=== PATIENT | female | born 1985 | race Caucasian/White ===

== ENCOUNTER → 2017-06-26 14:02 | Outpatient (CLI) | payer OTHER, SELFPAY ==
--- NOTE | 2017-06-26 14:08 | XR_ITS ---
XR abdomen min 2V Ordering Physician: Justen Ceballos MD Patient Age: 32 years: Female HISTORY: ITS.REASON: VOMITING NAUSEA TECHNIQUE: . Flat and upright views abdomen COMPARISON :CT abdomen and pelvis November 2016. FINDINGS Upright abdomen reveals no free air beneath the diaphragm. No organomegaly. Prominent stool is seen throughout the right and transverse colon; with only moderate stool at the left colon & rectosigmoid.. Small bowel fairly unremarkable with no bowel dilatation or obstruction at small bowel. Appreciable Small punctate 2 mm calcification projected over left kidney reflecting small intrarenal calculi seen here on previous 2017 CT There is also a tear of calcifications largest measuring 5 mm projected over the mid right kidney reflecting small right renal calculi. These are also seen on previous CT 2017.. The patient's IUD appears been removed in the interval. I do not see any discrete ureteral calculi on this study. Clinical correlation required. IMPRESSION: 1. No bowel dilatation or obstruction. No air-fluid levels or significant acute findings 2. Prominent stool throughout the right and transverse colon reflecting moderate constipation . Only Mild/moderate stool left colon and rectosigmoid otherwise noted 3 Small punctate bilateral renal calculi as seen on last years CT
== END ==
PROVIDERS: PCP Family Medicine; Visit Provider Family Medicine
DX: R11.12 Projectile vomiting (principal)
CPT/HCPCS: 74019

== ENCOUNTER → 2018-10-01 08:24 | Outpatient (CLI) | payer OTHER, MEDICAID, SELFPAY ==
[2018-10-01 08:46] LABS: Basophils % 0.5 % (0.1-2.0); Eosinophils # 0.1 K/mm3 (0.0-0.4); Eosinophils % 1.3 % (0.1-12.0); Hematocrit 42.3 % (37.0-47.0); Hemoglobin 14.9 g/dL (12.2-16.2); Lymphocytes # 1.9 K/mm3 (0.7-4.5); Lymphocytes % 25.9 % (10-50); Mean Corpuscular HGB Conc 35.2 g/dL (31.8-35.4); Mean Corpuscular Hemoglobin 31.6 pg (27.0-31.2); Mean Corpuscular Volume 89.7 fl (81-99); Mean Platelet Volume 9.8 fl (7.4-10.4); Monocytes # 0.4 K/mm3 (0.1-1.0); Monocytes % 5.3 % (1.7-9.3); Neutrophils # 4.8 K/mm3 (1.8-7.8); Neutrophils % 67.1 % (37.0-80.0); Platelet Count 166 K/mm3 (142-424); Red Blood Count 4.72 M/mm3 (4.20-5.40); Red Cell Distribution Width 12.3 % (11.5-17.5); White Blood Count 7.1 K/mm3 (4.8-10.8)
[2018-10-02 06:08] LABS: HIV Screen 4th Generation wRfx Non Reactive (Non Reactive)
[2018-10-02 08:33] LABS: Hepatitis B Surface Antigen Negative (Negative); Hepatitis C Antibody <0.1 s/co ratio (0.0-0.9); Rubella Antibodies, IgG 1.81 index (Immune >0.99)
[2018-10-03 13:53] LABS: Rapid Plasma Reagin Ab Titer Non Reactive (NonRea<1:1)
== END ==
PROVIDERS: Visit Provider Nurse Practitioner Obstetrics & Gynecology
DX: Z34.90 Encounter for supervision of normal pregnancy, unspecified, unspecified trimester (principal); Z3A.08 8 weeks gestation of pregnancy
CPT/HCPCS: 36415; 85025; 86592; 86703; 86762; 86850; 87340; 87380; G0432

== ENCOUNTER → 2018-10-12 12:40 | Outpatient (CLI) | payer OTHER, MEDICAID, SELFPAY ==
--- NOTE | 2018-10-12 12:43 | US_ITS ---
US OB transvaginal HISTORY: ITS.REASON: US OB Dates ORDERING PHYSICIAN: Александр Lopez MD PATIENT AGE: 33 years COMPARISON: None FINDINGS: An intrauterine gestational sac is present with a pole with a crown-rump length of 3.39cm correlating to gestational age of 10w2d. heart tones are present with an FHR of 174 bpm's. Yolk sac is noted. The amnion and chorion have not yet fused. Adnexa: 1.5 cm right corpus luteum cyst. IMPRESSION: Live intrauterine gestation at 10 weeks 2 days as described above. Estimated due date by Ultrasound is 05/08/2019
== END ==
PROVIDERS: PCP Family Medicine; Visit Provider Nurse Practitioner Obstetrics & Gynecology
DX: O26.841 Uterine size-date discrepancy, first trimester (principal)
CPT/HCPCS: 76817

== ENCOUNTER → 2018-12-18 12:53 | Outpatient (CLI) | payer OTHER, MEDICAID, SELFPAY ==
--- NOTE | 2018-12-18 12:56 | US_ITS ---
US OB /maternal detail: INDICATION: ITS.REASON: US OB Complete ORDERING PHYSICIAN: Александр Lopez MD PATIENT AGE: 33 years TECHNIQUE: ultrasound transabdominal scanning. COMPARISON: No previous relevant studies. FINDINGS: Single viable intrauterine gestation. Cephalic position. Placenta: Anterior although wraps along the superior and upper posterior aspect. Placenta grade 1. There is normal amount fluid. The cervix appears satisfactory. Closed and measuring 3.3 cm in length. Complete survey performed and was unremarkable on the submitted images as in PACS. No discrete anomalies identified on survey imaging by technologist. Active fetus. Three-vessel cord with satisfactory umbilical cord insertion. 4- chamber heart noted. Survey of brain & ventricles unremarkable. Face and neck survey unremarkable. Diaphragm and chest views unremarkable. Abdomen: Both kidneys noted and unremarkable. Stomach noted and satisfactory. Spine: Survey of the spine satisfactory with no anomalies identified nor imaged. Both arms and legs noted. Amniotic Fluid: Adequate. Maternal adnexa: No significant findings. Measurements: Average ultrasound age 20 weeks 3 days. Gestational Age 19 weeks 6 days. Estimated due date by ultrasound age 1205/04/2019. Estimated weight 339 grams. BPD = 4.7 OFD = 6.4 HC = 17.8 AC = 15.1 FL = 3.2 Growth Percentile= 66% Heart Rate = 155 bpm. Cerebellum = 2.0 Humerus = 3.1 HC/AC is 1.17. CI is 74%. FL/BPD is 67%. FL/AC is 21%. IMPRESSION: Single intrauterine fetus in cephalic position with anterior grade 1 placenta and heart rate of 155 bpm. Gestational age by ultrasound is approximately 20 weeks and 3 days. Visualized portions of the anatomy on this study appears to be normal.
== END ==
PROVIDERS: PCP Family Medicine; Visit Provider Nurse Practitioner Obstetrics & Gynecology
DX: Z36.0 Encounter for antenatal screening for chromosomal anomalies (principal)
CPT/HCPCS: 76811

== ENCOUNTER → 2019-02-13 08:07 | Outpatient (CLI) | payer OTHER, MEDICAID, SELFPAY ==
[2019-02-13 08:32] LABS: Glucose,Fasting 94 mg/dL (60-105)
[2019-02-13 10:56] LABS: Glucose 1 Hour 174 mg/dL (74-106)
== END ==
PROVIDERS: Visit Provider Nurse Practitioner Obstetrics & Gynecology
DX: Z34.90 Encounter for supervision of normal pregnancy, unspecified, unspecified trimester (principal)
CPT/HCPCS: 36415; 82951

== ENCOUNTER → 2019-02-15 09:05 | Outpatient (CLI) | payer OTHER, MEDICAID, SELFPAY ==
[2019-02-15 10:41] LABS: Glucose,Fasting 83 mg/dL (60-105)
[2019-02-15 11:16] LABS: Glucose 1 Hour 150 mg/dL (74-106)
[2019-02-15 12:52] LABS: Glucose 2 Hour 114 mg/dL (74-106)
[2019-02-15 13:05] LABS: Glucose 3 Hour 60 mg/dL (74-106)
== END ==
PROVIDERS: Visit Provider Nurse Practitioner Obstetrics & Gynecology
DX: Z34.90 Encounter for supervision of normal pregnancy, unspecified, unspecified trimester (principal)
CPT/HCPCS: 36415; 82951

== ENCOUNTER 2019-04-06 18:03 | Outpatient (CLI) | payer OTHER, SELFPAY ==
[2019-04-06 18:38] VITALS: BP 116/70; PULSE 130; RESP 18; TEMP 36.7; O2SAT 98; BMI 29.0
[2019-04-06 18:49] LABS: Microscopic, Urine URINE MICROSCOPIC (MICROSCOPIC)
[2019-04-06 18:51] LABS: Appearance,Urine CLEAR (Clear); Bilirubin,Urine Negative (Negative); Blood, Urine 1+ (Negative); Color,Urine YELLOW (Yellow); Glucose,Urine (UA) Negative (Negative); Ketones,Urine Negative (Negative); Leukocyte Esterase,Urine TRACE (Negative); Nitrate,Urine Negative (Negative); PH,Urine 6.5 (5.0-8.5); Protein,Urine TRACE (Negative); Specific Gravity, Urine <= 1.005 (1.005-1.030); Urobilinogen,Urine 0.2 EU/dl (0.2)
[2019-04-06 18:57] LABS: Amorphous Sediment,Urine Trace /lpf
[2019-04-06 19:00] LABS: Amphetamine/Metha Screen,Urine Negative ng/mL (<1000); Barbiturates Screen,Urine Negative ng/mL (<200); Benzodiazepines Screen,Urine Negative ng/mL (<200); Cannabinoid Screen,Urine Negative ng/mL (<50); Cocaine Screen,Urine Negative ng/mL (<300); Methadone Screen,Urine Negative ng/mL (<300); Opiate Screen,Urine Negative ng/mL (<300); Phencyclidine Screen,Urine Negative ng/mL (<25)
== END 2019-04-06 20:10 | disposition home or self-care (01) ==
LOC: OBOUT 18:05 → OB 18:07
PROVIDERS: PCP Family Medicine; Visit Provider Nurse Practitioner Obstetrics & Gynecology
DX: O26.893 Other specified pregnancy related conditions, third trimester (principal); Z3A.35 35 weeks gestation of pregnancy; R10.9 Unspecified abdominal pain; M54.5 Low back pain
CPT/HCPCS: 59025; 80305; 81001; 96360

== ENCOUNTER → 2019-04-10 17:25 | Outpatient (CLI) | payer OTHER, SELFPAY | PROVIDERS: Visit Provider Nurse Practitioner Obstetrics & Gynecology | DX: Z34.90 Encounter for supervision of normal pregnancy, unspecified, unspecified trimester (principal) | CPT/HCPCS: 86403 ==

== ENCOUNTER 2019-05-06 01:36 | Inpatient (IN) ==
[2019-05-06 02:07] LABS: Microscopic, Urine URINE MICROSCOPIC (MICROSCOPIC)
[2019-05-06 02:15] LABS: Appearance,Urine CLEAR (Clear); Bilirubin,Urine Negative (Negative); Blood, Urine 1+ (Negative); Color,Urine YELLOW (Yellow); Glucose,Urine (UA) Negative (Negative); Ketones,Urine Negative (Negative); Leukocyte Esterase,Urine TRACE (Negative); Protein,Urine Negative (Negative); Specific Gravity, Urine <= 1.005 (1.005-1.030); Urobilinogen,Urine 0.2 EU/dl (0.2)
[2019-05-06 02:21] LABS: Amphetamine/Metha Screen,Urine Negative ng/mL (<1000); Barbiturates Screen,Urine Negative ng/mL (<200); Benzodiazepines Screen,Urine Negative ng/mL (<200); Cannabinoid Screen,Urine Negative ng/mL (<50); Cocaine Screen,Urine Negative ng/mL (<300); Methadone Screen,Urine Negative ng/mL (<300); Opiate Screen,Urine Negative ng/mL (<300); Phencyclidine Screen,Urine Negative ng/mL (<25)
[2019-05-06 03:03] LABS: Basophils # 0.1 K/mm3 (0-0.2); Basophils % 0.3 % (0.1-2.0); Eosinophils # 0.2 K/mm3 (0.0-0.4); Eosinophils % 1.1 % (0.1-12.0); Hematocrit 38.1 % (37.0-47.0); Hemoglobin 12.3 g/dL (12.2-16.2); Lymphocytes # 2.8 K/mm3 (0.7-4.5); Lymphocytes % 16.4 % (10-50); Mean Corpuscular HGB Conc 32.2 g/dL (31.8-35.4); Mean Corpuscular Volume 91.7 fl (81-99); Mean Platelet Volume 9.3 fl (7.4-10.4); Monocytes # 0.9 K/mm3 (0.1-1.0); Monocytes % 5.4 % (1.7-9.3); Neutrophils % 76.7 % (37.0-80.0); Platelet Count 279 K/mm3 (142-424); Red Blood Count 4.16 M/mm3 (4.20-5.40); Red Cell Distribution Width 13.7 % (11.5-17.5)
[2019-05-06 03:20] LABS: Lymphocytes % 15 % (10-50); Monocytes % 1 % (2-9); Neutrophils % 77 % (42-76); RBC Morphology Normal; Total Cells Counted 100
--- NOTE | 2019-05-06 07:27 | Progress Note ---
[facility] Anesthesia Checklist - Patient Identification Patient Identification: Arm Band, Verbal (Name & ) - Structural Data Admitted From: Home Planned Operative Procedure/s: Labor Epidural Consent for Planned Operative Procedure(s) Verified: Yes Verified Documents: Surgical Consent, History and Physical - Chart Verification Results Verified: CBC - Additional verifications Patient : Yes Anesthesia Reactions: No - Airway Assessment C-Spine Mobility Assessed: Yes TMJ Mobility Assessed: Yes Dentition: Good Dentition - Neurological Assessment Level of Consciousness: Awake, Alert, Appropriate, Follows Commands Hx Seizures: No Numbness or tingling in extremities: No - Anesthesia Plan Anesthesia Risk discussed: Yes Anesthesia Plan: Verified ASA Class: II Anesthesia Type: Epidural [facility] History I have reviewed the patient's past medical history: Yes Medical History: Reports:: Anxiety, Depression, Diabetes Mellitus Type 1, Gastroesophageal Reflux Disease(GERD), Migraine *Have you ever received a pneumonia vaccine?: No *Have you received a flu vaccine this season?: Yes Other Medical History: Reports: Hypothyroidism, Other Anesthesia experience/problems:: none Laterality Cases: Other Surgeries: Yes: No Previous Surgery. No: Amputation: No Fractures: No - *Social History Smoking Status: Current every day smoker Tobacco Type: cigarettes Alcohol Intake: never Alcohol Intake Frequency:: other Substance Use Type: denies use *Occupational Status:: employed Housing: house Household Members: family *Travel in the last 8 weeks: None - Psychiatric History Pschychiatric History:: Reports:: Anxiety, Depression Family Hx:: No significant family history Para: 1
--- NOTE | 2019-05-06 08:43 | Progress Note ---
Labor Note - Subjective: Date: 05/06/19 Time: 08:42 regular contraction - Objective: NST:: Reactive Contractions:: every 2-3 minutes Cervical Dilation:: 3 Effacement:: 75% Station: -2 Membranes: ruptured Comment:: She came in with ruptured membranes and on examination she had a small bag of water. I broke this bag. There was clear fluid. - Fetus: Monitoring?: Yes monitoring type:: Internal and External Comment:: I inserted an IUPC - Assessment: Labor progressing?: Yes Cephalopelvic disproportion?: No Patient Problems: All Active Problems AMA (advanced maternal age) multigravida 35+ (Acute) (Acute) Fatigue (Acute) Headache (Acute) Acute muscle stiffness of neck (Acute) - Plan: Anesthesia for epidural?: Yes Continue to labor down?: Yes Plan for ?: No Continue to monitor?: Yes Start pushing?: No
--- NOTE | 2019-05-06 11:18 | Progress Note ---
Labor Note - Subjective: Date: 05/06/19 Time: 11:17 regular contraction - Objective: NST:: Reactive Contractions:: every 2-3 minutes Cervical Dilation:: 4 Effacement:: 75% Station: -1 Membranes: spontaneously ruptured - Fetus: Monitoring?: Yes monitoring type:: Internal and External - Assessment: Labor progressing?: Yes Cephalopelvic disproportion?: No Patient Problems: All Active Problems AMA (advanced maternal age) multigravida 35+ (Acute) (Acute) Fatigue (Acute) Headache (Acute) Acute muscle stiffness of neck (Acute) - Plan: Anesthesia for epidural?: Yes Continue to labor down?: Yes Plan for ?: No Continue to monitor?: Yes Start pushing?: No
--- NOTE | 2019-05-06 13:42 | Progress Note ---
Labor Note - Subjective: Date: 05/06/19 Time: 13:41 regular contraction - Objective: NST:: Reactive Contractions:: every 2-3 minutes Cervical Dilation:: 5 Effacement:: 100% Station: -1 Membranes: spontaneously ruptured - Fetus: Monitoring?: Yes monitoring type:: Internal and External - Assessment: Labor progressing?: Yes Cephalopelvic disproportion?: No Patient Problems: All Active Problems AMA (advanced maternal age) multigravida 35+ (Acute) (Acute) Fatigue (Acute) Headache (Acute) Acute muscle stiffness of neck (Acute) - Plan: Anesthesia for epidural?: Yes Continue to labor down?: Yes Plan for ?: No Continue to monitor?: Yes Start pushing?: No
--- NOTE | 2019-05-06 16:29 | Progress Note ---
Labor Note - Subjective: Date: 05/06/19 Time: 16:00 regular contraction - Objective: Cervical Dilation:: 9 Effacement:: 100% Station: 0 Membranes: spontaneously ruptured - Fetus: Monitoring?: Yes monitoring type:: Internal and External - Assessment: Labor progressing?: Yes Cephalopelvic disproportion?: No Patient Problems: All Active Problems AMA (advanced maternal age) multigravida 35+ (Acute) (Acute) Fatigue (Acute) Headache (Acute) Acute muscle stiffness of neck (Acute) - Plan: Anesthesia for epidural?: Yes Continue to labor down?: Yes Plan for ?: No Continue to monitor?: Yes Start pushing?: No Comment:: She continues to do well. She has an anterior lip. We will expect a vaginal delivery.
[2019-05-06 17:32] LABS: ABG Base Excess -6.2 mmol/L (-2.4-2.3); ABG HCO3 20.1 mmhg (22.0-26.0); ABG Oxygen Saturation 60 % (90-100); ABG PCO2 40.9 mmhg (35.0-45.0); ABG PH 7.31 mmol/L (7.35-7.45); ABG TCO2 21.3 mmhg (23-27)
[2019-05-06 17:35] LABS: ABG PO2 22.8 mmhg (80-100)
--- NOTE | 2019-05-06 17:41 | Procedure Note ---
- Delivery Note Delivery Date:: 05/06/19 Delivery Time:: 17:21 Anesthesia Type: Epidural Was labor medically induced?: Yes Induction method: per pitocin protocol Gestational age (weeks): 39 delivered prior to 39 weeks?: No Gender: Male at 1 minute: 8 at 5 minutes: 9 LAC or MLE?: LAC Delivery Procedure:: She is a 34-year-old 2 para 1 who was 39 and 6 weeks gestational age. She was having some pressure and as result of that we elected to induce her labor at term. She was started on IV oxytocin had her membranes ruptured. Under labor epidural she progressed to full dilation and delivered spontaneously a liveborn male child at 5:21 PM in the afternoon of May 06, 2019. On deliver the head the anterior shoulder then delivered followed by the rest the infant's body atraumatically. The baby was vigorous and cried spontaneously. We allowed the cord to continue to pulsate for approximately 1 minute. The cord was then doubly clamped and cut and the infant was then placed on the mother's abdomen for further care. The nurses assigned Apgars of 8 at 1 minute and 9 at 5 minutes. We then obtained cord blood as well as cord pH. She received IV oxytocin and using gentle traction on the cord and countertraction on the fundus I was able to easily deliver the placenta intact. It had a normal three-vessel cord. She had a second-degree perineal laceration was repaired in the usual fashion with 3-0 Vicryl Rapide suture to the superficial tissues and 2-0 Vicryl suture to the deep tissues. She had a small left labial tear that was repaired with interrupted 3-0 Vicryl Rapide suture. Her estimated blood loss was approximately 500 cc. All sponge instrument and needle counts were correct. Laceration:: vaginal, labial Placental Delivery Description: Spontaneous
[2019-05-07 06:52] LABS: Hematocrit 30.4 % (37.0-47.0); Hemoglobin 9.8 g/dL (12.2-16.2)
--- NOTE | 2019-05-07 07:36 | Progress Note ---
Internal Medicine - PN: Subj *Date: 05/07/19 *Time: 07:35 Interval history: She is doing well this morning. She is eating and drinking and ambulating. She is breast-feeding. Her lochia is normal. Exam Vital signs and Labs for Last 24 Hours: Temp Pulse Resp BP Pulse Ox 97.5 F L 106 H 20 123/69 100 05/06/19 08:00 05/06/19 08:00 05/06/19 08:00 05/06/19 08:00 05/06/19 08:00 Laboratory Results - last 24 hr 05/06/19 17:29: ABG pH 7.31 L, ABG pCO2 40.9, ABG pO2 22.8 L, ABG HCO3 20.1 L, ABG Total CO2 21.3 L, ABG O2 Saturation 60 L*, ABG Base Excess -6.2 L 05/07/19 06:24: Hgb 9.8 L, Hct 30.4 L I & O for Last 24 hours: Intake & Output 05/04/19 05/05/19 05/06/19 05/07/19 11:59 11:59 11:59 11:59 Weight 178 lb Microbiology Reports for the Last 24 Hours: Microbiology 05/06/19 01:45 Urine,Clean Catch Urine Culture - Preliminary NO GROWTH AFTER 24 HOURS - Constitutional no acute distress Assessment and Plan (1) Normal delivery at term Current visit: Yes Status: Acute Category: Medical Code(s): O80 - Encounter for full-term uncomplicated delivery - Assessment and plan all Dx Assessment and Plan for all problems:: She continues to do well. We will plan to send her home tomorrow.
[2019-05-07 08:06] VITALS: BP 126/85
--- OUTSIDE RECORDS SUMMARY | 2019-05-07 15:21 | External Medical Summary | Continuity of Care Document ---
:1985 Author Organization [facility] Address [address] [facility] [address] [place] [address] Phone Care Team Providers Name Role Phone John Attending Provider Graeme Brewer Primary Care Provider Víctor Attending Provider George Attending Provider Allergies, Adverse Reactions, Alerts Allergen Type Severity Reaction Last Verified Status Updated meperidine Allergy Unknown Yes Active Medications Medication Status Dose Units Route Sig Qty Days Start Date End Ins tructions Date Vit Active 1 TAB Oral Daily October 24 Calc,Iron,Fo 2018 lic 12:14pm Melatonin Active 5 MG Oral At January bedtime 2017 nightly 9:46am Ferrous Active 325 MG Oral Daily April 7:47am Problems Active Problems Medical Problem Onset Date Status Fatigue Active Normal delivery at term Active AMA (advanced maternal age) Active multigravida 35+ Headache Active Active Acute muscle stiffness of neck Active Procedures Procedure Date Performed Status Group B Streptococcus Screen April 10, 2019 completed (JONATHAN) Relevant Diagnostic Tests and/or Laboratory Data Laboratory Results Test Date/Time Result Interpretation Reference Result Perfo rming Range Comment Site Urine Color January 11:27am Urine Color January 1:59pm Urine Color October Yellow 2018 11:05am Urine Color October Yellow 2018 11:13am Urine Color October Yellow 2018 10:51am Urine Color November Yellow 2018 10:32am Urine Color November Yellow 2018 4:53pm Urine Color November Yellow 2018 10:13am Urine Color Rhys Yvette 2018 11:57am Urine Angelique Clear Appearance 2018 11:27am Urine Angelique Clear Appearance 2018 1:59pm Urine October Clear Appearance 2018 11:05am Urine October Clear Appearance 2018 11:13am Urine October Clear Appearance 2018 10:51am Urine November Clear Appearance 2018 10:32am Urine November Clear Appearance 2018 4:53pm Urine November Clear Appearance 2018 10:13am Urine Rhys Clear Appearance 2018 11:57am Urine Glucose Angelique Negative (UA) 2018 11:27am Urine Glucose Angelique Negative (UA) 2018 1:59pm Urine Glucose October Negative (UA) 2018 11:05am Urine Glucose October Negative (UA) 2018 11:13am Urine Glucose October Negative (UA) 2018 10:51am Urine Glucose November Negative (UA) 2018 10:32am Urine Glucose November Negative (UA) 2018 4:53pm Urine Glucose November Negative (UA) 2018 10:13am Urine Glucose Rhys Negative (UA) 2018 11:57am Urine Angelique negative Bilirubin 2018 11:27am Urine Angelique negative Bilirubin 2018 1:59pm Urine October negative Bilirubin 2018 11:05am Urine October negative Bilirubin 2018 11:13am Urine October small Bilirubin 2018 10:51am Urine November negative Bilirubin 2018 10:32am Urine November negative Bilirubin 2018 4:53pm Urine November negative Bilirubin 2018 10:13am Urine Rhys negative Bilirubin 2018 11:57am Urine Ketones Angelique Negative mg/dL 2018 11:27am Urine Ketones Angelique Negative mg/dL 2018 1:59pm Urine Ketones October Negative mg/dL 2018 11:05am Urine Ketones October Negative mg/dL 2018 11:13am Urine Ketones October Negative mg/dL 2018 10:51am Urine Ketones March Negative mg/dL 2018 10:32am Urine Ketones March Negative mg/dL 2018 4:53pm Urine Ketones March Negative mg/dL 2018 10:13am Urine Ketones April Negative mg/dL 2018 11:57am Urine Protein Angelique Trace 2018 11:27am Urine Protein January Negative 2018 1:59pm Urine Protein February Negative 2018 11:05am Urine Protein February Negative 2018 11:13am Urine Specific October 1.010 [place] 2018 10:51am Urine Protein March Negative 2018 10:32am Urine Protein March Negative 2018 4:53pm Urine Protein March Negative 2018 10:13am Urine Protein April Negative 2018 11:57am Urine pH Angelique 7.0 2018 11:27am Urine pH Angelique 7.0 2018 1:59pm Urine pH October 7.0 2018 11:05am Urine pH October 7.0 2018 11:13am Urine Blood October negative 2018 10:51am Urine pH November 7.0 2018 10:32am Urine pH November 6.0 2018 4:53pm Urine pH November 7.0 2018 10:13am Urine pH Rhys 7.0 2018 11:57am Urine Blood Angelique nonhemolyzed 2018 trace 11:27am Urine Blood January nonhemolyzed 2018 trace 1:59pm Urine Blood October nonhemolyzed 2018 trace 11:05am Urine Blood October negative 2018 11:13am Urine pH October 6.0 2018 10:51am Urine Blood November nonhemolyzed 2018 trace 10:32am Urine Blood November nonhemolyzed 2018 trace 4:53pm Urine Blood November nonhemolyzed 2018 trace 10:13am Urine Blood Rhys nonhemolyzed 2018 trace 11:57am Urine Specific Angelique 1.010 [place] 2018 11:27am Urine Specific Angelique 1.005 [place] 2018 1:59pm Urine Specific February 1.010 [place] 2018 11:05am Urine Specific February 1.010 [place] 2018 11:13am Urine Protein February Negative 2018 10:51am Urine Specific November 1.015 [place] 2018 10:32am Urine Specific November 1.015 [place] 2018 4:53pm Urine Specific November 1.010 [place] 2018 10:13am Urine Specific Rhys 1.015 [place] 2018 11:57am Urine Angelique 0.2 Urobilinogen 2018 Dipstick 11:27am Urine Angelique 0.2 Urobilinogen 2018 Dipstick 1:59pm Urine October 0.2 Urobilinogen 2018 Dipstick 11:05am Urine October 0.2 Urobilinogen 2018 Dipstick 11:13am Urine October 0.2 Urobilinogen 2018 Dipstick 10:51am Urine November 0.2 Urobilinogen 2018 Dipstick 10:32am Urine November 0.2 Urobilinogen 2018 Dipstick 4:53pm Urine November 0.2 Urobilinogen 2018 Dipstick 10:13am Urine Rhys 0.2 Urobilinogen 2018 Dipstick 11:57am Urine Nitrate Angelique Negative 2018 11:27am Urine Nitrate Angelique Negative 2018 1:59pm Urine Nitrate October Negative 2018 11:05am Urine Nitrate October Negative 2018 11:13am Urine Nitrate October Negative 2018 10:51am Urine Nitrate November Negative 2018 10:32am Urine Nitrate November Negative 2018 4:53pm Urine Nitrate November Negative 2018 10:13am Urine Nitrate Rhys Negative 2018 11:57am Urine Angelique Trace Leukocyte 2018 Esterase 11:27am Urine Angelique Small Leukocyte 2018 Esterase 1:59pm Urine October Trace Leukocyte 2018 Esterase 11:05am Urine October Trace Leukocyte 2018 Esterase 11:13am Urine October Small Leukocyte 2018 Esterase 10:51am Urine November Trace Leukocyte 2018 Esterase 10:32am Urine November Trace Leukocyte 2018 Esterase 4:53pm Urine November Trace Leukocyte 2018 Esterase 10:13am Urine Rhys Trace Leukocyte 2018 Esterase 11:57am Fasting Angelique 94 mg/dL 60-105 [facility], [address] Glucose 2018 [place] [id number] 8:09am Fasting Angelique 83 mg/dL 60-105 [facility], [facility] 36 E Glucose 2018 [place] [id number] 9:06am Glucose 1 Hour January 174 mg/dL 74-106 [facility], [address] [place] [address] 36 E 2018 [place] [id number] 8:09am Glucose 1 Hour January 150 mg/dL 74-106 [facility], [facility] 36 E 2018 Rigober[place] [address] 9:06am Glucose 2 Hour January 114 mg/dL 74-106 [facility], [address] [place] [address] 36 E 2018 [place] [address] 9:06am Glucose 3 Hour Angelique 60 mg/dL 74-106 [facility], [address] [place] [address] 36 E 2018 [place] [id number] 9:06am Urine Fasting Angelique Negative mg/dL [facility], [address] [place] [address] 36 E Glucose 2018 [place] [address] 8:09am Urine Fasting Angelique Negative mg/dL [facility], [address] [place] [address] 36 E Glucose 2018 Rigober[place] SHAIKH [id number] 9:06am Urine Glucose Angelique Negative mg/dL [facility], [address] [place] [address] 36 E 1 Hour 2018 Rigober[place] [address]21 8:09am Urine Glucose Angelique Negative mg/dL [facility], [address] [place] [address] 36 E 1 Hour 2018 Rigober[place]AIKH [id number] 9:06am Urine Glucose Angelique Negative mg/dL [facility], [address] [place] [address] 36 E 2 Hour 2018 [place] [address] 9:06am Urine Glucose Angelique Negative mg/dL [facility], [address] [place] [address] 36 E 3 Hour 2018 [place] [id number] 9:06am Microbiology Results Procedure Source Result Collection Result Result Performin g Date/Time Date/Time Comment Site Group B Vaginal Negative March [facility], [address] [place] [address] 36 E Streptococcus for Group B 2018 Thee [place] [address] Screen (JONATHAN) Streptococc 10:33am 7:09am us. Advance Directives Advance Directive Response Recorded Date/Time Does the patient have an No May 03 019 11:48am advanced directive on file? Living Will No May 03, 2019 1 1:48am Does the patient have an No April 10, 2019 11:04am advanced directive on file? Living Will No April 10, 2019 11:04am Does the patient have an No April 18, 2019 11:18am advanced directive on file? Living Will No April 18, 2019 11:18am Does the patient have an No March 27 019 11:06am advanced directive on file? 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 Due date 05/07/19 Crampi ng and pain in r back OFFICE DROP OFF Water broke Reason for Visit Normal delivery at term Encounters Encounter Location(s) Arrival/Admit Date Discharge/Depart Date Provider(s) Departed [facility] Physician February 12, February 12, 2019 Shah [facility] 2018 11:11am 12:02pm [facility] John Visit Registered [facility] Physician February 13, Александр kate , [facility] 2018 8:07am Registered [facility] Physician February 15, Александр kate , [facility] 2018 9:05am Departed [facility] Physician February 19, February 19, 2019 Shah [facility] 2018 1:30pm 2:08pm [facility] John Visit Departed [facility] Physician February 27, 2019 February 27, 2019 Pedrito Lopez [facility] 10:31am 11:07am [facility] John Visit Departed [facility] Physician March 13, 2019 March 13, 2019 Geneva Renee , [facility] 10:26am 11:24am [facility] John Visit Departed [facility] Physician March 27, 2019 March 27, 2019 Batista [facility] 10:29am 10:58am [facility] John Visit Registered [facility] Physician April 06, 2019 April 06, 2019 Batista , [facility] 6:03pm 8:10pm MD Avi Lopez Departed [facility] Physician April 10, April 10, 2019 Александр Lopez [facility] 2018 10:11am 11:04am [facility] Lopez Visit Registered [facility] Physician April 10, Александр Lopez , Clinical Group-Lab Drop 2018 5:25pm MD Off to [facility] Departed [facility] Physician April 18, April 18, 2019 Александр Lopez [facility] 2018 10:48am 11:36am [facility] John Visit Departed [facility] Physician April 23, April 23, 2019 Александр Lopez [facility] 2018 9:48am 10:26am [facility] John Visit Departed [facility] Physician May 03, 2019 May 03, 2019 Batista [facility] 10:52am 11:36am [facility] John Visit Registered [facility] Physician May 06, 2019 Александр pires , [facility] 1:36am MD Avi Lopez Registered [facility] Physician May 07, Reinaldo em Inpatient Group- 2018 2:57pm Recent Diagnosis Onset Date Normal delivery at term Assessments Diagnosis Onset Date Resolution Status Normal delivery at term acute Functional Status Observation Response Date Recorded Functional status ambulatory May 03, 2019 1 1:48am Functional status ambulatory April 10, 2019 11:04am Functional status ambulatory April 23, 2019 10:31am Functional status ambulatory April 18, 2019 11:18am Functional status ambulatory March 27, 2019 1 1:06am Oral Care Ability Independent March 27, 2019 1 1:06am Bathing Ability Independent March 27, 2019 1 1:06am Eating (Feeding) Ability Independent March 27 019 11:06am Toileting Ability Independent March 27, 2019 1 1:06am Ambulation Ability Independent March 27, 2019 1 1:06am Functional status ambulatory March 13, 2019 2 :08pm Functional status ambulatory February 19, 2019 2:17pm Functional status ambulatory February 27, 2019 11 :08am Functional status ambulatory February 12, 2019 1:59pm Goals Acute Goals Nursing Diagnosis: Knowledge Deficit D isease/Condition Goal(s): Education of di sease process Instruction(s): Follow provider p jeff/instructions (See attached discharge education) Follow/up with primary care provider as instructed in discharge packet Ambulatory Goals pt verbalizes understanding of disease p rocess/healthy behavior. pt to follow plan of care. Education provided. Immunizations Immunization Event Not Given Dose Hot Box Spotter Lot Number Vac cine Date Reason Number Informatio n Statement (VIS) Deta il Measles, Mumps, August and Rubella , Virus Vaccine 1995 Td, adsorbed December 05, 2002 Mental Status No Mental Status Information Available Medical Equipment No Medical Equipment Information available Insurance Providers Guarantor Jaja Rakesh Address [address] [place] [address] Rigoberto [place] [id number] Contact Info. Home Phone: Payer Policy Id Coverage Id Subscriber's Subscriber Effective Expi ration Name Id Date Date Aetna [id number] [facility] [id number] Passport [id number] Health Plan Self Pay Self N/A Plan of Treatment She continues to do well. She has occasional contractions. Her cervix has changed somewhat. We will plan to deliver her next week. We did group B strep today. She is doing well. We will see her back again next week. She continues to do well. She does have some pruritus. Otherwise she is doing well. We will see her back next week. She is doing well. We will see her back again next week. She is not having any regular contractions. She is doing well. We will see her back again in 2 weeks time. Routine care RTO 2 wks She is quite stressed out because she is extremely fatigued. 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 I told her that she should probably only do 12-hour shifts. I think this may help with her fatigue. She says by the end of the 24-hour shift that she is been very busy she is completely exhausted. Her blood pressure was slightly elevated and I suspect she may be stressed. We will see how she does next week. If her blood pressure still elevated we will consider low-dose labetalol. She denies any headache or scotomata. She continues to do very well. We will see her back again in [address] with Dr. Renee and me in 4 weeks. Sounds like she may be having a few contractions at times. Told her that if they get worse or they become more regular she is coming to labor and delivery. Future Tests Future scheduled test information is unavailable Pending Tests Pending diagnostic test information is unavailable Future Visits Future appointment information is unavailable Referrals to Other Providers Reason for Referral Start Provider Provider Contact Provider Address Referral Date Information Admission to [facility] May [address] [facility] Future Procedures Future procedure information is unavailable Future Medications Future medication information is unavailable Patient Instructions Diet Diet Diet Diet Diet Antepartum Care Diet Diet Diet Diet Depression Hemorrhage [facility] Post Discharge Instructions Social History Assigned Sex Female Vital Signs Vital Reading Result Reference Range Collection Date/ Time Height 172.72 cm February 12, 2019 11:43am Weight 79.60 kg February 12, 2019 11:43am BP Systolic 150 mm[Hg] 110-140 February 12, 2019 11:43am BP Diastolic 80 mm[Hg] 60-90 February 12, 2019 11:43am BMI (Body Mass Index) 26.6 kg/m2 February 12, 2019 11:43am Height 172.72 cm February 19, 2019 1:47pm Weight 81.19 kg February 19, 2019 1:47pm BP Systolic 138 mm[Hg] 110-140 February 19, 2019 1:47pm BP Diastolic 90 mm[Hg] 60-90 February 19, 2019 1:47pm BMI (Body Mass Index) 27.2 kg/m2 February 19, 2019 1:47pm Height 172.72 cm February 27 10:49am Weight 79.15 kg February 27 10:49am BP Systolic 132 mm[Hg] 110-140 February 27 10:49am BP Diastolic 78 mm[Hg] 60-90 February 27 10:49am BMI (Body Mass Index) 26.5 kg/m2 February 10:49am Height 172.72 cm March 13 10:30am Weight 81.64 kg March 13 10:30am BP Systolic 122 mm[Hg] 110-140 March 13 10:30am BP Diastolic 80 mm[Hg] 60-90 March 13 10:30am BMI (Body Mass Index) 27.3 kg/m2 March 132018 10:30am Height 172.72 cm March 27 10:36am Weight 80.39 kg March 27 10:36am Body Temperature 98 [degF] 97.6-99.6 March 27, 2 019 10:36am Heart Rate 80 /min -March 27, 10:36am BP Systolic 130 mm[Hg] 110-140 March 27, 10:36am BP Diastolic 82 mm[Hg] 60-90 March 27, 10:36am BMI (Body Mass Index) 26.9 kg/m2 March 272018 10:36am Height 167.64 cm April 06, 6:38pm Weight 81.64 kg April 06, 6:38pm Body Temperature 98.0 [degF] 97.6-99.6 April 06, 2 019 6:38pm Heart Rate 130 /min April 06 6:38pm Respiratory rate 18 /min -April 06, 2 019 6:38pm Oxygen saturation by 98 % 95-100 March Pulse oximetry 6:38pm BP Systolic 116 mm[Hg] 110-140 April 06, 6:38pm BP Diastolic 70 mm[Hg] 60-90 April 06, 6:38pm BMI (Body Mass Index) 29.0 kg/m2 April 062018 6:38pm Height 167.64 cm April 10, 2 019 10:34am Weight 80.73 kg April 10, 2 019 10:34am BP Systolic 116 mm[Hg] 110-140 April 10, 2 019 10:34am BP Diastolic 70 mm[Hg] 60-90 April 10, 2 019 10:34am BMI (Body Mass Index) 28.7 kg/m2 March 292018 10:34am Height 167.64 cm April 18, 2 019 11:06am Weight 82.10 kg April 18, 2 019 11:06am BP Systolic 122 mm[Hg] 110-140 April 18, 2 019 11:06am BP Diastolic 90 mm[Hg] 60-90 April 18, 2 019 11:06am BMI (Body Mass Index) 29.2 kg/m2 March 302018 11:06am Height 167.64 cm April 23, 2 019 9:51am Weight 80.51 kg April 23, 2 019 9:51am BP Systolic 130 mm[Hg] 110-140 April 23, 2 019 9:51am BP Diastolic 82 mm[Hg] 60-90 April 23, 2 019 9:51am BMI (Body Mass Index) 28.6 kg/m2 March 302018 9:51am Height 167.64 cm May 03 10:59am Weight 81.19 kg May 03 10:59am BP Systolic 130 mm[Hg] 110-140 May 03 10:59am BP Diastolic 80 mm[Hg] 60-90 May 03 10:59am BMI (Body Mass Index) 28.8 kg/m2 May 032018 10:59am Height 167.64 cm May 06 3:35am Weight 80.73 kg May 06 3:35am Body Temperature 98.0 [degF] 97.6-99.6 May 07, 2019 8:00am Heart Rate 85 /min -May 07, 019 8:00am Respiratory rate 20 /min -May 07, 2019 8:00am Oxygen saturation by 100 % 95-100 May 072018 Pulse oximetry 8:00am BP Systolic 126 mm[Hg] 110-140 May 07, 2 019 8:00am BP Diastolic 85 mm[Hg] 60-90 May 07, 2 019 8:00am BMI (Body Mass Index) 28.7 kg/m2 May 062018 3:35am
--- NOTE | 2019-05-08 09:22 | Discharge Summary ---
General - General Admission date:: 05/06/19 Discharge date: 05/08/19 HPI HPI: She is a 34-year-old 2 para 2 who was 39 weeks gestational age and came in with ruptured membranes. Hospital Course Hospital Course: She had ruptured membranes and was augmented with oxytocin. She progressed to full dilation and delivered spontaneously a liveborn male child. She has done well and has remained afebrile throughout her hospitalization. She is eating and drinking and ambulating. She is breast- feeding. Her lochia is normal. She has O+ blood, she is rubella immune and was group B streptococcus negative. She is discharged home to follow-up with me in approximately 2 weeks time. Apparently her oldest son tested positive for the flu and she has been taking Tamiflu for the last couple of days. She will continue this for a total of 5 days. Her condition on discharge is stable and improved. Rhogam Administration: Not Indicated Objective Vital signs: Temp Pulse Resp BP Pulse Ox 98.0 F 85 20 126/85 100 05/07/19 08:00 05/07/19 08:00 05/07/19 08:00 05/07/19 08:00 05/07/19 08:00 no acute distress DS: Diagnosis - Discharge Diagnosis (1) Normal delivery at term Status: Acute (2) AMA (advanced maternal age) multigravida 35+ Status: Acute Discharge Plan - Patient Discharge Instructions ACTIVITY: No heavy lifting DIET: continue same diet Additional Instructions: NO HEAVY LIFTING, NO STRENUOUS ACTIVITY AND NOTHING IN THE VAGINA FOR 6 WEEKS Patient Instructions: Depression, Hemorrhage, [facility] Post Discharge Instructions - Follow up Plan Follow up with: Александр Lopez MD [Staff Physician] - Disposition: Home, Self-Shelter Medications: Home Medications Medication Instructions Recorded Confirmed Type Melatonin 5 mg PO HS 02/23/18 05/06/19 History 1 tab PO DAILY 10/24/18 05/06/19 History vitamin,calcium,reaoeipj-xhvb-ycnns acid tablet Ferrous Sulfate 325 mg PO DAILY 05/06/19 05/06/19 History Prescriptions/Medication Reconciliation: Continued vitamin,calcium,guawjflk-gaud-xljhz acid tablet 1 tab PO DAILY Melatonin 5 mg PO HS Ferrous Sulfate 325 mg PO DAILY - Problem Reconciliation Problems Reviewed?: Yes
== END 2019-05-08 14:47 | disposition home or self-care (01) | DRG 807 ==
LOC: OB 01:36
PROVIDERS: ADMIT Obstetrics & Gynecology; ATTEND Nurse Practitioner Obstetrics & Gynecology
CPT/HCPCS: 36415; 59025; 80305; 81001; 82803; 84112; 85007; 85014; 85018; 85025; 86850; 87086; 94761; C1758; J0595; J2405

== ENCOUNTER → 2021-02-18 12:33 | Outpatient (CLI) | payer OTHER, SELFPAY ==
[2021-02-18 12:55] LABS: Coronavirus 19, PCR Not Detected (NotDetected); Influenza A, PCR Not Detected (NotDetected); Influenza B, PCR Not Detected (NotDetected)
== END ==
PROVIDERS: PCP Family Medicine; Visit Provider Nurse Practitioner
DX: Z20.822 Contact with and (suspected) exposure to COVID-19 (principal)
CPT/HCPCS: C9803; U0003; U0005

== ENCOUNTER → 2021-02-26 10:34 | Outpatient (CLI) | payer OTHER, SELFPAY ==
[2021-02-26 10:46] LABS: Coronavirus 19, PCR Not Detected (NotDetected); Influenza A, PCR Not Detected (NotDetected); Influenza B, PCR Not Detected (NotDetected)
== END ==
PROVIDERS: PCP Family Medicine; Visit Provider Nurse Practitioner
DX: Z20.822 Contact with and (suspected) exposure to COVID-19 (principal)
CPT/HCPCS: C9803; U0003; U0005

== ENCOUNTER → 2021-03-01 11:55 | Outpatient (CLI) | payer OTHER, SELFPAY ==
[2021-03-01 13:30] LABS: Free Thyroxine Index 2.5 ug/dL (5.93-13.13); T4 (Thyroxine) 8.9 ug/dl (5.53-11.0); Triiodothryronine (T3) Uptake 28 % (23.5-40.5)
[2021-03-01 13:43] LABS: Thyroid Stimulating Hormone 1.64 uIU/mL (0.465-4.68)
== END ==
PROVIDERS: Visit Provider Family Medicine Addiction Medicine
DX: E03.9 Hypothyroidism, unspecified (principal)
CPT/HCPCS: 36415; 84436; 84443; 84479

== ENCOUNTER → 2021-05-15 07:35 | Outpatient (CLI) | payer OTHER, SELFPAY ==
[2021-05-15 09:18] LABS: Anion Gap 12.8 mEq/L (5-15); Blood Urea Nitrogen 9 mg/dl (7-17); Calcium 11.2 mg/dl (8.4-10.2); Carbon Dioxide 24 mmol/L (22.0-30.0); Chloride 106 mmol/L (98-107); Estimated Glomerular Filt Rate 94 ml/min (>60); GFR (African American) 114 ML/MIN (>60); Glucose 105 mg/dl (74-100); Potassium 4.8 mmoL/L (3.5-5.1); Sodium 138 mmol/L (136-145)
[2021-05-21 05:32] LABS: 1,25 Dihydroxy Vitamin D 97 pg/mL (.); 1,25-Dihydroxy, Vitamin D-2 74 pg/mL (.); 1,25-Dihydroxy, Vitamin D-3 23 pg/mL (.)
== END ==
PROVIDERS: Visit Provider Internal Medicine Endocrinology, Diabetes & Metabolism
DX: E83.52 Hypercalcemia (principal); E27.8 Other specified disorders of adrenal gland
CPT/HCPCS: 36415; 80048; 82306; 82533; 82652; 83970

== ENCOUNTER → 2021-05-22 22:18 | Outpatient (CLI) | payer OTHER, SELFPAY ==
[2021-05-22 22:49] VITALS: BMI 25.0
== END ==
PROVIDERS: PCP Family Medicine; Visit Provider Emergency Medicine
DX: R10.84 Generalized abdominal pain (principal)

== ENCOUNTER → 2021-05-24 11:50 | Outpatient (CLI) | payer OTHER, SELFPAY ==
--- NOTE | 2021-05-24 11:54 | CT_ITS ---
PROCEDURE: CT ABDOMEN PELVIS WO CON CLINICAL INDICATION: RT FLANK PAIN, GROSS HEMATURIA, KIDNEY STONES COMPARISON: CT ABDPELW/O CT ABD PELVIS W/O CONTRAST from 11/29/2016 TECHNIQUE: Axial images obtained with sagittal and coronal reformats. All CT scans at the facility use one or more dose reduction, viz: automated exposure control, ma/kV adjustment per patient size (including targeted exams where dose is matched to indication, i.e. head), or iterative reconstruction technique. FINDINGS: LOWER THORAX: No acute finding ABDOMEN & PELVIS: The liver has an unremarkable appearance. There is borderline splenomegaly at 13 cm. Bilateral adrenal enlargement is present left greater than right with the left adrenal gland measuring 3.9 by 2.3 cm. Low-density changes are present within the left adrenal gland suggesting an adenoma. Previously the left adrenal nodule measures 3.2 x 1.9 cm showing some increase in size on today's exam. Small right adenoma is present measuring 1.5 cm. There are numerous bilateral renal stones also with bilateral medullary calcification. The largest stone on the right is 7 mm. There is moderate to severe right hydronephrosis and hydroureter secondary to a 10 mm by 5 mm right distal ureteral stone. The stone is approximately 4 cm proximal to the ureterovesical junction. There is some minimal stranding of the right perinephric and proximal periureteral fat. No left ureteral calculus evident. No intestinal obstruction or free air. No evidence of appendicitis. There is a small umbilical hernia containing fat. There is an IUD in place. There is a left a adnexal pelvic mass measuring 6 x 6 cm consistent with an ovarian cyst. Pelvic ultrasound suggested for further characterization. The IUD appears to be in good position. No abnormal pelvic fluid collections. No acute bony findings. IMPRESSION: 1. 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 2. 6 cm isodense left-sided pelvic mass suggesting an ovarian cyst. Suggest pelvic ultrasound for further characterization. 3. Bilateral adrenal nodules left larger than right consistent with adenomas. The left adrenal nodule has increased in size since the previous exam now at 3.9 cm. Nonemergent MRI imaging with adrenal protocol may provide further evaluation. Dictated by: Shakir Fowler MD 05/24/2021 12:32 Shakir Fowler MD in OV 05/24/2021 12:32
== END ==
PROVIDERS: PCP Family Medicine; Visit Provider Family Medicine
DX: R10.9 Unspecified abdominal pain (principal); R31.0 Gross hematuria; N20.0 Calculus of kidney
CPT/HCPCS: 74176

== ENCOUNTER → 2021-06-01 11:37 | Outpatient (CLI) | payer OTHER, SELFPAY | PROVIDERS: PCP Family Medicine; Visit Provider Nurse Practitioner | DX: Z20.822 Contact with and (suspected) exposure to COVID-19 (principal) | CPT/HCPCS: C9803; U0003; U0005 ==

== ENCOUNTER → 2021-06-25 10:48 | Outpatient (CLI) | payer OTHER, SELFPAY ==
--- NOTE | 2021-06-25 10:48 | US_ITS ---
FINAL REPORT CLINICAL HISTORY: Look at both ovaries , focus on left ovarian mass-- prev ct FINDINGS: Transvaginal Ultrasound Technique: Transvaginal sonographic images of the pelvis were obtained. Findings: The uterus is enlarged and measures 10.3 x 5.6 x 4.4 cm. The myometrium appears heterogeneous with irregular hypoechoic regions throughout the may be due to diffuse fibroid uterus. An IUD is present in the endometrial cavity. The endometrium is within normal limits. The right ovary measures up to 4 cm. The left ovary measures up to 3.7 cm. There are bilateral ovarian cysts/follicles. Largest on the left measures 2.4 x 1.6 cm. Large stone the right measures 2.5 cm. IMPRESSION: Enlarged uterus with a heterogeneous appearing myometrium that may represent diffuse fibroid uterus. IUD in place. Bilateral ovarian cysts/follicles. Reviewed, Interpreted and Dictated by Wojciech Dixon MD Transcribed by Darian Anaya Authenticated by Wojciech Dixon MD on 06/25/2021 02:51:00 PM [facility]
== END ==
PROVIDERS: PCP Family Medicine; Visit Provider Nurse Practitioner Obstetrics & Gynecology
DX: N83.202 Unspecified ovarian cyst, left side (principal); N83.209 Unspecified ovarian cyst, unspecified side; R93.5 Abnormal findings on diagnostic imaging of other abdominal regions, including retroperitoneum
CPT/HCPCS: 76830

== ENCOUNTER → 2021-07-08 10:25 | Outpatient (CLI) | payer OTHER, SELFPAY ==
[2021-07-09 09:01] LABS: Covid-19 Nasal PCR Sendout Lex NOT DETECTED
== END ==
PROVIDERS: Visit Provider Nurse Practitioner
DX: Z20.822 Contact with and (suspected) exposure to COVID-19 (principal)
CPT/HCPCS: C9803; U0004; U0005

== ENCOUNTER → 2021-09-20 08:21 | Outpatient (CLI) | payer OTHER, SELFPAY | PROVIDERS: Visit Provider Nurse Practitioner | DX: Z01.812 Encounter for preprocedural laboratory examination (principal); Z11.52 Encounter for screening for COVID-19 | CPT/HCPCS: C9803; U0003; U0005 ==

== ENCOUNTER → 2021-11-01 09:04 | Outpatient (CLI) | payer OTHER, SELFPAY | PROVIDERS: PCP Family Medicine; Visit Provider Family Medicine | DX: N39.0 Urinary tract infection, site not specified (principal); R31.0 Gross hematuria | CPT/HCPCS: 87086 ==

== ENCOUNTER 2022-01-06 19:01 | Emergency (ER) | payer OTHER, SELFPAY ==
[2022-01-06] VITALS (9 sets, daily range): BP systolic 118–160; BP diastolic 61–93; PULSE 60–79; RESP 16–19; TEMP 36.8–37.1; O2SAT 98–100; BMI 28.3; BMI 25.8
[2022-01-06 19:17] LABS: Microscopic, Urine URINE MICROSCOPIC (MICROSCOPIC)
--- NOTE | 2022-01-06 19:17 | HMH.EDUTC ---
[facility] [place] Clinical Impression: Flank pain Disposition: Still a Patient Condition on Discharge: Fair Referrals: Justen Ceballos MD [Primary Care Provider] - Medical Decision Making - Arie Inquiry Pt receiving controlled substance: No Arie was queried for this patient: No Vital Signs: 01/06/22 19:05 Temperature 98.8 F Temperature Source Oral Pulse Rate [Left Brachial] 68 Respiratory Rate 19 Blood Pressure [Left Arm] 149/88 H Blood Pressure Mean [Left Arm] 108 Blood Pressure Source [Left Arm] Automatic Cuff Blood Pressure Position [Left Arm] Sitting 02 Sat by Pulse Oximetry 100 Oxygen Delivery Method Room Air Orders (Tests/Meds): ORDERS Category Date Time Status UA [Urinalysis and Microscopic] Stat Lab 01/06/22 19:12 Received Urine , HCG Qual. Stat Lab 01/06/22 19:12 Received Medical Decision Narrative: Patient complaining of pain in right flank area due to history of kidney stones and severity of pain discussed with patient and transferred to the ED for further work up and testing Patient agreed Called ED spoke with Lora and patient was moved to room 10 [facility] [place] - General Stated complaint: R side flank pain Time Seen by Provider: 01/06/22 19:17 Mode of Arrival: Ambulatory Source of Information: Patient Limitations: No Limitations Description of Symptoms (Recalled from Triage Doc. by RN): PATIENT C/O RIGHT FLANK PAIN AND VOMITING. REPORTS A HISTORY OF KIDNEY STONES HEENT Symptoms (Recalled from RN notes): No Resp Symptoms (Recalled from RN notes): No Skin Symptoms (Recalled from RN notes): No MS Symptoms (Recalled from RN notes): No Functional Status (Recalled from RN notes): WNL - History of Present Illness Provider Complaint: Patient states she has history of kidney stones States about 3 hours ago she started having severe pain in her right flank area like she gets with kidney stones States that pain is so bad it has made her vomit and it is radiating around to her groin area - Related Data Home Medications Medication Instructions Recorded Confirmed ergocalciferol (vitamin D2) 1,250 1,250 mcg PO cap 06/22/21 06/22/21 mcg (50,000 unit) capsule ofatumumab 20 mg/0.4 mL 20 mg SQ QMONTH 06/22/21 06/22/21 subcutaneous pen injector Allergies Allergy/AdvReac Type Severity Reaction Status Date / Time meperidine Allergy Mild Rash Verified 06/22/21 11:03 - Worker's Comp Is this a Worker's Comp case?: No [facility] History - Hepatitis A Screen Attestation statement:: This patient has been screened for Hepatitis A risk factors. I have reviewed the patient's past medical history: Yes Medical History: Reports:: Anxiety, Depression, Diabetes Mellitus Type 1, Gastroesophageal Reflux Disease(GERD), Kidney Stones, Migraine Denies:: Seizures Other Medical History: Reports: Hypothyroidism, Other (MS) Laterality Cases: Bilateral: Tonsillectomy Other Surgeries: Yes: No Previous Surgery. No: Amputation: No Fractures: No Comment: Endometrial ablation, Vaginal sling - Social History Smoking Status: Current every day smoker Tobacco Type: cigarettes Alcohol Intake: never Alcohol Intake Frequency:: other Substance Use Type: denies use Occupational Status: employed Housing: house Household Members: family - Psychiatric History Pschychiatric History:: Reports:: Anxiety, Depression Family Hx:: No significant family history ROS Obtained: Yes All systems reviewed & no additional complaints, Yes Systems reviewed as appropriate & no additional complaints - Constitutional Constitutional: Reports system reviewed and no additional complaints, except as docu - ENT Ears, Nose, Mouth, and Throat: Reports system reviewed and no additional complaints, except as docu - Cardiovascular Cardiovascular: Reports system reviewed and no additional complaints, except as docu - Respiratory Respiratory: Reports system reviewed and no additional complaints, ex
--- NOTE | 2022-01-06 19:18 | PC.NURSE ---
PATIENT SENT TO ER PER Henry ESTES APRN FOR FURTHER EVALUATION. REPORT GIVEN TO Poornima ROBERT RN BY Henry ESTES APRN
[2022-01-06 19:24] LABS: Appearance,Urine CLOUDY (Clear); Bilirubin,Urine Negative (Negative); Blood, Urine 3+ (Negative); Color,Urine DK YELLOW (Yellow); Glucose,Urine (UA) Negative (Negative); Ketones,Urine Negative (Negative); Leukocyte Esterase,Urine Negative (Negative); Nitrate,Urine Negative (Negative); Protein,Urine TRACE (Negative)
--- NOTE | 2022-01-06 19:26 | CT_ITS ---
PROCEDURE INFORMATION: Exam: CT Abdomen And Pelvis Without Contrast Exam date and time: 01/06/2022 7:30 PM Age: 36 years old Clinical indication: Abdominal pain; Flank; Right; Additional info: RT flank pain TECHNIQUE: Imaging protocol: Computed tomography of the abdomen and pelvis without contrast. Radiation optimization: All CT scans at this facility use at least one of these dose optimization techniques: automated exposure control; mA and/or kV adjustment per patient size (includes targeted exams where dose is matched to clinical indication); or iterative reconstruction. COMPARISON: CT ABDOMEN PELVIS WO CON 05/24/2021 12:08 PM FINDINGS: Tubes, catheters and devices: Intrauterine device is in the expected location. Lungs: Bibasilar atelectasis. Liver: Mild fatty infiltration of the liver along the falciform ligament. Gallbladder and bile ducts: Normal. No calcified stones. No ductal dilation. Pancreas: Normal. No ductal dilation. Spleen: Normal. No splenomegaly. Adrenal glands: Unchanged 3.6 cm left adrenal nodule and 1.9 cm right adrenal nodule that are most likely lipid rich adenomas. Kidneys and ureters: Right hydronephrosis secondary to a 5-6 mm calculus in the distal ureter. Medullary nephrocalcinosis, unchanged. Nonobstructing bilateral nephrolithiasis. Stomach and bowel: Mildly dilated segments of small bowel in the left side of the abdomen likely represents mild ileus. Appendix: Unremarkable appendix. Intraperitoneal space: Unremarkable. No free air. No significant fluid collection. Vasculature: Unremarkable. No abdominal aortic aneurysm. Lymph nodes: Unremarkable. No enlarged lymph nodes. Urinary bladder: Unremarkable as visualized. Reproductive: Unremarkable as visualized. Bones/joints: Unremarkable. No acute fracture. Soft tissues: Tiny fat containing umbilical hernia. Other findings: Stigmata of old granulomatous disease. IMPRESSION: 1. Right hydronephrosis secondary to a 5-6 mm calculus in the distal ureter. 2. Nonobstructing bilateral nephrolithiasis. COMMENTS: Consistent with the [employer]'s Incidental Findings Committee white paper (J Am Juan Radiol 2017): For any incidental adrenal lesion greater than or equal to 1 cm but less than or equal to 4 cm classified in this report as benign, likely benign, or containing fat (including classification as an adenoma or myelolipoma), no follow-up imaging is recommended per consensus recommendations based on imaging criteria. Further lab evaluation could be pursued if warranted based on clinical findings.
[2022-01-06 19:27] LABS: Urine Pregnancy, HCG Qual. Negative (Negative)
[2022-01-06 19:31] LABS: Bacteria,Urine 1+ /lpf; RBC,Urine TNTC #/hpf (0-3)
--- NOTE | 2022-01-06 19:32 | PC.NURSE ---
Pt gone to RAD for CT
[2022-01-06 19:36] LABS: Basophils # 0.1 K/mm3 (0-0.2); Basophils % 1.1 % (0.1-2.0); Eosinophils # 0.2 K/mm3 (0.0-0.4); Eosinophils % 1.8 % (0.1-12.0); Hematocrit 46.9 % (37.0-47.0); Hemoglobin 15.3 g/dL (12.2-16.2); Lymphocytes # 2.9 K/mm3 (0.7-4.5); Lymphocytes % 22.7 % (10-50); Mean Corpuscular HGB Conc 32.6 g/dL (31.8-35.4); Mean Corpuscular Hemoglobin 31.2 pg (27.0-31.2); Mean Corpuscular Volume 95.7 fl (81-99); Mean Platelet Volume 10.2 fl (7.4-10.4); Monocytes # 0.7 K/mm3 (0.1-1.0); Monocytes % 5.8 % (1.7-9.3); Neutrophils # 8.6 K/mm3 (1.8-7.8); Neutrophils % 68.6 % (37.0-80.0); Platelet Count 233 K/mm3 (142-424); Red Cell Distribution Width 12.9 % (11.5-17.5); White Blood Count 12.6 K/mm3 (4.8-10.8)
[2022-01-06 19:41] LABS: Alanine Aminotransferase 20 U/L (12-78); Albumin Level 4.2 g/dl (3.5-5.0); Albumin/Globulin Ratio 1.7 (1.1-1.8); Alkaline Phosphatase 76 U/L (38-126); Anion Gap 8.6 mEq/L (5-15); Aspartate Amino Transferase 29 U/L (14-36); Blood Urea Nitrogen 10 mg/dl (7-17); Calcium 9.3 mg/dl (8.4-10.2); Carbon Dioxide 29 mmol/L (22.0-30.0); Chloride 105 mmol/L (98-107); Creatinine Clearance Estimated 110 mL/min (50-200); Estimated Glomerular Filt Rate 81 ml/min (>60); GFR (African American) 98 ML/MIN (>60); Globulin 2.5 g/dL (1.3-3.2); Glucose 124 mg/dl (74-100); Potassium 3.6 mmoL/L (3.5-5.1); Sodium 139 mmol/L (136-145); Total Protein,Serum 6.7 g/dl (6.3-8.2)
--- NOTE | 2022-01-06 19:42 | PC.NURSE ---
Pt back from RAD
[2022-01-06 19:46] LABS: C-Reactive Protein 0.4 mg/L (0-4)
[2022-01-06 19:47] LABS: Bilirubin,Total < 0.1 mg/dl (0.2-1.3)
[2022-01-06 20:06] LABS: Procalcitonin < 0.030 ng/mL (0.0-2.0)
[2022-01-06 20:08] LABS: Erythrocyte Sedimentation Rate 6 mm/hr (0-20)
--- NOTE | 2022-01-06 21:54 | PC.NURSE ---
Rounded on pt. Pt voiced no needs or complaints at this time.
--- NOTE | 2022-01-06 22:45 | PC.NURSE ---
Rounded on pt and family given warm blankets. No other needs or complaints voiced at this time.
--- NOTE | 2022-01-06 23:21 | PC.NURSE ---
MD at BS speaking with pt about results and POC.
--- NOTE | 2022-01-06 23:26 | HMH.EDNVD ---
ED Disposition Clinical Impression: Flank pain, Renal colic on right side Disposition: Home, Self-Care Condition on Discharge: Good Instructions: DI for Kidney Stones Additional Instructions: use meds and call urology for follow up Prescriptions: Tamsulosin HCl [Flomax 0.4mg capsule] 0.4 mg PO HS #30 cap Transmission Status: Pending to [id number] Referrals: Justen Ceballos MD [Primary Care Provider] - - Critical Care Critical Care Time: No Attestation: On 01/06/22, the high probability of a clinically significant, sudden or life threatening deterioration of the following system(s) required my full and direct attention, intervention and personal management. The time I documented below is in addition to time spent performing reported procedures but includes the following listed in this critical care notation. Medical Decision Making - Medical Records Medical records reviewed: Yes: I reviewed the patient's medical records. - Arie Inquiry Pt receiving controlled substance: No Vital Signs: 01/06/22 19:05 01/06/22 19:21 01/06/22 20:00 Temperature 98.8 F 98.8 F Temperature Source Oral Oral Pulse Rate 60 Pulse Rate [Left Brachial] 68 68 Respiratory Rate 19 16 Blood Pressure 135/73 Blood Pressure [Left Arm] 149/88 H 149/88 H Blood Pressure Mean Blood Pressure Mean [Left Arm] 108 108 Blood Pressure Source [Left Arm] Automatic Cuff Blood Pressure Position [Left Arm] Sitting 02 Sat by Pulse Oximetry 100 100 100 Oxygen Delivery Method Room Air Room Air 01/06/22 20:30 01/06/22 21:01 01/06/22 21:31 Temperature Temperature Source Pulse Rate 61 69 70 Pulse Rate [Left Brachial] Respiratory Rate Blood Pressure 135/71 136/93 H 147/76 H Blood Pressure [Left Arm] Blood Pressure Mean 99 Blood Pressure Mean [Left Arm] Blood Pressure Source [Left Arm] Blood Pressure Position [Left Arm] 02 Sat by Pulse Oximetry 100 100 100 Oxygen Delivery Method Room Air Room Air Room Air 01/06/22 22:01 01/06/22 22:31 Temperature Temperature Source Pulse Rate 68 68 Pulse Rate [Left Brachial] Respiratory Rate Blood Pressure 160/82 H 118/66 Blood Pressure [Left Arm] Blood Pressure Mean 108 87 Blood Pressure Mean [Left Arm] Blood Pressure Source [Left Arm] Blood Pressure Position [Left Arm] 02 Sat by Pulse Oximetry 99 99 Oxygen Delivery Method Room Air Room Air - Lab Data Lab results reviewed: Yes: I reviewed the patient's lab results. Lab Results 01/06/22 19:12: Urine Color Dk yellow, Urine Appearance Cloudy, Urine pH 7.0, Ur Specific Mchenry 1.020, Urine Protein Trace, Urine Glucose (UA) Negative, Urine Ketones Negative, Urine Blood 3+, Urine Nitrate Negative, Urine Bilirubin Negative, Urine Urobilinogen 1.0, Ur Leukocyte Esterase Negative, Urine RBC Tntc, Urine WBC 3-5, Ur Squamous Epith Cells 3-5, Urine Bacteria 1+ 01/06/22 19:12: Urine HCG, Qual Negative 01/06/22 19:25: WBC 12.6 H, RBC 4.90, Hgb 15.3, Hct 46.9, MCV 95.7, MCH 31.2, MCHC 32.6, RDW 12.9, Plt Count 233, MPV 10.2, Neut % (Auto) 68.6, Lymph % (Auto) 22.7, Morrow % (Auto) 5.8, Eos % (Auto) 1.8, Baso % (Auto) 1.1, Neut # (Auto) 8.6 H, Lymph # (Auto) 2.9, Morrow # (Auto) 0.7, Eos # (Auto) 0.2, Baso # (Auto) 0.1, ESR 6 01/06/22 19:25: Sodium 139, Potassium 3.6, Chloride 105, Carbon Dioxide 29, Anion Gap 8.6, BUN 10, Creatinine 0.80, Estimated Creat Clear 110, Estimated GFR 81, Est GFR ( Amer) 98, Glucose 124 H, Calcium 9.3, Total Bilirubin < 0.1 L, AST 29, ALT 20, Alkaline Phosphatase 76, C-Reactive Protein 0.4, Total Protein 6.7, Albumin 4.2, Globulin 2.5, Albumin/Globulin Ratio 1.7, Procalcitonin < 0.030 Result diagrams: 01/06/22 19:25 01/06/22 19:25 Orders (Tests/Meds): ED MEDICATIONS Generic Name Dose Route Start Last Admin Trade Name Freq PRN Reason Stop Dose Admin Tamsulosin HCl 0.4 mg 01/06/22 21:00 Tamsulosin 0.4mg Capsule PO 02/05/22 20:59 HS SIMÓN
== END 2022-01-06 23:44 | disposition home or self-care (01) ==
LOC: UTC 19:07 → ER 19:18
PROVIDERS: Nurse Practitioner; Emergency Provider Emergency Medicine; PCP Family Medicine
DX: R10.9 Unspecified abdominal pain (principal); R11.10 Vomiting, unspecified; Z87.442 Personal history of urinary calculi; Z79.899 Other long term (current) drug therapy; F41.9 Anxiety disorder, unspecified; F32.A Depression, unspecified; E10.9 Type 1 diabetes mellitus without complications; K21.9 Gastro-esophageal reflux disease without esophagitis; G43.909 Migraine, unspecified, not intractable, without status migrainosus; E03.9 Hypothyroidism, unspecified; Z72.0 Tobacco use
CPT/HCPCS: 74176; 80053; 81001; 81025; 84145; 85025; 85651; 86140; 96365; 96375; 99284; J2405

== ENCOUNTER → 2022-01-21 19:51 | Outpatient (CLI) | payer OTHER, SELFPAY ==
[2022-01-21 21:10] LABS: Strep Scrn Group A (Rapid) Negative (Negative)
== END ==
PROVIDERS: PCP Family Medicine; Visit Provider Emergency Medicine
DX: J02.9 Acute pharyngitis, unspecified (principal)
CPT/HCPCS: 87430

== ENCOUNTER 2022-07-18 16:20 | Emergency (ER) | payer OTHER, SELFPAY ==
[2022-07-18 16:30] VITALS: BP 179/106; PULSE 95; RESP 20; TEMP 36.8; O2SAT 97; BMI 25.0
--- NOTE | 2022-07-18 16:55 | EXP.UTC ---
Discharge Plan Disposition Patient Disposition: Home, Self-Care Condition: Good Prescriptions Prescriptions: New azithromycin [Zithromax] 250 mg tablet 250 mg PO UD DOSE PK Qty: 6 0RF Rx Instructions: Take two (2) tablets today, then one (1) tablet days #2 thru #5 benzonatate [benzonatate] 100 mg capsule 100 mg PO TIDP PRN (Reason: Cough) Qty: 30 0RF methylprednisolone 4 mg Tablets,Dose Pack 4 mg PO DIRECTED Qty: 21 0RF No Action ergocalciferol (vitamin D2) 1,250 mcg (50,000 unit) capsule 1,250 mcg PO Label Comments: TAKE 1 CAPSULE BY MOUTH ONCE A WEEK ON SAME DAY EACH WEEK Kesimpta Pen 20 mg/0.4 mL pen injector 20 mg SQ QMONTH Rx Instructions: begin at Week 4 of therapy tamsulosin 0.4 MG capsule 0.4 mg PO HS Qty: 30 0RF Referrals Follow up/Referrals: Justen Ceballos MD [Primary Care Provider] - See instructions Activity Restrictions/Add. Instructions Additional Instructions/Restrictions: Drink plenty of fluids. Take tylenol or ibuprofen for pain or fever. Take the medications as directed. Follow up with your regular doctor. GO TO THE ER FOR ANY WORSENING SYMPTOMS Clinical Impressions Clinical Impression: Sinusitis, Otitis media Stand Alone Forms Stand Alone Forms: Work/School Release Instructions Patient Instructions: Sinusitis, DI for Sinusitis Discharge ED Provider: Adal Carballo [facility] [place] General Stated complaint: Cough,Congestion Mode of Arrival: Ambulatory Source of Information: Patient Limitations: No Limitations Time Seen by Provider: 07/18/22 16:55 Description of Symptoms (Recalled from Triage Doc. by RN): PATIENT C/O COUGH AND HEAD CONGESTION X 1 WEEK HEENT Symptoms (Recalled from RN notes): No Resp Symptoms (Recalled from RN notes): No Skin Symptoms (Recalled from RN notes): No MS Symptoms (Recalled from RN notes): No Functional Status (Recalled from RN notes): WNL History of Present Illness Provider Complaint: She states that for the past 1 week she has had sinus congestion, sore throat and a cough. Related Data Home Medications Medication Instructions Recorded Confirmed ergocalciferol (vitamin D2) 1,250 1,250 mcg PO 06/22/21 06/22/21 mcg (50,000 unit) capsule ofatumumab 20 mg/0.4 mL 20 mg SQ QMONTH 06/22/21 06/22/21 subcutaneous pen injector (Kesimpta Pen) Previous Rx's Medication Instructions Recorded tamsulosin 0.4 mg capsule 0.4 mg PO HS #30 caps 01/06/22 azithromycin 250 mg tablet 250 mg PO UD DOSE PK #6 tabs 07/18/22 (Zithromax) benzonatate 100 mg capsule 100 mg PO TIDP PRN Cough #30 caps 07/18/22 methylprednisolone 4 mg tablets in 4 mg PO DIRECTED #21 tabs 07/18/22 a dose pack Allergies Allergy/AdvReac Type Severity Reaction Status Date / Time meperidine Allergy Mild Rash Verified 06/22/21 11:03 Worker's Comp Is this a Worker's Comp case?: No [facility] Disclaimer: The information contained in this section may have been updated after the patient was seen, as this information can be updated by other users. Medical History Urinary tract infection Surgical History History of parathyroidectomy History of tonsillectomy Social History Smoking Status: Current every day smoker tobacco type: cigarettes second hand exposure: No alcohol intake: never substance use type: denies use current occupational status: employed Travel in the last 8 weeks: None household members: family housing: house ROS Obtained: Yes All systems reviewed & no additional complaints except as documented Constitutional Constitutional: Reports chills and Reports fever(s) Eyes Eyes: Denies eye discharge ENT Ears, Nose, Mouth, and Throat: Reports as per HPI Cardiovascular Cardiovascular: Denies chest pain Respiratory Respi
[2022-07-18 17:00] VITALS: BP 179/106; PULSE 95; RESP 20; TEMP 36.8; O2SAT 97
== END 2022-07-18 17:19 | disposition home or self-care (01) ==
PROVIDERS: Emergency Provider Nurse Practitioner Family; PCP Family Medicine
DX: J32.9 Chronic sinusitis, unspecified (principal); H66.90 Otitis media, unspecified, unspecified ear
CPT/HCPCS: 99212; 99213; G0463

== ENCOUNTER 2022-08-30 17:54 | Emergency (ER) | payer OTHER, SELFPAY ==
[2022-08-30 17:55] VITALS: BP 162/90; PULSE 94; RESP 20; TEMP 36.6; O2SAT 98; BMI 26.9
[2022-08-30 18:21] LABS: Apearance,Urine Clear (Clear); Bilirubin,Urine Negative (Negative); Blood, Urine 1+ (Negative); Color,Urine Yellow (Yellow); Glucose,Urine (UA) Negative (Negative); Ketones,Urine Negative (Negative); PH,Urine 6.5 (5.0-8.5); Protein,Urine Negative (Negative); UTC Leukocyte Esterase,Urine Trace (Negative); Urobilinogen,Urine 0.2 EU/dl (0.2)
[2022-08-30 18:22] LABS: UTC Nitrate,Urine Negative (Negative)
--- NOTE | 2022-08-30 18:40 | EXP.UTC ---
Discharge Plan Disposition Patient Disposition: Home, Self-Care Prescriptions Prescriptions: New ketorolac 10 mg tablet 10 mg PO Q6H PRN (Reason: pain) 3 Days Qty: 10 0RF No Action Kesimpta Pen 20 mg/0.4 mL pen injector 20 mg SQ QMONTH Rx Instructions: begin at Week 4 of therapy Referrals Follow up/Referrals: Justen Ceballos MD [Primary Care Provider] - See instructions Clinical Impressions Clinical Impression: Ovarian cyst Instructions Patient Instructions: DI for Ovarian Cyst Discharge ED Provider: Giles Soni [facility] General Chief complaint: Abdominal Pain Stated complaint: LOWER ABD PAIN Mode of Arrival: Ambulatory Source of Information: Patient Limitations: No Limitations Time Seen by Provider: 08/30/22 18:27 Description of Symptoms (Recalled from Triage Doc. by RN): left lower abdominal pain. It is tender to touch HEENT Symptoms (Recalled from RN notes): No Resp Symptoms (Recalled from RN notes): No Skin Symptoms (Recalled from RN notes): No MS Symptoms (Recalled from RN notes): No Functional Status (Recalled from RN notes): n/a History of Present Illness Provider Complaint: She has had left lower quadrant pain for the past 2 days. She denies any urinary complaints. Related Data Home Medications Medication Instructions Recorded Confirmed ofatumumab 20 mg/0.4 mL 20 mg SQ QMONTH multiple sclerosis 06/22/21 08/30/22 subcutaneous pen injector (Kesimpta Pen) Previous Rx's Medication Instructions Recorded ketorolac 10 mg tablet 10 mg PO Q6H PRN pain 3 days #10 08/30/22 tabs Allergies Allergy/AdvReac Type Severity Reaction Status Date / Time meperidine Allergy Mild Rash Verified 08/30/22 18:03 Worker's Comp Is this a Worker's Comp case?: No [facility] Disclaimer: The information contained in this section may have been updated after the patient was seen, as this information can be updated by other users. Medical History Multiple sclerosis Urinary tract infection Surgical History History of parathyroidectomy History of tonsillectomy Social History Smoking Status: Current every day smoker tobacco type: cigarettes second hand exposure: No alcohol intake: never substance use type: denies use current occupational status: employed Travel in the last 8 weeks: None household members: family housing: house ROS Obtained: Yes All systems reviewed & no additional complaints except as documented Constitutional Constitutional: Denies chills, Denies fever(s) and Reports poor appetite ENT Ears, Nose, Mouth, and Throat: Denies dizziness and Denies sore throat Cardiovascular Cardiovascular: Denies dyspnea Respiratory Respiratory: Denies chest congestion, Denies cough and Denies dyspnea Genitourinary Female Genitourinary: Denies difficulty voiding, Denies dysuria, Denies hematuria, Denies urinary frequency, Denies urinary incontinence, Denies urinary hesitancy and Denies urinary urgency Musculoskeletal Musculoskeletal: Denies arthralgias Integumentary/Breasts Skin/Breast: Denies rash Neurologic Neurologic: Denies dizziness Physical Exam General General appearance: alert and in no apparent distress Head Head exam: atraumatic and normocephalic Eye Eye exam: Present normal appearance, PERRL and EOMI ENT ENT exam: Present normal exam, normal oropharynx, mucous membranes moist, TM's normal bilaterally and normal external ear exam Neck Neck exam: Present normal inspection, full ROM and trachea midline; Absent tenderness, meningismus or lymphadenopathy Chest Chest inspection: Present normal inspection and symmetric chest wall rise; Absent tenderness, rash or abscess Respiratory Respiratory exam: Present normal lung sounds bilaterally; Absent respiratory distress, wheezes or stridor Cardiovasc
--- NOTE | 2022-08-30 19:18 | CT_ITS ---
PROCEDURE INFORMATION: Exam: CT Abdomen And Pelvis With Contrast Exam date and time: 08/30/2022 8:03 PM Age: 37 years old Clinical indication: Abdominal pain; Localized; Left lower quadrant (llq); Additional info: Llq abd pain TECHNIQUE: Imaging protocol: Computed tomography of the abdomen and pelvis with contrast. Radiation optimization: All CT scans at this facility use at least one of these dose optimization techniques: automated exposure control; mA and/or kV adjustment per patient size (includes targeted exams where dose is matched to clinical indication); or iterative reconstruction. Contrast material: ISOVUE; Contrast volume: 75 ml; Contrast route: IV; REPORTING DATA: Count of CT and Cardiac NM exams in prior 12 months: This patient has received [address] and 0 known cardiac nuclear medicine studies in the 12 months prior to the current study. COMPARISON: CT ABDOMEN PELVIS WO CON 04/05/2022 19:30 FINDINGS: Tubes, catheters and devices: Intrauterine device is in the expected location. Lungs: Mild scarring and atelectasis in the lower lungs. Liver: Normal. No mass. Gallbladder and bile ducts: Contracted gallbladder. Pancreas: Normal. No ductal dilation. Spleen: Normal. No splenomegaly. Adrenal glands: Unchanged bilateral adrenal gland lipid rich adenomas. The right measures 2.3 cm in the left 3.4 cm. Kidneys and ureters: Nonobstructing bilateral nephrolithiasis. Stomach and bowel: Nonspecific small bowel wall thickening. Appendix: Unremarkable appendix. Intraperitoneal space: Unremarkable. No free air. No significant fluid collection. Vasculature: Unremarkable. No abdominal aortic aneurysm. Lymph nodes: Unremarkable. No enlarged lymph nodes. Urinary bladder: Unremarkable as visualized. Reproductive: There are cystic left ovarian structures with surrounding free fluid. Bones/joints: Unremarkable. No acute fracture. Soft tissues: Tiny fat containing umbilical hernia. Other findings: Stigmata of old granulomatous disease. IMPRESSION: 1. There are cystic left ovarian structures with surrounding free fluid. A recently ruptured left ovarian follicle/cyst is favored. 2. Nonspecific small bowel wall thickening. Please exclude enteritis. 3. Nonobstructing bilateral nephrolithiasis.
[2022-08-30 19:22] VITALS: BP 161/104; PULSE 101; RESP 16; TEMP 36.8; O2SAT 99; BMI 26.9
[2022-08-30 19:42] LABS: Urine Pregnancy, HCG Qual. Negative (Negative)
[2022-08-30 19:42] LABS: Basophils # 0.1 K/mm3 (0-0.2); Basophils % 0.9 % (0.1-2.0); Eosinophils # 0.3 K/mm3 (0.0-0.4); Hematocrit 47.4 % (37.0-47.0); Hemoglobin 15.6 g/dL (12.2-16.2); Lymphocytes # 2.5 K/mm3 (0.7-4.5); Lymphocytes % 17.6 % (10-50); Mean Corpuscular HGB Conc 32.9 g/dL (31.8-35.4); Mean Corpuscular Hemoglobin 31.3 pg (27.0-31.2); Mean Corpuscular Volume 95.2 fl (81-99); Mean Platelet Volume 9.6 fl (7.4-10.4); Monocytes # 0.6 K/mm3 (0.1-1.0); Monocytes % 4.3 % (1.7-9.3); Neutrophils # 10.7 K/mm3 (1.8-7.8); Neutrophils % 75.2 % (37.0-80.0); Platelet Count 208 K/mm3 (142-424); Red Blood Count 4.97 M/mm3 (4.20-5.40); Red Cell Distribution Width 12.8 % (11.5-17.5); White Blood Count 14.2 K/mm3 (4.8-10.8)
[2022-08-30 19:54] LABS: Alanine Aminotransferase 18 U/L (12-78); Albumin Level 4.5 g/dl (3.5-5.0); Albumin/Globulin Ratio 1.5 (1.1-1.8); Alkaline Phosphatase 74 U/L (38-126); Anion Gap 14.1 mEq/L (5-15); Aspartate Amino Transferase 26 U/L (14-36); Bilirubin,Total 0.5 mg/dl (0.2-1.3); Blood Urea Nitrogen 9 mg/dl (7-17); Calcium 8.7 mg/dl (8.4-10.2); Carbon Dioxide 21 mmol/L (22.0-30.0); Chloride 106 mmol/L (98-107); Creatinine Clearance Estimated 134 mL/min (50-200); Estimated Glomerular Filt Rate 94 ml/min (>60); GFR (African American) 113 ML/MIN (>60); Glucose 88 mg/dl (74-100); Potassium 4.1 mmoL/L (3.5-5.1); Sodium 137 mmol/L (136-145); Total Protein,Serum 7.5 g/dl (6.3-8.2)
--- NOTE | 2022-08-30 19:56 | HMH.EDGENADL ---
Discharge Plan Disposition Patient Disposition: Home, Self-Care Prescriptions Prescriptions: New ketorolac 10 mg tablet 10 mg PO Q6H PRN (Reason: pain) 3 Days Qty: 10 0RF No Action Kesimpta Pen 20 mg/0.4 mL pen injector 20 mg SQ QMONTH Rx Instructions: begin at Week 4 of therapy Referrals Follow up/Referrals: Justen Ceballos MD [Primary Care Provider] - See instructions Clinical Impressions Clinical Impression: Ovarian cyst Instructions Patient Instructions: DI for Ovarian Cyst Discharge ED Provider: Giles Soni General Adult HPI <Giles Soni MD - Last Filed: 08/30/22 20:14> General Chief complaint: Abdominal Pain Stated complaint: LOWER ABD PAIN Time Seen by Provider: 08/30/22 18:27 Mode of Arrival: Ambulatory Source of Information: Patient Limitations: No Limitations Description of Symptoms (Recalled from ER Triage Doc. by RN): Pt reports L lower abd pain that began 3 days ago. Pt reports pain is intermittent in nature with the severe waves of pain that she has been having but reports has been constantly uncomfortable. Pt reports nausea r/t pain. Pt is tender is LLQ of abd. Pt denies vomitting, diarreha or urinary symptoms. History of Present Illness HPI narrative: Patient presents to the emergency department abdominal pain which started approximately 3 days ago. She mostly describes in the left lower quadrant with some intermittent increases in the intensity of the pain. The patient describes no significant diarrhea, constipation, fever, chills, dysuria, hematuria or frequency. Denies anything that makes her pain significantly worse or better. Related Data Home Medications Medication Instructions Recorded Confirmed ofatumumab 20 mg/0.4 mL 20 mg SQ QMONTH multiple sclerosis 06/22/21 08/30/22 subcutaneous pen injector (Kesimpta Pen) Previous Rx's Medication Instructions Recorded ketorolac 10 mg tablet 10 mg PO Q6H PRN pain 3 days #10 08/30/22 tabs Allergies Allergy/AdvReac Type Severity Reaction Status Date / Time meperidine Allergy Mild Rash Verified 08/30/22 18:03 <Asim Posey (ED)MD - Last Filed: 08/30/22 21:08> General Source of Information: Medical Record History of Present Illness Onset (ago): day(s) Severity: moderate PFSH <Giles Soni MD - Last Filed: 08/30/22 20:14> [facility] Disclaimer: The information contained in this section may have been updated after the patient was seen, as this information can be updated by other users. Medical History Multiple sclerosis Urinary tract infection Surgical History History of parathyroidectomy History of tonsillectomy Social History Smoking Status: Current every day smoker tobacco type: cigarettes second hand exposure: No alcohol intake: never substance use type: denies use current occupational status: employed Travel in the last 8 weeks: None household members: family housing: house <Giles Soni MD - Last Filed: 08/30/22 20:14> ROS Obtained: Yes All systems reviewed & no additional complaints except as documented Gastrointestinal Gastrointestingal: Reports abdominal pain Physical Exam <Giles Soni MD - Last Filed: 08/30/22 20:14> General General appearance: alert Comment: Uncomfortable appearing, tearful Respiratory Respiratory exam: Present normal lung sounds bilaterally and respiratory distress Cardiovascular Cardiovascular exam: Present regular rate and normal rhythm Abdominal Exam Abdominal exam: Present other (Soft, nondistended, left lower quadrant abdominal tenderness with guarding. No rebound. Normal bowel sounds.) Extremities Exam Extremities exam: Present normal inspection and full ROM Neurological Exam Neurological exam: Present alert and oriented X3 Psychiatric Psychiatric exam
--- NOTE | 2022-08-30 20:08 | PC.NURSE ---
pt back from scan
--- NOTE | 2022-08-30 20:56 | PC.NURSE ---
Rounded on pt, medicated per MAR and updated on POC. No other needs at this time
--- NOTE | 2022-08-30 21:23 | PC.NURSE ---
Rounded on patient, patient voiced no concerns at this time.
[2022-08-30 21:36] VITALS: BP 147/98; PULSE 80; RESP 18; TEMP 36.8; O2SAT 97
== END 2022-08-30 21:37 | disposition home or self-care (01) ==
LOC: UTC 18:01 → ER 19:10
PROVIDERS: Nurse Practitioner Family; Emergency Provider Emergency Medicine; PCP Family Medicine
DX: N83.202 Unspecified ovarian cyst, left side (principal); N20.0 Calculus of kidney
CPT/HCPCS: 74177; 80053; 81003; 81025; 85025; 87086; 96360; 96374; 96375; 99285; J2405; Q9967

== ENCOUNTER → 2022-09-26 14:43 | Outpatient (CLI) | payer OTHER, SELFPAY ==
--- NOTE | 2022-09-26 14:47 | US_ITS ---
FINAL REPORT CLINICAL HISTORY: Severe Pelvic Pain FINDINGS: Sonographic images of the pelvis were obtained. The uterus is anteverted and measures 8.9 by 4.6 x 5.7 cm. Nabothian cysts are present. An IUD is noted in the uterus. The right ovary measures 5.6 cm in length and the left ovary measures 4.1 cm in length. There is a large right ovarian cyst measuring 5.4 x 5.0 cm. A mural nodule is present in the right ovarian cyst measuring 1.3 cm. There is no increased vascularity seen within the mural nodule. There is a complex left ovarian cyst measuring 2.7 x 2.3 cm which may be hemorrhagic. IMPRESSION: 5.4 cm complex right ovarian cyst which is probably physiologic. Recommend follow-up in 6 weeks or 10 weeks to ensure involution. Reviewed, Interpreted and Dictated by Wojciech Dixon MD Transcribed by Sharyn Martin Authenticated and [facility]
== END ==
PROVIDERS: PCP Family Medicine; Visit Provider Obstetrics & Gynecology
DX: R10.2 Pelvic and perineal pain (principal)
CPT/HCPCS: 76830

== ENCOUNTER → 2022-10-11 09:31 | Outpatient (CLI) | payer OTHER, SELFPAY ==
[2022-10-11 10:05] LABS: Basophils # 0.1 K/mm3 (0-0.2); Basophils % 0.6 % (0.1-2.0); Eosinophils # 0.1 K/mm3 (0.0-0.4); Eosinophils % 1.4 % (0.1-12.0); Hematocrit 47.5 % (37.0-47.0); Lymphocytes # 1.9 K/mm3 (0.7-4.5); Lymphocytes % 22.5 % (10-50); Mean Corpuscular HGB Conc 33.7 g/dL (31.8-35.4); Mean Corpuscular Hemoglobin 31.3 pg (27.0-31.2); Mean Corpuscular Volume 92.9 fl (81-99); Mean Platelet Volume 9.6 fl (7.4-10.4); Monocytes # 0.5 K/mm3 (0.1-1.0); Monocytes % 6.4 % (1.7-9.3); Neutrophils # 5.7 K/mm3 (1.8-7.8); Neutrophils % 69.1 % (37.0-80.0); Platelet Count 213 K/mm3 (142-424); Red Blood Count 5.11 M/mm3 (4.20-5.40); Red Cell Distribution Width 12.6 % (11.5-17.5); White Blood Count 8.3 K/mm3 (4.8-10.8)
[2022-10-11 11:10] LABS: Alanine Aminotransferase 20 U/L (12-78); Albumin Level 4.1 g/dl (3.5-5.0); Albumin/Globulin Ratio 1.9 (1.1-1.8); Alkaline Phosphatase 53 U/L (38-126); Anion Gap 15.5 mEq/L (5-15); Aspartate Amino Transferase 23 U/L (14-36); Bilirubin,Total 0.5 mg/dl (0.2-1.3); Blood Urea Nitrogen 7 mg/dl (7-17); Calcium 8.6 mg/dl (8.4-10.2); Carbon Dioxide 24 mmol/L (22.0-30.0); Chloride 102 mmol/L (98-107); Estimated Glomerular Filt Rate 112 ml/min (>60); GFR (African American) 135 ML/MIN (>60); Globulin 2.2 g/dL (1.3-3.2); Glucose 86 mg/dl (74-100); Potassium 4.5 mmoL/L (3.5-5.1); Sodium 137 mmol/L (136-145); Total Protein,Serum 6.3 g/dl (6.3-8.2)
[2022-10-11 11:28] LABS: HCG,Quantitative < 2 mIU/ml (0-5.42)
== END ==
PROVIDERS: PCP Family Medicine; Visit Provider Obstetrics & Gynecology
DX: N83.201 Unspecified ovarian cyst, right side (principal); N83.202 Unspecified ovarian cyst, left side
CPT/HCPCS: 36415; 80053; 84702; 85025

== ENCOUNTER 2022-10-13 07:39 | Day surgery (SDC) | payer OTHER, SELFPAY ==
[2022-10-10 13:39] VITALS: BMI 26.7
[2022-10-13] VITALS (10 sets, daily range): BP systolic 117–148; BP diastolic 62–93; PULSE 75–100; RESP 16–18; TEMP 36.2–43; O2SAT 96–99
--- NOTE | 2022-10-13 08:15 | EXP.ANES.CKL ---
[facility] Disclaimer: The information contained in this section may have been updated after the patient was seen, as this information can be updated by other users. Medical History Abnormal uterine bleeding (AUB) Bilateral ovarian cysts LLQ abdominal pain Migraine Multiple sclerosis Urinary tract infection Surgical History History of parathyroidectomy History of tonsillectomy Family History Other Family history of cancer Social History Smoking Status: Current every day smoker tobacco type: cigarettes second hand exposure: No alcohol intake: never substance use type: denies use current occupational status: employed Travel in the last 8 weeks: None household members: family housing: house [facility] Anesthesia Checklist Patient Identification Patient Identification: Arm Band and Verbal (Name & ) Structural Data Admitted From: Home Planned Operative Procedure/s: Diagnostic Laparoscopy w/ poss L Cystectomy and poss L oophorectomy Consent for Planned Operative Procedure(s) Verified: Yes NPO Status Verified Time NPO: 00:00 Chart Verification Results Verified: CBC, BMP and HCG Additional verifications Anesthesia Reactions: No Hx Blood Transfusions: No Blood Transfusion Reaction: No Airway Assessment C-Spine Mobility Assessed: Yes TMJ Mobility Assessed: Yes Dentition: Good Dentition Neurological Assessment Level of Consciousness: Awake Hx Seizures: No Numbness or tingling in extremities: No Anesthesia Plan Anesthesia Risk discussed: Yes Anesthesia Plan: Verified ASA Class: II Anesthesia Type: General
--- NOTE | 2022-10-13 10:56 | P.PNANES_ITS ---
[facility] Anesthesia Record Part I Anesthesia Record I Intake, IV Amount: 1,000 Estimated blood loss (mL): 5 Urine output (mL): 0 Blood Pressure: 148/93 SaO2: 97 Pulse Rate: 90 Respiratory Rate: 16 Temperature: 98.5 F Patient is:: Drowsy and Stable Stable to PACU at:: 10:50
--- NOTE | 2022-10-13 10:56 | EXP.OP.NOTE ---
Date of procedure: 10/13/22 Pre-op Diagnosis:: 1. LLQ pain 2. Bilateral ovarian cysts 3. Abnormal uterine bleeding Post-op Diagnosis:: 1. LLQ pain 2. Bilateral ovarian cysts 3. Abnormal uterine bleeding 4. Intrapelvic adhesions between left fallopian tube, left ovary and pelvic side wall Procedure performed:: 1. Lysis of adhesions, time spent about 5 minutes 2. Laparoscopy, left salpingo oophorectomy 3. Drainage of right ovarian cyst Surgeon:: Maneula Donald DO Senior Technical Business Analyst(s):: N/a [employer]:: Sergei Lindsey Anesthesia: GETGee Estimated blood loss (mL): 5 Clinical Note:: Ms Jaja Carver is a 37 yo P2002 who presents to [facility] for scheduled procedure. She complains of LLQ pain that started 08/28. She has Mirena IUD in place and thought maybe she was going to have a period. (Mirena IUD was inserted early 2019) Prior to August she was not having periods with Mirena. She went to the ED 08/30 because the pain became severe. CT scan demonstrated likely ruptured left ovarian cyst. She states the pain is present daily but waxes and wanes. Some times the pain is a 2 or 3 and other times it is severe and causes associated vomiting. Denies fever/chills. Denies bladder and bowel changes. She admits to abnormal bleeding with IUD since 08/28. CT scan demonstrated IUD in position. She has not had pain like this before. History of x 2. Ibuprofen and Tylenol offers some relief. Pelvic ultrasound demonstrated?uterus anteverted measuring 8.9 by 4.6 x 5.7 cm.? Nabothian cysts are present.? An IUD is noted in the uterus.? The right ovary measures 5.6 cm in length and the left ovary measures 4.1 cm in length.? There is a large right ovarian cyst measuring 5.4 x 5.0 cm.? A mural nodule is present in the right ovarian cyst measuring 1.3 cm.? There is no increased vascularity seen within the mural nodule.? There is a complex left ovarian cyst measuring 2.7 x 2.3 cm which may be hemorrhagic. Vaginal ID demonstrated bacterial vaginosis. She completed course of Metronidazole with no changes in symptoms. She followed up with Dr. Irizarry, GynOnc at . Dr. Irizarry repeated pelvic ultrasound and does not think right ovary has a mural nodule. Pelvic ultrasound is felt to be benign and okay for patient to have surgery at [facility]. Operative findings:: On bimanual exam, uterus is normal size and shape, retroverted. No adnexal masses palpated. On laparoscopic exam, large 6 cm right simple ovarian cyst and enlarged left ovary with cyst with small hernán-tubal cyst sitting next to ovary. Uterus retroverted and grossly normal appearing. Normal appearing bowel, liver and stomach. No evidence of endometriosis. Operative note:: Risks, benefits and alternatives were discussed with the patient. Risks include but are not limited to bleeding, infection, damage to adjacent structures and VTE. Patient voiced understanding and agreed to proceed with surgery. She was wheeled back to the operating room and placed under general anesthesia without difficulty. She was placed in the dorsal lithotomy position and prepped and draped in normal sterile fashion. A straight catheter was used to drain the bladder. A bimanual exam was performed. A weighted Auvard was placed in the vaginal vault. A single tooth tenaculum was placed on the anterior lip of the cervix. [place] manipulator was inserted into the cervical canal and attached to the tenaculum. Weighted Auvard was removed from the vagina. Attention was then turned to the abdomen. Skin just below the umbilicus was injected with 0.5% marcaine. A 1.5cm infraumbilical incision was made. Veress needle was tested and inserted intrabdominally. Opening pressure was 74mm Hg. The peritoneal cavity was insulflated to 15 mm Hg. Laparoscope within 11 mm blunt trocar was inserted intrabdominally under direct visualization. Obturator was removed and sleeve left in place. Laparoscope was inserted into the trocar sleeve. Abdomen and pelvis was viewed in its entirety. Examination
--- NOTE | 2022-10-13 14:19 | SUR.OPER ---
1044- Family updated of patients current status in the OR and consent updated for possible left salpingo-oophorectomy, per MD Adriel request. Updated consent initialed with the time by this RN and patient's mother.
[2022-10-14 11:23] VITALS: BP 123/76; PULSE 75; TEMP 36.3
--- NOTE | 2022-10-14 11:23 | EXP.ANES.II ---
[facility] Anesthesia Record Part II Anesthesia Record Part II Discharge Time: 11:20 Destination: Surgical Day Care (OP Surgery) PACU nurse assessment reviewed?: Yes Patient Condition:: Good Anesthesia Complications:: None Swallowing reflex intact?: Yes Cyanosis?: No Blood Pressure: 123/76 Pulse Rate: 75 Temperature: 97.4 F Mental Status: Alert & Oriented Pain level:: 3 Nausea and/or vomitting:: None Intake, IV Amount: 0
== END 2022-10-13 12:00 | disposition home or self-care (01) ==
PROVIDERS: PCP Family Medicine; Visit Provider Obstetrics & Gynecology
PROC: 0TTB4ZZ Resection of Bladder, Percutaneous Endoscopic Approach (ICD-10-PCS; CPT 51999; principal; 2022-10-13 09:15)
DX: N83.201 Unspecified ovarian cyst, right side (principal); N83.202 Unspecified ovarian cyst, left side; N93.9 Abnormal uterine and vaginal bleeding, unspecified; N73.6 Female pelvic peritoneal adhesions (postinfective); F17.210 Nicotine dependence, cigarettes, uncomplicated; Z79.899 Other long term (current) drug therapy
CPT/HCPCS: 58661; 49322; J2405

== ENCOUNTER → 2022-11-04 10:59 | Outpatient (CLI) | payer OTHER, SELFPAY ==
[2022-11-05 12:28] LABS: Immunoglobulin A, Qn 122 mg/dL (87-352); Immunoglobulin G, Qn 735 mg/dL (586-1602)
== END ==
PROVIDERS: PCP Family Medicine; Visit Provider Psychiatry & Neurology Neurology
DX: G35 Multiple sclerosis
CPT/HCPCS: 82784

== ENCOUNTER 2023-01-30 11:13 | Emergency (ER) | payer OTHER, SELFPAY ==
--- NOTE | 2023-01-30 11:39 | EXP.UTC ---
Discharge Plan Disposition Patient Disposition: Home, Self-Care Condition: Good Prescriptions Prescriptions: New azithromycin [Zithromax] 250 mg tablet 250 mg PO UD DOSE PK Qty: 6 0RF Rx Instructions: Take two (2) tablets today, then one (1) tablet days #2 thru #5 benzonatate 200 mg capsule 200 mg PO TID PRN (Reason: cough) Qty: 30 0RF ondansetron 4 mg Tablet,Disintegrating 4 mg PO Q8H PRN (Reason: Nausea) Qty: 12 0RF No Action Kesimpta Pen 20 mg/0.4 mL pen injector 20 mg SQ DAILY Referrals Follow up/Referrals: Justen Ceballos MD [Primary Care Provider] - See instructions Activity Restrictions/Add. Instructions Additional Instructions/Restrictions: Drink plenty of fluids. Take tylenol for pain or fever. Take the medications as directed. Follow up with your regular doctor. GO TO THE ER FOR ANY WORSENING SYMPTOMS Clinical Impressions Clinical Impression: Bronchitis, Acute viral syndrome Stand Alone Forms Stand Alone Forms: Work/School Release Instructions Patient Instructions: Acute Bronchitis, DI for Acute Bronchitis, Coronavirus Disease 2019, Preventing the Spread of Coronavirus Discharge Instructions Discharge ED Provider: Adal Carballo [facility] General Stated complaint: BRIONES, cough Time Seen by Provider: 01/30/23 11:39 History of Present Illness Provider Complaint: She states that for the past 3 days she has had worsening chest congestion, cough, sinus congestion and a headache. Related Data Home Medications Medication Instructions Recorded Confirmed ofatumumab 20 mg/0.4 mL 20 mg SQ DAILY MS 01/30/23 01/30/23 subcutaneous pen injector (Kesimpta Pen) Previous Rx's Medication Instructions Recorded azithromycin 250 mg tablet 250 mg PO UD DOSE PK #6 tabs 01/30/23 (Zithromax) benzonatate 200 mg capsule 200 mg PO TID PRN cough #30 caps 01/30/23 ondansetron 4 mg disintegrating 4 mg PO Q8H PRN Nausea #12 tabs 01/30/23 tablet Allergies Allergy/AdvReac Type Severity Reaction Status Date / Time meperidine Allergy Mild Rash Verified 01/30/23 11:50 [facility] Disclaimer: The information contained in this section may have been updated after the patient was seen, as this information can be updated by other users. Medical History Abnormal uterine bleeding (AUB) Bilateral ovarian cysts LLQ abdominal pain Migraine Multiple sclerosis Tobacco user Surgical History H/O laparoscopy H/O oophorectomy History of parathyroidectomy History of tonsillectomy History of unilateral salpingectomy Family History Other Family history of cancer Social History Smoking Status: Current every day smoker tobacco type: cigarettes second hand exposure: No alcohol intake: never substance use type: denies use current occupational status: employed Travel in the last 8 weeks: None household members: family housing: house ROS Obtained: Yes All systems reviewed & no additional complaints except as documented Constitutional Constitutional: Reports chills and Denies fever(s) Eyes Eyes: Denies eye discharge ENT Ears, Nose, Mouth, and Throat: Reports as per HPI Cardiovascular Cardiovascular: Denies chest pain Respiratory Respiratory: Denies shortness of breath, Reports chest congestion, Reports cough, Denies stridor and Denies wheezing Gastrointestinal Gastrointestingal: Reports nausea; Denies abdominal pain, constipation, cramping, diarrhea or vomiting Musculoskeletal Musculoskeletal: Denies arthralgias Integumentary/Breasts Skin/Breast: Denies rash Neurologic Neurologic: Denies paresthesias Allergic/Immunologic Allergic/Immunologic: Denies wheezing Physical Exam General General appearance: alert and in no apparent distress Eye Eye exam: Present normal appearance, PERR
[2023-01-30 12:00] LABS: UTC Strep Screen (Rapid) Negative (Negative)
[2023-01-30 12:04] VITALS: BP 146/93; PULSE 97; RESP 16; TEMP 36.8; O2SAT 97; BMI 25.8
[2023-01-30 12:20] VITALS: BP 146/93; PULSE 82; RESP 18; TEMP 36.8
== END 2023-01-30 12:21 | disposition home or self-care (01) ==
PROVIDERS: Emergency Provider Nurse Practitioner Family; PCP Family Medicine
DX: J20.9 Acute bronchitis, unspecified (principal); B34.9 Viral infection, unspecified; R51.9 Headache, unspecified; F17.210 Nicotine dependence, cigarettes, uncomplicated; G35 Multiple sclerosis
CPT/HCPCS: 87880; 99212; 99214; G0463

== ENCOUNTER 2023-05-23 13:08 | Emergency (ER) | payer OTHER, SELFPAY ==
--- NOTE | 2023-05-23 14:08 | EXP.UTC ---
Discharge Plan Disposition Patient Disposition: Home, Self-Care Condition: Good Prescriptions Prescriptions: New ibuprofen [IBU] 800 mg tablet 800 mg PO Q8HP PRN (Reason: Moderate Pain) Qty: 30 0RF benzonatate [benzonatate] 100 mg capsule 100 mg PO TIDP PRN (Reason: Cough) Qty: 30 0RF ondansetron 4 mg Tablet,Disintegrating 4 mg PO Q8H PRN (Reason: Nausea) Qty: 12 0RF No Action Mirena 21 mcg/24 hours (8 yrs) 52 mg intrauterine device 1 device intrauterine ONCE Kesimpta Pen 20 mg/0.4 mL pen injector 20 mg SQ DAILY Referrals Follow up/Referrals: Justen Ceballos MD [Primary Care Provider] - See instructions Activity Restrictions/Add. Instructions Additional Instructions/Restrictions: Drink plenty of fluids. Take tylenol or ibuprofen for pain or fever. Take the medications as directed. Follow up with your regular doctor. GO TO THE ER FOR ANY WORSENING SYMPTOMS Clinical Impressions Clinical Impression: COVID-19 Stand Alone Forms Stand Alone Forms: Work/School Release Instructions Patient Instructions: Coronavirus Disease 2019, Preventing the Spread of Coronavirus Discharge Instructions Discharge ED Provider: Adal Carballo [facility] General Stated complaint: h/a, congestion, weakness Time Seen by Provider: 05/23/23 14:08 History of Present Illness Provider Complaint: She states that for the past 2 days she has had fever, chills, body aches, and nonproductive cough. Related Data Home Medications Medication Instructions Recorded Confirmed ofatumumab 20 mg/0.4 mL 20 mg SQ DAILY MS 01/30/23 02/23/23 subcutaneous pen injector (Kesimpta Pen) levonorgestrel 21 mcg/24 hours (8 1 device intrauterine ONCE 02/20/23 02/23/23 yrs) 52 mg intrauterine device (Mirena) Previous Rx's Medication Instructions Recorded benzonatate 100 mg capsule 100 mg PO TIDP PRN Cough #30 caps 05/23/23 ibuprofen 800 mg tablet (IBU) 800 mg PO Q8HP PRN Moderate Pain 05/23/23 #30 tabs ondansetron 4 mg disintegrating 4 mg PO Q8H PRN Nausea #12 tabs 05/23/23 tablet Allergies Allergy/AdvReac Type Severity Reaction Status Date / Time meperidine Allergy Mild Rash Verified 02/23/23 15:30 [facility] Disclaimer: The information contained in this section may have been updated after the patient was seen, as this information can be updated by other users. Medical History Abnormal uterine bleeding (AUB) Bilateral ovarian cysts LLQ abdominal pain Migraine Multiple sclerosis Tobacco user Surgical History H/O laparoscopy H/O oophorectomy left History of parathyroidectomy History of tonsillectomy History of unilateral salpingectomy left Family History Other Family history of cancer Social History Smoking Status: Current every day smoker tobacco type: cigarettes second hand exposure: No alcohol intake: never substance use type: denies use current occupational status: employed Travel in the last 8 weeks: None household members: family housing: house ROS Obtained: Yes All systems reviewed & no additional complaints except as documented Constitutional Constitutional: Reports chills and Reports fever(s) Eyes Eyes: Denies eye discharge ENT Ears, Nose, Mouth, and Throat: Reports as per HPI Cardiovascular Cardiovascular: Denies chest pain Respiratory Respiratory: Denies chest congestion and Reports cough Gastrointestinal Gastrointestingal: Reports nausea; Denies abdominal pain, constipation, cramping, diarrhea or vomiting Musculoskeletal Musculoskeletal: Denies arthralgias Integumentary/Breasts Skin/Breast: Denies rash Neurologic Neurologic: Denies paresthesias Physical Exam General General appearance: alert and in no apparent distress Head Head exam: atraumatic, normocephalic and normal inspection Eye Eye exam: Present normal appearance, PERRL and EOMI ENT ENT exam: Present normal exam, normal oropharynx, mucous membranes moist, TM's normal bilaterally and normal external ear exam Neck Neck exam: Present normal inspection, full ROM and trachea midline; Absent meningismus or lymphadenopathy Chest Chest inspection: Present normal inspection and symmetric chest wall rise; Absent tenderness Respiratory Respiratory exam: Present normal lung sounds bilaterally; Absent respiratory distress Cardiovascular Cardiovascular exam: Present regular rate and normal rhythm; Absent JVD Abdominal Exam Abdominal exam: Present soft and normal bowel sounds; Absent distention, tenderness or guarding Extremities Exam Extremities exam: Present normal inspection, full ROM and normal capillary refill; Absent calf tenderness Back Exam Back exam: Present normal inspection; Absent tenderness Neurological Exam Neurological exam: Present alert and oriented X3 Psychiatric Psychiatric exam: Present normal affect and normal mood Skin Skin exam: Present warm, dry, intact and normal color Lymphatic Lymphatic Findings: no adenopathy Medical Decision Making Medical Records Medical records reviewed: No I reviewed the patient's medical records. Arie Inquiry Pt receiving controlled substance: No Lab Data Lab results reviewed: Yes I reviewed the patient's lab results. Orders (Tests/Meds): ORDERS Category Date Time Status Rapid PCR Covid and Flu A/B Stat Lab 05/23/23 14:06 Ordered
[2023-05-23 14:09] VITALS: BP 132/77; PULSE 77; RESP 18; TEMP 36.8; O2SAT 99; BMI 26.9
[2023-05-23 14:37] LABS: Influenza A, PCR Not Detected (NotDetected); Influenza B, PCR Not Detected (NotDetected)
[2023-05-23 15:04] LABS: Coronavirus 19, PCR Detected (NotDetected)
[2023-05-23 15:24] VITALS: BP 132/77; PULSE 77; RESP 16; TEMP 36.8; O2SAT 99
== END 2023-05-23 15:25 | disposition home or self-care (01) ==
PROVIDERS: Emergency Provider Nurse Practitioner Family; PCP Family Medicine
DX: U07.1 COVID-19 (principal); R51.9 Headache, unspecified; R50.9 Fever, unspecified; R05.9 Cough, unspecified; M79.18 Myalgia, other site; R53.1 Weakness; F17.210 Nicotine dependence, cigarettes, uncomplicated; G35 Multiple sclerosis
CPT/HCPCS: 87636; 99212; 99214; G0463

== ENCOUNTER 2023-08-30 15:55 | Outpatient (CLI) | payer OTHER, SELFPAY ==
[2023-08-30 16:07] LABS: Basophils # 0.1 K/mm3 (0-0.2); Basophils % 1.4 % (0.1-2.0); Eosinophils # 0.3 K/mm3 (0.0-0.4); Eosinophils % 3.4 % (0.1-12.0); Hematocrit 45.8 % (37.0-47.0); Hemoglobin 15.2 g/dL (12.2-16.2); Lymphocytes # 2.4 K/mm3 (0.7-4.5); Lymphocytes % 23.5 % (10-50); Mean Corpuscular HGB Conc 33.2 g/dL (31.8-35.4); Mean Corpuscular Volume 96.2 fl (81-99); Mean Platelet Volume 9.6 fl (7.4-10.4); Monocytes # 0.5 K/mm3 (0.1-1.0); Monocytes % 5.3 % (1.7-9.3); Neutrophils # 6.6 K/mm3 (1.8-7.8); Neutrophils % 66.3 % (37.0-80.0); Platelet Count 202 K/mm3 (142-424); Red Blood Count 4.75 M/mm3 (4.20-5.40); Red Cell Distribution Width 12.8 % (11.5-17.5)
== END 2023-08-30 23:59 ==
LOC: LAB 15:56
PROVIDERS: PCP Family Medicine; Visit Provider Physician Assistant
DX: J06.9 Acute upper respiratory infection, unspecified (principal)
CPT/HCPCS: 36415; 85025

== ENCOUNTER 2024-09-30 13:54 | Outpatient (CLI) | payer OTHER, SELFPAY ==
--- NOTE | 2024-09-30 13:57 | XR_ITS ---
FINAL REPORT CLINICAL HISTORY: cough, CONGESTION FINDINGS: 2 views of the chest were obtained . The heart is normal in size. The mediastinum is within normal limits. The lungs are clear. There is no pneumothorax. Osseous structures are unremarkable. IMPRESSION: No acute cardiopulmonary process. Reviewed, Interpreted and Dictated by Ana Cervantes MD Transcribed by Arianna Wang Authenticated and [facility]
== END 2024-09-30 23:59 | disposition home or self-care (01) ==
LOC: RAD 13:55
PROVIDERS: PCP Family Medicine; Visit Provider Student in an Organized Health Care Education/Training Program
DX: R05.9 Cough, unspecified (principal)
CPT/HCPCS: 71046

== ENCOUNTER 2024-12-13 11:51 | Emergency (ER) | payer OTHER, SELFPAY ==
[2024-12-13 11:59] VITALS: BP 162/105; PULSE 88; RESP 19; TEMP 36.9; O2SAT 100; BMI 28.4
[2024-12-13 12:00] VITALS: PULSE 80; RESP 19; O2SAT 99
--- OUTSIDE RECORDS SUMMARY | 2024-12-13 12:02 | XMS_ITS | Encounter Summary ---
Author Organization [employer] ([place], [place], [place], [place]) Address [address] [place] [address] Care Team Providers Care Hospitalist Physician Name Role Phone Justen Ceballos MD Primary Care Provider + [phone] Encounter Details Date Type Department Care Team (Late st Contact Info) Description 05/25/2021 Transcribed Document [facility] Family Medicine [address] [place] [address] ProviderHomer MD [address] [place] [address] Social History Tobacco Use Types Packs/Day Years Used Date Smoking Tobacco: Never Assessed Comments Unknown Sex and Gender Information Value Date Recorded Sex Assigned at Female 11/23/2021 9:01 PM CDT Legal Sex Female 9:01 PM CDT Gender Identity Female 11/23/2021 9:01 PM CDT Sexual Orientation Not on file documented as of this encounter Miscellaneous Notes * Cerner Conversion Note - Homer Johnson MD - 05/25/2021 8:54 PM PATIENT ATTENDANT DATE OF PROCEDURE: 05/25/2021 SURGEON: John Paul Zarco MD PREOPERATIVE DIAGNOSIS: Right distal ureteral stone with severe right-sided hydronephrosis. POSTOPERATIVE DIAGNOSIS: Right distal ureteral stone with severe right-sided hydronephrosis. PROCEDURE PERFORMED: Cystoscopy with attempted but failed right ureteral stent placement. ANESTHESIA: General. COMPLICATIONS: None. DETAILS OF PROCEDURE: The patient was brought into the operating room. She was placed in dorsal lithotomy position and prepped and draped in usual fashion. I passed a 23-Turkish cystoscope with a 30-degree lens using video camera via the urethra into the bladder. Once inside the bladder, I 1st identified the left ureteral orifice and the right ureteral orifice. Remainder of bladder was inspected. There were no foreign bodies, mucosal lesions, or stones seen. I passed with the aid of an chemical educator catheter. I passed zip wire up the right ureter. This initially hung up at the stone. The stone was very clearly visible in the distal right ureter. I attempted several times to get the wire to go past the stone. Eventually, I did. Once I get the wire past the stone, I attempted to pass a catheter over the wire. I used both the Mead and the chemical educator catheter despite multiple attempts just would not go past the stone and at that point, I tried a 4.8 stent. This also would not go past the stone and I elected to just remove the wire and terminate the procedure. I explained this situation to the patient's mom and the patient. Also discussed the case with Dr. Ibarra. He will admit her overnight. I discussed the case with Dr. Dixon. He will place a nephrostomy tube 1st thing tomorrow morning unless she shows any signs of sepsis, which then will be done emergently. /[id number] John Paul Zarco MD PER/AQ / PER / MODL /[id number] documented in this encounter Plan of Treatment Upcoming Encounters Date Type Department Care Team (Late st Contact Info) Description 02/04/2025 1:45 PM EDT Office Visit [facility] Neurology - [place] [address] [place] [address] Tiny Colin MD [address] [place] [address] documented as of this encounter Visit Diagnoses Not on filedocumented in this encounter Care Teams Hospitalist Physician Relationship Specialty Start Date End Date Justen Ceballos MD [address] [place] [facility] [address] [place] [address] PCP - General Family Medicine 08/11/23 documented as of this encounter
--- OUTSIDE RECORDS SUMMARY | 2024-12-13 12:02 | XMS_ITS | Encounter Summary ---
Author Organization [employer] ([place], [place], [place], [place]) Address [address] [place] [address] Care Team Providers Care Correction Lieutenant Name Role Phone Justen Ceballos MD Primary Care Provider + [phone] Encounter Details Date Type Department Care Team (Late st Contact Info) Description 05/25/2021 Transcribed Document [facility] Family Medicine [address] [place] [address] ProviderHomer MD [address] [place] [address] Social History Tobacco Use Types Packs/Day Years Used Date Smoking Tobacco: Never Assessed Comments Unknown Sex and Gender Information Value Date Recorded Sex Assigned at Female 11/23/2021 9:01 PM CDT Legal Sex Female 9:01 PM CDT Gender Identity Female 11/23/2021 9:01 PM CDT Sexual Orientation Not on file documented as of this encounter Miscellaneous Notes * Cerner Conversion Note - Homer ProviderMD - 05/25/2021 8:08 PM LOGGING RAFTER LABORER [facility] Main OR IntraOp Summary Primary Physician: ZOE JORDAN MD-URO Finalized Date/Time: 05/26/21 06:35:26 Pt. Name: LINH AMIEMARTELL PANDA /Sex: 1985 Female Med Rec #: [id number] Physician: ZOE JORDAN MD-URO Financial #: [id number] Pt. Type: O Room/Bed: 533/1 Admit/Disch: 05/25/21 15:09:00 - [facility] [place] Case Attendance Entry 1 Entry 2 Entry 3 Case Attendee ZOE JORDAN Myers, Josh, REP - Joselito Stanford MD-URO Engraved Roller Inspector Role Performed Surgeon/Proceduralist, Staff - Other Metal Hanger First Time In 05/25/21 19:57:00 05/25/21 19:57:00 05/25/21 19:57:00 Time Out 05/25/21 20:39:00 05/25/21 20:39:00 05/25/21 20:39:00 Procedure Cystoscopy Stent Cystoscopy Stent Cystoscopy Stent Insertion Insertion Insertion Other Attendee Superficial Wound Closed By: Last Modified By: Salvador Simmons Shaffer, Andrea L, Salvador Simmons, Rn-Traveler 05/25/21 Rn-Traveler 05/25/21 Rn-Traveler 05/25/21 20:39:05 20:39:21 20:39:05 Entry 4 Entry 5 Entry 6 Case Attendee KAILA VILLARREAL, Mike Bravo, Scrub Salvador Simmons, Tech Rn-Traveler Role Performed LEAD SOFTWARE TEST ENGINEER/Nurse Technical Project Manager Scrub, First Well Drill Operator Helper Cable Tool, First Time In 05/25/21 19:57:00 05/25/21 19:57:00 05/25/21 19:57:00 Time Out 05/25/21 20:39:00 05/25/21 20:39:00 05/25/21 20:39:00 Procedure Cystoscopy Stent Cystoscopy Stent Cystoscopy Stent Insertion Insertion Insertion Other Attendee Superficial Wound Closed By: Last Modified By: Salvador Simmons Shaffer, Andrea L, Shaffer, Andrea L, Rn-Traveler 05/25/21 Rn-Traveler 05/25/21 Rn-Traveler 05/25/21 20:39:05 20:39:05 20:39:05 [facility] IntraOp Case Attendance Audit 05/25/21 20:39:21 Pediatric Oncologist: [id number] Modifier: [id number] <+> Case Attendee 2 <*> Procedure Cystoscopy Stent Insertion 05/25/21 20:39:05 Pediatric Oncologist: [id number] Modifier: [id number] 1 <+> Time In 1 <+> Time Out 1 <*> Procedure Cystoscopy Stent Insertion 2 <+> Time In 2 <+> Time Out 2 <*> Procedure Cystoscopy Stent Insertion 3 <+> Time In 3 <+> Time Out 3 <*> Procedure Cystoscopy Stent Insertion 4 <+> Time In 4 <+> Time Out 4 <*> Procedure Cystoscopy Stent Insertion 5 <+> Time In 5 <+> Time Out 5 <*> Procedure Cystoscopy Stent Insertion 6 <+> Time In 6 <+> Time Out 6 <*> Procedure Cystoscopy Stent Insertion [facility] IntraOp Case Times Entry 1 Patient In Room Time 05/25/21 19:57:00 Out Room Time 05/25/21 20:39:00 Anesthesia Start Time 05/25/21 19:57:00 Stop Time 05/25/21 20:39:00 Anesthesia Ready 05/25/21 19:57:00 Surgery / Procedure Times Start Time 05/25/21 20:08:00 Stop Time 05/25/21 20:33:00 Last Modified By: Salvador Simmons Rn-Traveler 05/25/21 20:39:04 [facility] IntraOp Case Times Audit 05/25/21 20:39:04 Pediatric Oncologist: [id number] Modifier: [id number] <+> 1 Out Room Time <+> 1 Stop Time 05/25/21 20:38:55 Pediatric Oncologist: [id number] Modifier: [id number] <+> 1 Stop Time [facility] IntraOp Communication Entry 1 Communication To Family/Significant other Communication By ZOE JORDAN MD-URO Last Modified By: Salvador Simmons Rn-Traveler 05/25/21 20:17:47 [facility] IntraOp Departure from OR Entry 1 Integumentary Assessment Integumentary WDL Assessment WDL Transfer/Handoff Transfer to PACU Phase I Handoff Method Bedside/Face to face Post-op Transport Stretcher/Guraugustina Via Patient Transport KAILA VILLARREAL NA, Accompanied by Salvador Simmons Rn-Traveler Last Modified By: Salvador Simmons Rn-Traveler 05/25/21 20:18:21 [facility] IntraOp Fire Risk Assessment Entry 1 Fire Info Surgical Site or 0- No Incision Above the Xyphoid Open O2 Source 0- No (Mask or Cannula) Available Ignition 1- Yes (ESU, Laser, Light Source) Fire Risk 1 Assessment Score Fire Score Fire Risk Yes Assessment Complete Fire Risk Salvador Simmons, Assessment Verified Rn-Traveler By Fire Risk 05/25/21 20:07:00 Assessment Verified Date/Time Fire Risk Standard Fire Yes Safety Precautions Followed Last Modified By: Salvador Simmons Rn-Traveler 05/25/21 20:18:44 [facility] IntraOp Fire Risk Assessment Audit 05/25/21 20:18:44 Pediatric Oncologist: [id number] Modifier: [id number] <+> 1 Fire Risk Assessment Verified By <+> 1 Fire Risk Assessment Verified Date/Time [facility] IntraOp General Case Cloth Washer Back Tender 1 Case Information OR OR 03 [facility] Case Level 1 Room Verified Yes Wound Class 2 - Clean-Contaminated Specialty Urology Anesthesia Type General ASA Class 2 Diagnosis Preop Diagnosis right ureteral stone Postop Same As Preop No Postop Diagnosis see surgeon's operative note Wound Class Definitions Last Modified By: Salvador Simmons Rn-Traveler 05/25/21 20:20:30 [facility] IntraOp General Case Data Audit 05/25/21 20:20:30 Pediatric Oncologist: [id number] Modifier: [id number] <+> 1 Preop Diagnosis [facility] IntraOp Implant Log Entry 1 Type Implant (Synthetic) Implant Log Implant Type Other Implant STENT URET PERCFLX Identification [id number] Description Implant Quantity 1 Implant Site right ureter Implant [id number] Identification Lot Number Implant [place] Identification Sci:Urology/Gynecology Associate Editor Name: Implant [id number] Identification Catalog Number Implant Has an Yes Expiration Date Implant Expiration 01/15/24 Date Wasted Yes Tissue Implant Last Modified By: Salvador Simmons Rn-Traveler 05/25/21 20:33:01 [facility] IntraOp Implant Log Audit 05/25/21 20:33:01 Pediatric Oncologist: [id number] Modifier: [id number] 1 <*> Implant Identification Description STENT URET PERCFLX [id number] 1 <+> Wasted [facility] IntraOp Intraoperative Assessment Entry 1 Handoff Method Bedside/Face to face Valid History / Yes Physical in Chart Preoperative Yes Checklist Reviewed/Evaluated Allergies Reviewed Yes Patient is Latex No Sensitive Isolation Not applicable Precautions Noted Level of WDL Consciousness (WDL = Alert, Oriented to Person, Place, and Time) Skin Assessment Yes Verified Present Upon IVs Arrival to OR Last Modified By: Salvador Simmons Rn-Traveler 05/25/21 20:19:58 [facility] IntraOp Intraoperative Equipment Entry 1 Type Monitoring Equipment Intraop Monitoring Electrocardiogram Three lead placement (ECG) Electrode Placement Blood Pressure Non-Invasive BP Device Source Antiembolic Devices Antiembolic Devices Sequential compression device, knee high Antiembolic Device Bilateral Location Scopes Photo/Video Documentation Last Modified By: Salvador Simmons Rn-Traveler 05/25/21 20:20:15 [facility] IntraOp Medication Admin Entry 1 Medication/Irrigant lidocaine 2% urojet 10ml jenatalee - [id number] Time Administered 05/25/21 20:20:00 Dose Administered By ZOE JORDAN MD-URO Procedure Irrigation Last Modified By: Salvador Simmons Rn-Traveler 05/25/21 20:22:33 [facility] IntraOp Patient Positioning Entry 1 Procedure Cystoscopy Stent Insertion Body Position Lithotomy Left Arm Position Secured on padded arm board Right Arm Position Secured on padded arm board Left Leg Position Secured in Leg Munoz Right Leg Position Secured in Leg Munoz Feet Uncrossed Yes Pressure Points Yes Checked Positioning Devices Stirrups/Leg Munoz, Cysto, Arm Board, Safety Strap, Arm(s), Safety Strap, Chest Positioned By Salvador Simmons Rn-PHIL Rae KAREN KIM, NA, ZOE JORDAN MD-URO Position Verified Positioning Yes Verified by Anesthesia Positioning Yes Verified by Surgeon Last Modified By: Salvador Simmons Rn-Traveler 05/25/21 20:23:06 [facility] IntraOp Sign In Entry 1 Patient, Site, Yes Procedure Identified Surgical Consent Yes Confirmed Relevant Surgical Yes Documents Available Surgical Site Yes Marked by person performing procedure Anesthesia Machine Yes Check Completed Medication Checks Yes Completed Allergies Yes Airway Difficult No Airway/Aspiration Risk Difficult Yes Airway/Aspiration Intervention Equipment Available Blood Loss Risk No Blood Loss No Intervention Equipment Prepared and Ready Blood Identifiers Not applicable Verified Per Policy Hypothermia Risk Yes Warming Measures Yes Taken Last Modified By: Salvador Simmons Rn-Traveler 05/25/21 20:23:14 [facility] Intra Op Sign Out Entry 1 RN Confirmation Surgical Yes Procedure(s) Identified Instrument, Sponge Yes and Sharps Counts Correct/Documented Equipment Problems N/A Documented Specimen Labeled N/A Correctly Urinary Catheter N/A Documented in IView Wound Yes classification reviewed, verified and updated post case in both the General Case Data and Procedure segments Gonzáles Patient Yes Recovery Concerns Reviewed with Anesthesia Provider, Surgeon and RN Gonzáles Patient Yes Management Concerns Reviewed with Anesthesia Provider, Surgeon and RN Safety Checklist Yes Elements Complete? RN Sign Out Salvador Simmons, Signature Rn-Traveler RN Sign Out 05/25/21 20:38:00 Signature Date/Time Plan of Care Outcome - Fire Risk OUTCOME STATEMENT: Goal met Patient is free from injury related to surgical fire Plan of Care Outcome - Pt Positioning OUTCOME STATEMENT: Goal met Absence of signs and symptoms of positioning injury. Plan of Care Outcome - Skin Prep OUTCOME STATEMENT: Goal met Intraoperative care is consistent with measures to prevent infection Plan of Care Outcome - Xray/Images OUTCOME STATEMENT: Goal met Absence of observable signs or symptoms of radiation injury Plan of Care Outcome - Counts OUTCOME STATEMENT: Goal met Absence of signs and symptoms of injury related to extraneous objects Last Modified By: Salvador Simmons Rn-Traveler 05/25/21 20:38:59 [facility] Intra Op Sign Out Audit 05/25/21 20:38:59 Pediatric Oncologist: [id number] Modifier: [id number] <+> 1 RN Sign Out Signature Date/Time [facility] IntraOp Skin Prep Entry 1 Procedure Cystoscopy Stent Insertion Prescribed Yes Pre-Surgical Prep Completed Prep Area vagina and perineal area Intraop Prep Integumentary WDL Assessment WDL Prep Agents Betadine solution Prep by Salvador Simmons Rn-Traveler Hair Removal Last Modified By: Salvador Simmons Rn-Traveler 05/25/21 20:23:34 [facility] IntraOp Surgical Procedures Entry 1 Procedure Cystoscopy Stent Insertion Additional CYSTOSCOPY WITH RIGHT Procedure STENT INSERTION Description Primary Procedure Yes Primary Surgeon ZOE JORDAN MD-URO Start 05/25/21 20:08:00 Stop 05/25/21 20:33:00 Anesthesia Type General Specialty Urology Wound Class 2 - Clean-Contaminated Last Modified By: Salvador Simmons Rn-Traveler 05/25/21 20:38:59 [facility] IntraOp Surgical Procedures Audit 05/25/21 20:38:59 Pediatric Oncologist: [id number] Modifier: [id number] <+> 1 Stop [facility] IntraOp Time Out Entry 1 Procedure to be Cystoscopy Stent Performed Insertion Time Out Time Out Pause Time 05/25/21 20:07:00 All activity Yes suspended (unless life threatening emergency) Team Verbally Correct patient Confirms Information identity, Correct side and site are marked, Consent form is present and accurate, Agreement on the procedure to be done, Correct patient position, Relevant images/results properly labeled/appropriately displayed, Confirm antibiotics have been administered, Confirm the skin prep has dried, Confirm prosthesis/implant/devic e is present, Performed in location of procedure after prepped/draped Antibiotic Yes Prophylaxis Administered Or In Progress Within the Last 60 Minutes Beta Lissa N/A Administered Venous Yes Thromboembolism Prophylaxis Required Anticipated Critical Events Surgeon None expected Anesthesia Provider None expected Nursing Assures Sterility of instruments, Equipment concerns or issues, Implant Availability Essential Imaging Yes Labeled and Displayed Last Modified By: Salvador Simmons Rn-Traveler 05/25/21 20:19:15 Case Comments <None> Finalized By: Cheryl Mckinnon RN Document Signatures Signed By: Salvador Simmons Rn-Traveler 05/25/21 20:39 Cheryl Mckinnon RN 05/26/21 06:35 Unfinalized History Date/Time Username Reason for Unfinalizing Freetext Reason for Unfinalizing 05/26/21 06:32 MARYBETH Correct Billing Electronically signed by Kathia [facility] Conversion Solar Water Heater Installer Cerner at 09/14/2022 5:36 PM CDT documented in this encounter Plan of Treatment Upcoming Encounters Date Type Department Care Team (Late st Contact Info) Description 02/04/2025 1:45 PM EDT Office Visit [facility] Neurology - [facility] [address] [facility] [address] [place] [address] Tiny Colin MD [address] [facility] [address] [place] [address] documented as of this encounter Visit Diagnoses Not on filedocumented in this encounter Care Teams Correction Lieutenant Relationship Specialty Start Date End Date Justen Ceballos MD [address] [place] [facility] [address] [place] [address] PCP - General Family Medicine 08/11/23 documented as of this encounter
--- OUTSIDE RECORDS SUMMARY | 2024-12-13 12:02 | XMS_ITS | Encounter Summary ---
Author Organization [employer] ([place], [place], [place], [place]) Address [address] [place] [address] Care Team Providers Care Overnight Associate Name Role Phone Justen Ceballos MD Primary Care Provider + [phone] Encounter Details Date Type Department Care Team (Late st Contact Info) Description 05/25/2021 Transcribed Document [facility] [place] [address] [place] [address] ProviderHomer MD [address] [place] [address] Social History Tobacco Use Types [...] - Homer ProviderMD - 05/25/2021 8:08 PM COPYIST [facility] Main OR PACU Summary Primary Physician: ZOE JORDAN MD-URO Finalized Date/Time: 05/25/21 21:53:55 Pt. Name: LINH AMIEMARTELL PANDA /Sex: 1985 Female Med Rec #: [id number] Physician: ZOE JORDAN MD-URO Financial #: [id number] Pt. Type: O Room/Bed: EAS/8 Admit/Disch: 05/25/21 15:09:00 - Institution: [facility] Main OR PACU Case Times Entry 1 In PACU I 05/25/21 20:40:00 Ready for PACU 05/25/21 21:53:00 Discharge Discharge from PACU 05/25/21 21:53:00 I Last Modified By: BOO CABRALES RN 05/25/21 21:53:42 Finalized By: BOO CABRALES, RN Document Signatures Signed By: BOO CABRALES RN 05/25/21 21:53 documented in this encounter Plan of Treatment Upcoming Encounters Date Type Department Care Team (Late st Contact Info) Description 02/04/2025 1:45 PM EDT Office Visit [facility] Neurology - [facility] [address] [facility] [address] [place] [address] Tiny Colin MD [address] [facility] [address] [place] [address] documented as of this encounter Visit Diagnoses Not on filedocumented in this encounter Care Teams Overnight Associate Relationship Specialty Start Date End Date Justen Ceballos MD [address] [facility] [address] [place] [address] PCP - General Family Medicine 08/11/23 documented as of this encounter
--- OUTSIDE RECORDS SUMMARY | 2024-12-13 12:02 | XMS_ITS | Encounter Summary ---
Author Organization [employer] ([place], [place], [place], [place]) Address [address] [place] [address] Care Team Providers Care Environmental Geologist Name Role Phone Justen Ceballos MD Primary Care Provider + [phone] Encounter Details Date Type Department Care Team (Late st Contact Info) Description 06/03/2021 Transcribed Document [facility] [place] Family Medicine [address] [place] [address] ProviderHomer MD [address] [place] [address] Social History Tobacco Use Types [...] Cerner Conversion Note - Homer ProviderMD - 06/03/2021 8:35 AM LAN ENGINEER AZAME Main OR PACU Summary Primary Physician: ZOE JORDAN MD-URO Finalized Date/Time: 06/03/21 10:51:17 Pt. Name: LINH AMIEMARTELL PANDA /Sex: 1985 Female Med Rec #: [id number] Physician: ZOE JORDAN MD-URO Financial #: [id number] Pt. Type: O Room/Bed: [facility] Admit/Disch: 06/03/21 06:25:00 - [place] [facility] [place] PACU Case Times Entry 1 In PACU I 06/03/21 09:20:00 Ready for PACU 06/03/21 10:51:00 Discharge Discharge from PACU 06/03/21 10:51:00 I Last Modified By: Hyun Hayes RN 06/03/21 10:51:06 S[facility] Main OR PACU Case Times Audit 06/03/21 10:51:06 Scientific Database Curator: CARRIEC Modifier: [email or web address] <+> 1 Ready for PACU Discharge <+> 1 Discharge from PACU I Finalized By: Hyun Hayes, RN Document Signatures Signed By: Hyun Hayes RN 06/03/21 10:51 Electronically signed by Kathia [facility] Conversion Manager Books Cerner at 09/14/2022 5:14 PM CDT documented in this encounter Plan of Treatment Upcoming Encounters Date Type Department Care Team (Late st Contact Info) Description 02/04/2025 1:45 PM EDT Office Visit [facility] Neurology - [place] [address] [place] [address] Tiny Colin MD [address] [facility] [address] [place] [address] documented as of this encounter Visit Diagnoses Not on filedocumented in this encounter Care Teams Environmental Geologist Relationship Specialty Start Date End Date Justen Ceballos MD [address] [facility] [address] [place] [address] PCP - General Family Medicine 08/11/23 documented as of this encounter
--- OUTSIDE RECORDS SUMMARY | 2024-12-13 12:02 | XMS_ITS | Encounter Summary ---
Author Organization [employer] ([place], [place], [place], [place]) Address [address] [place] [address] Care Team Providers Care Co Supervisor Grounds And Landscape Name Role Phone Justen Ceballos MD Primary Care Provider + [phone] Encounter Details Date Type Department Care Team (Late st Contact Info) Description 05/26/2021 Transcribed Document [facility] [place] Family Medicine [address] [place] [address] ProviderHomer MD [address] [place] [address] Social History Tobacco Use Types Packs/Day Years Used Date Smoking Tobacco: Never Assessed Comments Unknown Sex and Gender Information Value Date Recorded Sex Assigned at Female 11/23/2021 9:01 PM CDT Legal Sex Female 9:01 PM CDT Gender Identity Female 11/23/2021 9:01 PM CDT Sexual Orientation Not on file documented as of this encounter Miscellaneous Notes * Cerner Conversion Note - Historical ProviderMD - 05/26/2021 3:28 AM SHOE SPRAYER Event Note Entered On: 05/26/2021 3:29 EST Performed On: 05/26/2021 3:28 EST by Julee Diallo, RN Event Note Event Date/Time : 05/25/2021 21:55 EST Event Details : Nursing assessment additional narrative Description of Event : This RN agrees with primary nurse skin assessment Julee Diallo RN - 05/26/2021 3:28 EST Electronically signed by Kathia [facility] Conversion Furniture Fabricator Cerner at 09/14/2022 5:43 PM CDT documented in this encounter Plan of Treatment Upcoming Encounters Date Type Department Care Team (Late st Contact Info) Description 02/04/2025 1:45 PM EDT Office Visit [facility] Neurology - [place] [address] [place] [address] Tiny Colin MD [address] [facility] [address] [place] [address] documented as of this encounter Visit Diagnoses Not on filedocumented in this encounter Care Teams Co Supervisor Grounds And Landscape Relationship Specialty Start Date End Date Justen Ceballos MD [address] [facility] [address] [place] [address] PCP - General Family Medicine 08/11/23 documented as of this encounter
--- OUTSIDE RECORDS SUMMARY | 2024-12-13 12:02 | XMS_ITS | Clinical Summary ---
Author Organization [facility] Address [address] [place] [address] Care Team Providers Care Salvager Helper Name Role Phone Justen Ceballos MD Primary Care Provider + [phone] Elvira Hernandez MD Unavailable + [phone] Manuela Donald DO Unavailable [phone] Allergies Active Allergy Reactions Criticality Noted Date Comments Meperidine Rash Low 12/02/2016 Medications ergocalciferol (Vitamin D-2) 1.25 MG (37895 UT) capsule Take 50,000 Units by mouth 1 (one) time per week. Active calcium carbonate (Tums Ultra) 1000 MG chewable tablet Chew 1 tablet (1,000 mg total) 2 (two) times a day. 100 tablet 1 2 Active nitrofurantoin, macrocrystal-monohy drate, (Macrobid) 100 MG capsule TAKE 1 CAPSULE BY MOUTH TWICE DAILY FOR 7 DAYS 2 Active Ofatumumab (Kesimpta) 20 MG/0.4ML solution auto-injector Inject 1 pen under the skin every 30 (thirty) days. 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 Multiple sclerosis 03/19/2021 Immunizations Immunization Administration Dates Next Due Moderna 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 10/2022,06/06/2022 Family History Medical History Relation Name Comments Brain cancer Father Hypertension Father Lung cancer Father Anesthesia problems Neg Hx Malig Hyperthermia Neg Hx Relation Name Status Comments Father Social History Tobacco Use Types Packs/Day Years Used Date Smoking Tobacco: Every Day Cigarettes 0.5 15 Smokeless Tobacco: Never Tobacco Cessation:Ready to Q uit: Not Asked; Counseling Given: Not Answered Alcohol Use Standard Drinks/Week Comments Never 0 (1 standard drink = 0.6 oz pur e alcohol) Comments No Sex and Gender Information Value Date Recorded Sex Assigned at Female 03/20/2021 9:54 AM EDT Legal Sex Female 7:27 PM EDT Gender Identity Female 03/20/2021 9:54 AM EDT Sexual Orientation Not on file Last Filed Vital Signs Vital Sign Reading Time Taken Comments Blood Pressure 135/85 05/10/2023 1:25 PM EST Pulse 96 05/10/2023 1:25 PM EST Temperature 36.8 C (98.2 F) 10/06/2022 2:00 PM EDT Respiratory Rate 12 10/06/2022 2:00 PM EDT Oxygen Saturation 96% 05/10/2023 1:25 PM EST Inhaled Oxygen Concentration - - Weight 81.9 kg (180 lb 9.6 oz) 05/10/2023 1:25 P M EST Height 170.2 cm (5' 7 ) 05/10/2023 1:25 PM EST Body Mass Index 28.29 05/10/2023 1:25 PM EST Plan of Treatment Health Maintenance Due Date Last Done Comments [facility]-Depression Screening 1984 [facility]-Infant/Child/Adol SDOH Screenings 1984 [facility]-Varicella Vaccines (1 of 2 - 13+ 2-dose series) 02/15/1997 HPV Vaccines (1 - 3-dose series) 02/15/1999 [facility]- SDOH Screenings 02/15/2002 [facility]-Adult SDOH Screenings 02/15/2002 [facility]-DTaP,Tdap,and Td Vaccine s (2 - Tdap) 12/06/2002 12/05/2002 [facility]-Hepatitis B Vaccines (1 of 3 - 19+ 3-dose series) 02/15/2003 [facility]-Pap Smear 02/15/2005 [facility]-Cervical Cancer Screening 02/15/2014 [facility]-HPV/Cotest 02/15/2014 [id number] Vaccine (3 - 2023- season) 2024 08/01/2022, 06/06/2022 [facility]-Influenza Vaccine (#1) 01/27/202504/15, 05/09/2022 [facility]-Zoster Vaccines (1 of 2) 02/15/2034 [facility]-HIV Screening Completed 03/19/2021 [facility]-Hepatitis C Screening Completed 03/19/2021 [facility]-Obesity Intervention Completed 023, 11/03/2022, 09/14/2022 [facility]-HIB Vaccines Aged Out No longer e ligible based on patient's age to complete this topic [facility]-Hepatitis A Vaccines Aged Out No longer eligible based on patient's age to complete this topic [facility]-IPV Vaccines Aged Out No longer e ligible based on patient's age to complete this topic [facility]-Pneumococcal Vaccine: Pediatrics (0 to 5 Years) and At-Risk Patients (6 to 49 Years) Aged Out No longer eligible b ased on patient's age to complete this topic [facility]-Rotavirus Vaccines Aged Out No lo nger eligible based on patient's age to complete this topic Procedures Procedure Name Priority Date/Time Associated Diagnosis Comments HEPATITIS C ANTIBODY - ED W/REFLEX TO HCV QUANT PCR STAT 03/19/2021 4:40 PM EDT HIV 1/2 ANTIBODY/ANTIGEN SCREEN WITH REFLEX TO HIV I/II DIFFERENTIATION STAT 03/19/2021 4:40 PM EDT from Last 3 Months or Most Recently Relevant to Health Maintenance Results * HIV 1 & 2 Antibody/Antigen Screen (03/19/2021 4:40 PM EDT) HIV 1 & 2 Antibody/Anti gen Screen Nonreactive Nonreactive 03/19/2021 6:23 PM EDT [facility] Blood Venous blood specimen / Unknown Venipuncture / Unknown 03/19/2021 4:40 PM EDT 03/19/2021 4:49 PM EDT Asim Crowley MD LAB BLOOD ORDERABLES Final Result [facility] [address] [place] [address] * [place] Hepatitis C Antibody (03/19/2021 4:40 PM EDT) Pathologist [facility] Hepatitis C Antibody Negative Negative 03/19/2021 6:23 PM EDT [facility]ARE [facility] Blood Venous blood specimen / Unknown Venipuncture / Unknown 03/19/2021 4:40 PM EDT 03/19/2021 4:49 PM EDT Asim Crowley MD LAB BLOOD ORDERABLES Final Result [facility] [address] [place] [address] from Last 3 Months or Most Recently Relevant to Health Maintenance [place] [address] [place] [address] Advance Directives * Full Code (Latest Code Status on File) Date Activated Date Inactivated Comments 03/19/2021 9:46 PM 03/23/2021 4:58 PM Question Answer Comments Patient has decision-making capacity? Yes Care Teams Salvager Helper Relationship Specialty Start Date End Date Justen Ceballos MD [address] [facility] [address] [place] [address] PCP - General 03/19/21 Elvira Hernandez MD [address] [place] [id number] Service Attending Neurology 05/17/21 Manuela Donald DO [address] [place] [address] Obstetrics and Gynecology 10/04/22
--- OUTSIDE RECORDS SUMMARY | 2024-12-13 12:02 | XMS_ITS | Encounter Summary ---
Author Organization [employer] ([place], [place], [place], [place]) Address [address] [place] [address] Care Team Providers Care Wood Preserving Plant Laborer Name Role Phone Justen Ceballos MD Primary Care Provider + [phone] Encounter Details Date Type Department Care Team (Late st Contact Info) Description 05/26/2021 Transcribed Document [facility] [place] [address] [place] [address] ProviderHomer MD [address] [place] [address] Social History Tobacco Use Types [...] Cerner Conversion Note - Homer ProviderMD - 05/26/2021 3:48 PM ELECTRICAL LOGGING ENGINEER Stroke/Warfarin Instructions Entered On: 05/26/2021 15:48 EST Performed On: 05/26/2021 15:48 EST by Kaitlin Lopez RN-PATIENT CARE BEDSIDE NON-EXEMPT Stroke/Warfarin Instructions Stroke/TIA Discharge Ins : N/A Warfarin Discharge Ins : N/A Kaitlin Lopez RN-PATIENT CARE BEDSIDE NON-EXEMPT - 05/26/2021 15:48 EST Electronically signed by Kathia [facility] Conversion Information Systems Project Manager Cerner at 09/14/2022 5:43 PM CDT documented in this encounter Plan of Treatment Upcoming Encounters Date Type Department Care Team (Late st Contact Info) Description 02/04/2025 1:45 PM EDT Office Visit [facility] Neurology - [place] [address] [place] [address] Tiny Colin MD [address] [facility] [address] [place] [address] documented as of this encounter Visit Diagnoses Not on filedocumented in this encounter Care Teams Wood Preserving Plant Laborer Relationship Specialty Start Date End Date Justen Ceballos MD [address] [facility] [address] [place] [address] PCP - General Family Medicine 08/11/23 documented as of this encounter
--- OUTSIDE RECORDS SUMMARY | 2024-12-13 12:02 | XMS_ITS | Encounter Summary ---
Author Organization [employer] ([place], [place], [place], [place]) Address [address] [place] [address] Care Team Providers Care Banking Officer Name Role Phone Justen Ceballos MD Primary Care Provider + [phone] Encounter Details Date Type Department Care Team (Late st Contact Info) Description 06/03/2021 Transcribed Document [facility] [place] [address] [place] [address] ProviderHomer MD [address] [place] [address] Social History Tobacco Use Types [...] Conversion Note - Homer Johnson MD - 06/03/2021 8:08 AM ACCOUNT SUPERVISOR Patient Education Materials Follows: Lithotripsy, Care After This sheet gives you information about how to care for yourself after your procedure. Your health care provider may also give you more specific instructions. If you have problems or questions, contact your health care provider. What can I expect after the procedure? After the procedure, it is common to have: ??? Some blood in your urine. This should only last for a few days. ??? Soreness in your back, sides, or upper abdomen for a few days. ??? Blotches or bruises on the area where the shock wave entered the skin. ??? Pain, discomfort, or nausea when pieces (fragments) of the kidney stone move through the tube that carries urine from the kidney to the bladder (ureter). Stone fragments may pass soon after the procedure, but they may continue to pass for up to 4?8 weeks. ? If you have severe pain or nausea, contact your health care provider. This may be caused by a large stone that was not broken up, and this may mean that you need more treatment. ??? Some pain or discomfort during urination. ??? Some pain or discomfort in the lower abdomen or (in men) at the base of the penis. Follow these instructions at home: Medicines ??? Take othz-yzw-ivzxgsr and prescription medicines only as told by your health care provider. ??? If you were prescribed an antibiotic medicine, take it as told by your health care provider. Do not stop taking the antibiotic even if you start to feel better. ??? Ask your health care provider if the medicine prescribed to you requires you to avoid driving or using machinery. Eating and drinking ??? Drink enough fluid to keep your urine pale yellow. This helps any remaining pieces of the stone to pass. It can also help prevent new stones from forming. ??? Eat plenty of fresh fruits and vegetables. ??? Follow instructions from your health care provider about eating or drinking restrictions. You may be instructed to: ? Reduce how much salt (sodium) you eat or drink. Check ingredients and nutrition facts on packaged foods and beverages to see how much sodium they contain. ? Reduce how much meat you eat. ??? Eat the recommended amount of calcium for your age and gender. Ask your health care provider how much calcium you should have. General instructions ??? Get plenty of rest. ??? Return to your normal activities as told by your health care provider. Ask your health care provider what activities are safe for you. Most people can resume normal activities 1?2 days after the procedure. ??? If you were given a sedative during the procedure, it can affect you for several hours. Do not drive or operate machinery until your health care provider says that it is safe. ??? Your health care provider may direct you to lie in a certain position (postural drainage) and tap firmly (percuss) over your kidney area to help stone fragments pass. Follow instructions as told by your health care provider. ??? If directed, strain all urine through the strainer that was provided by your health care provider. ? Keep all fragments for your health care provider to see. Any stones that are found may be sent to a medical lab for examination. The stone may be as small as a grain of salt. ??? Keep all follow-up visits as told by your health care provider. This is important. Contact a health care provider if: ??? You have a fever or chills. ??? You have nausea that is severe or does not go away. ??? You have any of these urinary symptoms: ? Blood in your urine for longer than your health care provider told you to expect. ? Urine that smells bad or unusual. ? Feeling a strong urge to urinate after emptying your bladder. ? Pain or burning with urination that does not go away. ? Urinating more often than usual and this does not go away. ??? You have a stent and it comes out. Get help right away if: ??? You have severe pain in your back, sides, or upper abdomen. ??? You have any of these urinary symptoms: ? Severe pain while urinating. ? More blood in your urine or having blood in your urine when you did not before. ? Passing blood clots in your urine. ? Passing only a small amount of urine or being unable to pass any urine at all. ??? You have severe nausea that leads to persistent vomiting. ??? You faint. Summary ??? After this procedure, it is common to have some pain, discomfort, or nausea when pieces (fragments) of the kidney stone move through the tube that carries urine from the kidney to the bladder (ureter). If this pain or nausea is severe, however, you should contact your health care provider. ??? Return to your normal activities as told by your health care provider. Ask your health care provider what activities are safe for you. ??? Drink enough fluid to keep your urine pale yellow. This helps any remaining pieces of the stone to pass, and it can help prevent new stones from forming. ??? If directed, strain your urine and keep all fragments for your health care provider to see. Fragments or stones may be as small as a grain of salt. ??? Get help right away if you have severe pain in your back, sides, or upper abdomen, or if you have severe pain while urinating. This information is not intended to replace advice given to you by your health care provider. Make sure you discuss any questions you have with your health care provider. Document Revised: 02/26/2020 Document Reviewed: 02/26/2020 [employer] Patient Education ? 2020 [employer]. Pharmacology General Anesthesia, Adult, Care After This sheet gives you information about how to care for yourself after your procedure. Your health care provider may also give you more specific instructions. If you have problems or questions, contact your health care provider. What can I expect after the procedure? After the procedure, the following side effects are common: ??? Pain or discomfort at the IV site. ??? Nausea. ??? Vomiting. ??? Sore throat. ??? Trouble concentrating. ??? Feeling cold or chills. ??? Feeling weak or tired. ??? Sleepiness and fatigue. ??? Soreness and body aches. These side effects can affect parts of the body that were not involved in surgery. Follow these instructions at home: For the time period you were told by your health care provider: ??? Rest. ??? Do not participate in activities where you could fall or become injured. ??? Do not drive or use machinery. ??? Do not drink alcohol. ??? Do not take sleeping pills or medicines that cause drowsiness. ??? Do not make important decisions or sign legal documents. ??? Do not take care of children on your own. Eating and drinking ??? Follow any instructions from your health care provider about eating or drinking restrictions. ??? When you feel hungry, start by eating small amounts of foods that are soft and easy to digest (bland), such as toast. Gradually return to your regular diet. ??? Drink enough fluid to keep your urine pale yellow. ??? If you vomit, rehydrate by drinking water, juice, or clear broth. General instructions ??? If you have sleep apnea, surgery and certain medicines can increase your risk for breathing problems. Follow instructions from your health care provider about wearing your sleep device: ? Anytime you are sleeping, including during daytime naps. ? While taking prescription pain medicines, sleeping medicines, or medicines that make you drowsy. ??? Have a responsible adult stay with you for the time you are told. It is important to have someone help care for you until you are awake and alert. ??? Return to your normal activities as told by your health care provider. Ask your health care provider what activities are safe for you. ??? Take eibr-yfl-kyuppfa and prescription medicines only as told by your health care provider. ??? If you smoke, do not smoke without supervision. ??? Keep all follow-up visits as told by your health care provider. This is important. Contact a health care provider if: ??? You have nausea or vomiting that does not get better with medicine. ??? You cannot eat or drink without vomiting. ??? You have pain that does not get better with medicine. ??? You are unable to pass urine. ??? You develop a skin rash. ??? You have a fever. ??? You have redness around your IV site that gets worse. Get help right away if: ??? You have difficulty breathing. ??? You have chest pain. ??? You have blood in your urine or stool, or you vomit blood. Summary ??? After the procedure, it is common to have a sore throat or nausea. It is also common to feel tired. ??? Have a responsible adult stay with you for the time you are told. It is important to have someone help care for you until you are awake and alert. ??? When you feel hungry, start by eating small amounts of foods that are soft and easy to digest (bland), such as toast. Gradually return to your regular diet. ??? Drink enough fluid to keep your urine pale yellow. ??? Return to your normal activities as told by your health care provider. Ask your health care provider what activities are safe for you. This information is not intended to replace advice given to you by your health care provider. Make sure you discuss any questions you have with your health care provider. Document Revised: 01/28/2021 Document Reviewed: 08/27/2020 [employer] Patient Education ? 2020 [employer] Urology Ureteroscopy Ureteroscopy is a procedure to check for and treat problems inside part of the urinary tract. In this procedure, a thin, flexible tube with a light at the end (ureteroscope) is used to look at the inside of the kidneys and the ureters. The ureters are the tubes that carry urine from the kidneys to the bladder. The ureteroscope is inserted into one or both of the ureters. You may need this procedure if you have frequent urinary tract infections (UTIs), blood in your urine, or a stone in one of your ureters. A ureteroscopy can be done: ??? To find the cause of urine blockage in a ureter and to evaluate other abnormalities inside the ureters or kidneys. ??? To remove stones. ??? To remove or treat growths of tissue (polyps), abnormal tissue, and some types of tumors. ??? To remove a tissue sample and check it for disease under a microscope (biopsy). Tell a health care provider about: ??? Any allergies you have. ??? All medicines you are taking, including vitamins, herbs, eye drops, creams, and oprc-ycr-niarqdx medicines. ??? Any problems you or family members have had with anesthetic medicines. ??? Any blood disorders you have. ??? Any surgeries you have had. ??? Any medical conditions you have. ??? Whether you are or may be . What are the risks? Generally, this is a safe procedure. However, problems may occur, including: ??? Bleeding. ??? Infection. ??? Allergic reactions to medicines. ??? Scarring that narrows the ureter (stricture). ??? Creating a hole in the ureter (perforation). What happens before the procedure? Staying hydrated Follow instructions from your health care provider about hydration, which may include: ??? Up to 2 hours before the procedure ? you may continue to drink clear liquids, such as water, clear fruit juice, black coffee, and plain tea. Eating and drinking restrictions Follow instructions from your health care provider about eating and drinking, which may include: ??? 8 hours before the procedure ? stop eating heavy meals or foods, such as meat, fried foods, or fatty foods. ??? 6 hours before the procedure ? stop eating light meals or foods, such as toast or cereal. ??? 6 hours before the procedure ? stop drinking milk or drinks that contain milk. ??? 2 hours before the procedure ? stop drinking clear liquids. Medicines Ask your health care provider about: ??? Changing or stopping your regular medicines. This is especially important if you are taking diabetes medicines or blood thinners. ??? Taking medicines such as aspirin and ibuprofen. These medicines can thin your blood. Do not take these medicines unless your health care provider tells you to take them. ??? Taking kazs-wnz-vhvlvrp medicines, vitamins, herbs, and supplements. General instructions ??? Do not use any products that contain nicotine or tobacco for at least 4 weeks before the procedure. These products include cigarettes, e-cigarettes, and chewing tobacco. If you need help quitting, ask your health care provider. ??? You may have a urine sample taken to check for infection. ??? Plan to have someone take you home from the hospital or clinic. ??? If you will be going home right after the procedure, plan to have someone with you for 24 hours. ??? Ask your health care provider what steps will be taken to help prevent infection. These may include: ? Washing skin with a germ-killing soap. ? Receiving antibiotic medicine. What happens during the procedure? An IV will be inserted into one of your veins. ??? You will be given one or more of the following: ? A medicine to help you relax (sedative). ? A medicine to make you fall asleep (general anesthetic). ? A medicine that is injected into your spine to numb the area below and slightly above the injection site (spinal anesthetic). ??? The part of your body that drains urine from your bladder (urethra) will be cleaned with a germ-killing solution. ??? The ureteroscope will be passed through your urethra into your bladder. ??? A salt-water solution will be sent through the ureteroscope to fill your bladder. This will help the health care provider see the openings of your ureters more clearly. ??? The ureteroscope will be passed into your ureter. ? If a growth is found, a biopsy may be done. ? If a stone is found, it may be removed through the ureteroscope, or the stone may be broken up using a laser, shock waves, or electrical energy. ? In some cases, if the ureter is too small, a tube may be inserted that keeps the ureter open (ureteral stent). The stent may be left in place for 1 or 2 weeks to keep the ureter open, and then the ureteroscopy procedure will be done. ??? The scope will be removed, and your bladder will be emptied. The procedure may vary among health care providers and hospitals. What can I expect after the procedure? After your procedure, it is common to have: ??? Your blood pressure, heart rate, breathing rate, and blood oxygen level monitored until you leave the hospital or clinic. ??? A burning sensation when you urinate. You may be asked to urinate. ??? Blood in your urine. ??? Mild discomfort in your bladder area or kidney area when urinating. ??? A need to urinate more often or urgently. Follow these instructions at home: Medicines ??? Take rubm-mkw-lkhxdsr and prescription medicines only as told by your health care provider. ??? If you were prescribed an antibiotic medicine, take it as told by your health care provider. Do not stop taking the antibiotic even if you start to feel better. General instructions ??? If you were given a sedative during the procedure, it can affect you for several hours. Do not drive or operate machinery until your health care provider says that it is safe. ??? To relieve burning, take a warm bath or hold a warm washcloth over your groin. ??? Drink enough fluid to keep your urine pale yellow. ? Drink two 8-ounce (237 mL) glasses of water every hour for the first 2 hours after you get home. ? Continue to drink water often at home. ??? You can eat what you normally do. ??? Keep all follow-up visits as told by your health care provider. This is important. ? If you had a ureteral stent placed, ask your health care provider when you need to return to have it removed. Contact a health care provider if you have: ??? Chills or a fever. ??? Burning pain for longer than 24 hours after the procedure. ??? Blood in your urine for longer than 24 hours after the procedure. Get help right away if you have: ??? Large amounts of blood in your urine. ??? Blood clots in your urine. ??? Severe pain. ??? Chest pain or trouble breathing. ??? The feeling of a full bladder and you are unable to urinate. These symptoms may represent a serious problem that is an emergency. Do not wait to see if the symptoms will go away. Get medical help right away. Call your local emergency services (911 in the [place] Summary ??? Ureteroscopy is a procedure to check for and treat problems inside part of the urinary tract. ??? In this procedure, a thin, flexible tube with a light at the end (ureteroscope) is used to look at the inside of the kidneys and the ureters. ??? You may need this procedure if you have frequent urinary tract infections (UTIs), blood in your urine, or a stone in a ureter. This information is not intended to replace advice given to you by your health care provider. Make sure you discuss any questions you have with your health care provider. Document Revised: 02/19/2020 Document Reviewed: 02/19/2020 [employer] Patient Education ? 2020 [employer]. documented in this encounter Plan of Treatment Upcoming Encounters Date Type Department Care Team (Late st Contact Info) Description 02/04/2025 1:45 PM EDT Office Visit [facility] - [place] [address] [facility] [address] [place] [address] Tiny Colin MD [address] [facility] [facility] [place] [address] documented as of this encounter Visit Diagnoses Not on filedocumented in this encounter Care Teams Banking Officer Relationship Specialty Start Date End Date Justen Ceballos MD [address] [facility] [address] [place] [address] PCP - General Family Medicine 08/11/23 documented as of this encounter
--- OUTSIDE RECORDS SUMMARY | 2024-12-13 12:02 | XMS_ITS | Encounter Summary ---
Author Organization [employer] ([place], [place], [place], [place]) Address [address] [place] [address] Care Team Providers Care Political Researcher Name Role Phone Justen Ceballos MD Primary Care Provider + [phone] Encounter Details Date Type Department Care Team (Late st Contact Info) Description 05/25/2021 Transcribed Document [facility] [place] [address] [place] [address] ProviderHomer MD [address] [place] [address] Social History Tobacco Use Types [...] Conversion Note - Homer ProviderMD - 05/25/2021 3:06 PM MOLDER SETTER Admission History, Adult Entered On: 05/26/2021 0:08 EST Performed On: 05/26/2021 0:05 EST by Tao Pedersen RN Advance Directive Patient has Advance Directive *Q : No, patient refuses Advance Directive information Tao Pedersen RN - 05/26/2021 0:04 EST Anesthesia/Transfusion History Family History of Anesthesia Reaction : Prior transfusion without reaction Blood Transfusion Acceptable to Patient : Yes Transfusion History : Prior anesthesia without reaction Family History of Anesthesia Reaction : None Tao Pedersen RN - 05/26/2021 0:04 EST Functional Assessment Living Situation : Home Patient Lives With : Parent(s) Current Home Treatments : None Tao Pedersen RN - 05/26/2021 0:04 EST General Info Arrived From : Home Mode of Arrival on Unit : Ambulatory Legal Guardian : Unaccompanied Want Family/Rep/Phys Notified of Admit : No Emergency Contact #1 : Pat Emergency Contact #1 Emergency Contact #1 Relationship : mother Emergency Contact #2 : , Emergency Contact #2 Phone Number : , Emergency Contact #2 Relationship : , Primary Language : Yoruba Communication Barrier : None Trade Show Specialist Needed : No Tao Pedersen RN - 05/26/2021 0:04 EST Fall Risk Scales ABCs Fall Injury Risk Identification : None HUGHES Hx Falls Immediate/Within 3 Months : No Hughes Secondary Diagnosis : No HUGHES Use of Ambulatory Aid : None HUGHES IV Therapy or IV Access : Yes Kiko Gait/Transferring : Normal, bedrest, immobile Hughes Mental Status : Oriented to own ability Hughes Fall Risk Score : 20 HUGHES Fall Scale Risk Level : 0-24 Low Risk Whately Fall Interventions : Adequate lighting, Assistive devices within reach, Bed in low position, Call device within reach, Fall prevention handout/education per facility policy, Frequent orientation to call device, Frequent orientation to surroundings, Hourly comfort/safety rounds, Non-slip footwear, Personal items within reach, Reinforced to call for assistance before getting out of bed, Room free of clutter/spills, Upper side-rails up, Wheels locked, Wires/Cords secured Barriers to Learning : None evident Learning Style Preferences Patient : None Tao Pedersen RN - 05/26/2021 0:04 EST Health Histories Smoking Status : 10 or more cigarettes (1/2 pack or more)/day in last 30 days Smokeless Tobacco Status : Never Desires Tobacco Cessation Medication : Yes Tao Pedersen RN - 05/26/2021 0:04 EST Social History (As Of: 05/26/2021 00:08:44 EST) Height and Weight, Clinical Dosing Height Source : Stated Height Entry Format : [place] Height, Feet : 5 ft(Converted to: 152 cm, 60 Inch) Height, Inches : 8 Inch(Converted to: 0 ft 8 Inch, 20.32 cm) Clinical Height : 172.72 cm Weight Source : Standing scale Weight Entry Format : [place] Clinical Dosing Weight : 70.45 kg Weight, Pounds : 155 lb Body Surface Area (BSA) : 1.84 m2 Body Mass Index : 23.6 kg/m2 [place] Body Weight : 63 kg Tao Pedersen RN - 05/26/2021 0:04 EST Infectious Disease History Does patient have symptoms of COVID-19? : No Has the Patient Been Tested for COVID-19 in the last 14 days? : Yes, Patient stated results Negative Does the Patient state known exposure to a COVID-19 positive case in the last 14 days? : No Patient Vaccinated for COVID-19 : Not vaccinated Does Patient want a COVID-19 Vaccine? : No Tao Pedersen RN - 05/26/2021 0:04 EST Infectious Disease Risk Screening Grid Cough < 2 wks of unknown origin : NO Cough > 2 weeks : NO Blood in Sputum : NO Fever or self-reported Fever : NO Rash of unknown origin : NO Headache : NO Stiff neck : NO Night Sweats : NO Unexplained Weight Loss : NO Diarrhea (3 episode per day) : NO Tao Pedersen RN - 05/26/2021 0:04 EST Physical contact outside [place] in the last 30 days : No Hospitalized in Foreign Country : No Infectious Disease History : Chicken pox/Shingles INF Disease TB Screening Calc : 0 INF Disease Recent Travel Calc : 0 Tao Pedersen RN - 05/26/2021 0:04 EST Tetanus Immunization Status Previous Tetanus Immunizations : No qualifying data available. Tao Pedersen RN - 05/26/2021 0:04 EST Influenza Vaccine Asmt, Adult Previous Vaccines from Immunization Schedule : No qualifying data available. Influenza Immunization, Current Season : No Inactivated Flu Vaccine Contraindications : No contraindications to inactivated influenza vaccine Transplant Workup/Recent Transplant : No Order for Influenza Vaccine : Declined Vaccination Tao Pedersen RN - 05/26/2021 0:04 EST Pneumococcal Vaccine Previous Vaccines from Immunization Schedule : No qualifying data available. Pneumonia Immunization Received : No Pneumococcal Risk Assessment < Age 65 : None Tao Pedersen RN - 05/26/2021 0:04 EST Order Details Patient Needs Meds Crushed/Liquid : No Tao Pedersen RN - 05/26/2021 0:04 EST Nutrition History Eating Poorly Due to Decreased Appetite : No Unplanned Weight Loss in Past 3-6 Months : No Malnutrition Screening Tool Total(mal) : 0 Malnutrition Screening Tool Risk Level : Patient not at risk Tao PedersenDORIS - 05/26/2021 0:04 EST [place] Suicide Severity Rating Scale (C-SSRS) CSSRS Past Month Wish to be : No CSSRS Past Month Suicidal Thoughts : No CSSRS Lifetime Suicide Behavior : No Suicide Severity Rating Score : 0 Suicide Severity Rating : No Additional Care Required at this time Tao PedersenDORIS - 05/26/2021 0:04 EST Psychosocial History Currently in Unsafe Situation : No Tao PedersenDORIS - 05/26/2021 0:04 EST Sleep Apnea Risk Assmt Hx of Obstructive Sleep Apnea Diagnosis : No Snore Loudly : No Tired, Fatigued, or Sleepy During Day : No Observed Stopping Breathing During Sleep : No Have/Are Being Treated for Hypertension : No BMI Greater Than 35 kg/m2 : No Age over 50 Years Old : No Neck Circumference Greater Than 40 cm : No Gender Male : No STOP-BANG Sleep Apnea Risk Level Score : 0 Tao PedersenDORIS - 05/26/2021 0:04 EST Valuables and Belongings Valuables and Belongings : Clothing, Personal items Clothing : Common streetwear Clothing Disposition : Bedside, With patient Personal Items : Electronic device(s) Personal Items Disposition : Bedside, With patient Tao PedersenDORIS - 05/26/2021 0:04 EST documented in this encounter Plan of Treatment Upcoming Encounters Date Type Department Care Team (Late st Contact Info) Description 02/04/2025 1:45 PM EDT Office Visit [facility] Neurology - [facility] [address] [facility] [address] [place] [address] Tiny Colin MD [address] [facility] [address] [place] [address] documented as of this encounter Visit Diagnoses Not on filedocumented in this encounter Care Teams Political Researcher Relationship Specialty Start Date End Date Justen Ceballos MD [address] [place] [facility] [address] [place] [address] PCP - General Family Medicine 08/11/23 documented as of this encounter
--- OUTSIDE RECORDS SUMMARY | 2024-12-13 12:02 | XMS_ITS | Encounter Summary ---
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 Name: LINH AMIEMARTELL PANDA /Sex: 1985 Female Med Rec #: [id number] Physician: ZOE JORDAN MD-URO Financial #: [id number] Pt. Type: O Room/Bed: [facility] Admit/Disch: 06/03/21 06:25:00 - 06/03/21 10:51:00 Institution[place] [facility] [place] Case Attendance Entry 1 Entry 2 Entry 3 Case Attendee ZOE JORDAN Holliday, Stewart R, BRADLEY ISLAS ST MD-URO Role Performed Surgeon/Proceduralist, Sat Math Tutor, First Laser Drapery Estimator First Time In 06/03/21 08:22:00 06/03/21 08:22:00 06/03/21 08:22:00 Time Out 06/03/21 09:20:00 06/03/21 09:20:00 06/03/21 09:20:00 Procedure Cystoscopy Cystoscopy Cystoscopy Ureteroscopy, Ureteroscopy, Ureteroscopy, Lithotripsy w Laser, Lithotripsy w Laser, Lithotripsy w Laser, Cystoscopy Stent Cystoscopy Stent Cystoscopy Stent Insertion Insertion Insertion Other Attendee Superficial Wound Closed By: Last Modified By: Kenton Paz RN Holliday, Stewart R, RN Holliday, Stewart R, RN 06/03/21 09:20:30 06/03/21 09:20:30 06/03/21 09:20:30 Entry 4 Entry 5 Case Attendee NAYELI MITCHELL, OSCAR HENDERSON, EMILE Muffler Installer Role Performed Scrub, First WATCHGUARD/Nurse Divemaster Time In 06/03/21 08:22:00 06/03/21 08:22:00 Time Out 06/03/21 09:20:00 06/03/21 09:20:00 Procedure Cystoscopy Cystoscopy Ureteroscopy, Ureteroscopy, Lithotripsy w Laser, Lithotripsy w Laser, Cystoscopy Stent Cystoscopy Stent Insertion Insertion Other Attendee Superficial Wound Closed By: Last Modified By: Kenton Paz RN Holliday, Stewart R, RN 06/03/21 09:20:30 06/03/21 09:20:30 E IntraOp Case Attendance Audit 06/03/21 09:20:30 Validation Consultant: FRANKI Modifier: FRANKI 1 <+> Time Out 1 <*> Procedure Cystoscopy Ureteroscopy, Lithotripsy w Laser, Cystoscopy Stent Insertion 2 <+> Time Out 2 <*> Procedure Cystoscopy Ureteroscopy, Lithotripsy w Laser, Cystoscopy Stent Insertion 3 <+> Time Out 3 <*> Procedure Cystoscopy Ureteroscopy, Lithotripsy w Laser, Cystoscopy Stent Insertion 4 <+> Time Out 4 <*> Procedure Cystoscopy Ureteroscopy, Lithotripsy w Laser, Cystoscopy Stent Insertion 5 <+> Time Out 5 <*> Procedure Cystoscopy Ureteroscopy, Lithotripsy w Laser, Cystoscopy Stent Insertion 06/03/21 09:05:59 Validation Consultant: [email or web address] Modifier: [email or web address] 1 <+> Time In 1 <*> Procedure Cystoscopy Ureteroscopy, Lithotripsy w Laser 2 <+> Time In 2 <*> Procedure Cystoscopy Ureteroscopy, Lithotripsy w Laser 3 <+> Time In 3 <*> Procedure Cystoscopy Ureteroscopy, Lithotripsy w Laser 4 <+> Time In 4 <*> Procedure Cystoscopy Ureteroscopy, Lithotripsy w Laser 5 <+> Time In 5 <*> Procedure Cystoscopy Ureteroscopy, Lithotripsy w Laser [facility] IntraOp Case Times Entry 1 Patient In Room Time 06/03/21 08:22:00 Out Room Time 06/03/21 09:20:00 Anesthesia Start Time 06/03/21 08:22:00 Stop Time 06/03/21 09:20:00 Anesthesia Ready 06/03/21 08:22:00 Surgery / Procedure Times Start Time 06/03/21 08:35:00 Stop Time 06/03/21 09:12:00 Last Modified By: Kenton Paz RN 06/03/21 09:20:29 [facility] IntraOp Case Times Audit 06/03/21 09:20:29 Validation Consultant: [email or web address] Modifier: HOLLIDSR <+> 1 Out Room Time <+> 1 Stop Time 06/03/21 09:13:39 Validation Consultant: CHAPARROIDSR Modifier: HOLLIDSR <+> 1 Stop Time 06/03/21 08:35:41 Validation Consultant: HOLLIDSR Modifier: HOLLIDSR <+> 1 Start Time [facility] IntraOp Counts Verification Entry 1 Procedure Cystoscopy Ureteroscopy, Lithotripsy w Laser, Cystoscopy Stent Insertion Count Info Count Type Sponge Counts Verification Baseline/pre-procedure Sequence Count Results Correct, surgeon notified Counts Performed By Count Performed By BRADLEY GREEN ST (Scrub) Count Performed By Kenton Paz RN (RN) Last Modified By: Kenton Paz RN 06/03/21 09:06:01 [facility] IntraOp Counts Verification Audit 06/03/21 09:06:01 Validation Consultant: FRANKI Modifier: FRANKI 1 <*> Procedure Cystoscopy Ureteroscopy, Lithotripsy w Laser [facility] IntraOp Counts Final Entry 1 Procedure Cystoscopy Ureteroscopy, Lithotripsy w Laser, Cystoscopy Stent Insertion Final Count Info Count Type Sponge, Sharps, Miscellaneous Counts Verification Skin Closure/end of Sequence procedure Count Results Correct, surgeon notified Counts Performed By Count Performed By BRADLEY GREEN ST (Scrub) Count Performed By Kenton Paz RN (RN) Last Modified By: Kenton Paz RN 06/03/21 09:06:37 [facility] IntraOp Departure from OR Entry 1 Integumentary Assessment Transfer/Handoff Transfer to PACU Phase I Post-op Transport Stretcher/Tino Via Patient Transport OSCAR HENDERSON CRNA, Accompanied by Kenton Paz, RN Last Modified By: Kenton Paz RN 06/03/21 08:25:30 [facility] IntraOp Fire Risk Assessment Entry 1 Fire Info Surgical Site or 0- No Incision Above the Xyphoid Open O2 Source 0- No (Mask or Cannula) Available Ignition 1- Yes (ESU, Laser, Light Source) Fire Risk 1 Assessment Score Fire Score Fire Risk Yes Assessment Complete Fire Risk Kenton Paz supervisor microwave Verified By Fire Risk 06/03/21 08:16:00 Assessment Verified Date/Time Fire Risk Standard Fire Yes Safety Precautions Followed Last Modified By: Kenton Paz RN 06/03/21 08:25:41 [facility] IntraOp Fire Risk Assessment Audit 06/03/21 08:25:41 Validation Consultant: FRANKI Modifier: FRANKI <+> 1 Fire Risk Assessment Verified By <+> 1 Fire Risk Assessment Verified Date/Time [facility] IntraOp General Case Lodge Sales Associate 1 Case Information OR OR 03 [facility] Case Level 1 Room Verified Yes Wound Class 2 - Clean-Contaminated Specialty Urology Anesthesia Type General ASA Class 2 Diagnosis Preop Diagnosis right renal calculi Postop Diagnosis refer to MD notes Wound Class Definitions Last Modified By: Kenton Paz RN 06/03/21 08:35:32 [facility] IntraOp General Case Data Audit 06/03/21 08:35:32 Validation Consultant: FRANKI Modifier: HOLLIDSR <+> 1 ASA Class <+> 1 Wound Class <+> 1 Anesthesia Type <+> 1 Preop Diagnosis <+> 1 Postop Diagnosis <+> 1 Room Verified [facility] IntraOp Intraoperative Assessment Entry 1 Valid History / Yes Physical in Chart Preoperative Yes Checklist Reviewed/Evaluated Allergies Reviewed Yes Patient is Latex No Sensitive Isolation Not applicable Precautions Noted Skin Assessment Yes Verified Present Upon IVs Arrival to OR Last Modified By: Kenton Paz RN 06/03/21 08:33:51 [facility] IntraOp Intraoperative Equipment Entry 1 Equipment Intraop Monitoring Electrocardiogram Three lead placement (ECG) Electrode Placement Blood Pressure Non-Invasive BP Device Source Blood Pressure Arm, left upper Location Pulse Oximeter Hand, right Probe Site Antiembolic Devices Antiembolic Devices Sequential compression device, knee high Antiembolic Device Bilateral Location Scopes Photo/Video Documentation Last Modified By: Kenton Paz RN 06/03/21 08:26:59 [facility] IntraOp Laser Data/Safety Entry 1 Procedure Cystoscopy Stent Insertion, Cystoscopy Ureteroscopy, Lithotripsy w Laser Laser Data Laser Type CO2 Laser Mode Continuous Laser Mode Set By ZOE JORDAN MD-URO Last Modified By: Kenton Paz RN 06/03/21 09:06:02 [facility] IntraOp Laser Data/Safety Audit 06/03/21 09:06:02 Validation Consultant: FRANKI Modifier: FRANKI <+> 1 Procedure [facility] IntraOp Medication Admin Entry 1 Medication/Irrigant lidocaine 2% urojet 10ml jelly - [id number] Route of LOCAL Administration Dose Dose 10 Unit of Measure ml Administered By ZOE JORDAN MD-URO Procedure Irrigation Last Modified By: Kenton Paz RN 06/03/21 08:35:36 [facility] IntraOp Patient Positioning Entry 1 Procedure Cystoscopy Ureteroscopy, Cystoscopy Stent Insertion Body Position Lithotomy Left Arm Position Secured on padded arm board Right Arm Position Secured on padded arm board Left Leg Position Secured in Leg Munoz Right Leg Position Secured in Leg Munoz Feet Uncrossed Yes Pressure Points Yes Checked Positioning Devices Stirrups/Leg Munoz, Cysto, Arm Board, Safety Strap, Arm(s) Positioned By Kenton Paz, DORIS, OSCAR HENDERSON CRNA, ZOE JORDAN MD-URO Position Verified Positioning Yes Verified by Anesthesia Positioning Yes Verified by Surgeon Last Modified By: Kenton Paz RN 06/03/21 09:06:01 [facility] IntraOp Patient Positioning Audit 06/03/21 09:06:01 Validation Consultant: FRANKI Modifier: FRANKI 1 <*> Procedure Cystoscopy Ureteroscopy 06/03/21 08:36:12 Validation Consultant: FRANKI Modifier: RYANNR <+> 1 Procedure [facility] IntraOp Sign In Entry 1 Patient, Site, Yes Procedure Identified Surgical Consent Yes Confirmed Relevant Surgical Yes Documents Available Surgical Site Yes Marked by person performing procedure Anesthesia Machine Yes Check Completed Medication Checks Yes Completed Airway Difficult No Airway/Aspiration Risk Difficult Yes Airway/Aspiration Intervention Equipment Available Blood Loss Risk No Blood Loss No Intervention Equipment Prepared and Ready Hypothermia Risk Yes Warming Measures Yes Taken Last Modified By: Kenton Paz RN 06/03/21 08:16:00 [facility] Intra Op Sign Out Entry 1 RN Confirmation Surgical Yes Procedure(s) Identified Instrument, Sponge Yes and Sharps Counts Correct/Documented Equipment Problems N/A Documented Urinary Catheter N/A Documented in IView Wound Yes classification reviewed, verified and updated post case in both the General Case Data and Procedure segments Gonzáles Patient Yes Recovery Concerns Reviewed with Anesthesia Provider, Surgeon and RN Gonzáles Patient Yes Management Concerns Reviewed with Anesthesia Provider, Surgeon and RN Safety Checklist Yes Elements Complete? RN Sign Out Kenton Paz, RN Signature RN Sign Out 06/03/21 09:20:00 Signature Date/Time Plan of Care Outcome - [...] related to extraneous objects Last Modified By: Kenton Paz RN 06/03/21 09:20:40 [facility] IntraOp Skin Prep Entry 1 Procedure Cystoscopy Ureteroscopy, Cystoscopy Stent Insertion Prescribed Yes Pre-Surgical Prep Completed Intraop Prep Prep Agents Betadine solution Prep by Kenton Paz, RN Hair Removal Last Modified By: Kenton Paz RN 06/03/21 09:06:02 [facility] IntraOp Skin Prep Audit 06/03/21 09:06:02 Validation Consultant: RYANNR Modifier: HOLLIDSR 1 <*> Procedure Cystoscopy Ureteroscopy [facility] IntraOp Surgical Procedures Entry 1 Entry 2 Entry 3 Procedure Cystoscopy Ureteroscopy Lithotripsy w Laser Cystoscopy Stent Insertion Modifiers Additional RIGHT URETEROSCOPY WITH Procedure HOLMIUM LASER Description LITHOTRIPSY, STENT INSERTION, REMOVAL OF NEPHROSTOMY TUBE Primary Procedure Yes No No Primary Surgeon ZOE JORDAN, ZOE JORDAN ROBER, PAUL EWALD, MD-URO MICHAELURO -URO Start 06/03/21 08:35:00 06/03/21 08:35:00 06/03/21 08:35:00 Stop 06/03/21 09:12:00 06/03/21 09:12:00 06/03/21 09:12:00 Physician States Cecum Reached Anesthesia Type General General General Specialty Urology Urology Urology Wound Class 2 - Clean-Contaminated 2 - Clean-Contaminated 2 - Clean-Contaminated Last Modified By: Kenton Paz RN Holliday, Stewart R, RN Holliday, Stewart R, RN 06/03/21 09:20:33 06/03/21 09:20:33 06/03/21 09:20:33 [facility] IntraOp Surgical Procedures Audit 06/03/21 09:20:33 Validation Consultant: RYANNR Modifier: HOLLIDSR <+> 1 Stop <+> 2 Stop <+> 3 Stop 06/03/21 09:07:19 Validation Consultant: CHAPARROIDSR Modifier: HOLLIDSR 1 <*> Procedure Cystoscopy Ureteroscopy 1 <+> Wound Class 1 <*> Additional Procedure Description RIGHT URETEROSCOPY WITH HOLMIUM LASER LITHOTRIPSY 2 <*> Procedure Lithotripsy w Laser 2 <+> Wound Class <+> 3 Start [facility] IntraOp Time Out Entry 1 Procedure to be Cystoscopy Performed Ureteroscopy, Lithotripsy w Laser, Cystoscopy Stent Insertion Time Out Time Out Pause Time 06/03/21 08:34:00 All activity Yes suspended (unless life threatening [...] Provider None expected Nursing Assures Sterility of instruments Essential Imaging Yes Labeled and Displayed Last Modified By: Kenton Paz RN 06/03/21 09:06:02 VANDANA IntraOp Time Out Audit 06/03/21 09:06:02 Validation Consultant: FRANKI Modifier: FRANKI 1 <*> Procedure to be Performed Cystoscopy Ureteroscopy, Lithotripsy w Laser Case Comments <None> Finalized By: Cheryl Mckinnon, RN Document Signatures Signed By: Kenton Paz RN 06/03/21 09:20 Cheryl Mckinnon RN 06/04/21 14:01 Unfinalized History Date/Time Username Reason for Unfinalizing Freetext Reason for Unfinalizing 06/04/21 14:01 MARYBETH Correct Billing Electronically signed by Kathia [facility] Conversion Car Repairer Helper Cerner at 09/14/2022 5:27 PM CDT documented in this encounter Plan of Treatment Upcoming Encounters Date Type Department Care Team (Late st Contact Info) Description 02/04/2025 1:45 PM EDT Office Visit [facility] Neurology - [facility] [address] [facility] [address] [place] [address] Tiny Colin MD [address] [facility] [address] [place] [address] documented as of this encounter Visit Diagnoses Not on filedocumented in this encounter Care Teams Traffic Supervisor Relationship Specialty Start Date End Date Justen Ceballos MD [address] [place] [facility] [address] [place] [address] PCP - General Family Medicine 08/11/23 documented as of this encounter
--- OUTSIDE RECORDS SUMMARY | 2024-12-13 12:02 | XMS_ITS | Encounter Summary ---
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 Please see the list below for home medications at discharge. Home Medications (4) Active Flomax 0.4 mg oral capsule , Oral, Daily Keflex 500 mg oral capsule 500 mg = 1 Cap, Oral, Q12H [place] 5 mg-325 mg oral tablet 1 Tab, PRN, Oral, Q6H Vitamin D2 1.25 mg (50,000 intl units) oral capsule 50,000 Int Units = 1 Cap, Oral, Weekly Tam Peoples PharmD Electronically signed by [facility] Conversion Toolman Cerner at 09/14/2022 5:41 PM CDT documented in this encounter Plan of Treatment Upcoming Encounters Date Type Department Care Team (Late st Contact Info) Description 02/04/2025 1:45 PM EDT Office [facility] Neurology - [facility] [address] [facility] [address] [place] [address] Tiny Colin MD [address] [facility] [address] [place] [address] documented as of this encounter Visit Diagnoses Not on filedocumented in this encounter Care Teams Cardiology Technician Relationship Specialty Start Date End Date Justen Ceballos MD [address] [facility] [address] [place] [address] PCP - General Family Medicine 08/11/23 documented as of this encounter
--- OUTSIDE RECORDS SUMMARY | 2024-12-13 12:02 | XMS_ITS | Encounter Summary ---
Author Organization [employer] ([place], [place], [place], [place]) Address [address] [place] [address] Care Team Providers Care Slip Cover Maker Name Role Phone Justen Ceballos MD Primary Care Provider + [phone] Encounter Details Date Type Department Care Team (Late st Contact Info) Description 05/25/2021 Transcribed Document [facility] [place] [address] [place] [address] ProviderHomer MD [address] [place] [address] Social History Tobacco Use Types [...] Conversion Note - Homer ProviderMD - 05/25/2021 8:58 PM ELECTRIC MOTOR ASSEMBLER Pain Assessment Entered On: 05/26/2021 10:33 EST Performed On: 05/26/2021 9:59 EST by Kaitlin Lopez RN-PATIENT CARE BEDSIDE NON-EXEMPT Intervention Information: HYDROmorphone Performed by Kaitlin Lopez RN-PATIENT CARE BEDSIDE NON-EXEMPT on 05/26/2021 09:29:00 EST HYDROmorphone,0.5mg IV Push,Right Antecubit Kelly,Pain (Severe 7-10) Pain Assessment Pain Assessment : Follow-up assessment Pain Scale Goal : 3 Pain Scale Used : 0-10 Scale Pain Intervention, Drug : Medicated Pain Improved by Intervention : Yes Kaitlin Lopez RN-PATIENT CARE BEDSIDE NON-EXEMPT - 05/26/2021 10:32 EST Electronically signed by [facility], [facility] Conversion Educational Institution Curator Cerner at 09/14/2022 5:21 PM CDT documented in this encounter Plan of Treatment Upcoming Encounters Date Type Department Care Team (Late st Contact Info) Description 02/04/2025 1:45 PM EDT Office Visit [facility] Neurology - [facility] [address] [place] [address] Tiny Colin MD [address] [facility] [address] [place] [address] documented as of this encounter Visit Diagnoses Not on filedocumented in this encounter Care Teams Slip Cover Maker Relationship Specialty Start Date End Date Justen Ceballos MD [address] [facility] [address] [place] [address] PCP - General Family Medicine 08/11/23 documented as of this encounter
--- OUTSIDE RECORDS SUMMARY | 2024-12-13 12:02 | XMS_ITS | Encounter Summary ---
Author Organization [employer] ([place], [place], [place], [place]) Address [address] [place] [address] Care Team Providers Care Individual Pension Consultant Name Role Phone Justen Ceballos MD Primary Care Provider + [phone] Encounter Details Date Type Department Care Team (Late st Contact Info) Description 05/26/2021 Transcribed Document [facility] [place] [address] [place] [address] ProviderHomer MD [address] [place] [address] Social History Tobacco Use Types [...] Conversion Note - Homer ProviderMD - 05/26/2021 12:08 PM DOUGH MAKER Patient: AMIE MELTON Age: 36 years Sex: Female : 1985 Associated Diagnoses: None Author: RENITA RICHARDSON MD-RAD Pre-OP/Procedure Diagnosis: _Right ureteral stone with hydro Post-OP/Procedure Diagnosis: Same Procedure Performed: Right neph tube Procedural MD: Malia Sedation: 4 mg of Versed iv and 100 microgrmas of Fentanyl iv Findings: Successful right renal neph tube placement Complications: none EBL: < 5 ml Full report to follow. Electronically signed by Kathia, [facility] Conversion Order Caller Cerner at 09/14/2022 5:42 PM CDT documented in this encounter Plan of Treatment Upcoming Encounters Date Type Department Care Team (Late st Contact Info) Description 02/04/2025 1:45 PM EDT Office Visit [facility] Neurology - [facility] [address] [place] [phone] Tiny Colin MD [address] [place] [address] documented as of this encounter Visit Diagnoses Not on filedocumented in this encounter Care Teams Individual Pension Consultant Relationship Specialty Start Date End Date Justen Ceballos MD [address] [facility] [address] [place] [address] PCP - General Family Medicine 08/11/23 documented as of this encounter
--- OUTSIDE RECORDS SUMMARY | 2024-12-13 12:03 | XMS_ITS | Encounter Summary ---
Author Organization [employer] ([place], [place], [place], [place]) Address [address] [place] [address] Care Team Providers Care Rubber Factory Worker Name Role Phone Justen Ceballos MD Primary Care Provider + [phone] Encounter Details Date Type Department Care Team (Late st Contact Info) Description 06/03/2021 Transcribed Document [facility] [place] [address] [place] [address] ProviderHomer MD [address] [place] [address] Social History Tobacco Use Types [...] - Homer ProviderMD - 06/03/2021 8:35 AM PRODUCT CONTROLLER [facility] Main OR PreOp Summary Primary Physician: ZOE JORDAN MD-URO Finalized Date/Time: 06/07/21 06:21:12 Pt. Name: LINH AMIEMARTELL PADNA /Sex: 1985 Female Med Rec #: [id number] Physician: ZOE JORDAN MD-URO Financial #: [id number] Pt. Type: O Room/Bed: [facility] Admit/Disch: 06/03/21 06:25:00 - 06/03/21 10:51:00 [place] [facility] [place] Case Times Entry 1 In Preop 06/03/21 06:34:00 Ready for Holding n/a Room Patient Ready for 06/03/21 07:52:00 Surgery Patient Out of Preop 06/03/21 08:17:00 Patient Out of 06/03/21 08:17:00 Holding Room Last Modified By: Manuela Saleem Rn 06/03/21 09:43:33 [facility] [place] Case Times Audit 06/03/21 09:43:33 Pattern Ruler: [id number] Modifier: [id number] <+> 1 Patient Out of Preop <+> 1 Patient Out of Holding Room Finalized By: Елена Cid, Classified Ad Taker-Nursing Document Signatures Signed By: Елена Cid, Classified Ad Taker-Nursing 06/07/21 06:21 Electronically signed by Kathia [facility] Conversion Building Pressure Washer Cerner at 09/14/2022 5:31 PM CDT documented in this encounter Plan of Treatment Upcoming Encounters Date Type Department Care Team (Late st Contact Info) Description 02/04/2025 1:45 PM EDT Office Visit [facility] Neurology - [facility] [address] [place] [address] Tiny Colin MD [address] [facility] [facility] [address] [place] [address] documented as of this encounter Visit Diagnoses Not on filedocumented in this encounter Care Teams Rubber Factory Worker Relationship Specialty Start Date End Date Justen Ceballos MD [address] [facility] [address] [place] [address] PCP - General Family Medicine 08/11/23 documented as of this encounter
--- OUTSIDE RECORDS SUMMARY | 2024-12-13 12:03 | XMS_ITS | Referral Summary ---
Author Organization [employer] ([place], [place], [place], [place]) Address [address] [place] [address] Care Team Providers Care Glass Washer And Carrier Name Role Phone Justen Ceballos MD Primary Care Provider Encounters Date Type Department Care Team Description 10/08/2024 Refill [facility] Neurology - [facility] [address] [place] [address] Tiny Colin MD Multiple sclerosis (HCC) 10/05/2024 Refill [facility] Neurology [facility] [address] [place] [address] Tiny Colni MD Idiopathic polyneuropathy from Last 3 Months Allergies Active Allergy Reactions Criticality Noted Date Comments Meperidine Rash Low 12/02/2016 Medications cholecalciferol, vitamin D3, 1,250 mcg (50,000 unit) capsuleIndications: Avitaminosis D 1 tab weekly x 8 weeks then start Vit D 2000 units daily. 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 180 tablet 3 5 Active rizatriptan (Maxalt) 10 MG tabletIndications:M ultiple sclerosis (HCC),Idiopathic polyneuropathy,Avit aminosis D,Other fatigue,Intractable migraine without aura and without status migrainosus,prison use of drug Take 1 tablet (10 mg total) by mouth as needed (when a migraine occurs, may repeat q2h x 1) Do NOT exceed thirty (30) mg in 24 hours.. 27 tablet 3 5 Active folic acid (FOLVITE) 1 MG tabletIndications:I diopathic polyneuropathy TAKE 1 TABLET DAILY 90 tablet 1 5 Active ofatumumab (Kesimpta Pen) 20 mg/0.4 mL pnijIndications:Mul tiple sclerosis (HCC) INJECT 1 PEN UNDER THE SKIN EVERY MONTH 1.2 mL 1 5 Active Active Problems No known active problems Immunizations Name Administration Dates Next Due Covid-19 Vaccine MRNA (PF) 18yr+ (Moderna)(IMM60 0) 08/01/2022 Social History Tobacco Use Types Packs/Day Years Used Date Smoking Tobacco: Every Day Cigarettes 1 15 Smokeless Tobacco: Never Alcohol Use Standard Drinks/Week Comments Not Currently 0 (1 standard drink = 0.6 oz pur e alcohol) Family and Community Support Answer Gurinder e Recorded Help with Day to Day Activities Not on file 06/16/2023 Feeling Lonely or Isolated Not on file 06/16 Educational Attainment Answer Date Gerardo rded Speak language other than Guyanese at home Not on file 06/16/2023 Want help with school or training Not on file 06/16/2023 Substance Use Answer Date Recorded Used prescription meds for non-medical reasons N ot on file 06/16/2023 Used illegal drugs past 12 months Not on file 06/16/2023 Comments Unknown Sex and Gender Information Value Date Recorded Sex Assigned at Female 11/23/2021 9:01 PM CDT Legal Sex Female 9:01 PM CDT Gender Identity Female 11/23/2021 9:01 PM CDT Sexual Orientation Not on file Last Filed Vital Signs Vital Sign Reading Time Taken Comments Blood Pressure 131/88 07/31/2024 8:35 AM EST Pulse 98 07/31/2024 8:35 AM EST Temperature - - Respiratory Rate - - Oxygen Saturation - - Inhaled Oxygen Concentration - - Weight 83.7 kg (184 lb 8 oz) 07/31/2024 8:35 AM EST Height 170.2 cm (5' 7 ) 07/31/2024 8:35 AM EST Body Mass Index 28.9 07/31/2024 8:35 AM EST Plan of Treatment Upcoming Encounters Date Type Department Care Team (Late st Contact Info) Description 02/04/2025 1:45 PM EDT Office Visit [facility] Neurology - [facility] [address] [place] [phone] Tiny Colin MD [address] [place] [address] Insurance [facility] Care Teams Glass Washer And Carrier Relationship Specialty Start Date End Date Justen Ceballos MD [address] [place] [facility] [address] [place] [address] PCP - General Family Medicine 08/11/23
--- OUTSIDE RECORDS SUMMARY | 2024-12-13 12:03 | XMS_ITS | Encounter Summary ---
Author Organization [employer] ([place], [place], [place], [place]) Address [address] [place] [address] Care Team Providers Care Data Processing Manager Name Role Phone Justen Ceballos MD Primary Care Provider + [phone] Encounter Details Date Type Department Care Team (Late st Contact Info) Description 05/26/2021 Transcribed Document [facility] [place] [address] [place] [address] ProviderHomer MD [address] [place] [address] Social History Tobacco Use Types [...] Conversion Note - Homer ProviderMD - 05/26/2021 10:18 AM SOAKER HIDES On Going Discharge Planning Entered On: 05/26/2021 10:18 EST Performed On: 05/26/2021 10:18 EST by CARINE CLEMONS, DORIS Care Management Progress Note Discharge Arrangements : Patient Post-Acute Information Patient Name: AMIE MELTON Gender: Female : [birth year] Age: 36 Years No Post-Acute Placement(s) Listed No Post-Acute Service(s) Listed No [place] Referral(s) Listed Discharge Options Discussed with Patient : Discharge transportation Barriers to Discharge Identified : None identified Barriers to Discharge Unresolved : All resolved Patient Discharge Goal : Home Patient Offered Choice/Affiliations Explained : No Designation of Choice Signed : No List/Info Provided Pt/Fam/Support Person : Other: NA Were Referrals Sent to Post Acute Providers : No [facility] Quality Web Info Shared w Pt/Fam : No Does the Patient have a Floor to SNF Benefit? : No Is the Patient Meeting Medical Necessity : Yes Physician Agreeable to Move Forward with D/C Plan? : Yes Did you Attend Multidisciplinary Rounds? : No CARINE CLEMONS RN - 05/26/2021 10:18 EST Narrative Progress Note Narrative Progress Note : 36 y/o female who presented with Right distal ureteral stone with severe right sided hydronephrosis. Patient is s/p cysto with attemtped but failed Right ureteral stent placement. Met with patient in patient's room to discuss discharge needs and to verify demographics and pcp. PCP is Justen Ceballos. RRS: low 32 Boost:2 Outpatient STATUS; patient lives with her mother Jaclyn and is iADLS. PLAN: home with no needs when medically ready for discharge DME: Patient doesn't have nor need any home dme CM: case management will continue to follow til discharge. CARINE CLEMONS RN - 05/26/2021 10:18 EST Electronically signed by Kathia [facility] Conversion Machine Stamper Cerner at 09/14/2022 5:40 PM CDT documented in this encounter Plan of Treatment Upcoming Encounters Date Type Department Care Team (Late st Contact Info) Description 02/04/2025 1:45 PM EDT Office Visit [facility] Neurology - [facility] [address] [place] [address] Tiny Colin MD [address] [facility] [address] [place] [address] documented as of this encounter Visit Diagnoses Not on filedocumented in this encounter Care Teams Data Processing Manager Relationship Specialty Start Date End Date Justen Ceballos MD [address] [facility] [address] [facility] [address] PCP - General Family Medicine 08/11/23 documented as of this encounter
--- OUTSIDE RECORDS SUMMARY | 2024-12-13 12:03 | XMS_ITS | Encounter Summary ---
Author Organization [employer] ([place], [place], [place], [place]) Address [address] [place] [address] Care Team Providers Care Social Scientist Name Role Phone Justen Ceballos MD Primary Care Provider + [phone] Encounter Details Date Type Department Care Team (Late st Contact Info) Description 06/03/2021 Transcribed Document [facility] [place] [address] ProviderHomer MD [address] [id number] Social History Tobacco Use Types Packs/Day Years [...] Note - Homer Johnson MD - 06/03/2021 10:43 AM HOTEL OR MOTEL MANAGER DATE OF PROCEDURE: 06/03/2021 SURGEON: John Paul Zarco MD PREOPERATIVE DIAGNOSIS: Right ureteral stone. POSTOPERATIVE DIAGNOSIS: Right ureteral stone. PROCEDURES PERFORMED: Right ureteroscopy with holmium laser lithotripsy, cystoscopy, right ureteral stent placement, removal of right percutaneous nephrostomy tube. ANESTHESIA: General. COMPLICATIONS: None. DETAILS OF PROCEDURE: The patient was brought into the operating room. She was placed in dorsal lithotomy position and then prepped and draped in the usual fashion. I passed the 23-Cypriot cystoscope with a 30-degree lens using a video camera via the urethra into the bladder. Once inside the bladder, I identified the right ureteral orifice and I passed the zip wire up the right ureter. This went up remarkably easily. I then exchanged this with the Pollack catheter and put a Sensor wire and allowed this to curl up in the right renal pelvis adjacent to the nephrostomy tube. I clipped the Sensor wire to the drape. I then passed the ureteroscope alongside the wire into the right mid ureter. I identified the stone. I used the 365 micron laser fiber and fragmented the stone into innumerable tiny pieces. There was no evidence of any injury to the ureter. I then removed the ureteroscope. I then passed a Pollack catheter over the Sensor wire and put this into the right renal pelvis. I used this to inject contrast. With the Pollack catheter in place and right renal pelvis full of contrast, I had an engineer third assistant remove the nephrostomy tube. I then put the wire back through the Pollack catheter and passed a 6-Cypriot variable length stent over this wire allowing the upper end curled up in the right renal pelvis and the lower end curled up in the bladder. She tolerated this procedure well and was taken back to recovery room in stable condition. /[id number] John Paul Zarco MD PER/AQ / PER / MODL /[id number] documented in this encounter Plan of Treatment Upcoming Encounters Date Type Department Care Team (Late st Contact Info) Description 02/04/2025 1:45 PM EDT Office Visit [facility] Neurology - [facility] [place] [address] [place] [address] Tiny Colin MD [address] [place] [address] documented as of this encounter Visit Diagnoses Not on filedocumented in this encounter Care Teams Social Scientist Relationship Specialty Start Date End Date Justen Ceballos MD [address] [place] [facility] [address] [place] [address] PCP - General Family Medicine 08/11/23 documented as of this encounter
--- OUTSIDE RECORDS SUMMARY | 2024-12-13 12:03 | XMS_ITS | Encounter Summary ---
Author Organization [employer] ([place], [place], [place], [place]) Address [address] [place] [address] Care Team Providers Care Chiropractor Assistant Name Role Phone Justen Ceballos MD Primary Care Provider + [phone] Encounter Details Date Type Department Care Team (Late st Contact Info) Description 05/26/2021 Transcribed Document [facility] Family Medicine [address] [place] [address] ProviderHomer MD [address] [place] [address] Social History Tobacco Use Types [...] Conversion Note - Homer Johnson MD - 05/26/2021 3:47 PM [employer]OR [employer] REPAIRER Patient Education Materials Follows: Ureteral Stent Implantation, Care After This sheet gives you information about how to care for yourself after your procedure. Your health care provider may also give you more specific instructions. If you have problems or questions, contact your health care provider. What can I expect after the procedure? After the procedure, it is common to have: ??? Nausea. ??? Mild pain when you urinate. You may feel this pain in your lower back or lower abdomen. The pain should stop within a few minutes after you urinate. This may last for up to 1 week. ??? A small amount of blood in your urine for several days. Follow these instructions at home: Medicines ??? Take xrkr-qon-pdwkuzu and prescription medicines only as told by your health care provider. ??? If you were prescribed an antibiotic medicine, take it as told by your health care provider. Do not stop taking the antibiotic even if you start to feel better. ??? Do not drive for 24 hours if you were given a sedative during your procedure. ??? Ask your health care provider if the medicine prescribed to you requires you to avoid driving or using heavy machinery. Activity ??? Rest as told by your health care provider. ??? Avoid sitting for a long time without moving. Get up to take short walks every 1?2 hours. This is important to improve blood flow and breathing. Ask for help if you feel weak or unsteady. ??? Return to your normal activities as told by your health care provider. Ask your health care provider what activities are safe for you. General instructions ??? Watch for any blood in your urine. Call your health care provider if the amount of blood in your urine increases. ??? If you have a catheter: ? Follow instructions from your health care provider about taking care of your catheter and collection bag. ? Do not take baths, swim, or use a hot tub until your health care provider approves. Ask your health care provider if you may take showers. You may only be allowed to take sponge baths. ??? Drink enough fluid to keep your urine pale yellow. ??? Do not use any products that contain nicotine or tobacco, such as cigarettes, e-cigarettes, and chewing tobacco. These can delay healing after surgery. If you need help quitting, ask your health care provider. ??? Keep all follow-up visits as told by your health care provider. This is important. Contact a health care provider if: ??? You have pain that gets worse or does not get better with medicine, especially pain when you urinate. ??? You have difficulty urinating. ??? You feel nauseous or you vomit repeatedly during a period of more than 2 days after the procedure. Get help right away if: ??? Your urine is dark red or has blood clots in it. ??? You are leaking urine (have incontinence). ??? The end of the stent comes out of your urethra. ??? You cannot urinate. ??? You have sudden, sharp, or severe pain in your abdomen or lower back. ??? You have a fever. ??? You have swelling or pain in your legs. ??? You have difficulty breathing. Summary ??? After the procedure, it is common to have mild pain when you urinate that goes away within a few minutes after you urinate. This may last for up to 1 week. ??? Watch for any blood in your urine. Call your health care provider if the amount of blood in your urine increases. ??? Take qxfw-jqa-spzsffo and prescription medicines only as told by your health care provider. ??? Drink enough fluid to keep your urine pale yellow. This information is not intended to replace advice given to you by your health care provider. Make sure you discuss any questions you have with your health care provider. Document Revised: 02/19/2019 Document Reviewed: 02/20/2019 [employer] Patient Education ? 2020 [employer]. Urology Percutaneous Nephrostomy, Care After This sheet gives you information about how to care for yourself after your procedure. Your health care provider may also give you more specific instructions. If you have problems or questions, contact your health care provider. What can I expect after the procedure? After the procedure, it is common to have: ??? Some soreness where the nephrostomy tube was inserted (tube insertion site). ??? Blood-tinged drainage from the nephrostomy tube for the first 24 hours. Follow these instructions at home: Activity ??? Do not lift anything that is heavier than 10 lb (4.5 kg), or the limit that you are told, until your health care provider says that it is safe. ??? Return to your normal activities as told by your health care provider. Ask your health care provider what activities are safe for you. ??? Avoid activities that may cause the nephrostomy tubing to bend. ??? Do not take baths, swim, or use a hot tub until your health care provider approves. Ask your health care provider if you can take showers. Cover the nephrostomy tube bandage (dressing) with a watertight covering when you take a shower. ??? If you were given a sedative during the procedure, it can affect you for several hours. Do not drive or operate machinery until your health care provider says that it is safe. Care of the tube insertion site ??? Follow instructions from your health care provider about how to take care of your tube insertion site. Make sure you: ? Wash your hands with soap and water for at least 20 seconds before you change your dressing. If soap and water are not available, use hand educational consultant. ? Change your dressing as told by your health care provider. Be careful not to pull on the tube while removing the dressing. ? When you change the dressing, wash the skin around the tube, rinse well, and pat the skin dry. ??? Check the tube insertion area every day for signs of infection. Check for: ? Redness, swelling, or pain. ? Fluid or blood. ? Warmth. ? Pus or a bad smell. Care of the nephrostomy tube and drainage bag ??? Always keep the tubing, the leg bag, or the bedside drainage bags below the level of the kidney so that your urine drains freely. ??? When connecting your nephrostomy tube to a drainage bag, make sure that there are no kinks in the tubing and that your urine is draining freely. You may want to use an elastic bandage to wrap any exposed tubing that goes from the nephrostomy tube to any of the connecting tubes. ??? At night, you may want to connect your nephrostomy tube or the leg bag to a larger bedside drainage bag. ??? Follow instructions from your health care provider about how to empty or change the drainage bag. ??? Empty the drainage bag when it becomes ? full. ??? Replace the drainage bag and any extension tubing that is connected to your nephrostomy tube every 7 days or as told by your health care provider. Your health care provider will explain how to change the drainage bag and extension tubing. General instructions ??? Take tlyz-woz-epcjrqb and prescription medicines only as told by your health care provider. ??? Keep all follow-up visits as told by your health care provider. This is important. ? The nephrostomy tube will need to be changed every 8?12 weeks. Contact a health care provider if: ??? You have problems with any of the valves or tubing. ??? You have persistent pain or soreness in your back. ??? You have redness, swelling, or pain around your tube insertion site. ??? You have fluid or blood coming from your tube insertion site. ??? Your tube insertion site feels warm to the touch. ??? You have pus or a bad smell coming from your tube insertion site. ??? You have increased urine output or you feel burning when urinating. Get help right away if: ??? You have pain in your abdomen during the first week. ??? You have chest pain or have trouble breathing. ??? You have a new appearance of blood in your urine. ??? You have a fever or chills. ??? You have back pain that is not relieved by your medicine. ??? You have decreased urine output. ??? Your nephrostomy tube comes out. Summary ??? After the procedure, it is common to have some soreness where the nephrostomy tube was inserted (tube insertion site). ??? Follow instructions from your health care provider about how to take care of your tube insertion site, nephrostomy tube, and drainage bag. ??? Keep all follow-up visits for care and for changing the tube. This information is not intended to replace advice given to you by your health care provider. Make sure you discuss any questions you have with your health care provider. Document Revised: 06/09/2020 Document Reviewed: 06/09/2020 [employer] Patient Education ? 2020 [employer] Ureteral Stent Implantation, Care After This sheet gives you information about how to care for yourself after your procedure. Your health care provider may also give you more specific instructions. If you have problems or questions, contact your health care provider. What can I expect after the procedure? After the procedure, it is common to have: ??? Nausea. ??? Mild pain when you urinate. You may feel this pain in your lower back or lower abdomen. The pain should stop within a few minutes after you urinate. This may last for up to 1 week. ??? A small amount of blood in your urine for several days. Follow these instructions at home: Medicines ??? Take xgdz-rrt-yxprawa and prescription medicines only as told by your health care provider. ??? If you were prescribed an antibiotic medicine, take it as told by your health care provider. Do not stop taking the antibiotic even if you start to feel better. ??? Do not drive for 24 hours if you were given a sedative during your procedure. ??? Ask your health care provider if the medicine prescribed to you requires you to avoid driving or using heavy machinery. Activity ??? Rest as told by your health care provider. ??? Avoid sitting for a long time without moving. Get up to take short walks every 1?2 hours. This is important to improve blood flow and breathing. Ask for help if you feel weak or unsteady. ??? Return to your normal activities as told by your health care provider. Ask your health care provider what activities are safe for you. General instructions ??? Watch for any blood in your urine. Call your health care provider if the amount of blood in your urine increases. ??? If you have a catheter: ? Follow instructions from your health care provider about taking care of your catheter and collection bag. ? Do not take baths, swim, or use a hot tub until your health care provider approves. Ask your health care provider if you may take showers. You may only be allowed to take sponge baths. ??? Drink enough fluid to keep your urine pale yellow. ??? Do not use any products that contain nicotine or tobacco, such as cigarettes, e-cigarettes, and chewing tobacco. These can delay healing after surgery. If you need help quitting, ask your health care provider. ??? Keep all follow-up visits as told by your health care provider. This is important. Contact a health care provider if: ??? You have pain that gets worse or does not get better with medicine, especially pain when you urinate. ??? You have difficulty urinating. ??? You feel nauseous or you vomit repeatedly during a period of more than 2 days after the procedure. Get help right away if: ??? Your urine is dark red or has blood clots in it. ??? You are leaking urine (have incontinence). ??? The end of the stent comes out of your urethra. ??? You cannot urinate. ??? You have sudden, sharp, or severe pain in your abdomen or lower back. ??? You have a fever. ??? You have swelling or pain in your legs. ??? You have difficulty breathing. Summary ??? After the procedure, it is common to have mild pain when you urinate that goes away within a few minutes after you urinate. This may last for up to 1 week. ??? Watch for any blood in your urine. Call your health care provider if the amount of blood in your urine increases. ??? Take qrcf-tmq-ublrrzx and prescription medicines only as told by your health care provider. ??? Drink enough fluid to keep your urine pale yellow. This information is not intended to replace advice given to you by your health care provider. Make sure you discuss any questions you have with your health care provider. Document Revised: 02/19/2019 Document Reviewed: 02/20/2019 [employer] Patient Education ? 2020 [employer] Cystoscopy Cystoscopy is a procedure that is used to help diagnose and sometimes treat conditions that affect the lower urinary tract. The lower urinary tract includes the bladder and the urethra. The urethra is the tube that drains urine from the bladder. Cystoscopy is done using a thin, tube-shaped instrument with a light and camera at the end (cystoscope). The cystoscope may be hard or flexible, depending on the goal of the procedure. The cystoscope is inserted through the urethra, into the bladder. Cystoscopy may be recommended if you have: ??? Urinary tract infections that keep coming back. ??? Blood in the urine (hematuria). ??? An inability to control when you urinate (urinary incontinence) or an overactive bladder. ??? Unusual cells found in a urine sample. ??? A blockage in the urethra, such as a urinary stone. ??? Painful urination. ??? An abnormality in the bladder found during an intravenous pyelogram (IVP) or CT scan. Cystoscopy may also be done to remove a sample of tissue to be examined under a microscope (biopsy). Tell a health care provider about: ??? Any allergies you have. ??? All medicines you are taking, including vitamins, herbs, eye drops, creams, and cjsp-fpj-aoxmkad medicines. ??? Any problems you or family members have had with anesthetic medicines. ??? Any blood disorders you have. ??? Any surgeries you have had. ??? Any medical conditions you have. ??? Whether you are or may be . What are the risks? Generally, this is a safe procedure. However, problems may occur, including: ??? Infection. ??? Bleeding. ??? Allergic reactions to medicines. ??? Damage to other structures or organs. What happens before the procedure? Ask your health care provider about: ? Changing or stopping your regular medicines. This is especially important if you are taking diabetes medicines or blood thinners. ? Taking medicines such as aspirin and ibuprofen. These medicines can thin your blood. Do not take these medicines unless your health care provider tells you to take them. ? Taking lqtq-zkp-gsrtmej medicines, vitamins, herbs, and supplements. ??? Follow instructions from your health care provider about eating or drinking restrictions. ??? Ask your health care provider what steps will be taken to help prevent infection. These may include: ? Washing skin with a germ-killing soap. ? Taking antibiotic medicine. ??? You may have an exam or testing, such as: ? X-rays of the bladder, urethra, or kidneys. ? Urine tests to check for signs of infection. ??? Plan to have someone take you home from the hospital or clinic. What happens during the procedure? You will be given one or more of the following: ? A medicine to help you relax (sedative). ? A medicine to numb the area (local anesthetic). ??? The area around the opening of your urethra will be cleaned. ??? The cystoscope will be passed through your urethra into your bladder. ??? Germ-free (sterile) fluid will flow through the cystoscope to fill your bladder. The fluid will stretch your bladder so that your health care provider can clearly examine your bladder samuels. ??? Your doctor will look at the urethra and bladder. Your doctor may take a biopsy or remove stones. ??? The cystoscope will be removed, and your bladder will be emptied. The procedure may vary among health care providers and hospitals. What can I expect after the procedure? After the procedure, it is common to have: ??? Some soreness or pain in your abdomen and urethra. ??? Urinary symptoms. These include: ? Mild pain or burning when you urinate. Pain should stop within a few minutes after you urinate. This may last for up to 1 week. ? A small amount of blood in your urine for several days. ? Feeling like you need to urinate but producing only a small amount of urine. Follow these instructions at home: Medicines ??? Take pslg-osj-ptgebmu and prescription medicines only as told by your health care provider. ??? If you were prescribed an antibiotic medicine, take it as told by your health care provider. Do not stop taking the antibiotic even if you start to feel better. General instructions ??? Return to your normal activities as told by your health care provider. Ask your health care provider what activities are safe for you. ??? Do not drive for 24 hours if you were given a sedative during your procedure. ??? Watch for any blood in your urine. If the amount of blood in your urine increases, call your health care provider. ??? Follow instructions from your health care provider about eating or drinking restrictions. ??? If a tissue sample was removed for testing (biopsy) during your procedure, it is up to you to get your test results. Ask your health care provider, or the department that is doing the test, when your results will be ready. ??? Drink enough fluid to keep your urine pale yellow. ??? Keep all follow-up visits as told by your health care provider. This is important. Contact a health care provider if you: ??? Have pain that gets worse or does not get better with medicine, especially pain when you urinate. ??? Have trouble urinating. ??? Have more blood in your urine. Get help right away if you: ??? Have blood clots in your urine. ??? Have abdominal pain. ??? Have a fever or chills. ??? Are unable to urinate. Summary ??? Cystoscopy is a procedure that is used to help diagnose and sometimes treat conditions that affect the lower urinary tract. ??? Cystoscopy is done using a thin, tube-shaped instrument with a light and camera at the end. ??? After the procedure, it is common to have some soreness or pain in your abdomen and urethra. ??? Watch for any blood in your urine. If the amount of blood in your urine increases, call your health care provider. ??? If you were prescribed an antibiotic medicine, take it as told by your health care provider. Do not stop taking the antibiotic even if you start to feel better. This information is not intended to replace advice given to you by your health care provider. Make sure you discuss any questions you have with your health care provider. Document Revised: 05/07/2019 Document Reviewed: 05/07/2019 [employer] Patient Education ? 2020 [employer] documented in this encounter Plan of Treatment Upcoming Encounters Date Type Department Care Team (Late st Contact Info) Description 02/04/2025 1:45 PM EDT Office Visit [facility] Neurology - [facility] [address] [place] [id number] Tiny Colin MD [address] [place] [address] documented as of this encounter Visit Diagnoses Not on filedocumented in this encounter Care Teams Chiropractor Assistant Relationship Specialty Start Date End Date Justen Ceballos MD [address] [facility] [address] [place] [address] PCP - General Family Medicine 08/11/23 documented as of this encounter
--- OUTSIDE RECORDS SUMMARY | 2024-12-13 12:03 | XMS_ITS | Clinical Summary ---
Author Organization [employer] ([place], [place], [place], [place]) Address [address] [place] [address] Care Team Providers Care Jointer Operator Name Role Phone Justen Ceballos MD Primary Care Provider + [phone] Allergies Active Allergy Reactions Criticality Noted Date Comments Meperidine Rash Low 12/02/2016 Medications cholecalciferol, vitamin D3, 1,250 mcg (50,000 unit) capsuleIndications: Avitaminosis D 1 tab weekly x 8 weeks then start Vit D 2000 units daily. 4 capsule 1 4 Active amitriptyline (ELAVIL) 25 MG tabletIndications:M ultiple sclerosis (HCC),Idiopathic polyneuropathy,Avit aminosis D,Other fatigue,Intractable migraine without aura and without status migrainosus,group home use of drug 1-2 tabs po qhs for migraine. 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 drug Take 1 tablet (10 [...] Active Active Problems No known active problems Encounters Date Type Department Care Team Description 10/08/2024 [facility] Neurology - [facility] [address] [place] [address] Tiny Colin MD Multiple sclerosis (HCC) 10/05/2024 [facility] Neurology - [facility] [address] [place] [address] Tiny Colin MD Idiopathic polyneuropathy from Last 3 Months Immunizations Name Administration Dates Next Due Covid-19 Vaccine MRNA (PF) 18yr+ (Moderna)(IMM60 0) 08/01/2022 Family History Medical History Relation Name Comments Cancer Father Akbar evangelista Brain and lung Stroke Other Relation Name Status Comments Father Akbar evangelista Other Social History Tobacco Use Types Packs/Day Years [...] Date Gerardo rded Speak language other than [place] Island[place] at home Not on file 06/16/2023 Want [...] Description 02/04/2025 1:45 PM EDT Office Visit [facility] Neurology - [facility] [address] [place] [address] Tiny Colin MD [address] [place] [address] Health Maintenance Due Date Last Done Comments Depression Screening (12+) 1996 Tobacco Cessation Counseling and Screening (12+) 1996 HIV Screening 02/15/1999 Hepatitis C Screening 02/15/2002 Pneumococcal Vaccine: 0-49 Y ears (1 of 2 - PCV) 02/15/2003 Lipid Panel 2004 Pap Smear 02/15/2005 DTAP/TDAP/TD VACCINES (2 - Td or Tdap) 12/05/2012 COVID-19 VACCINE (3 - season) 01/28/202410/2022, 06/06/2022 Breast Cancer Screening 2024 Influenza Vaccine (#1) 2025 Insurance R Care Teams Jointer Operator Relationship Specialty Start Date End Date Justen Ceballos MD [address] [place] [facility] [address] [place] [address] PCP - General Family Medicine 08/11/23
--- OUTSIDE RECORDS SUMMARY | 2024-12-13 12:03 | XMS_ITS | Encounter Summary ---
Author Organization [employer] ([place], [place], [place], [place]) Address [address] [place] [address] Care Team Providers Care Chip Mucker Name Role Phone Justen Ceballos MD Primary Care Provider + [phone] Encounter Details Date Type Department Care Team (Late st Contact Info) Description 05/26/2021 Transcribed Document [facility] Family Medicine [address] [place] [address] ProviderHomer MD [address] [place] [address] Social History Tobacco Use Types [...] Conversion Note - Homer ProviderMD - 05/26/2021 8:01 AM LAST REPAIRER Patient: AMIE MELTON Age: 36 years Sex: Female : 1985 Associated Diagnoses: None Author: Tam Dunham, Pharmacist Pharmacy verified patient's allergies and home medication list with the patient and their home pharmacy. Records are as follows: Home Medications (5) Active Flomax 0.4 mg oral capsule , Oral, Daily ketorolac 10 mg oral tablet 10 mg = 1 Tab, PRN, Oral, QID Vitamin D2 1.25 mg (50,000 intl units) oral capsule 50,000 Int Units = 1 Cap, Oral, Weekly Allergies (1) Active Reaction Demerol Rash Thank you, Tam Dunham, PharmD documented in this encounter Plan of Treatment Upcoming Encounters Date Type Department Care Team (Late st Contact Info) Description 02/04/2025 1:45 PM EDT Office Visit [facility] Neurology - [facility] [address] [place] [id number] Tiny Colin MD [address] [facility] [address] [place] [address] documented as of this encounter Visit Diagnoses Not on filedocumented in this encounter Care Teams Chip Mucker Relationship Specialty Start Date End Date Justen Ceballos MD [address] [facility] [address] [place] [address] PCP - General Family Medicine 08/11/23 documented as of this encounter
--- OUTSIDE RECORDS SUMMARY | 2024-12-13 12:03 | XMS_ITS | Encounter Summary ---
Author Organization [employer] ([place], [place], [place], [place]) Address [address] [place] [address] Care Team Providers Care Lining Maker Hand Name Role Phone Justen Ceballos MD Primary Care Provider + [phone] Encounter Details Date Type Department Care Team (Late st Contact Info) Description 05/26/2021 Transcribed Document [facility] [place] [address] [place] [address] ProviderHomer MD [address] [place] [address] Social History Tobacco Use Types [...] Conversion Note - Homer ProviderMD - 05/26/2021 3:14 PM SHEET HANGER Final Discharge Planning Entered On: 05/26/2021 15:14 EST Performed On: 05/26/2021 15:14 EST by Dilia Mendes Rn Final Discharge Planning Discharge Arrangements : Patient Post-Acute Information Patient Name: AMIE MELTON Gender: Female : [birth year] Age: 36 Years No Post-Acute Placement(s) Listed No Post-Acute Service(s) Listed No [place] Referral(s) Listed Patient Offered Choice/Affiliations Explained : No Designation of Choice Signed : No Important Medicare Message Reviewed With : Other: NA Transportation Needs : Car Follow Up Appointment Scheduled : Yes Is Patient High/Moderate Readmission Risk? : No Patient/Family Notified of Plan : Yes Is Patient Ready for Discharge? : Yes Physician Notified Patient is Ready for Discharge? : Yes Discharge To Care Management : Home/Residential/Longterm or Self Care -01 Dilia Mendes Rn - 05/26/2021 15:14 EST Final Narrative Note Final Narrative Note : home no needs Dilia Mendes Rn - 05/26/2021 15:14 EST Electronically signed by [facility], [facility] Conversion Pr Intern Cerner at 09/14/2022 5:40 PM CDT documented in this encounter Plan of Treatment Upcoming Encounters Date Type Department Care Team (Late st Contact Info) Description 02/04/2025 1:45 PM EDT Office Visit [facility] Neurology - [facility] [address] [place] [address] Tiny Colin MD [address] [facility] [address] [place] [address] documented as of this encounter Visit Diagnoses Not on filedocumented in this encounter Care Teams Lining Maker Hand Relationship Specialty Start Date End Date Justen Ceballos MD [address] [facility] [address] [place] [address] PCP - General Family Medicine 08/11/23 documented as of this encounter
--- OUTSIDE RECORDS SUMMARY | 2024-12-13 12:03 | XMS_ITS | Encounter Summary ---
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 Patient: AMIE MELTON Age: 36 years Sex: Female : 1985 Associated Diagnoses: Calculus of ureter; Right flank pain; Recurrent nephrolithiasis; Severe right hydronephrosis, status post nephrostomy tube placement; Multiple sclerosis Author: PAULA IBARRA MD-INT Date of admission 05/25/2021 PCP Justen Ceballos Urologist, John Paul Zarco MD Admitting physician, hospitalist, internal medicine, Paula Ibarra MD Admitting diagnosis 1???right flank pain 2???recurrent nephrolithiasis 3???impacted right mid ureteric stone with failed extraction 4???severe right hydronephrosis 5???multiple sclerosis History of present illness A pleasant 36 years old white female with a history of MS and recurrent kidney stones. Patient has right mid ureteric stone and was taken to the OR by Dr. Zarco on 05/25/2021 for stone extraction and unfortunately he was unable to pull the stone out after he passed the wire in. Patient was then admitted to the hospital with right severe hydronephrosis for nephrostomy tube placement by interventional radiology and then for stone removal at a later date. Patient denies any fever or chills. There is no nausea or vomiting. There is no hematuria, but she does have right flank pain radiating to the right anterior abdominal wall. On 05/26/2021 patient was then taken to radiology department and had successful nephrostomy tube placement in her right kidney by Dr. Finley who recommended that the patient can go home after 3 hours from tube placement if urine is clearing. I visited the patient twice today and found that her urine is clearing so I decided to discharge her home. She is started on oral nutrition initially was clear liquid diet which was advanced to high-fiber diet and was tolerating well oral p.o. intake. She denies any chest pain, shortness of breath diaphoresis nausea and vomiting. Review of Systems Constitutional: No fever, No chills. Eye: No visual disturbances. Ear/Nose/Mouth/Throat: No nasal congestion, No sore throat. Respiratory: No shortness of breath, No cough. Cardiovascular: No chest pain, No tachycardia. Gastrointestinal: No nausea, No vomiting, No abdominal pain. Genitourinary: No change in urine stream. Hematology/Lymphatics: No bleeding tendency. Endocrine: No polyuria, No cold intolerance, No heat intolerance. Immunologic: Negative. Musculoskeletal: Negative. Integumentary: No rash, No pruritus. Neurologic: No confusion, No numbness, No tingling, No headache. Psychiatric: No anxiety, No depression. All other systems are negative Health Status Allergies: Allergies (1) Active Reaction Demerol Rash Current medications: (Selected) Inpatient Medications Ordered Colace: 100 mg, Oral, Cap, BID, Routine, Start 05/25/21 21:47:00 EST, 05/25/21 21:47:00 EST Dilaudid: 0.5 mg, IV Push, Inj, Q2H, PRN for Pain (Severe 7-10), Routine, Start 05/25/21 21:47:00 EST, 05/25/21 21:47:00 EST Dulcolax Laxative: 10 mg, Rectal, Supp, BID, PRN for Constipation, Routine, Start 05/25/21 21:47:00 EST, 05/25/21 21:47:00 EST HYDROmorphone: 0.5 mg, IV Push, Inj, Q10Min, PRN for Pain (Severe 7-10), Routine, Start 05/25/21 20:58:00 EST, 05/25/21 20:58:00 EST Habitrol 21 mg/24 hr transdermal film, extended release: 1 Patch, TransDermal, Patch, Daily, Routine, Start 05/27/21 9:00:00 EST Lactated Ringers Injection intravenous solution 1,000 mL: 1,000 mL, Bag Volume (mL) = 1,000, IntraVENous, Rate = 20 mL/Hr, start date 05/25/21 15:55:00 EST, Routine Milk of Magnesia 8% oral suspension: 30 mL, Oral, Liquid, Daily, PRN for Constipation, Routine, Start 05/25/21 21:47:00 EST Restoril: 15 mg, Oral, Cap, At Bedtime, PRN for Sleep, Routine, Start 05/25/21 21:47:00 EST, 05/25/21 21:47:00 EST Sodium Chloride 0.45% intravenous solution 1,000 mL: 1,000 mL, Bag Volume (mL) = 1,000, IntraVENous, Rate = 100 mL/Hr, start date 05/25/21 21:47:00 EST, Routine, 1.84, m2 Sodium Chloride 0.9% intravenous solution 1,000 mL: 1,000 mL, Bag Volume (mL) = 1,000, IntraVENous, Rate = 70 mL/Hr, start date 05/26/21 7:36:00 EST, Routine, 1.84, m2 Sublimaze: 25 mcg, IV Push, Inj, Q5Min, PRN for Pain, Routine, Start 05/25/21 20:58:00 EST, 05/25/21 20:58:00 EST Sublimaze: 50 mcg, IV Push, Inj, Q5Min, PRN for Pain (Moderate 4-6), Routine, Start 05/25/21 20:58:00 EST, 05/25/21 20:58:00 EST Tylenol: 650 mg, Oral, Tab, Q4H, PRN for Other (See Comment), Routine, Start 05/25/21 21:47:00 EST, 05/25/21 21:47:00 EST Xanax: 0.25 mg, Oral, Tab, Q6H, PRN for Anxiety, Routine, Start 05/25/21 21:47:00 EST, 05/25/21 21:47:00 EST Zofran: 4 mg, IV Push, Inj, Q4H, PRN for Nausea/Vomiting, Routine, Start 05/25/21 21:47:00 EST, 05/25/21 21:47:00 EST Zofran: 4 mg, IV Push, Inj, Q4H, PRN for Nausea/Vomiting, Routine, Start 05/25/21 21:47:00 EST, 05/25/21 21:47:00 EST acetaminophen-HYDROcodone 325 mg-5 mg oral tablet: 1 Tab, Oral, Tab, Q4H, PRN for Pain (Moderate 4-6), Routine, Start 05/25/21 21:47:00 EST acetaminophen-HYDROcodone 325 mg-5 mg oral tablet: 2 Tab, Oral, Tab, Q4H, PRN for Pain (Severe 7-10), Routine, Start 05/25/21 21:47:00 EST calcium gluconate + Sodium Chloride 0.9% intravenous solution 100 mL: 2 Gram 20 mL, IV Piggyback, Inj, Daily, PRN for Other (See Comment), Routine, Start 05/25/21 21:44:00 EST, 120 mL/Hr, Infuse Over: 60 Minute(s), 05/25/21 21:44:00 EST calcium gluconate + Sodium Chloride 0.9% intravenous solution 100 mL: 2 Gram 20 mL, IV Piggyback, Inj, Q12H, PRN for Other (See Comment), Routine, Start 05/25/21 21:44:00 EST, 120 mL/Hr, Infuse Over: 60 Minute(s), 05/25/21 21:44:00 EST calcium gluconate: 1 Gram 50 mL, IV Piggyback, Inj, Daily, PRN for Other (See Comment), Routine, Start 05/25/21 21:44:00 EST, 50 mL/Hr, Infuse Over: 60 Minute(s), 05/25/21 21:44:00 EST cefTRIAXone + Sodium Chloride 0.9% intravenous solution 50 mL: 1 Gram, IV Piggyback, Inj, Daily, infuse over 30 Minute(s), Routine, Start 05/26/21 9:00:00 EST, 100 mL/Hr, Indication: Urinary Tract Infection cloNIDine: 0.1 mg, Oral, Tab, Q4H, PRN for Hypertension, Routine, Start 05/25/21 21:47:00 EST, 05/25/21 21:47:00 EST diphenhydrAMINE: 25 mg, Oral, Tab, Q6H, PRN for Allergies, Routine, Start 05/25/21 21:47:00 EST, 05/25/21 21:47:00 EST ergocalciferol: 50,000 Units, Oral, Cap, Weekly, Routine, Start 05/26/21 9:00:00 EST, 05/25/21 21:48:00 EST famotidine: 20 mg, Oral, Tab, PREOP, PRN for Other (See Comment), Routine, Start 05/25/21 15:55:00 EST, 05/25/21 15:55:00 EST haloperidol: 1 mg, IV Push, Inj, 1-Time, PRN for Nausea/Vomiting, Routine, Start 05/25/21 20:58:00 EST, 05/25/21 20:58:00 EST magnesium sulfate: 2 Gram 50 mL, IV Piggyback, Inj, Daily, PRN for Other (See Comment), Routine, Start 05/25/21 21:44:00 EST, 25 mL/Hr, Infuse Over: 2 Hour(s), 05/25/21 21:44:00 EST magnesium sulfate: 2 Gram 50 mL, IV Piggyback, Inj, Q2H, PRN for Other (See Comment), Routine, Start 05/25/21 21:44:00 EST, 25 mL/Hr, Infuse Over: 2 Hour(s), 05/25/21 21:44:00 EST metoclopramide: 5 mg, IV Push, Inj, Q6H, PRN for Nausea/Vomiting, Routine, Start 05/25/21 21:47:00 EST, 05/25/21 21:47:00 EST ondansetron: 4 mg, IV Push, Inj, 1-Time, PRN for Nausea, Routine, Start 05/25/21 20:58:00 EST, 05/25/21 20:58:00 EST potassium chloride 10 mEq/50 mL intravenous solution: 10 mEq 100 mL, IV Piggyback, Inj, Q1H, PRN for Other (See Comment), Routine, Start 05/25/21 21:44:00 EST, 100 mL/Hr, Infuse Over: 1 Hour(s), 05/25/21 21:44:00 EST potassium chloride 20 mEq oral tablet, extended release: 20 mEq 1 Tab, Oral, CR Tab, Q2H, PRN for Other (See Comment), Routine, Start 05/25/21 21:44:00 EST, 05/25/21 21:44:00 EST potassium chloride 20 mEq oral tablet, extended release: 60 mEq 3 Tab, Oral, CR Tab, Q2H, PRN for Other (See Comment), Routine, Start 05/25/21 21:44:00 EST, 05/25/21 21:44:00 EST sodium phosphate: 15 mMole 5 mL, IV Piggyback, Inj, Daily, PRN for Other (See Comment), Routine, Start 05/25/21 21:44:00 EST, 51 mL/Hr, Infuse Over: 5 Hour(s), 05/25/21 21:44:00 EST sodium phosphate: 15 mMole 5 mL, IV Piggyback, Inj, Q6H, PRN for Other (See Comment), Routine, Start 05/25/21 21:44:00 EST, 51 mL/Hr, Infuse Over: 5 Hour(s), 05/25/21 21:44:00 EST tamsulosin: 0.4 mg, Oral, CR Cap, Daily, Routine, Start 05/26/21 9:00:00 EST, 05/25/21 22:17:00 EST traZODone: 50 mg, Oral, Tab, At Bedtime, PRN for Insomnia, Routine, Start 05/25/21 21:47:00 EST, 05/25/21 21:47:00 EST Prescriptions Prescribed Keflex 500 mg oral capsule: 1 Cap, Oral, Q12H, # 6 Cap, 0 Refill(s), Pharmacy: [facility] #[id number], 172.72, cm, 05/25/21 16:01:00 EST, CLINICALHEIGHT, 70.45, kg, 05/25/21 16:01:00 EST, CLINICALWEIGHT Bixby 5 mg-325 mg oral tablet: 1 Tab, Oral, Tab, Q6H, PRN for pain, # 20 Tab, 0 Refill(s), Pharmacy: [facility] #[id number], 172.72, cm, 05/25/21 16:01:00 EST, CLINICALHEIGHT, 70.45, kg, 05/25/21 16:01:00 EST, CLINICALWEIGHT Documented Medications Documented Flomax 0.4 mg oral capsule: Cap, Oral, Daily, 0 Refill(s) Vitamin D2 1.25 mg (50,000 intl units) oral capsule: 1 Cap, Oral, Weekly, 0 Refill(s), Home Medications (4) Active Flomax 0.4 mg oral capsule , Oral, Daily Keflex 500 mg oral capsule 500 mg = 1 Cap, Oral, Q12H Bixby 5 mg-325 mg oral tablet 1 Tab, PRN, Oral, Q6H Vitamin D2 1.25 mg (50,000 intl units) oral capsule 50,000 Int Units = 1 Cap, Oral, Weekly , Medications (38) Active Scheduled: (5) cefTRIAXone *ADV* + NaCl 0.9% *ADV* 50 mL 1 Gram, IV Piggyback, Daily docusate sodium 100 mg cap 100 mg 1 Cap, Oral, BID ergocalciferol 50,000 unit cap 50,000 Units 1 Cap, Oral, Weekly nicotine 21 mg/24 hr patch 1 Patch, TransDermal, Daily tamsulosin CR 0.4 mg cap 0.4 mg 1 Cap, Oral, Daily Continuous: (3) lactated ringers 1,000 mL 1,000 mL, IntraVENous, 20 mL/Hr NaCl 0.45% 1,000 mL 1,000 mL, IntraVENous, 100 mL/Hr NaCl 0.9% 1,000 mL 1,000 mL, IntraVENous, 70 mL/Hr PRN: (30) acetaminophen 325 mg tab 650 mg 2 Tab, Oral, Q4H acetaminophen/HYDROcodone 325/5 mg tab 1 Tab, Oral, Q4H acetaminophen/HYDROcodone 325/5 mg tab 2 Tab, Oral, Q4H ALPRAZolam 0.25 mg tab 0.25 mg 1 Tab, Oral, Q6H bisacodyl 10 mg supp 10 mg 1 Supp, Rectal, BID calcium gluconate 1 Gram 50 mL, IV Piggyback, Daily calcium gluconate + NaCl 0.9% 100 mL 2 Gram 20 mL, IV Piggyback, Daily calcium gluconate + NaCl 0.9% 100 mL 2 Gram 20 mL, IV Piggyback, Q12H cloNIDine 0.1 mg tab 0.1 mg 1 Tab, Oral, Q4H diphenhydrAMINE 25 mg tab 25 mg 1 Tab, Oral, Q6H famotidine 20 mg tab 20 mg 1 Tab, Oral, PREOP fentaNYL 100 mcg/2 mL inj 25 mcg 0.5 mL, IV Push, Q5Min fentaNYL 100 mcg/2 mL inj 50 mcg 1 mL, IV Push, Q5Min haloperidol 5 mg/1 mL inj 1 mg 0.2 mL, IV Push, 1-Time HYDROmorphone 1 mg/1 mL inj 0.5 mg 0.5 mL, IV Push, Q10Min HYDROmorphone 1 mg/1 mL inj 0.5 mg 0.5 mL, IV Push, Q2H magnesium hydroxide 8% liq 30 mL 30 mL, Oral, Daily magnesium sulfate 2 Gram 50 mL, IV Piggyback, Daily magnesium sulfate 2 Gram 50 mL, IV Piggyback, Q2H metoclopramide 10 mg/2 mL inj 5 mg 1 mL, IV Push, Q6H ondansetron 4 mg/2 mL inj 4 mg 2 mL, IV Push, 1-Time ondansetron 4 mg/2 mL inj 4 mg 2 mL, IV Push, Q4H ondansetron 4 mg/2 mL inj 4 mg 2 mL, IV Push, Q4H potassium chloride 10 mEq 100 mL, IV Piggyback, Q1H potassium chloride CR 20 mEq tab 20 mEq 1 Tab, Oral, Q2H potassium chloride CR 20 mEq tab 60 mEq 3 Tab, Oral, Q2H sodium phosphate 15 mMole 5 mL, IV Piggyback, Daily sodium phosphate 15 mMole 5 mL, IV Piggyback, Q6H temazepam 15 mg cap 15 mg 1 Cap, Oral, At Bedtime traZODone 50 mg tab 50 mg 1 Tab, Oral, At Bedtime Problem list: Active Problems (2) Kidney stones Multiple sclerosis Histories Family History: Family history is significant for DM, HTN, CAD and cancer Procedure history: tonsillectomy. LEEP. laser lithotripsy. wisdom teeth. Social History Patient is and has children, smoker, drinks alcohol. Physical Examination VS/Measurements Vital Signs/Vital Measures 05/26/2021 14:14 EST Systolic Blood Pressure 129 mmHg Diastolic Blood Pressure 92 mmHg HI Mean Arterial Pressure (MAP)-BMDI 101 Temperature Source Oral Temperature Mode Fahrenheit Temperature, Fahrenheit 97.5 Deg F Clinical Temperature, C 36.4 Deg C Heart Rate Monitored 77 bpm Respiratory Rate 18 Breaths/Min Oxygen Saturation 97 % Oxygen Therapy Mode Room air 05/26/2021 11:00 EST Systolic Blood Pressure 146 mmHg HI Diastolic Blood Pressure 84 mmHg Mean Arterial Pressure (MAP)-BMDI 99 Temperature Source Oral Temperature Mode Fahrenheit Temperature, Fahrenheit 97.9 Deg F Clinical Temperature, C 36.6 Deg C Heart Rate Monitored 80 bpm Oxygen Saturation 99 % Oxygen Therapy Mode Room air 05/26/2021 8:41 EST Oxygen Saturation 97 % Oxygen Therapy Mode Room air 05/26/2021 5:00 EST Systolic Blood Pressure 135 mmHg Diastolic Blood Pressure 78 mmHg Mean Arterial Pressure (MAP)-BMDI 91 Temperature Source Oral Temperature Mode Fahrenheit Temperature, Fahrenheit 97.8 Deg F Clinical Temperature, C 36.6 Deg C Heart Rate Monitored 68 bpm Respiratory Rate 16 Breaths/Min Oxygen Saturation 98 % 05/26/2021 1:15 EST Systolic Blood Pressure 119 mmHg Diastolic Blood Pressure 73 mmHg Mean Arterial Pressure (MAP)-BMDI 83 Temperature Source Oral Temperature Mode Fahrenheit Temperature, Fahrenheit 97.7 Deg F Clinical Temperature, C 36.5 Deg C Heart Rate Monitored 79 bpm Respiratory Rate 18 Breaths/Min Oxygen Saturation 100 % 05/25/2021 22:00 EST Systolic Blood Pressure 131 mmHg Diastolic Blood Pressure 79 mmHg Mean Arterial Pressure (MAP)-BMDI 89 Temperature Source Oral Temperature Mode Fahrenheit Temperature, Fahrenheit 97.6 Deg F Clinical Temperature, C 36.4 Deg C Heart Rate Monitored 70 bpm Respiratory Rate 16 Breaths/Min Oxygen Saturation 100 % 05/25/2021 21:51 EST Systolic Blood Pressure 123 mmHg Diastolic Blood Pressure 66 mmHg Mean Arterial Pressure (MAP)-BMDI 94 Heart Rate Monitored 72 bpm Respiratory Rate 14 Breaths/Min Oxygen Saturation 98 % Oxygen Therapy Mode Room air 05/25/2021 21:32 EST Systolic Blood Pressure 134 mmHg Diastolic Blood Pressure 69 mmHg Mean Arterial Pressure (MAP)-BMDI 93 Temperature Source Temporal artery scanning Temperature Mode Fahrenheit Temperature, Fahrenheit 97.3 Deg F Clinical Temperature, C 36.3 Deg C Heart Rate Monitored 67 bpm Respiratory Rate 16 Breaths/Min Oxygen Saturation 100 % Oxygen Therapy Mode Room air 05/25/2021 21:25 EST Systolic Blood Pressure 127 mmHg Diastolic Blood Pressure 68 mmHg Mean Arterial Pressure (MAP)-BMDI 95 Heart Rate Monitored 63 bpm Respiratory Rate 16 Breaths/Min Oxygen Saturation 100 % Oxygen Therapy Mode Room air 05/25/2021 21:10 EST Systolic Blood Pressure 136 mmHg Diastolic Blood Pressure 74 mmHg Mean Arterial Pressure (MAP)-BMDI 106 Heart Rate Monitored 67 bpm Respiratory Rate 10 Breaths/Min LOW Oxygen Saturation 100 % Oxygen Therapy Mode Room air 05/25/2021 20:55 EST Systolic Blood Pressure 141 mmHg HI Diastolic Blood Pressure 74 mmHg Mean Arterial Pressure (MAP)-BMDI 106 Systolic BP, Arterial Line 1 131 mmHg Diastolic BP, Arterial Line 1 77 mmHg Heart Rate Monitored 62 bpm Respiratory Rate 16 Breaths/Min Oxygen Saturation 98 % Oxygen Therapy Mode Room air 05/25/2021 20:50 EST Systolic Blood Pressure 128 mmHg Diastolic Blood Pressure 73 mmHg Mean Arterial Pressure (MAP)-BMDI 99 Heart Rate Monitored 87 bpm Respiratory Rate 22 Breaths/Min HI Oxygen Saturation 100 % Oxygen Therapy Mode Room air 05/25/2021 20:45 EST Systolic Blood Pressure 133 mmHg Diastolic Blood Pressure 95 mmHg HI Mean Arterial Pressure (MAP)-BMDI 107 Heart Rate Monitored 98 bpm Respiratory Rate 16 Breaths/Min Oxygen Saturation 100 % Oxygen Therapy Mode Room air 05/25/2021 20:40 EST Blood Pressure Location Arm, left upper Blood Pressure Source Non-Invasive BP Device Blood Pressure Position Sitting Systolic Blood Pressure 132 mmHg Diastolic Blood Pressure 72 mmHg Mean Arterial Pressure (MAP)-BMDI 98 Temperature Source Temporal artery scanning Temperature Mode Fahrenheit Temperature, Fahrenheit 97.8 Deg F Clinical Temperature, C 36.6 Deg C Heart Rate Monitored 87 bpm Respiratory Rate 16 Breaths/Min Oxygen Saturation 98 % Oxygen Therapy Mode Room air 05/25/2021 15:30 EST Systolic Blood Pressure 117 mmHg Diastolic Blood Pressure 74 mmHg Temperature Source Temporal artery scanning Temperature Mode Fahrenheit Temperature, Fahrenheit 97.6 Deg F Clinical Temperature, C 36.4 Deg C Heart Rate Monitored 79 bpm Respiratory Rate 17 Breaths/Min Oxygen Saturation 100 % Oxygen Therapy Mode Room air General: Alert and oriented, No acute distress. Eye: Pupils are equal, round and reactive to light, Normal conjunctiva, Vision unchanged. HENT: Normocephalic, Tympanic membranes are clear, Normal hearing, Oral mucosa is moist, No pharyngeal erythema, No sinus tenderness. Neck: Supple, Non-tender, No carotid bruit, No jugular venous distention, No lymphadenopathy, No thyromegaly. Respiratory: Lungs are clear to auscultation, Respirations are non-labored, Breath sounds are equal, Symmetrical chest wall expansion, No chest wall tenderness. Cardiovascular: Normal rate, Regular rhythm, No murmur, No gallop, Good pulses equal in all extremities, Normal peripheral perfusion, No edema. Gastrointestinal: Soft, Non-tender, Non-distended, Normal bowel sounds, No organomegaly. Genitourinary: No costovertebral angle tenderness, No inguinal tenderness, No urethral discharge, No lesions. Lymphatics: No lymphadenopathy neck, axilla, groin. Musculoskeletal: Normal range of motion, Normal strength, No tenderness, No swelling, No deformity, Normal gait. Integumentary: Warm, [place], Intact, No pallor, No rash, WOUND STABLE. Neurologic: Alert, Oriented, Normal sensory, Normal motor function, No focal deficits, Cranial Nerves II-XII are grossly intact, Normal deep tendon reflexes. Psychiatric: Cooperative, Appropriate mood & affect, Normal judgment, Non-suicidal. Review / Management Results review: Lab results 05/26/2021 4:10 EST Sodium Level 139 mmol/L Potassium Level 4.7 mmol/L Chloride Level 110 mmol/L Carbon Dioxide Level 24 mmol/L Anion Gap 10 Glucose Level 135 mg/dL HI Blood Urea Nitrogen 16 mg/dL CREATININE 1.00 mg/dL eGFR >60 mL/min/1.73m2 eGFR NonAfrican >60 mL/min/1.73m2 Bun/Creatinine 16.0 Calcium Level 10.6 mg/dL HI Protein Total 6.2 Gram/dL LOW Albumin Level 3.5 Gram/dL Globulin 2.7 Gram/dL A/G Ratio 1.3 Bilirubin Total 0.4 mg/dL Alk Phos 72 Units/Liter AST 12 Units/Liter ALT 19 Units/Liter WBC 7.3 K/uL RBC 4.58 Million/uL Hgb 14.5 Gram/dL Hct 42.6 % MCV 93.0 fL MCH 31.7 pg MCHC 34.0 Gram/dL Platelet Count 158 K/uL LOW MPV 12.0 fL RDW 11.6 % Neut % 88.4 % HI Neut # 6.45 K/uL HI Lymph % 9.5 % LOW Lymph # 0.69 K/uL LOW [place] % 1.6 % LOW [place] # 0.12 K/uL LOW Eos % 0.0 % LOW Eos # 0.00 K/uL LOW Baso % 0.1 % Baso # 0.01 K/uL Slide Review No IG# 0 x10(3)/uL IG% 0 % 05/25/2021 15:48 EST HCG Urine Qualitative Negative 05/25/2021 12:35 EST SARS-CoV-2 (COVID19 PCR) Negative . Impression and Plan Diagnosis Calculus of ureter - Admitting. Right flank pain - Admitting, Medical. Recurrent nephrolithiasis - Admitting, Medical. Severe right hydronephrosis, status post nephrostomy tube placement - Admitting, Medical. Multiple sclerosis - Discharge, Medical. Course: Plan/patient is hemodynamically and clinically stable and afebrile. She does have some soreness on her back. Your urine output from nephrostomy tube is clearing. Patient requested to go home. Patient is stable for discharge. ARETHA 64 mn patient seen and examined and reexamined, medical record reviewed, vitals reviewed, medications seen reviewed and reconciled, discussed with Pharm.D., discussed with the patient and with the staff, discussed with Dr. Zarco and Dr. Finley, orders placed, I admission H&P note dictated . Orders Order Profile (Selected) Prescriptions Prescribed Keflex 500 mg oral capsule: 1 Cap, Oral, Q12H, # 6 Cap, 0 Refill(s), Pharmacy: [facility] #[id number], 172.72, cm, 05/25/21 16:01:00 EST, CLINICALHEIGHT, 70.45, kg, 05/25/21 16:01:00 EST, CLINICALWEIGHT Bixby 5 mg-325 mg oral tablet: 1 Tab, Oral, Tab, Q6H, PRN for pain, # 20 Tab, 0 Refill(s), Pharmacy: [facility] #[id number], 172.72, cm, 05/25/21 16:01:00 EST, CLINICALHEIGHT, 70.45, kg, 05/25/21 16:01:00 EST, CLINICALWEIGHT Documented Medications Documented Flomax 0.4 mg oral capsule: Cap, Oral, Daily, 0 Refill(s) Vitamin D2 1.25 mg (50,000 intl units) oral capsule: 1 Cap, Oral, Weekly, 0 Refill(s). documented in this encounter Plan of Treatment Upcoming Encounters Date Type Department Care Team (Late st Contact Info) Description 02/04/2025 1:45 PM EDT Office Visit [facility] Neurology - [facility] [address] [place] [id number] Tiny Colin MD [address] [place] [address] documented as of this encounter Visit Diagnoses Not on filedocumented in this encounter Care Teams Document Management Specialist Relationship Specialty Start Date End Date Justen Ceballos MD [address] [facility] [address] [place] [id number] PCP - General Family Medicine 08/11/23 documented as of this encounter
--- OUTSIDE RECORDS SUMMARY | 2024-12-13 12:03 | XMS_ITS | Encounter Summary ---
Author Organization [employer] ([place], [place], [place], [place]) Address [address] [place] [address] Care Team Providers Care Counter Clerk Name Role Phone Justen Ceballos MD Primary Care Provider + [phone] Encounter Details Date Type Department Care Team (Late st Contact Info) Description 05/25/2021 Transcribed Document [facility] [place] [address] [place] [address] ProviderHomer MD [address] [place] [address] Social History Tobacco Use Types [...] - Homer ProviderMD - 05/25/2021 8:08 PM [facility] [facility] OR PreOp Summary Primary Physician: ZOE JORDAN MD-URO Finalized Date/Time: 05/26/21 06:56:35 Pt. Name: LINH AMIEMARTELL PANDA /Sex: 1985 Female Med Rec #: [id number] Physician: ZOE JORDAN MD-URO Financial #: [id number] Pt. Type: O Room/Bed: 533/1 Admit/Disch: 05/25/21 15:09:00 [place] [facility] [place] Times Entry 1 In Preop 05/25/21 15:25:00 Ready for Holding n/a Room Patient Ready for 05/25/21 16:07:00 Surgery Patient Out of Preop 05/25/21 19:50:00 Patient Out of n/a Holding Room Last Modified By: MEREDITH SILVESTRE 05/26/21 06:56:33 VANDANA PreOp Case Times Audit 05/26/21 06:56:33 Electronics Teacher: ANDREA Modifier: [email or web address] <+> 1 Patient Out of Preop Finalized By: MEREDITH SILVESTRE Document Signatures Signed By: MEREDITH SILVESTRE 05/26/21 06:56 Electronically signed by Kathia [facility] Conversion [employer] Consultant [employer]ner at 09/14/2022 5:38 PM CDT documented in this encounter Plan of Treatment Upcoming Encounters Date Type Department Care Team (Late st Contact Info) Description 02/04/2025 1:45 PM EDT Office Visit [facility] Neurology - [facility] [address] [place] [address] Tiny Colin MD [address] [place] [address] documented as of this encounter Visit Diagnoses Not on filedocumented in this encounter Care Teams Counter Clerk Relationship Specialty Start Date End Date Justen Ceballos MD [address] [facility] [address] [place] [address] PCP - General Family Medicine 08/11/23 documented as of this encounter
--- OUTSIDE RECORDS SUMMARY | 2024-12-13 12:03 | XMS_ITS | Encounter Summary ---
Author Organization [employer] ([place], [place], [place], [place]) Address [address] [place] [address] Care Team Providers Care Carpet Mechanic Name Role Phone Justen Ceballos MD Primary Care Provider + [phone] Encounter Details Date Type Department Care Team (Late st Contact Info) Description 05/26/2021 Transcribed Document [facility] [place] Family Medicine [address] [place] [address] ProviderHomer MD [address] [place] [address] Social History Tobacco Use Types [...] Conversion Note - Homer ProviderMD - 05/26/2021 10:09 AM COLOR WEIGHER Initial Discharge Planning Entered On: 05/26/2021 10:18 EST Performed On: 05/26/2021 10:09 EST by CARINE CLEMONS RN Initial Assessment I Previously Documented Living Environment : No qualifying data available. Living Situation : Home Patient Lives With : Parent(s) Is the Patient a Caregiver at Home? : No Emergency Contact #1 : Pat Emergency Contact #1 Emergency Contact #1 Relationship : mother Emergency Contact #2 : na Emergency Contact #2 Phone Number : na, Emergency Contact #2 Relationship : na, Identified Medical Decision Maker : Jaja Identified Medical Decision Maker Phone : Identified Medical Decision Maker Class : self Enter Doctors Name : justenrocky TysonKeeler Does Patient have PCP Listed? : Yes Legal Guardian : No CARINE CLEMONS RN - 05/26/2021 10:09 EST Initial Assessment II Sensory and Motor Deficits : None Current Home Treatments and Equipment : None Services and Community Resources : Other: na Does the Patient have a Floor to SNF Benefit? : No CARINE CLEMONS RN - 05/26/2021 10:09 EST Discharge Needs I Anticipated Discharge Date : 05/27/2021 EST Anticipated Discharge To, CM : Home independently Current Home Treatment/Equipment : Current Home Treatment/Equipment No qualifying data available. Post Acute/Home Treatments : None Documentation Status Complete : Yes CARINE CLEMONS RN - 05/26/2021 10:09 EST Discharge Needs II Professional Skilled Services : Professional Skilled Services No qualifying data available. Services and Community Resources : Other: na Needs Assistance with Transportation : No Discharge Options Discussed with Patient : Discharge transportation Patient Discharge Goal : Home CARINE CLEMONS RN - 05/26/2021 10:09 EST Narrative Note Narrative Note : 36 y/o female who presented with Right distal ureteral stone with severe right sided hydronephrosis. Patient is s/p cysto with attemtped but failed Right ureteral stent placement. Met with patient in patient's room to discuss discharge needs and to verify demographics and pcp. PCP is Justen Ceballos. RRS: low 32 Boost:2 Outpatient STATUS; patient lives with her mother Pat and is iADLS. PLAN: home with no needs when medically ready for discharge DME: Patient doesn't have nor need any home dme CM: case management will continue to follow til discharge. CARINE CLEMONS RN - 05/26/2021 10:09 EST documented in this encounter Plan of Treatment Upcoming Encounters Date Type Department Care Team (Late st Contact Info) Description 02/04/2025 1:45 PM EDT Office Visit [facility] Neurology - [address] [place] [address] Tiny Colin MD [address] [facility] [address] [place] [address] documented as of this encounter Visit Diagnoses Not on filedocumented in this encounter Care Teams Carpet Mechanic Relationship Specialty Start Date End Date Justen Ceballos MD [address] [facility] [address] [place] [address] PCP - General Family Medicine 08/11/23 documented as of this encounter
--- OUTSIDE RECORDS SUMMARY | 2024-12-13 12:03 | XMS_ITS | Encounter Summary ---
Author Organization [employer] ([place], [place], [place]) Address [address] [place] [address] Care Team Providers Care Advertising Account Executive Name Role Phone Justen Ceballos MD Primary Care Provider + [phone] Encounter Details Date Type Department Care Team (Late st Contact Info) Description 06/03/2021 Transcribed Document [facility] [place] Family Medicine [address] [place] [address] ProviderHomer MD [address] [id number] Social History Tobacco Use Types Packs/Day Years [...] Conversion Note - Homer ProviderMD - 06/03/2021 7:18 AM CARTOON ANIMATOR PAT Adult Entered On: 06/03/2021 7:22 EST Performed On: 06/03/2021 7:18 EST by Manuela Saleem Rn Height and Weight, Clinical Dosing Height Source : Stated Height Entry Format : [place] Height, Feet : 5 ft(Converted to: 152 cm, 60 Inch) Height, Inches : 8 Inch(Converted to: 0 ft 8 Inch, 20.32 cm) Clinical Height : 172.72 cm Weight Source : Standing scale Weight Entry Format : [place] Clinical Dosing Weight : 70.45 kg Weight, Pounds : 155 lb Body Surface Area (BSA) : 1.84 m2 Body Mass Index : 23.6 kg/m2 [place] Body Weight : 63 kg Manuela Saleem Rn - 06/03/2021 7:18 EST Health Histories Smoking Status : 10 or more cigarettes (1/2 pack or more)/day in last 30 days Manuela Saleem Rn - 06/03/2021 7:18 EST Social History (As Of: 06/03/2021 07:22:14 EST) Tobacco: 10 or more cigarettes (1/2 pack or more)/day in last 30 days Smoking Status. (Last Updated: 06/03/2021 07:18:43 EST by Manuela Saleem Rn) Alcohol: Alcohol Use History No. (Last Updated: 06/03/2021 07:18:48 EST by Manuela Saleem Rn) Substance Abuse: Drug Use Hx: No. Use in Last 12 Months: No. (Last Updated: 06/03/2021 07:18:52 EST by Manuela Saleem Rn) Infectious Disease History Does patient have symptoms of COVID-19? : No Has the Patient Been Tested for COVID-19 in the last 14 days? : Yes, Patient stated results Negative Does the Patient state known exposure to a COVID-19 positive case in the last 14 days? : No Patient Vaccinated for COVID-19 : Not vaccinated Does Patient want a COVID-19 Vaccine? : No Manuela Saleem Rn - 06/03/2021 7:18 EST Infectious Disease Risk Screening Grid Cough < 2 wks of unknown origin : NO Cough > 2 weeks : NO Blood in Sputum : NO Fever or self-reported Fever : NO Rash of unknown origin : NO Headache : NO Stiff neck : NO Night Sweats : NO Unexplained Weight Loss : NO Diarrhea (3 episode per day) : NO Manuela Saleem Rn - 06/03/2021 7:18 EST Physical contact outside [place] in the last 30 days : No Hospitalized in Foreign Country : No Infectious Disease History : Chicken pox/Shingles INF Disease TB Screening Calc : 0 INF Disease Recent Travel Calc : 0 Manuela Saleem Rn - 06/03/2021 7:18 EST COVID19 PreProcedure Screening Is this an Emergent or Add on Procedure? : No Date PreProcedure COVID-19 test known? : Yes Date of PreProcedure COVID-19 : 06/01/2021 EST Has patient been isolated since the test : Yes Exposed to COVID19 symptoms since test? : No Manuela Saleem Rn - 06/03/2021 7:18 EST Anesthesia/Transfusion History Family History of Anesthesia Reaction : No prior transfusion(s) Blood Transfusion Acceptable to Patient : Yes Transfusion History : Prior anesthesia without reaction Family History of Anesthesia Reaction : None Manuela Saleem Rn - 06/03/2021 7:18 EST Advance Directive Patient has Advance Directive *Q : No, patient refuses Advance Directive information Manuela Saleem Rn - 06/03/2021 7:18 EST [place] Suicide Severity Rating Scale (C-SSRS) CSSRS Past Month Wish to be : No CSSRS Past Month Suicidal Thoughts : No CSSRS Lifetime Suicide Behavior : No Suicide Severity Rating Score : 0 Suicide Severity Rating : No Additional Care Required at this time Manuela Saleem Rn - 06/03/2021 7:18 EST Psychosocial History Currently in Unsafe Situation : No Manuela Saleem Rn - 06/03/2021 7:18 EST General Info Legal Guardian : No Want Family/Rep/Phys Notified of Admit : No Emergency Contact #1 : ken Paredes Emergency Contact #1 Emergency Contact #1 Relationship : mother Emergency Contact #2 : Emergency Contact #2 Phone Number : Emergency Contact #2 Relationship : Primary Language : Ghanaian Communication Barrier : None Circular Shear Operator Needed : No Manuela Saleem Rn - 06/03/2021 7:18 EST Giovanni Scale Giovanni Sensory Perception : No impairment Giovanni Moisture : Rarely moist Giovanni Activity : Walks frequently Giovanni Mobility : No limitation Giovanni Nutrition : Excellent Giovanni Friction and Shear : No apparent problem Giovanni Score : 23 Manuela Saleem Rn - 06/03/2021 7:18 EST Sleep Apnea Risk Assmt Hx of [...] Sleep Apnea Risk Level Score : 0 Manuela Saleem, Rn - 06/03/2021 7:18 EST Electronically signed by Kathia [facility] Conversion Clinical Microbiologist Cerner at 09/14/2022 5:42 PM CDT documented in this encounter Plan of Treatment Upcoming Encounters Date Type Department Care Team (Late st Contact Info) Description 02/04/2025 1:45 PM EDT Office Visit [facility] Neurology - [facility] [address] [place] [phone] Tiny Colin MD [address] [place] [address] documented as of this encounter Visit Diagnoses Not on filedocumented in this encounter Care Teams Advertising Account Executive Relationship Specialty Start Date End Date Justen Ceballos MD [address] [facility] [address] [place] [address] PCP - General Family Medicine 08/11/23 documented as of this encounter
--- OUTSIDE RECORDS SUMMARY | 2024-12-13 12:03 | XMS_ITS | Encounter Summary ---
Author Organization [employer] ([place], [place], [place], [place]) Address [address] [place] [address] Care Team Providers Care Feed Research Aide Name Role Phone Justen Ceballos MD Primary Care Provider + [phone] Encounter Details Date Type Department Care Team (Late st Contact Info) Description 05/25/2021 Transcribed Document [facility] [place] Family Medicine [address] [place] [address] ProviderHomer MD [address] [place] [address] Social History Tobacco Use Types [...] Conversion Note - Homer ProviderMD - 05/25/2021 4:01 PM PIG FARMER PAT Adult Entered On: 05/25/2021 16:05 EST Performed On: 05/25/2021 16:01 EST by Maricruz Spicer RN Pain Assessment Pain Scale Used : 0-10 Scale Location : Flank, right Maricruz Spicer RN - 05/25/2021 16:01 EST Height and Weight, Clinical Dosing Height Source : Stated Height Entry Format : [place] Height, Feet : 5 ft(Converted to: 152 cm, 60 Inch) Height, Inches : 8 Inch(Converted to: 0 ft 8 Inch, 20.32 cm) Clinical Height : 172.72 cm Weight Source : Standing scale Weight Entry Format : [place] Clinical Dosing Weight : 70.45 kg Weight, Pounds : 155 lb Body Surface Area (BSA) : 1.84 m2 Body Mass Index : 23.6 kg/m2 [place] Body Weight : 63 kg Maricruz Spicer RN - 05/25/2021 16:01 EST Health Histories Smoking Status : 10 or more cigarettes (1/2 pack or more)/day in last 30 days Smokeless Tobacco Status : Never Desires Tobacco Cessation Medication : No Reason for No Tobacco Cessation Medication : Refuses FDA approved medications Maricruz Spicer RN - 05/25/2021 16:01 EST Social History (As Of: 05/25/2021 16:05:01 EST) Infectious Disease History Does patient have symptoms of COVID-19? : No Has the Patient Been Tested for COVID-19 in the last 14 days? : Yes, Patient stated results Negative Does the Patient state known exposure to a COVID-19 positive case in the last 14 days? : No Patient Vaccinated for COVID-19 : Not vaccinated Does Patient want a COVID-19 Vaccine? : No Maricruz Spicer RN - 05/25/2021 16:01 EST Infectious Disease Risk Screening Grid Cough < 2 wks of unknown origin : NO Cough > 2 weeks : NO Blood in Sputum : NO Fever or self-reported Fever : NO Rash of unknown origin : NO Headache : NO Stiff neck : NO Night Sweats : NO Unexplained Weight Loss : NO Diarrhea (3 episode per day) : NO Maricruz Spicer RN - 05/25/2021 16:01 EST Physical contact outside [place] in the last 30 days : No Hospitalized in Foreign Country : No Infectious Disease History : Chicken pox/Shingles INF Disease TB Screening Calc : 0 INF Disease Recent Travel Calc : 0 Maricruz Spicer RN - 05/25/2021 16:01 EST COVID19 PreProcedure Screening Is this an Emergent or Add on Procedure? : Yes Maricruz Spicer RN - 05/25/2021 16:01 EST Anesthesia/Transfusion History Family History of Anesthesia Reaction : Prior transfusion without reaction Blood Transfusion Acceptable to Patient : Yes Transfusion History : Prior anesthesia without reaction Family History of Anesthesia Reaction : None Maricruz Spicer RN - 05/25/2021 16:01 EST Advance Directive Patient has Advance Directive *Q : No, patient refuses Advance Directive information Maricruz Spicer RN - 05/25/2021 16:01 EST [place] Suicide Severity Rating Scale (C-SSRS) CSSRS Past Month Wish to be : No CSSRS Past Month Suicidal Thoughts : No CSSRS Lifetime Suicide Behavior : No Suicide Severity Rating Score : 0 Suicide Severity Rating : No Additional Care Required at this time Maricruz Spicer RN - 05/25/2021 16:01 EST Psychosocial History Currently in Unsafe Situation : No Maricruz Spicer RN - 05/25/2021 16:01 EST General Info Arrived From : Home Mode of Arrival on Unit : Ambulatory Legal Guardian : Unaccompanied Want Family/Rep/Phys Notified of Admit : No Emergency Contact #1 : Pat Emergency Contact #1 Emergency Contact #1 Relationship : mother Emergency Contact #2 : , Emergency Contact #2 Phone Number : , Emergency Contact #2 Relationship : , Primary Language : Niuean Communication Barrier : None Sales Recruiter Needed : No Maricruz Spicer RN - 05/25/2021 16:01 EST [place] Scale Giovanni Sensory Perception : No impairment Giovanni Moisture : Rarely moist Giovanni Activity : Walks frequently Giovanni Mobility : No limitation Giovanni Nutrition : Excellent Giovanni Friction and Shear : No apparent problem Giovanni Score : 23 Maricruz Spicer RN - 05/25/2021 16:01 EST Sleep Apnea Risk Assmt Hx of [...] Sleep Apnea Risk Level Score : 0 Maricruz Spicer RN - 05/25/2021 16:01 EST Pain Scale Intensity : 4 Maricruz Spicer RN - 05/25/2021 16:01 EST Image 4 - Images currently included in the form version of this document have not been included in the text rendition version of the form. documented in this encounter Plan of Treatment Upcoming Encounters Date Type Department Care Team (Late st Contact Info) Description 02/04/2025 1:45 PM EDT Office Visit [facility] [address] [place] [phone] Tiny Colin MD [address] [facility] [address] [place] [address] documented as of this encounter Visit Diagnoses Not on filedocumented in this encounter Care Teams Feed Research Aide Relationship Specialty Start Date End Date Justen Ceballos MD [address] [facility] [address] [place] [address] PCP - General Family Medicine 08/11/23 documented as of this encounter
--- OUTSIDE RECORDS SUMMARY | 2024-12-13 12:03 | XMS_ITS | Encounter Summary ---
Author Organization [employer] ([place], [place], [place], [place]) Address [address] [place] [address] Care Team Providers Care Ticket Counter Name Role Phone Justen Ceballos MD Primary Care Provider + [phone] Encounter Details Date Type Department Care Team (Late st Contact Info) Description 06/03/2021 Transcribed Document [facility] [place] [facility] [address] [place] [address] ProviderHomer MD [address] [place] [address] Social History Tobacco Use Types [...] Conversion Note - Homer ProviderMD - 06/03/2021 10:43 AM WARE TESTER [address] [address] AMIE MELTON :1985 Visit Time:06/03/2021 What to do next Your Diagnosis Calculus of ureter, Calculus of ureter Instructions From Your Care Team No driving x 24 hours Prescriptions have been sent to your pharmacy -- package pick up & take as prescribed Diet and activity as tolerated Discharge Follow Up Instructions: MEDS: Keflex...follow-up in 1 week with lenin VENTURA) for stent removal Activity: Discharge Activity: Activity as tolerated Activity: Discharge Activity: Activity as tolerated Diet: Discharge Diet: Resume usual diet as tolerated Driving Restriction: Do Not Drive for 24 hours Follow-Up Appointments Follow Up with ZOE JORDAN MD-URO When Within 1 week Comments Call for follow up appointment Follow up with a SINA in one week Where: [address] [place] [address]- Medications What How Much When Instructions Next Dose cephalexin (Keflex 500 mg oral capsule) 1 Capsule(s) Oral Every 12 hours Pickup at [facility] #[id number] acetaminophen-hydrocodone (acetaminophen-HYDROcodone 325 mg-5 mg oral tablet) 1 Tablet(s) Oral Every 4 Hours as needed for as needed for pain ergocalciferol (Vitamin D2 1.25 mg (50,000 intl units) oral capsule) 1 Capsule(s) Oral Weekly ofatumumab (Kesimpta) 20 Milligram(s) SubCutaneous Once a month tamsulosin (Flomax 0.4 mg oral capsule) Oral Every Day Pharmacy Information [facility] #[id number]: [address] [phone] Take your medications faithfully. Do NOT skip medication. Do NOT stop taking medications without the direction of a physician. Carry a list of your medications with you at all times, and take this medication list with you to your first follow up visit. Report any side effects. Avoid herbal remedies unless discussed with your physician. As part of your treatment plan, your physician may have prescribed a limited course of a controlled substance. This medication may be given to help people with moderate or severe pain or for other medical conditions, but there are risks involved with treatment. Common side effects may include nausea, constipation, drowsiness, sweating, itching, dry mouth, and rash. More serious side effects may include cognitive and motor impairment, like problems with thinking, concentrating, alertness, and movement (e.g. slowed reflexes), and driving and operating heavy machinery can be dangerous. It is important for you to talk to your physician if you have these side effects or questions. These controlled substances can produce physical dependence and be habit-forming if taken for an extended period of time, which means that the body has gotten used to them and may experience withdrawal symptoms if they are abruptly stopped. Withdrawal symptoms can include runny nose, sweating, goose bumps, diarrhea, abdominal cramping, rapid heartbeat, difficulty sleeping, and nervousness. Please dispose of unused and medications per pharmacy guidance. Education Materials Ureteroscopy Ureteroscopy is a procedure to check [...] including vitamins, herbs, eye drops, creams, and uznq-uvy-bcockbu medicines. ??? Any problems you or family [...] Up to 2 hours before the procedure ??? you may continue to drink clear liquids, such as water, clear fruit juice, black coffee, and plain tea. Eating and drinking restrictions Follow instructions from your health care provider about eating and drinking, which may include: ??? 8 hours before the procedure ??? stop eating heavy meals or foods, such as meat, fried foods, or fatty foods. ??? 6 hours before the procedure ??? stop eating light meals or foods, such as toast or cereal. ??? 6 hours before the procedure ??? stop drinking milk or drinks that contain milk. ??? 2 hours before the procedure ??? stop drinking clear liquids. Medicines Ask your health care provider about: ??? Changing or stopping your regular medicines. This is especially important if you are taking diabetes medicines or blood thinners. ??? Taking medicines such as aspirin and ibuprofen. These medicines can thin your blood. Do not take these medicines unless your health care provider tells you to take them. ??? Taking uyeq-hwg-jbiafiz medicines, vitamins, herbs, and supplements. General instructions [...] these instructions at home: Medicines ??? Take eudc-edm-xajqgsf and prescription medicines only as told by [...] provider. Document Revised: 02/19/2020 Document Reviewed: 02/19/2020 [employer] Patient Education ?? 2020 [employer]. Lithotripsy, Care After This sheet gives you [...] may continue to pass for up to 4???8 weeks. ? If you have severe pain [...] these instructions at home: Medicines ??? Take slne-cat-ibeiueo and prescription medicines only as told by [...] you. Most people can resume normal activities 1???2 days after the procedure. ??? If you [...] provider. Document Revised: 02/26/2020 Document Reviewed: 02/26/2020 [employer] Patient Education ?? 2020 [employer]. General Anesthesia, Adult, Care After This sheet [...] activities are safe for you. ??? Take vqjx-lwx-sdpsxtz and prescription medicines only as told by [...] provider. Document Revised: 01/28/2021 Document Reviewed: 08/27/2020 [employer] Patient Education ?? 2020 [employer] Emergency Awareness and Preventative Care STROKE is an EMERGENCY Every Minute Counts Act FAST and Check for these signs: FACE Does the face look uneven? ARM Does one arm drift down? SPEECH Does their speech sound strange? TIME Call at any sign of stroke Stroke Risk Factors Atrial Fibrillation (irregular heartbeat) Diabetes Family history of stroke Heart Disease Heavy alcohol use High Blood Pressure High Cholesterol Physical inactivity and obesity Smoking Cigarette Smoking The facts are clear, cigarette smoking will shorten your life. Smoking can cause many illnesses along the way. As a healthcare provider, we recommend that you stop smoking. Assistance with quitting is available by contacting 0-556-DJJUNOW. This is a free resource providing counseling, support, and referral. Or you may contact your personal physician. National Suicide Prevention Lifeline: The National Suicide Prevention Lifeline is a national network of local crisis centers that provides free and confidential emotional support to people in suicidal crisis or emotional distress 24 hours a day, 7 days a week. Don't Wait! Stop a Heart Attack Before it Starts What is a heart attack? A heart attack is damage or to a part of the heart from severely decreased or lack of blood flow to the heart. Over time, arteries can become narrow from the buildup of fat and cholesterol, which is called plaque. The plaque can rupture causing a blood clot to form. When the blood clot forms, the artery can become severely narrowed or completely blocked, causing a heart attack. Heart attack is the leading cause of in the [place]. 85% of muscle damage occurs within the first 2 hours. Delay in the recognition of heart attack symptoms increases the chances of . Know the early symptoms of a heart attack: Nausea Feeling of fullness in chest Jaw Pain Pain that travels down one or both arms Fatigue/being tired Anxiety Back Pain Chest pressure, squeezing, or discomfort Shortness of breath Sweating, or a cold sweat Feeling of impending doom There are unusual signs of a heart attack, too! Women, the elderly, and diabetics may present with atypical symptoms: Fainting/dizziness Weakness Confusion Risk Factors for a Heart Attack Some heart disease risk factors, such as age and family history, cannot be changed. Others, like smoking and lack of exercise, can be changed. Smoking High Cholesterol High Blood Pressure Family History Obesity Age Gender (Males are at higher risk) Lack of Exercise Diabetes Diet Stress Excessive Alcohol Intake If you or someone you know is experiencing the signs and symptoms of a heart attack, DON???T DELAY. Call immediately and seek help. If someone collapses, perform CPR! Do not attempt to drive if you are having symptoms of heart attack. Hands-Only CPR Why Hands-Only CPR? Hands-Only CPR has been shown to be as effective as conventional CPR for cardiac arrests that occur outside of a hospital. Survival depends on immediately receiving CPR from someone nearby. How do you perform Hands-Only CPR? There are two easy steps: Call if you see a teen or adult collapse Push hard and fast in the center of the chest at a beat of 100 beats per minute. Save a life! 4 WAYS TO GET AHEAD OF SEPSIS SEPSIS is a MEDICAL EMERGENCY. Time matters! Infections put you and your family at risk for a life-threatening condition called sepsis. Sepsis is the body's extreme response to an infection. It is life-threatening, and without timely treatment, sepsis can rapidly lead to tissue damage, organ failure, and . Sepsis happens when an infection you already have-in your skin, lungs, urinary tract or somewhere else-triggers a chain reaction throughout your body. 1 PREVENT INFECTIONS Take good care of chronic conditions. Talk to your doctor about getting the recommended vaccines. 2 PRACTICE GOOD HYGIENE Wash your hands frequently. Keep cuts or open sores clean and covered until they are healed. 3 KNOW THE SYMPTOMS Confusion or disorientation Shortness of breath High heart rate Fever, shivering, or feeling very cold Extreme pain or discomfort Clammy or sweaty skin 4 ACT FAST Get medical care IMMEDIATELY if you suspect sepsis or if you have an infection that is not getting better or is getting worse. To learn more about sepsis and how to prevent infections, visit www.cdc.gov/sepsis. Test Results Laboratory or Other Results This Visit (last charted value for your 06/03/2021 visit) Endocrinology 06/03/2021 7:18 AM HCG Urine Qualitative: Negative Patient Name:AMIE MELTON FARZAD I have received this information and was given the opportunity to ask questions. Patient/Academic Associate Name: Patient/Academic Associate Signature: Relationship to Patient: Clinician/Hospital Academic Associate Signature: Date: documented in this encounter Plan of Treatment Upcoming Encounters Date Type Department Care Team (Late st Contact Info) Description 02/04/2025 1:45 PM EDT Office Visit [facility] Neurology - [place] [address] [place] [address] Tiny Colin MD [address] [facility] [address] [place] [address] documented as of this encounter Visit Diagnoses Not on filedocumented in this encounter Care Teams Ticket Counter Relationship Specialty Start Date End Date Justen Ceballos MD [address] [facility] [address] [place] [id number] PCP - General Family Medicine 08/11/23 documented as of this encounter
--- OUTSIDE RECORDS SUMMARY | 2024-12-13 12:03 | XMS_ITS | Encounter Summary ---
Author Organization [employer] ([place], [place], [place], [place]) Address [address] [place] [address] Care Team Providers Care Senior Hardware Design Engineer Name Role Phone Justen Ceballos MD Primary Care Provider + [phone] Encounter Details Date Type Department Care Team (Late st Contact Info) Description 05/26/2021 Transcribed Document [facility] [place] Family Medicine [address] [place] [address] ProviderHomer MD [address] [place] [address] Social History Tobacco Use Types [...] - Homer ProviderMD - 05/26/2021 3:38 PM NORMALIZER CONNIE Entered On: 05/26/2021 15:38 EST Performed On: 05/26/2021 15:38 EST by PAULA CONNER MD-INT CONNIE Indication of use for OOCS : Acute Illness OOCS Misuse Suspected : Other Was CONNIE queried : Other Patient Advised to seek OOCS Treatment : Other Treatment to Include Limited Supply of OOCS : Other CONNIE Result : Other CONNIE Other Notes : As per Dr. Zarco office records Patient cancelled on OOCS : Other CONNIE : . PAULA CONNER MD-INT - 05/26/2021 15:38 EST Electronically signed by [facility], [facility] Conversion Discount Clerk Cerner at 09/14/2022 5:36 PM CDT documented in this encounter Plan of Treatment Upcoming Encounters Date Type Department Care Team (Late st Contact Info) Description 02/04/2025 1:45 PM EDT Office Visit [facility] Neurology - [facility] [place] [address] [place] [id number] Tiny Colin MD [address] [place] [address] documented as of this encounter Visit Diagnoses Not on filedocumented in this encounter Care Teams Senior Hardware Design Engineer Relationship Specialty Start Date End Date Justen Ceballos MD [address] [facility] [address] [place] [address] PCP - General Family Medicine 08/11/23 documented as of this encounter
--- OUTSIDE RECORDS SUMMARY | 2024-12-13 12:03 | XMS_ITS | Encounter Summary ---
Author Organization [facility] ([place], [place], [place], [place]) Address [address] [place] [address] Care Team Providers Care Janitor Caretaker Name Role Phone Justen Ceballos MD Primary Care Provider + [phone] Encounter Details Date Type Department Care Team (Late st Contact Info) Description 05/26/2021 Transcribed Document [facility] [place] [facility] [address] [place] [address] ProviderHomer MD [address] [place] [address] Social History Tobacco Use Types [...] - Homer ProviderMD - 05/26/2021 3:48 PM [facility] [address] [address] AMIE MELTON :1985 Visit Time:05/25/2021 Your Visit Summary Your Care Team Admitting Physician - ZOE ZARCO MD-URO Attending Physician - ZOE ZARCO MD-URO Primary Care Physician - PHY, NOT LISTED Referring Physician - ZOE ZARCO MD-URO Your Diagnosis Calculus of ureter Multiple sclerosis Recurrent nephrolithiasis Right flank pain Severe right hydronephrosis, status post nephrostomy tube placement These Are Your Goals get my surgery and go home Patient Discharge Goal Patient Discharge Goal: Home Discharge Vitals Temperature 36.4 ??C Heart Rate (Monitored) 77 Respiratory Rate 18 Blood Pressure 129/92 What to do next Instructions From Your Care Team Discharge Follow Up Instructions: Follow-up with Dr. Zarco as scheduled, Order Comment: Follow-up with PCP as scheduled or PRN Activity: Discharge Activity: Activity as tolerated Diet: Discharge Diet: Resume usual diet as tolerated Follow-Up Appointments Follow Up with ZOE ZARCO MD-URO When Within 2 to 3 days Where: [address] [facility] [address] [place] [address]- Medications What How Much When Instructions Next Dose acetaminophen-hydrocodone ([place] 5 mg-325 mg oral tablet) 1 Tablet(s) Oral Every 6 Hours as needed for for pain Pickup at [facility] #[id number] anytime cephalexin (Keflex 500 mg oral capsule) 1 Capsule(s) Oral Every 12 hours Pickup at [facility] #[id number] 9pm ergocalciferol (Vitamin D2 1.25 mg (50,000 intl units) oral capsule) 1 Capsule(s) Oral Weekly tamsulosin (Flomax 0.4 mg oral capsule) Oral Every Day 1230 Pharmacy Information [facility] #[id number]: [address] [phone] Take your medications faithfully. Do NOT skip [...] Please dispose of unused and medications per your retail pharmacy guidance. Allergies Demerol (Rash) Immunizations This Visit No Immunizations Found Education Materials Percutaneous Nephrostomy, Care After This sheet gives [...] and water are not available, use hand transit driver. ? Change your dressing as told by [...] and extension tubing. General instructions ??? Take klrd-ipy-ibsyejl and prescription medicines only as told by your health care provider. ??? Keep all follow-up visits as told by your health care provider. This is important. ? The nephrostomy tube will need to be changed every 8???12 weeks. Contact a health care provider if: [...] provider. Document Revised: 06/09/2020 Document Reviewed: 06/09/2020 [employer] Patient Education ?? 2020 [employer] Ureteral Stent Implantation, Care After This [...] these instructions at home: Medicines ??? Take gavd-rvv-paljksl and prescription medicines only as told by [...] Get up to take short walks every 1???2 hours. This is important to improve blood [...] blood in your urine increases. ??? Take eiwb-yhg-qkkqhif and prescription medicines only as told by your health care provider. ??? Drink enough fluid to keep your urine pale yellow. This information is not intended to replace advice given to you by your health care provider. Make sure you discuss any questions you have with your health care provider. Document Revised: 02/19/2019 Document Reviewed: 02/20/2019 [employer] Patient Education ?? 2020 [employer] Ureteral Stent Implantation, Care After This [...] these instructions at home: Medicines ??? Take bjxq-tjz-rfspmyu and prescription medicines only as told by [...] Get up to take short walks every 1???2 hours. This is important to improve blood [...] blood in your urine increases. ??? Take rocu-udr-cwkoimh and prescription medicines only as told by your health care provider. ??? Drink enough fluid to keep your urine pale yellow. This information is not intended to replace advice given to you by your health care provider. Make sure you discuss any questions you have with your health care provider. Document Revised: 02/19/2019 Document Reviewed: 02/20/2019 [employer] Patient Education ?? 202 [employer] Cystoscopy Cystoscopy is a procedure that [...] including vitamins, herbs, eye drops, creams, and nlta-izb-jejqcdj medicines. ??? Any problems you or family [...] tells you to take them. ? Taking gqjx-fuz-uoudyma medicines, vitamins, herbs, and supplements. ??? Follow [...] these instructions at home: Medicines ??? Take ygqm-ooj-ecpybsj and prescription medicines only as told by [...] provider. Document Revised: 05/07/2019 Document Reviewed: 05/07/2019 [employer] Patient Education ?? 2020 [employer]. cephalexin (sef a MICHELLE in) Keflex What is the most important information I should know about cephalexin? You should not use this medicine if you are allergic to cephalexin or to similar antibiotics, such as Ceftin, Cefzil, Omnicef, and others. Tell your doctor if you are allergic to any drugs, especially penicillins or other antibiotics. What is cephalexin? Cephalexin is a cephalosporin (SEF a low spor in) antibiotic that is used to treat bacterial infections of the lungs, ear, skin, bones, bladder, and kidneys. Cephalexin is used to treat infections in adults and children who are at least 1 year old. Cephalexin may also be used for purposes not listed in this medication guide. What should I discuss with my healthcare provider before taking cephalexin? You should not use this medicine if you are allergic to cephalexin or any other cephalosporin antibiotic (cefdinir, cefadroxil, cefoxitin, cefprozil, ceftriaxone, cefuroxime, Omnicef, and others). Tell your doctor if you have ever had: ?? an allergy to any drug (especially penicillin); ?? liver or kidney disease; or ?? intestinal problems, such as colitis. The liquid form of cephalexin may contain sugar. This may affect you if you have diabetes. Tell your doctor if you are or breast-feeding. How should I take cephalexin? Follow all directions on your prescription label and read all medication guides or instruction sheets. Use the medicine exactly as directed. Do not use cephalexin to treat any condition that has not been checked by your doctor. Measure liquid medicine carefully. Use the dosing syringe provided, or use a medicine dose-measuring device (not a kitchen spoon). Use this medicine for the full prescribed length of time, even if your symptoms quickly improve. Skipping doses can increase your risk of infection that is resistant to medication. Cephalexin will not treat a viral infection such as the flu or a common cold. Do not share cephalexin with another person, even if they have the same symptoms you have. This medicine can affect the results of certain medical tests. Tell any doctor who treats you that you are using cephalexin. Store the tablets and capsules at room temperature away from moisture, heat, and light. Store the liquid medicine in the refrigerator. Throw away any unused liquid after 14 days. What happens if I miss a dose? Take the medicine as soon as you can, but skip the missed dose if it is almost time for your next dose. Do not take two doses at one time. What happens if I overdose? Seek emergency medical attention or call the Poison Help line at . Overdose symptoms may include nausea, vomiting, stomach pain, diarrhea, and blood in your urine. What should I avoid while taking cephalexin? Antibiotic medicines can cause diarrhea, which may be a sign of a new infection. If you have diarrhea that is watery or bloody, call your doctor before using anti-diarrhea medicine. What are the possible side effects of cephalexin? Get emergency medical help if you have signs of an allergic reaction (hives, difficult breathing, swelling in your face or throat) or a severe skin reaction (fever, sore throat, burning eyes, skin pain, red or purple skin rash with blistering and peeling). Call your doctor at once if you have: ?? severe stomach pain, diarrhea that is watery or bloody (even if it occurs months after your last dose); ?? unusual tiredness, feeling light-headed or short of breath; ?? easy bruising, unusual bleeding, purple or red spots under your skin; ?? a seizure; ?? pale skin, cold hands and feet; ?? yellowed skin, dark colored urine; ?? fever, weakness; or ?? pain in your side or lower back, painful urination. Common side effects may include: ?? diarrhea; ?? nausea, vomiting; ?? indigestion, stomach pain; or ?? vaginal itching or discharge. This is not a complete list of side effects and others may occur. Call your doctor for medical advice about side effects. You may report side effects to FDA at 0-127-LBY-6191. What other drugs will affect cephalexin? Tell your doctor about all your other medicines, especially: ?? metformin; or ?? probenecid. This list is not complete. Other drugs may affect cephalexin, including prescription and zsyg-tqx-cadafhs medicines, vitamins, and herbal products. Not all possible drug interactions are listed here. Where can I get more information? Your pharmacist can provide more information about cephalexin. Remember, keep this and all other medicines out of the reach of children, never share your medicines with others, and use this medication only for the indication prescribed. Every effort has been made to ensure that the information provided by [employer] is accurate, up-to-date, and complete, but no guarantee is made to that effect. Drug information contained herein may be time sensitive. [employer] information has been compiled for use by healthcare practitioners and consumers in the [place] and therefore [employer] does not warrant that uses outside of the [place] are appropriate, unless specifically indicated otherwise. [employer] drug information does not endorse drugs, diagnose patients or recommend therapy. [employer] drug information is an informational resource designed to assist licensed healthcare practitioners in caring for their patients and/or to serve consumers viewing this service as a supplement to, and not a substitute for, the expertise, skill, knowledge and judgment of healthcare practitioners. The absence of a warning for a given drug or drug combination in no way should be construed to indicate that the drug or drug combination is safe, effective or appropriate for any given patient. [facility] does not assume any responsibility for any aspect of healthcare administered with the aid of information [facility] provides. The information contained herein is not intended to cover all possible uses, directions, precautions, warnings, drug interactions, allergic reactions, or adverse effects. If you have questions about the drugs you are taking, check with your doctor, nurse or pharmacist. Copyright 5182-5572 [facility] [employer]. Version: 10.03. Revision Date: 06/01/2020. acetaminophen and hydrocodone (a SEET a MIN oh fen and fadumo droe KOE done) Hycet, Lorcet, [place], Verdrocet, Vicodin, Xodol, Zamicet What is the most important information I should know about acetaminophen and hydrocodone? MISUSE OF OPIOID MEDICINE CAN CAUSE ADDICTION, OVERDOSE, OR . Keep the medication in a place where others cannot get to it. Taking opioid medicine during may cause life-threatening withdrawal symptoms in the . Fatal side effects can occur if you use opioid medicine with alcohol, or with other drugs that cause drowsiness or slow your breathing. Stop taking this medicine and call your doctor right away if you have skin redness or a rash that spreads and causes blistering and peeling. What is acetaminophen and hydrocodone? Acetaminophen and hydrocodone is a combination medicine used to relieve moderate to severe pain. Acetaminophen and hydrocodone contains an opioid medicine, and may be habit-forming. Acetaminophen and hydrocodone may also be used for purposes not listed in this medication guide. What should I discuss with my healthcare provider before taking acetaminophen and hydrocodone? You should not use this medicine if you are allergic to acetaminophen or hydrocodone, or if you have: ?? severe asthma or breathing problems; or ?? a blockage in your stomach or intestines. Tell your doctor if you have ever had: ?? breathing problems, sleep apnea (breathing stops during sleep); ?? liver disease; ?? a drug or alcohol addiction; ?? kidney disease; ?? a head injury or seizures; ?? urination problems; or ?? problems with your thyroid, pancreas, or gallbladder. If you use opioid medicine while you are , your baby could become dependent on the drug. This can cause life-threatening withdrawal symptoms in the baby after it is born. Babies born dependent on opioids may need medical treatment for several weeks. Ask a doctor before using opioid medicine if you are . Tell your doctor if you notice severe drowsiness or slow breathing in the nursing baby. How should I take acetaminophen and hydrocodone? Follow all directions on your prescription label. Never take this medicine in larger amounts, or for longer than prescribed. An overdose can damage your liver or cause . Tell your doctor if you feel an increased urge to use more of this medicine. Never share this medicine with another person, especially someone with a history of drug abuse or addiction. MISUSE CAN CAUSE ADDICTION, OVERDOSE, OR . Keep the medicine in a place where others cannot get to it. Selling or giving away this medicine is against the law. Measure liquid medicine carefully. Use the dosing syringe provided, or use a medicine dose-measuring device (not a kitchen spoon). If you need surgery or medical tests, tell the doctor ahead of time that you are using this medicine. You should not stop using this medicine suddenly. Follow your doctor's instructions about tapering your dose. Store at room temperature away from moisture and heat. Keep track of your medicine. You should be aware if anyone is using it improperly or without a prescription. Do not keep leftover opioid medication. Just one dose can cause in someone using this medicine accidentally or improperly. Ask your pharmacist where to locate a drug take-back disposal program. If there is no take-back program, flush the unused medicine down the toilet. What happens if I miss a dose? Since this medicine is used for pain, you are not likely to miss a dose. Skip any missed dose if it is almost time for your next dose. Do not use two doses at one time. What happens if I overdose? Seek emergency medical attention or call the Poison Help line at . An overdose of this medicine can be fatal, especially in a child or other person using the medicine without a prescription. Overdose symptoms may include nausea, vomiting, sweating, severe drowsiness, pinpoint pupils, slow breathing, or no breathing. Your doctor may recommend you get naloxone (a medicine to reverse an opioid overdose) and keep it with you at all times. A person caring for you can give the naloxone if you stop breathing or don't wake up. Your caregiver must still get emergency medical help and may need to perform CPR (cardiopulmonary resuscitation) on you while waiting for help to arrive. Anyone can buy naloxone from a pharmacy or local health department. Make sure any person caring for you knows where you keep naloxone and how to use it. What should I avoid while taking acetaminophen and hydrocodone? Avoid driving or operating machinery until you know how this medicine will affect you. Dizziness or drowsiness can cause falls, accidents, or severe injuries. Do not drink alcohol. Dangerous side effects or could occur. Ask a doctor or pharmacist before using any other medicine that may contain acetaminophen (sometimes abbreviated as APAP). Taking certain medications together can lead to a fatal overdose. What are the possible side effects of acetaminophen and hydrocodone? Get emergency medical help if you have signs of an allergic reaction: hives; difficulty breathing; swelling of your face, lips, tongue, or throat. Opioid medicine can slow or stop your breathing, and may occur. A person caring for you should give naloxone and/or seek emergency medical attention if you have slow breathing with long pauses, blue colored lips, or if you are hard to wake up. In rare cases, acetaminophen may cause a severe skin reaction that can be fatal. This could occur even if you have taken acetaminophen in the past and had no reaction. Stop taking this medicine and call your doctor right away if you have skin redness or a rash that spreads and causes blistering and peeling. Call your doctor at once if you have: ?? noisy breathing, sighing, shallow breathing, breathing that stops; ?? a light-headed feeling, like you might pass out; ?? liver problems--nausea, upper stomach pain, tiredness, loss of appetite, dark urine, mariza-colored stools, jaundice (yellowing of the skin or eyes); ?? low cortisol levels-- nausea, vomiting, loss of appetite, dizziness, worsening tiredness or weakness; o ?? high levels of serotonin in the body--agitation, hallucinations, fever, sweating, shivering, fast heart rate, muscle stiffness, twitching, loss of coordination, nausea, vomiting, diarrhea. Serious breathing problems may be more likely in older adults and in those who are debilitated or have wasting syndrome or chronic breathing disorders. Common side effects include: ?? dizziness, drowsiness, feeling tired; ?? nausea, vomiting, stomach pain; ?? constipation; or ?? headache. This is not a complete list of side effects and others may occur. Call your doctor for medical advice about side effects. You may report side effects to FDA at 9-848-NYM-6925. What other drugs will affect acetaminophen and hydrocodone? You may have breathing problems or withdrawal symptoms if you start or stop taking certain other medicines. Tell your doctor if you also use an antibiotic, antifungal medication, heart or blood pressure medication, seizure medication, or medicine to treat HIV or hepatitis C. Opioid medication can interact with many other drugs and cause dangerous side effects or . Be sure your doctor knows if you also use: ?? cold or allergy medicines, bronchodilator asthma/COPD medication, or a diuretic ('water pill'); ?? medicines for motion sickness, irritable bowel syndrome, or overactive bladder; ?? other opioids--opioid pain medicine or prescription cough medicine; ?? a sedative like Valium--diazepam, alprazolam, lorazepam, Xanax, Klonopin, Versed, and others; ?? drugs that make you sleepy or slow your breathing--a sleeping pill, muscle relaxer, medicine to treat mood disorders or mental illness; ?? drugs that affect serotonin levels in your body--a stimulant, or medicine for depression, Parkinson's disease, migraine headaches, serious infections, or nausea and vomiting. This list is not complete. Other drugs may affect acetaminophen and hydrocodone, including prescription and fluh-zjn-sxaubcz medicines, vitamins, and herbal products. Not all possible interactions are listed here. Where can I get more information? Your doctor or pharmacist can provide more information about acetaminophen and hydrocodone. Remember, keep this and all other medicines out of the reach of children, never share your medicines with others, and use this medication only for the indication prescribed. Every effort has been made to ensure that the information provided by [employer] is accurate, up-to-date, and complete, but no guarantee is made to that effect. Drug information contained herein may be time sensitive. [employer] information has been compiled for use by healthcare practitioners and consumers in the [place] and therefore [employer] does not warrant that uses outside of the [place] are appropriate, unless specifically indicated otherwise. [employer] drug information does not endorse drugs, diagnose patients or recommend therapy. [employer] drug information is an informational resource designed to assist licensed healthcare practitioners in caring for their patients and/or to serve consumers viewing this service as a supplement to, and not a substitute for, the expertise, skill, knowledge and judgment of healthcare practitioners. The absence of a warning for a given drug or drug combination in no way should be construed to indicate that the drug or drug combination is safe, effective or appropriate for any given patient. [facility] does not assume any responsibility for any aspect of healthcare administered with the aid of information [facility] provides. The information contained herein is not intended to cover all possible uses, directions, precautions, warnings, drug interactions, allergic reactions, or adverse effects. If you have questions about the drugs you are taking, check with your doctor, nurse or pharmacist. Copyright 8792-7679 [employer] [facility]. Version: 16.03. Revision Date: 06/30/2020. Emergency Awareness and Preventative Care STROKE is [...] Assistance with quitting is available by contacting 5-300-PFRD-NOW. This is a free resource providing counseling, [...] This Visit (last charted value for your 05/25/2021 visit) Hematology 05/26/2021 4:10 AM WBC: 7.3 K/uL -- Normal range between ( 3.9 and 10.0 ) RBC: 4.58 Million/uL -- Normal range between ( 3.93 and 5.22 ) Hct: 42.6 % -- Normal range between ( 34.1 and 44.9 ) Hgb: 14.5 Gram/dL -- Normal range between ( 11.2 and 15.7 ) Platelet Count: 158 K/uL -- Normal range between ( 163 and 369 ) MCH: 31.7 pg -- Normal range between ( 25.6 and 32.2 ) MCHC: 34.0 Gram/dL -- Normal range between ( 32.3 and 36.5 ) MCV: 93.0 fL -- Normal range between ( 79.0 and 94.8 ) Slide Review: No Eos %: 0.0 % -- Normal range between ( 1.0 and 7.0 ) [place] #: 0.12 K/uL -- Normal range between ( 0.24 and 0.82 ) Eos #: 0.00 K/uL -- Normal range between ( 0.04 and 0.54 ) [place] %: 1.6 % -- Normal range between ( 4.7 and 12.5 ) Baso %: 0.1 % -- Normal range between ( 0.0 and 1.0 ) Baso #: 0.01 K/uL -- Normal range between ( 0.01 and 0.08 ) RDW: 11.6 % -- Normal range between ( 11.6 and 14.4 ) Neut %: 88.4 % -- Normal range between ( 34.0 and 71.0 ) Neut #: 6.45 K/uL -- Normal range between ( 1.56 and 6.13 ) Lymph %: 9.5 % -- Normal range between ( 19.3 and 53.0 ) Lymph #: 0.69 K/uL -- Normal range between ( 1.18 and 3.74 ) MPV: 12.0 fL -- Normal range between ( 9.4 and 12.4 ) IG#: 0 x10(3)/uL IG%: 0 % -- Normal range between ( 0 and 1 ) General Chemistry 05/26/2021 4:10 AM Creatinine Level: 1.00 mg/dL -- Normal range between ( 0.55 and 1.02 ) Sodium Level: 139 mmol/L -- Normal range between ( 136 and 146 ) Potassium Level: 4.7 mmol/L -- Normal range between ( 3.5 and 5.1 ) Chloride Level: 110 mmol/L -- Normal range between ( 102 and 112 ) Carbon Dioxide Level: 24 mmol/L -- Normal range between ( 21 and 32 ) Anion Gap: 10 -- Normal range between ( 9 and 20 ) Bilirubin Total: 0.4 mg/dL -- Normal range between ( 0.2 and 1.3 ) A/G Ratio: 1.3 -- Normal range between ( 1.1 and 2.5 ) ALT: 19 Units/Liter -- Normal range between ( 12 and 78 ) AST: 12 Units/Liter -- Normal range between ( 5 and 37 ) Globulin: 2.7 Gram/dL -- Normal range between ( 1.5 and 4.5 ) Alk Phos: 72 Units/Liter -- Normal range between ( 27 and 136 ) Bun/Creatinine: 16.0 -- Normal range between ( 8.0 and 20.0 ) Calcium Level: 10.6 mg/dL -- Normal range between ( 8.5 and 10.1 ) eGFR : >60 mL/min/1.73m2 eGFR NonAfrican: >60 mL/min/1.73m2 Glucose Level: 135 mg/dL -- Normal range between ( 74 and 106 ) Blood Urea Nitrogen: 16 mg/dL -- Normal range between ( 7 and 22 ) Protein Total: 6.2 Gram/dL -- Normal range between ( 6.4 and 8.2 ) Albumin Level: 3.5 Gram/dL -- Normal range between ( 3.4 and 5.0 ) Endocrinology 05/25/2021 3:48 PM HCG Urine Qualitative: Negative Diagnostic Radiology 05/25/2021 8:30 PM CR Fluoro in OR: CR Fluoro in OR Patient Name:AMIE MELTON I have received and understand this information and was given the opportunity to ask questions. Patient/Automatic Coin Machine Mechanic Name: Patient/Automatic Coin Machine Mechanic Signature: Relationship to Patient: Clinician/Hospital Automatic Coin Machine Mechanic Signature: Date: documented in this encounter Plan of Treatment Upcoming Encounters Date Type Department Care Team (Late st Contact Info) Description 02/04/2025 1:45 PM EDT Office Visit [facility] Neurology - [facility] [place] [address] [place] [address] Tiny Colin MD [address] [facility] [address] [place], [place] [id number] documented as of this encounter Visit Diagnoses Not on filedocumented in this encounter Care Teams Janitor Caretaker Relationship Specialty Start Date End Date Justen Ceballos MD [address] [facility] [address] [place] [address] PCP - General Family Medicine 08/11/23 documented as of this encounter
--- NOTE | 2024-12-13 12:07 | CT_ITS ---
FINAL REPORT TECHNIQUE: Noncontrast CT exam of the abdomen and pelvis. This study was performed with techniques to keep radiation doses as low as reasonably achievable (ALARA). Individualized dose reduction techniques using automated exposure control or adjustment of mA and/or kV according to the patient's size were employed. CLINICAL HISTORY: Right flank pain, hx of kidney stones COMPARISON: 08/30/2022 FINDINGS: CT ABDOMEN PELVIS WITHOUT CONTRAST: Abdomen: Lung bases are clear. Liver, spleen, pancreas and adrenal glands have a normal CT appearance in their limited unenhanced state. There are extensive bilateral renal medullary calcifications present, suggesting medullary sponge kidney. Nonobstructing bilateral renal stones demonstrate the largest calcification measures up to 10 mm in the left lower pole of the kidney. There are bilateral adrenal masses, measuring up to 34 mm on the left, smaller on the right, likely adrenal adenomas. No ureteral obstruction is seen. Pelvis: The appendix is normal in appearance. There is a dominant right ovarian cyst measuring up to 37 mm, with the previously seen left ovarian cyst no longer visualized. An IUD is noted in the pelvis. Bladder is unremarkable. No fluid collection or adenopathy is seen. IMPRESSION: 1. Extensive medullary calcifications in the kidney suggesting medullary sponge kidney. 2. No evidence of bowel obstruction or upper urinary tract obstruction. Reviewed, Interpreted and Dictated by Arvin Browning MD Transcribed by Mary Hernandez Authenticated and [facility]
--- NOTE | 2024-12-13 12:08 | PC.NURSE ---
Pts PVR is 26ml
[2024-12-13 12:10] LABS: Microscopic, Urine URINE MICROSCOPIC (MICROSCOPIC)
[2024-12-13 12:13] LABS: Bilirubin,Urine Negative (Negative); Color,Urine YELLOW (Yellow); Glucose,Urine (UA) Negative (Negative); Ketones,Urine Negative (Negative); Leukocyte Esterase,Urine TRACE (Negative); PH,Urine 7.0 (5.0-8.5); Protein,Urine Negative (Negative); Specific Gravity, Urine 1.015 (1.005-1.030); Urobilinogen,Urine 0.2 EU/dl (0.2)
[2024-12-13 12:16] LABS: Albumin Level 4.5 g/dl (3.5-5.0); Chloride 106 mmol/L (98-107); Sodium 139 mmol/L (136-145)
[2024-12-13 12:17] LABS: Potassium 4.1 mmoL/L (3.5-5.1)
--- NOTE | 2024-12-13 12:17 | HMH.EDGENADL ---
Discharge Plan Disposition Patient Disposition: Home, Self-Care Condition: Good Prescriptions Prescriptions: No Action folic acid 1 mg tablet 1 mg PO Patient Comments: TAKE 1 TABLET DAILY amitriptyline 25 mg tablet PO Patient Comments: TAKE 1 TABLET NIGHTLY Mirena 21 mcg/24 hours (8 yrs) 52 mg intrauterine device 1 device intrauterine ONCE azithromycin [Zithromax Z-Artem] 250 mg tablet See Rx Instructions PO .COMPLEX Qty: 6 0RF Rx Instructions: For 250 mg dose pack: take 500 mg today (day 1), then 250 mg for 4 days (days 2-5) PO albuterol sulfate 90 mcg/actuation HFA aerosol inhaler 2 puff inhalation Q6H PRN (Reason: shortness of breath or wheezing) Qty: 6.7 0RF guaifenesin 1,200 mg tablet extended release 12hr 1,200 mg PO BID Qty: 20 0RF Kesimpta Pen 20 mg/0.4 mL pen injector 20 mg SQ DAILY Referrals Follow up/Referrals: Justen Ceballos MD [Primary Care Provider, Medical] - See instructions Marnie Bautista APRN [Referring, Nephrology] - See instructions Activity Restrictions/Add. Instructions Additional Instructions/Restrictions: You are being referred to nephrology clinic. I encourage you to call them to schedule an appointment. There was no evidence of kidney stone today, however there are calcifications in your kidneys. You do not have any evidence of a urinary tract infection. You can take Tylenol, ibuprofen, lidocaine patches to help with your symptoms in the meantime. If you develop any new or worsening symptoms, or if you become concerned for your health for any reason, return to the emergency department for evaluation Clinical Impressions Clinical Impression: Acute right flank pain Instructions Patient Instructions: DI for Acute Abdominal Pain Print Language Print Language: Swedish Discharge ED Provider: Lupillo Nava General Adult HPI General Chief complaint: Abdominal Pain Stated complaint: back and side pain Time Seen by Provider: 12/13/24 11:58 Mode of Arrival: Ambulatory Source of Information: Patient Description of Symptoms (Recalled from ER Triage Doc. by RN): Patient c/o right flank pain, reports a constant dull pain as well as intermitten sharp pains. Reports the pain started yesterday, notes hx of kidney stones. History of Present Illness HPI narrative: Jaja Carver is a 39y female with a history of recurrent kidney stones requiring stenting and brief nephrostomy tube who presents to the emergency department for complaints of right flank pain and urinary frequency. Patient states that starting yesterday, she developed dull pain in her right flank with intermittent sharp pains to this area. She denies any bloody urine, which typically happens when she has a kidney stone, however, pain feels somewhat similar to previous kidney stones. She states that the pain has not had to radiate to her abdomen. She denies any nausea, vomiting or diarrhea or fever. She does note that she has had increased urinary frequency but denies any burning with urination. She denies any chest pain or shortness of breath. She tried ibuprofen before work this morning, however pain has worsened throughout the day. Related Data Home Medications ?Medication ?Instructions ?Recorded ?Confirmed ofatumumab 20 mg/0.4 mL 20 mg SQ DAILY MS 01/30/23 09/30/24 subcutaneous pen injector (Kesimpta Pen) levonorgestrel (Mirena) 1 device intrauterine ONCE 02/20/23 09/30/24 amitriptyline 25 mg tablet mg PO 07/17/24 09/30/24 folic acid 1 mg tablet 1 mg PO 07/17/24 09/30/24 Previous Rx's ?Medication ?Instructions ?Recorded albuterol sulfate 90 mcg/actuation 2 puff inhalation Q6H PRN 09/30/24 aerosol inhaler shortness of breath or wheezing #6.7 grams azithromycin 250 mg tablet See Rx Instructions PO .COMPLEX #6 09/30/24 (Zithromax Z-Artem) tabs guaifenesin 1,200 mg tablet, 1,200 mg PO BID #20 tabs 09/30/24 extended release 12 hr Allergies Allergy/AdvReac Type Severity Reaction Status Date / Time meperidine Allergy Mild Rash Verified 09/30/24 13:29 [facility] Disclaimer: The information contained in this section may have been updated after the patient was seen, as this information can be updated by other users. Medical History Tobacco user Migraine Bilateral ovarian cysts Abnormal uterine bleeding (AUB) LLQ abdominal pain Multiple sclerosis Surgical History H/O oophorectomy left History of unilateral salpingectomy left H/O laparoscopy History of parathyroidectomy History of tonsillectomy Family History Other Family history of cancer Social History Smoking Status: Current every day smoker tobacco type: cigarettes second hand exposure: No alcohol intake: never substance use type: denies use current occupational status: employed Travel in the last 8 weeks?: None household members: family housing: house Have you lived/traveled outside US in past 30 days?: No Contact w/someone who lives/traveled outside US past 30 days?: No Exposure to someone with infectious disease in past 14 days?: No Do you have a fever (greater than 100.4 F or 38 C)?: No Have you tested positive for COVID-19?: No Exposed to someone with COVID-19 in past 14 days?: No Do you have a sore throat?: No Do you have a cough?: No Do you have any weakness?: No Do you have any diarrhea?: No Are you experiencing any unusual bleeding?: No Do you have any muscle aches/pain?: Yes Do you have any abdominal pain?: No Are you experiencing loss of taste or smell?: No Other Medical History Have you received the Flu Vaccine for this season: No Have you received the Pneumonia Vaccine: No ROS Obtained: Yes Systems reviewed as appropriate & no additional complaints except as documented Physical Exam General General appearance: alert and in no apparent distress Comment: appears uncomfortable Head Head exam: atraumatic Eye Eye exam: Present normal appearance ENT ENT exam: Present normal external ear exam Neck Neck exam: Present full ROM Chest Chest inspection: Present symmetric chest wall rise Respiratory Respiratory exam: Present normal lung sounds bilaterally; Absent respiratory distress, wheezes or stridor Cardiovascular Cardiovascular exam: Present regular rate and normal rhythm Abdominal Exam Abdominal exam: Present soft; Absent distention, tenderness or guarding Extremities Exam Extremities exam: Present normal inspection Back Exam Back exam: Present normal inspection; Absent CVA tenderness (R) or CVA tenderness (L) Neurological Exam Neurological exam: Present alert and oriented X3 Psychiatric Psychiatric exam: Present normal affect Skin Skin exam: Present warm and dry Medical Decision Making Medical Records Screening: Per USPSTF and CDC recommendations, given the prevalence of disease in our region, it is our hospital?s policy to screen for HIV and viral Hepatitis for all patients aged 18 and over and those with ongoing risk factors. Arie Inquiry Pt receiving controlled substance: No Vital Signs: 12/13/24 11:59 12/13/24 12:00 12/13/24 12:42 Temperature 98.4 F Temperature Source Oral Pulse Rate 80 86 Pulse Rate [Left] 88 Respiratory Rate 19 19 18 Blood Pressure 153/94 H Blood Pressure [Right Arm] 162/105 H Blood Pressure Mean 113 Blood Pressure Mean [Right Arm] 124 Blood Pressure Source Blood Pressure Source [Right Arm] Automatic Cuff Blood Pressure Position Blood Pressure Position [Right Arm] Sitting 02 Sat by Pulse Oximetry 100 99 Oxygen Delivery Method Room Air Room Air 12/13/24 13:00 12/13/24 13:49 Temperature 98.6 F Temperature Source Oral Pulse Rate 87 84 Pulse Rate [Left] Respiratory Rate 18 18 Blood Pressure 147/78 H 132/90 Blood Pressure [Right Arm] Blood Pressure Mean 101 Blood Pressure Mean [Right Arm] Blood Pressure Source Automatic Cuff Blood Pressure Source [Right Arm] Blood Pressure Position Supine Blood Pressure Position [Right Arm] 02 Sat by Pulse Oximetry Oxygen Delivery Method Room Air Lab Data Lab Results 12/13/24 11:53: WBC 8.6, RBC 4.88, Hgb 15.2, Hct 44.7, MCV 91.6, MCH 31.1, MCHC 34.0, RDW 12.5, Plt Count 191, MPV 12.0 H, Neut % (Auto) 80.5 H, Lymph % (Auto) 11.1, [place] % (Auto) 6.6, Eos % (Auto) 0.6, Baso % (Auto) 0.6, Neut # (Auto) 7.0, Lymph # (Auto) 1.0, [place] # (Auto) 0.6, Eos # (Auto) 0.1, Baso # (Auto) 0.1, Sodium 139, Potassium 4.1, Chloride 106, Carbon Dioxide 26, Anion Gap 11.1, BUN 9, Creatinine 0.80, Estimated Creat Clear 125, Estimated GFR 79, Est GFR ( Amer) 96, Glucose 93, Calcium 9.4, Total Bilirubin 0.4, AST 25, ALT 17, Alkaline Phosphatase 77, Total Protein 7.2, Albumin 4.5, Globulin 2.7, Albumin/Globulin Ratio 1.7, Lipase 65, Serum HCG, Qual Negative, Urine Color Yellow, Urine Appearance Clear, Urine pH 7.0, Ur Specific [place] 1.015, Urine Protein Negative, Urine Glucose (UA) Negative, Urine Ketones Negative, Urine Blood Negative, Urine Nitrate Negative, Urine Bilirubin Negative, Urine Urobilinogen 0.2, Ur Leukocyte Esterase Trace, Urine RBC None, Urine WBC 3-5, Ur Squamous Epith Cells 10-20, Amorphous Sediment Trace, Urine Bacteria 2+ 12/13/24 11:53 12/13/24 11:53 Orders (Tests/Meds): ED MEDICATIONS Discontinued Medications Generic Name Dose Route Start Last Admin Trade Name Freq PRN Reason Stop Dose Admin Ketorolac Tromethamine 15 mg 12/13/24 12:07 12/13/24 12:18 Ketorolac 30mg/Ml Vial IV 12/13/24 12:08 15 mg ONCE ONE Administration ORDERS Category Date Time Status CT abdomen pelvis wo con Stat Cat Scan 12/13/24 12:07 Completed CBC w/Auto Diff [Complete Blood Count Auto Diff] Stat Lab 12/13/24 11:53 Completed CMP [Comprehensive Metabolic Panel] Stat Lab 12/13/24 11:53 Completed Lipase Stat Lab 12/13/24 11:53 Completed Serum [HCG Qualitative, Serum] Stat Lab 12/13/24 11:53 Completed UA [Urinalysis and Microscopic] Stat Lab 12/13/24 11:53 Completed Urine Culture Stat Micro 12/13/24 11:53 Received Medical Decision Narrative: Jaja Carver is a 39y female with a history of recurrent kidney stones requiring stenting and brief nephrostomy tube who presents to the emergency department for complaints of right flank pain and urinary frequency. Patient states that starting yesterday, she developed dull pain in her right flank with intermittent sharp pains to this area. She denies any bloody urine, which typically happens when she has a kidney stone, however, pain feels somewhat similar to previous kidney stones. She states that the pain has not had to radiate to her abdomen. She denies any nausea, vomiting or diarrhea or fever. She does note that she has had increased urinary frequency but denies any burning with urination. She denies any chest pain or shortness of breath. She tried ibuprofen before work this morning, however pain has worsened throughout the day. On arrival, patient is hypertensive with blood pressure 162/105, heart rate within normal limits, afebrile, breathing comfortably room air with oxygen saturation 99% SpO2. Exam, as stated above, revealed an overall uncomfortable but nontoxic appearing female in no distress. She is complaining of pain in her right flank but there is no rash in this area. No CVA tenderness bilaterally. No abdominal pain is present. Differential diagnosis includes, but is not limited to: Ureterolithiasis, UTI/pyelonephritis, acute pancreatitis, acute cholecystitis, biliary colic, renal colic, electrolyte derangement, among others. The most morbid conditions were considered and workup was based on these. Workup in the emerged part included: CT abdomen pelvis renal stone protocol, CBC, CMP, lipase, urinalysis, serum test, patient symptoms were treated with 15 mg IV Toradol Patient's urine shows no blood, negative nitrate, trace leukocyte Estrace. No evidence of urinary tract infection or blood to suggest possible renal stone. No leukocytosis, no anemia, electrolytes antiarthritic, no anion gap, no JASPREET with creatinine of 0.8. Liver enzymes within the elements. Lipase normal at 65. Negative test. CT abdomen pelvis without contrast interpreted by me personally. Patient does have renal stones and calcifications, largest measuring 10 mm in the left inferior renal pole., Chauncey also had notes bilateral adrenal masses, saying that these are about the adrenal adenomas. No ureteral obstruction is noted, no evidence of hydronephrosis.. No other acute findings. Pelvis. Radiology report suggest that this could be evidence of medullary sponge kidney. On reassessment, patient reports some improvement of her pain, although it is not completely resolved. There is no evidence of UTI or renal stone at this time. 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 Given the findings of possible medullary sponge kidney and possible adrenal adenomas, it is felt that she will need follow up with neprhology. She was given a nephrology referral and offered muscle relaxers for possible musculoskeletal pain, however she declined at this time. She was encouraged to continue Tylenol, NSAIDs and use lidocaine patches at home for her symptoms. She was given return precautions. All questions were answered. She demonstrated understanding and was in agreement with this plan. She was then discharged from the emergency department in stable condition. Critical Care Critical Care Time Critical Care Time: No
[2024-12-13] MEDS: KETOROLAC 30MG/ML VIAL 15 MG IV (12:18)
[2024-12-13 12:19] LABS: Alanine Aminotransferase 17 U/L (12-78); Albumin/Globulin Ratio 1.7 (1.1-1.8); Alkaline Phosphatase 77 U/L (38-126); Anion Gap 11.1 mEq/L (5-15); Aspartate Amino Transferase 25 U/L (14-36); Bilirubin,Total 0.4 mg/dl (0.2-1.3); Blood Urea Nitrogen 9 mg/dl (7-17); Carbon Dioxide 26 mmol/L (22.0-30.0); Creatinine Clearance Estimated 125 mL/min (50-200); Creatinine,Serum 0.80 mg/dl (0.52-1.04); Estimated Glomerular Filt Rate 79 ml/min (>60); GFR (African American) 96 ML/MIN (>60); Globulin 2.7 g/dL (1.3-3.2); Lipase 65 U/L (23-300); Total Protein,Serum 7.2 g/dl (6.3-8.2)
[2024-12-13 12:20] LABS: Calcium 9.4 mg/dl (8.4-10.2); Glucose 93 mg/dl (74-100)
[2024-12-13 12:21] LABS: HCG Qualitative, Serum Negative (Negative)
[2024-12-13 12:22] LABS: Hematocrit 44.7 % (37.0-47.0); Hemoglobin 15.2 g/dL (12.2-16.2); Immature Granulocytes % 0.6 %; Mean Corpuscular HGB Conc 34.0 g/dL (31.8-35.4); Mean Corpuscular Hemoglobin 31.1 pg (27.0-31.2); Mean Corpuscular Volume 91.6 fl (81-99); Nucleated Red Blood Cells % 0 %; Platelet Count 191 K/mm3 (142-424); Red Blood Count 4.88 M/mm3 (4.20-5.40); Red Cell Distribution Width-SD 42.0 fL; White Blood Count 8.6 K/mm3 (4.8-10.8)
[2024-12-13 12:24] LABS: Amorphous Sediment,Urine Trace /lpf; Bacteria,Urine 2+ /lpf
--- NOTE | 2024-12-13 12:38 | ECG_ITS ---
APPROVED REPORT Exam: Resting ECG HR:73 bpm ECG Measurements Heart Rate 73 AXES IN 155 P 53 QRSd 86 QRS 55 QT 362 T 38 QTc 388 Conclusion SINUS RHYTHM WITH SINUS ARRHYTHMIA NORMAL ECG UNCONFIRMED REPORT Normal sinus rhythm. No ST elevation or depression. QTc within normal limits Electronically signed by : VAN SHIN, 12/14/2024 07:38:24
[2024-12-13 12:42] VITALS: BP 153/94; PULSE 86; RESP 18
[2024-12-13 13:00] VITALS: BP 147/78; PULSE 87; RESP 18
[2024-12-13 13:49] VITALS: BP 132/90; PULSE 84; RESP 18; TEMP 37; O2SAT 98
== END 2024-12-13 13:54 | disposition home or self-care (01) ==
PROVIDERS: Emergency Provider Student in an Organized Health Care Education/Training Program; PCP Family Medicine
DX: R10.9 Unspecified abdominal pain (principal); G35 Multiple sclerosis; F17.210 Nicotine dependence, cigarettes, uncomplicated
CPT/HCPCS: 74176; 80053; 81001; 83690; 84703; 85025; 87086; 93005; 96374; 99285; J1885

== ENCOUNTER 2025-04-30 13:26 | Outpatient (CLI) | payer OTHER, SELFPAY ==
--- OUTSIDE RECORDS SUMMARY | 2025-04-30 13:32 | XMS_ITS | Encounter Summary ---
Author Organization [employer] ([place], [place], [place], [place], [place]) Address [address] [place] [address] Care Team Providers Care Soft Tile Setter Name Role Phone Justen Ceballos MD Primary Care Provider + [phone] Encounter Details Date Type Department Care Team (Late st Contact Info) Description 05/26/2021 Transcribed Document [facility] Family Medicine [facility] [place] [address] ProviderHomer MD [address] [place] [address] Social History Tobacco Use Types [...] - Homer ProviderMD - 05/26/2021 4:16 PM SHOE STITCHER Patient: AMIE MELTON Age: 36 years Sex: [...] 500 mg = 1 Cap, Oral, Q12H [place] 5 mg-325 mg oral tablet 1 Tab, PRN, Oral, Q6H Vitamin D2 1.25 mg (50,000 intl units) oral capsule 50,000 Int Units = 1 Cap, Oral, Weekly Tam Peoples PharmD Electronically signed by [facility] Conversion Methods Engineer Cerner at 09/14/2022 5:41 PM CDT documented in this encounter Plan of Treatment Upcoming Encounters Date Type Department Care Team (Late st Contact Info) Description 07/29/2025 11:00 AM EST [facility] Visit [facility] - [facility] [address] [place] [address] Tiny Colin MD [address] [facility] [address] [place] [address] documented as of this encounter Visit Diagnoses Not on filedocumented in this encounter Care Teams Soft Tile Setter Relationship Specialty Start Date End Date Justen Ceballos MD [address] [facility] [address] [place] [address] PCP - General Family Medicine 08/11/23 documented as of this encounter
--- OUTSIDE RECORDS SUMMARY | 2025-04-30 13:32 | XMS_ITS | Encounter Summary ---
Author Organization [employer] ([place], [place], [place], [place], [place]) Address [address] [place] [address] Care Team Providers Care Hydraulic And Plumbing Installer Name Role Phone Justen Ceballos MD Primary Care Provider + [phone] Encounter Details Date Type Department Care Team (Late st Contact Info) Description 06/03/2021 Transcribed Document [facility] [place] Medicine [facility] [place] [address] ProviderHomer MD [address] [place] [address] Social History Tobacco Use Types [...] Homer Johnson MD - 06/03/2021 8:08 AM PLANER TAILER Patient Education Materials Follows: Lithotripsy, Care After [...] these instructions at home: Medicines ??? Take ipmo-nov-wlwpfdb and prescription medicines only as told by [...] provider. Document Revised: 02/26/2020 Document Reviewed: 02/26/2020 [employer] Patient Education ? 2020 [employer]. Pharmacology General Anesthesia, Adult, Care After This [...] activities are safe for you. ??? Take rxuy-bec-wfquseo and prescription medicines only as told by [...] provider. Document Revised: 01/28/2021 Document Reviewed: 08/27/2020 [employer] Patient Education ? 2020 [employer] Urology Ureteroscopy Ureteroscopy is a procedure [...] including vitamins, herbs, eye drops, creams, and ifaf-gzn-sdoxqgd medicines. ??? Any problems you or family [...] tells you to take them. ??? Taking rkra-svj-gqxjtvm medicines, vitamins, herbs, and supplements. General instructions [...] these instructions at home: Medicines ??? Take dzhy-xim-gmbcwza and prescription medicines only as told by [...] provider. Document Revised: 02/19/2020 Document Reviewed: 02/19/2020 [employer] Patient Education ? 2020 [employer]. Electronically signed by Michelle Bae Conversion Bullet Swaging Machine Adjuster Cerner at 09/14/2022 5:14 PM CDT documented in this encounter Plan of Treatment Upcoming Encounters Date Type Department Care Team (Late st Contact Info) Description 07/29/2025 11:00 AM EST Office Visit [facility] Neurology - [facility] [address] [place] [address] Tiny Colin MD [address] [facility] [address] [place] [address] documented as of this encounter Visit Diagnoses Not on filedocumented in this encounter Care Teams Hydraulic And Plumbing Installer Relationship Specialty Start Date End Date Justen Ceballos MD [address] [facility] [address] [place] [address] PCP - General Family Medicine 08/11/23 documented as of this encounter
--- OUTSIDE RECORDS SUMMARY | 2025-04-30 13:32 | XMS_ITS | Encounter Summary ---
Author Organization [employer] ([place], [place], [place], [place], [place]) Address [address] [place] [address] Care Team Providers Care Resilient Tile Installer Name Role Phone Justen Ceballos MD Primary Care Provider + [phone] Encounter Details Date Type Department Care Team (Late st Contact Info) Description 05/26/[address] [facility] Family Medicine [address] [place] [address] ProviderHomer MD [address] [place] [address] Social History Tobacco Use Types [...] - Homer ProviderMD - 05/26/2021 3:48 PM PIECE WORK INSPECTOR Stroke/Warfarin Instructions Entered On: 05/26/2021 15:48 EST Performed On: 05/26/2021 15:48 EST by Kaitlin Lopze RN-PATIENT CARE BEDSIDE NON-EXEMPT Stroke/Warfarin Instructions Stroke/TIA Discharge Ins : N/A Warfarin Discharge Ins : N/A Kaitlin Lopez RN-PATIENT CARE BEDSIDE NON-EXEMPT - 05/26/2021 15:48 EST Electronically signed by [facility] Conversion Summer Child Caregiver Cerner at 09/14/2022 5:43 PM CDT documented in this encounter Plan of Treatment Upcoming Encounters Date Type Department Care Team (Late st Contact Info) Description 07/29/2025 11:00 AM EST Office Visit [facility] Neurology - [place] [address] [place] [address] Tiny Colin MD [address] [facility] [address] [place] [address] documented as of this encounter Visit Diagnoses Not on filedocumented in this encounter Care Teams Resilient Tile Installer Relationship Specialty Start Date End Date Justen Ceballos MD [address] [facility] [address] [place] [address] PCP - General Family Medicine 08/11/23 documented as of this encounter
--- OUTSIDE RECORDS SUMMARY | 2025-04-30 13:32 | XMS_ITS | Encounter Summary ---
Author Organization [employer] ([place], [place], [place], [place], [place]) Address [address] [place] [address] Care Team Providers Care Frame Feeder Name Role Phone Justen Ceballos MD Primary Care Provider + [phone] Encounter Details Date Type Department Care Team (Late st Contact Info) Description 06/03/2021 Transcribed Document [facility] Family Medicine [facility] [place] [address] ProviderHomer MD [address] [place] [address] Social History Tobacco Use [...] - Homer ProviderMD - 06/03/2021 8:35 AM BLOWER FEEDER DYED RAW STOCK [facility] Main OR PACU Summary Primary Physician: ZOE JORDAN MD-URO Finalized Date/Time: 06/03/21 10:51:17 Pt. Name: AMIE MELTON/Sex: 1985 Female Med Rec #: [id number] Physician: ZOE JORDAN MD-URO Financial #: [id number] Pt. Type: O Room/Bed: [facility]/9 Admit/Disch: 06/03/21 06:25:00 - [place] [facility] [place] PAC[place] Case Times Entry 1 In PACU I 06/03/21 09:20:00 Ready for PACU 06/03/21 10:51:00 Discharge Discharge from PACU 06/03/21 10:51:00 I Last Modified By: Hyun Hayes RN 06/03/21 10:51:06 SJKarmen Main OR PACU Case Times Audit 06/03/21 10:51:06 Relationship Counselor: CARRIEC Modifier: CARRIEC <+> 1 Ready for PACU Discharge <+> 1 Discharge from PACU I Finalized By: Hyun Hayes, RN Document Signatures Signed By: Hyun Hayes RN 06/03/21 10:51 Electronically signed by Kathia [facility] Conversion Typing Bookkeeper Cerner at 09/14/2022 5:14 PM CDT documented in this encounter Plan of Treatment Upcoming Encounters Date Type Department Care Team (Late st Contact Info) Description 07/29/2025 11:00 AM EST Office [facility] [address] [place] [address] Tiny Colin MD [address] [facility] [address] [place] [address] documented as of this encounter Visit Diagnoses Not on filedocumented in this encounter Care Teams Frame Feeder Relationship Specialty Start Date End Date Justen Ceballos MD [address] [facility] [address] [place] [address] PCP - General Family Medicine 08/11/23 documented as of this encounter
--- OUTSIDE RECORDS SUMMARY | 2025-04-30 13:32 | XMS_ITS | Encounter Summary ---
Author Organization [employer] ([place], [place], [place], [place], [place]) Address [address] [place] [address] Care Team Providers Care Student Development Specialist Name Role Phone Justen Ceballos MD Primary Care Provider + [phone] Encounter Details Date Type Department Care Team (Late st Contact Info) Description 05/26/2021 Transcribed Document [facility] [place] [facility] [address] ProviderHomer MD [address] [place] [address] Social History Tobacco Use Types [...] - Homer ProviderMD - 05/26/2021 12:08 PM DEPUTY SHERIFF GENERALIST/BAILIFF Patient: AMIE MELTON Age: 36 years Sex: [...] < 5 ml Full report to follow. documented in this encounter Plan of Treatment Upcoming Encounters Date Type Department Care Team (Late st Contact Info) Description 07/29/2025 11:00 AM EST Office Visit [facility] Neurology - [facility] [address] [place] [phone] Tiny Colin MD [address] [facility] [address] [place] [address] documented as of this encounter Visit Diagnoses Not on filedocumented in this encounter Care Teams Student Development Specialist Relationship Specialty Start Date End Date Justen Ceballos MD [address] [facility] [address] [place] [address] PCP - General Family Medicine 08/11/23 documented as of this encounter
--- OUTSIDE RECORDS SUMMARY | 2025-04-30 13:32 | XMS_ITS | Encounter Summary ---
Author Organization [employer] ([place], [place], [place], [place], [place]) Address [address] [place] [address] Care Team Providers Care Computer Game Tester Name Role Phone Justen Ceballos MD Primary Care Provider + [phone] Encounter Details Date Type Department Care Team (Late st Contact Info) Description 05/25/[address] [facility] Family [place] [facility] [place] [address] ProviderHomer MD [address] [place] [address] Social History Tobacco Use Types [...] Homer Johnson MD - 05/25/2021 8:54 PM PHOSPHORIC ACID OPERATOR DATE OF PROCEDURE: 05/25/2021 SURGEON: John Paul [...] draped in usual fashion. I passed a 23-Honduran cystoscope with a 30-degree lens using video camera via the urethra into the bladder. Once inside the bladder, I 1st identified the left ureteral orifice and the right ureteral orifice. Remainder of bladder was inspected. There were no foreign bodies, mucosal lesions, or stones seen. I passed with the aid of an exterior interior specialist catheter. I passed zip wire up the [...] over the wire. I used both the Transfer and the exterior interior specialist catheter despite multiple attempts just would not [...] sepsis, which then will be done emergently. /[id number] John Paul Zarco MD PER/AQ / PER / MODL /[id number] documented in this encounter Plan of Treatment Upcoming Encounters Date Type Department Care Team (Late st Contact Info) Description 07/29/2025 11:00 AM EST Office Visit [facility] Neurology - [facility] [address] [place] [address] Tiny Colin MD [address] [place] [address] documented as of this encounter Visit Diagnoses Not on filedocumented in this encounter Care Teams Computer Game Tester Relationship Specialty Start Date End Date Justen Ceballos MD [address] [place] [facility] [address] [place] [address] PCP - General Family Medicine 08/11/23 documented as of this encounter
--- OUTSIDE RECORDS SUMMARY | 2025-04-30 13:32 | XMS_ITS | Encounter Summary ---
Author Organization [employer] ([place], [place], [place], [place], [place]) Address [address] [place] [address] Care Team Providers Care Machine Preservative Filler Name Role Phone Justen Ceballos MD Primary Care Provider + [phone] Encounter Details Date Type Department Care Team (Late st Contact Info) Description 05/25/2021 Transcribed Document [facility] Family Medicine [address] [place] [address] ProviderHomer MD [address] [place] [address] Social History Tobacco Use [...] - Homer ProviderMD - 05/25/2021 8:58 PM GAS SPECIALIST Pain Assessment Entered On: 05/26/2021 10:33 EST Performed On: 05/26/2021 9:59 EST by Kaitlin Lopez RN-PATIENT CARE BEDSIDE NON-EXEMPT Intervention Information: HYDROmorphone Performed by Kaitlin Lopez RN-PATIENT CARE BEDSIDE NON-EXEMPT on 05/26/2021 09:29:00 EST HYDROmorphone,0.5mg IV Push,Right Antecubit Gunlock,Pain (Severe 7-10) Pain Assessment Pain Assessment : Follow-up assessment Pain Scale Goal : 3 Pain Scale Used : 0-10 Scale Pain Intervention, Drug : Medicated Pain Improved by Intervention : Yes Kaitlin Lopez RN-PATIENT CARE BEDSIDE NON-EXEMPT - 05/26/2021 10:32 EST Electronically signed by [facility] Conversion Application Support Administrator Cerner at 09/14/2022 5:21 PM CDT documented in this encounter Plan of Treatment Upcoming Encounters Date Type Department Care Team (Late st Contact Info) Description 07/29/2025 11:00 AM EST Office Visit [facility]rology - [facility] [address] [place] [address] Tiny Colin MD [address] [facility] [address] [place] [address] documented as of this encounter Visit Diagnoses Not on filedocumented in this encounter Care Teams Machine Preservative Filler Relationship Specialty Start Date End Date Justen Ceballos MD [address] [facility] [address] [place] [address] PCP - General Family Medicine 08/11/23 documented as of this encounter
--- OUTSIDE RECORDS SUMMARY | 2025-04-30 13:32 | XMS_ITS | Encounter Summary ---
Author Organization [employer] ([place], [place], [place], [place], [place]) Address [address] [place] [address] Care Team Providers Care Attorney General Name Role Phone Justen Ceballos MD Primary Care Provider + [phone] Encounter Details Date Type Department Care Team (Late st Contact Info) Description 06/03/2021 Transcribed Document [facility] [place] [facility] [place] [address] ProviderHomer MD [address] [place] [address] Social History Tobacco Use Types [...] - Homer ProviderMD - 06/03/2021 8:35 AM STUDENT ASSISTANCE COUNSELOR [facility] Main OR IntraOp Summary Primary Physician: ZOE JORDAN MD-URO Finalized Date/Time: 06/04/21 14:01:48 Pt. Name: AMIE MELTON./Sex: 1985 Female Med Rec #: [id number] Physician: ZOE JORDAN MD-URO Financial #: [id number] Pt. Type: O Room/Bed: EAS/9 Admit/Disch: 06/03/21 06:25:00 - 06/03/21 10:51:00 Institution: [facility] [place] IntraOp Case Attendance Entry 1 Entry 2 Entry 3 Case Attendee ZOE JORDAN Holliday, Stewart R, BRADLEY ISLAS ST MD-URO Role Performed Surgeon/Proceduralist, Boring Machine Operator Production, First Laser Admissions Clerk First Time In 06/03/21 08:22:00 06/03/21 08:22:00 [...] Case Attendee NAYELI MITCHELL, OSCAR HENDERSON, EMILE Manufacturing Planner Role Performed Scrub, First OVEN LABORER/Nurse Clinical Documentation Improvement Specialist Time In 06/03/21 08:22:00 06/03/21 08:22:00 Time Out 06/03/21 09:20:00 06/03/21 09:20:00 Procedure Cystoscopy Cystoscopy Ureteroscopy, Ureteroscopy, Lithotripsy w Laser, Lithotripsy w Laser, Cystoscopy Stent Cystoscopy Stent Insertion Insertion Other Attendee Superficial Wound Closed By: Last Modified By: Kenton Paz RN Holliday, Stewart R, RN 06/03/21 09:20:30 06/03/21 09:20:30 [facility] [place] IntraOp Case Attendance Audit 06/03/21 09:20:30 Icebox Man: FRANKI Modifier: FRANKI 1 <+> Time Out [...] w Laser, Cystoscopy Stent Insertion 06/03/21 09:05:59 Icebox Man: RYANNR Modifier: HOLLIDSR 1 <+> Time In 1 [...] S[facility] IntraOp Case Times Audit 06/03/21 09:20:29 Icebox Man: CHAPARROIDSR Modifier: HOLLIDSR <+> 1 Out Room Time <+> 1 Stop Time 06/03/21 09:13:39 Icebox Man: CHAPARROIDSR Modifier: HOLLIDSR <+> 1 Stop Time 06/03/21 08:35:41 Icebox Man: CHAPARROIDSR Modifier: HOLLIDSR <+> 1 Start Time SJE [...] SJE IntraOp Counts Verification Audit 06/03/21 09:06:01 Icebox Man: FRANKI Modifier: FRANKI 1 <*> Procedure Cystoscopy Ureteroscopy, Lithotripsy w Laser [facility] IntraOp Counts Final Entry 1 Procedure Cystoscopy Ureteroscopy, Lithotripsy w Laser, Cystoscopy Stent Insertion Final Count Info Count Type Sponge, Sharps, Miscellaneous Counts Verification Skin Closure/end of Sequence procedure Count Results Correct, surgeon notified Counts Performed By Count Performed By BRADLEY GREEN ST (Scrub) Count Performed By Kenton Paz, RN (RN) Last Modified By: Kenton Paz [...] Yes Assessment Complete Fire Risk Kenton Paz production director Verified By Fire Risk 06/03/21 08:16:00 Assessment Verified Date/Time Fire Risk Standard Fire Yes Safety Precautions Followed Last Modified By: Kenton Paz RN 06/03/21 08:25:41 S[facility] IntraOp Fire Risk Assessment Audit 06/03/21 08:25:41 Icebox Man: FRANKI Modifier: FRANKI <+> 1 Fire Risk Assessment Verified By <+> 1 Fire Risk Assessment Verified Date/Time SJE IntraOp General Case R Programmer 1 Case Information OR OR 03 SJE Case Level 1 Room Verified Yes Wound Class 2 - Clean-Contaminated Specialty Urology Anesthesia Type General ASA Class 2 Diagnosis Preop Diagnosis right renal calculi Postop Diagnosis refer to MD notes Wound Class Definitions Last Modified By: Kenton Paz RN 06/03/21 08:35:32 S[facility] IntraOp General Case Data Audit 06/03/21 08:35:32 Icebox Man: HOLLIDSR Modifier: HOLLIDSR <+> 1 ASA Class <+> [...] SJE IntraOp Laser Data/Safety Audit 06/03/21 09:06:02 Icebox Man: [email or web address] Modifier: RYANNR <+> 1 Procedure SJE IntraOp Medication Admin Entry 1 Medication/Irrigant lidocaine 2% urojet 10ml jelly - [id number] Route of LOCAL Administration Dose Dose 10 [...] Safety Strap, Arm(s) Positioned By Kenton Paz, RN, OSCAR HENDERSON CRNA, ZOE JORDAN MD-URO Position Verified Positioning Yes Verified by Anesthesia Positioning Yes Verified by Surgeon Last Modified By: Kenton Paz RN 06/03/21 09:06:01 SJE IntraOp Patient Positioning Audit 06/03/21 09:06:01 Icebox Man: FRANKI Modifier: RYANNR 1 <*> Procedure Cystoscopy Ureteroscopy 06/03/21 08:36:12 Icebox Man: FRANKI Modifier: RYANNR <+> 1 Procedure SJE [...] SJE IntraOp Skin Prep Audit 06/03/21 09:06:02 Icebox Man: CHAPARROIDSR Modifier: HOLLIDSR 1 <*> Procedure Cystoscopy Ureteroscopy SJE IntraOp Surgical Procedures Entry 1 Entry 2 Entry 3 Procedure Cystoscopy Ureteroscopy Lithotripsy w Laser Cystoscopy Stent Insertion Modifiers Additional RIGHT URETEROSCOPY WITH Procedure HOLMIUM LASER Description LITHOTRIPSY, STENT INSERTION, REMOVAL OF NEPHROSTOMY TUBE Primary Procedure Yes No No Primary Surgeon ZOE JORDAN, ZOE JORDAN, ZOE JORDAN MD-URO MICHAELURO -URO Start 06/03/21 08:35:00 06/03/21 08:35:00 06/03/21 08:35:00 Stop 06/03/21 09:12:00 06/03/21 09:12:00 06/03/21 09:12:00 Physician States Cecum Reached Anesthesia Type General General General Specialty Urology Urology Urology Wound Class 2 - Clean-Contaminated 2 - Clean-Contaminated 2 - Clean-Contaminated Last Modified By: Kenton Paz RN Kenton Paz RN Holliday, Stewart R, RN 06/03/21 09:20:33 06/03/21 09:20:33 06/03/21 09:20:33 SJE IntraOp Surgical Procedures Audit 06/03/21 09:20:33 Icebox Man: RYANNR Modifier: HOLLIDSR <+> 1 Stop <+> 2 Stop <+> 3 Stop 06/03/21 09:07:19 Icebox Man: CHAPARROIDSR Modifier: HOLLIDSR 1 <*> Procedure Cystoscopy [...] VANDANA IntraOp Time Out Audit 06/03/21 09:06:02 Icebox Man: FRANKI Modifier: FRANKI 1 <*> Procedure to be Performed Cystoscopy Ureteroscopy, Lithotripsy w Laser Case Comments <None> Finalized By: Cheryl Mckinnon, RN Document Signatures Signed By: Kenton Paz RN 06/03/21 09:20 Cheryl Mckinnon RN 06/04/21 14:01 Unfinalized History Date/Time Username Reason for Unfinalizing Freetext Reason for Unfinalizing 06/04/21 14:01 MARYBETH Correct Billing Electronically signed by Kathia [facility] Conversion Credit Processor Cerner at 09/14/2022 5:27 PM CDT documented in this encounter Plan of Treatment Upcoming Encounters Date Type Department Care Team (Late st Contact Info) Description 07/29/2025 11:00 AM EST Office Visit [facility] Neurology - [facility] [address] [place] [address] Tiny Colin MD [address] [facility] [address] [place] [address] documented as of this encounter Visit Diagnoses Not on filedocumented in this encounter Care Teams Attorney General Relationship Specialty Start Date End Date Justen Ceballos MD [address] [place] [facility] [address] [place] [address] PCP - General Family Medicine 08/11/23 documented as of this encounter
--- OUTSIDE RECORDS SUMMARY | 2025-04-30 13:32 | XMS_ITS | Encounter Summary ---
Author Organization [email or web address] ([place], [place], [place], [place], [place]) Address [address] [place] [address] Care Team Providers Care Dot Net Developer Name Role Phone Justen Ceballos MD Primary Care Provider + [phone] Encounter Details Date Type Department Care Team (Late st Contact Info) Description 05/26/2021 Transcribed Document [facility] Family Medicine [address] [place] [address] ProviderHomer MD [address] [place] [address] Social History Tobacco Use Types [...] - Historical ProviderMD - 05/26/2021 3:28 AM CLOTH SPONGER Event Note Entered On: 05/26/2021 3:29 EST Performed On: 05/26/2021 3:28 EST by Julee Diallo, RN Event Note Event Date/Time : 05/25/2021 21:55 EST Event Details : Nursing assessment additional narrative Description of Event : This RN agrees with primary nurse skin assessment Julee Diallo RN - 05/26/2021 3:28 EST Electronically signed by Kathia [facility] Conversion Hourly Manager Cerner at 09/14/2022 5:43 PM CDT documented in this encounter Plan of Treatment Upcoming Encounters Date Type Department Care Team (Late st Contact Info) Description 07/29/2025 11:00 AM EST Office Visit [facility] Neurology - [place] [address] [place] [phone] Tiny Colin MD [address] [facility] [address] [place] [address] documented as of this encounter Visit Diagnoses Not on filedocumented in this encounter Care Teams Dot Net Developer Relationship Specialty Start Date End Date Justen Ceballos MD [address] [facility] [address] [place] [address] PCP - General Family Medicine 08/11/23 documented as of this encounter
--- OUTSIDE RECORDS SUMMARY | 2025-04-30 13:32 | XMS_ITS | Clinical Summary ---
Author Organization [facility] Address [address] [place] [address] Care Team Providers Care Mortician Supplies Sales Representative Name Role Phone Justen Ceballos MD Primary Care Provider + [phone] Elvira Hernandez MD Unavailable + [phone] Manuela Donald DO Unavailable [phone] Allergies Active Allergy Reactions Criticality Noted Date Comments Meperidine Rash Low 12/02/2016 Medications ergocalciferol (Vitamin D-2) 1.25 MG (72938 UT) capsule Take 50,000 Units by mouth [...] Date Diagnosed Date Tobacco use disorder 10/06/2022 Kidney stone 09/24/2021 Primary hyperparathyroidism 08/16/2021 Overview (08/16/2021): Added automatically from request for surgery [id number] Hypercalcemia 03/23/2021 Adrenal nodule 03/23/2021 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 Multiple sclerosis 03/19/2021 Resolved Problems Problem Noted Date Diagnosed Date Resolved Date Second hand smoke exposure 10/06/2022 0 2025 Immunizations Immunization Administration Dates Next Due Moderna COVID-19 Vaccine (Pipe Buffer) 12+ years 10/2022,06/06/2022 Family History Medical History [...] Date Last Done Comments [facility]-Depression Screening 1985 [facility]-/Child/Adol SDOH Screenings 1985 [facility]-Varicella Vaccines (1 of 2 - 13+ 2-dose series) 02/15/1997 [facility]- SDOH Screenings 02/15/2002 [facility]-Adult SDOH Screenings 02/15/2002 [facility]-DTaP,Tdap,and Td Vaccine s (2 - Tdap) 12/06/2002 12/05/2002 [facility]-Hepatitis B Vaccines (1 of 3 - 19+ 3-dose series) 02/15/2003 [facility]-Pap Smear 02/15/2005 HPV Vaccines (1 - 3-dose SCD M series) 02/15/2011 [facility]-Cervical Cancer Screening 02/15/2014 [facility]-HPV/Cotest 02/15/2014 MIL-FRHDK-74 Vaccine (3 - season) 2025 08/01/2022, 06/06/2022 [facility]-Influenza Vaccine (#1) 01/27/202504/15, 05/09/2022 [...] 2 Antibody/Antigen Screen (03/19/2021 4:40 PM EDT) [facility] HIV 1 & 2 Antibody/Anti gen Screen Nonreactive Nonreactive 03/19/2021 6:23 PM EDT [facility] Blood Venous blood specimen / Unknown Venipuncture / Unknown 03/19/2021 4:40 PM EDT 03/19/2021 4:49 PM EDT Asim Crowley MD LAB BLOOD ORDERABLES Final Result Performing Organization Address City/[facility]/ZIP Co de Phone Number HEALTHCARE LAB [address] [place] [address] * [place] Hepatitis C Antibody (03/19/2021 4:40 PM EDT) [facility] Hepatitis C Antibody Negative Negative 03/19/2021 6:23 PM EDT [facility] Blood Venous blood specimen / Unknown Venipuncture / Unknown 03/19/2021 4:40 PM EDT 03/19/2021 4:49 PM EDT Asim Crowley MD LAB BLOOD ORDERABLES Final Result [facility] [address] [place] [address] from Last 3 Months or Most Recently Relevant to Health Maintenance Insurance Advance Directives * Full Code (Latest Code Status on File) Date Activated Date Inactivated Comments 03/19/2021 9:46 PM 03/23/2021 4:58 PM Question Answer Comments Patient has decision-making capacity? Yes Care Teams Mortician Supplies Sales Representative Relationship Specialty Start Date End Date Justen Ceballos MD [address] [id number] PCP - General 03/19/21 Elvira Hernandez MD [address] [facility] [address] [place] [address] Service Attending Neurology 05/17/21 Manuela Donald DO [facility] [address] Obstetrics and Gynecology 10/04/22
--- OUTSIDE RECORDS SUMMARY | 2025-04-30 13:32 | XMS_ITS | Encounter Summary ---
Author Organization [employer] ([place], [place], [place], [place], [place]) Address [address] [place] [address] Care Team Providers Care Manager Trade Name Role Phone Justen Ceballos MD Primary Care Provider + [phone] Encounter Details Date Type Department Care Team (Late st Contact Info) Description 05/25/2021 Transcribed Document [facility] Family Medicine [facility] [place] [address] ProviderHomer MD [address] [place] [address] Social History Tobacco Use Types [...] - Homer ProviderMD - 05/25/2021 3:06 PM NEUROPHYSIOLOGIST Admission History, Adult Entered On: 05/26/2021 0:08 [...] #2 Relationship : , Primary Language : [place] Communication Barrier : None Drilling Field Specialist Needed : No Tao Pedersen RN [...] Scale Risk Level : 0-24 Low Risk [place] Fall Interventions : Adequate lighting, Assistive devices [...] Source : Stated Height Entry Format : [place] Height, Feet : 5 ft(Converted to: 152 cm, 60 Inch) Height, Inches : 8 Inch(Converted to: 0 ft 8 Inch, 20.32 cm) Clinical Height : 172.72 cm Weight Source : Standing scale Weight Entry Format : [place] Clinical Dosing Weight : 70.45 kg Weight, Pounds : 155 lb Body Surface Area (BSA) : 1.84 m2 Body Mass Index : 23.6 kg/m2 [place] Body Weight : 63 kg Toa Pedersen RN - 05/26/2021 0:04 EST Infectious [...] Needs Meds Crushed/Liquid : No Tao Pedersen DORIS Stephens - 05/26/2021 0:04 EST Nutrition History Eating Poorly Due to Decreased Appetite : No Unplanned Weight Loss in Past 3-6 Months : No Malnutrition Screening Tool Total(mal) : 0 Malnutrition Screening Tool Risk Level : Patient not at risk Tao PedersenDORIS - 05/26/2021 0:04 EST [place] Suicide Severity Rating Scale (C-SSRS) CSSRS Past Month Wish to be : No CSSRS Past Month Suicidal Thoughts : No CSSRS Lifetime Suicide Behavior : No Suicide Severity Rating Score : 0 Suicide Severity Rating : No Additional Care Required at this time Tao PedersenDORIS - 05/26/2021 0:04 EST Psychosocial History Currently in Unsafe Situation : No LeonortreTaoDORIS - 05/26/2021 0:04 EST Sleep Apnea Risk [...] Description 07/29/2025 11:00 AM EST Office Visit [facility] Neurology - [facility] [address] [facility] [address] [place] [address] Tiny Colin MD [address] [facility] [address] [place] [address] documented as of this encounter Visit Diagnoses Not on filedocumented in this encounter Care Teams Manager Trade Relationship Specialty Start Date End Date Justen Ceballos MD [address] [place] [facility] [address] [place] [address] PCP - General Family Medicine 08/11/23 documented as of this encounter
--- OUTSIDE RECORDS SUMMARY | 2025-04-30 13:32 | XMS_ITS | Encounter Summary ---
Author Organization [employer] ([place], [place], [place], [place], [place]) Address [address] [place] [address] Care Team Providers Care Speech Professor Name Role Phone Justen Ceballos MD Primary Care Provider + [phone] Encounter Details Date Type Department Care Team (Late st Contact Info) Description 05/25/2021 Transcribed Document [facility] Family Medicine [address] [place] [address] ProviderHomer MD [address] [place] [address] Social History Tobacco Use Types [...] - Homer ProviderMD - 05/25/2021 8:08 PM PRECIPITATOR OPERATOR [facility] Main OR IntraOp Summary Primary Physician: ZOE JORDAN MD-URO Finalized Date/Time: 05/26/21 06:35:26 Pt. Name: AMIE MELTON./Sex: 1985 Female Med Rec #: [id number] Physician: ZOE JORDAN MD-URO Financial #: [id number] Pt. Type: O Room/Bed: [facility]/ Admit/Disch: 05/25/21 15:09:00 - Institution: [facility] [place]Op Case Attendance Entry 1 Entry 2 Entry 3 Case Attendee ZOE JORDAN Myers, Josh, REP - Joselito Stanford MD-URO Medical Sales Specialist Role Performed Surgeon/Proceduralist, Staff - Other Paper Machine Supervisor First Time In 05/25/21 19:57:00 05/25/21 19:57:00 [...] Scrub Salvador Simmons, Tech Rn-Traveler Role Performed DIESEL LOCOMOTIVE FIRER/Nurse Agricultural Engineering Technician Scrub, First Network Operations Center Technician, First Time In 05/25/21 19:57:00 05/25/21 19:57:00 05/25/21 19:57:00 Time Out 05/25/21 20:39:00 05/25/21 20:39:00 05/25/21 20:39:00 Procedure Cystoscopy Stent Cystoscopy Stent Cystoscopy Stent Insertion Insertion Insertion Other Attendee Superficial Wound Closed By: Last Modified By: Salvador Simmons Shaffer, Andrea L, Shaffer, Andrea L, Rn-Traveler 05/25/21 Rn-Traveler 05/25/21 Rn-Traveler 05/25/21 20:39:05 20:39:05 20:39:05 [facility] IntraOp Case Attendance Audit 05/25/21 20:39:21 Animal Bounty Hunter: [id number] Modifier: [id number] <+> Case Attendee 2 <*> Procedure Cystoscopy Stent Insertion 05/25/21 20:39:05 Animal Bounty Hunter: [id number] Modifier: [id number] 1 <+> Time In 1 <+> Time [...] [facility] IntraOp Case Times Audit 05/25/21 20:39:04 Animal Bounty Hunter: [id number] Modifier: [id number] <+> 1 Out Room Time <+> 1 Stop Time 05/25/21 20:38:55 Animal Bounty Hunter: [id number] Modifier: [id number] <+> 1 Stop Time [facility] IntraOp Communication [...] IntraOp Fire Risk Assessment Audit 05/25/21 20:18:44 Animal Bounty Hunter: [id number] Modifier: [id number] <+> 1 Fire Risk Assessment Verified By <+> 1 Fire Risk Assessment Verified Date/Time [facility] IntraOp General Case Harness Cutter 1 Case Information OR OR 03 [facility] Case Level 1 Room Verified Yes Wound Class 2 - Clean-Contaminated Specialty Urology Anesthesia Type General ASA Class 2 Diagnosis Preop Diagnosis right ureteral stone Postop Same As Preop No Postop Diagnosis see surgeon's operative note Wound Class Definitions Last Modified By: Salvador Simmons Rn-Traveler 05/25/21 20:20:30 [facility] IntraOp General Case Data Audit 05/25/21 20:20:30 Animal Bounty Hunter: [id number] Modifier: [id number] <+> 1 Preop Diagnosis [facility] IntraOp Implant Log Entry 1 Type Implant (Synthetic) Implant Log Implant Type Other Implant STENT URET PERCFLX Identification [id number] Description Implant Quantity 1 Implant Site right ureter Implant [id number] Identification Lot Number Implant [place] Identification Sci:Urology/Gynecology Tax Collection Coordinator Name: Implant [id number] Identification Catalog Number Implant Has an Yes Expiration Date Implant Expiration 01/15/24 Date Wasted Yes Tissue Implant Last Modified By: Salvador Simmons Rn-Traveler 05/25/21 20:33:01 [facility] IntraOp Implant Log Audit 05/25/21 20:33:01 Animal Bounty Hunter: [id number] Modifier: [id number] <*> Implant Identification Description STENT URET PERCFLX [id number] <+> Wasted [facility] IntraOp Intraoperative Assessment [...] Medication/Irrigant lidocaine 2% urojet 10ml jenatalee - [id number] Time Administered 05/25/21 20:20:00 Dose Administered By [...] Intra Op Sign Out Audit 05/25/21 20:38:59 Animal Bounty Hunter: [id number] Modifier: [id number] <+> 1 RN Sign Out Signature Date/Time [...] [facility] IntraOp Surgical Procedures Audit 05/25/21 20:38:59 Animal Bounty Hunter: [id number] Modifier: [id number] <+> 1 Stop [facility] IntraOp Time Out [...] MARYBETH Correct Billing Electronically signed by Kathia [facility] Conversion Regional Recruiter Cerner at 09/14/2022 5:36 PM CDT documented in this encounter Plan of Treatment Upcoming Encounters Date Type Department Care Team (Late st Contact Info) Description 07/29/2025 11:00 AM EST Office Visit [facility] Neurology - [facility] [address] [place] [address] Tiny Colin MD [address] [facility] [address] [place] [address] documented as of this encounter Visit Diagnoses Not on filedocumented in this encounter Care Teams Speech Professor Relationship Specialty Start Date End Date Justen Ceballos MD [address] [place] [facility] [address] [place] [address] PCP - General Family Medicine 08/11/23 documented as of this encounter
--- OUTSIDE RECORDS SUMMARY | 2025-04-30 13:32 | XMS_ITS | Encounter Summary ---
Author Organization [employer] ([place], [place], [place], [place], [place]) Address [address] [place] [address] Care Team Providers Care Digital Pre Press Operator Name Role Phone Justen Ceballos MD Primary Care Provider + [phone] Encounter Details Date Type Department Care Team (Late st Contact Info) Description 05/25/2021 Transcribed Document [facility] [place] Family Medicine [address] [place] [address] ProviderHomer MD [address] [place] [address] Social History Tobacco Use Types [...] - Homer ProviderMD - 05/25/2021 8:08 PM PHARMACY INNOVATION ASSISTANT [facility] Main OR PreOp Summary Primary Physician: ZOE JORDAN MD-URO Finalized Date/Time: 05/26/21 06:56:35 Pt. Name: LINH AMIEMARTELL Pendleton./Sex: 1985 Female Med Rec #: [id number] Physician: ZOE JORDAN MD-URO Financial #: [id number] Pt. Type: O Room/Bed: 3/ Admit/Disch: 05/25/21 15:09:00 - Institution: [facility] [place] PreOp Case Times Entry 1 In Preop 05/25/21 15:25:00 Ready for Holding n/a Room Patient Ready for 05/25/21 16:07:00 Surgery Patient Out of Preop 05/25/21 19:50:00 Patient Out of n/a Holding Room Last Modified By: MEREDITH SILVESTRE 05/26/21 06:56:33 Karmen PreOp Case Times Audit 05/26/21 06:56:33 Coater Slate: ANDREA Modifier: [email or web address] <+> 1 Patient Out of Preop Finalized By: MEREDITH SILVESTRE Document Signatures Signed By: MEREDITH SILVESTRE 05/26/21 06:56 documented in this encounter Plan of Treatment Upcoming Encounters Date Type Department Care Team (Late st Contact Info) Description 07/29/2025 11:00 AM EST Office Visit [facility] Neurology - [place] [address] [place] [address] Tiny Colin MD [address] [facility] [address] [place] [address] documented as of this encounter Visit Diagnoses Not on filedocumented in this encounter Care Teams Digital Pre Press Operator Relationship Specialty Start Date End Date Justen Ceballos MD [address] [facility] [address] [place] [address] PCP - General Family Medicine 08/11/23 documented as of this encounter
--- OUTSIDE RECORDS SUMMARY | 2025-04-30 13:32 | XMS_ITS | Encounter Summary ---
Author Organization [employer] ([place], [place], [place], [place], [place]) Address [address] [place] [address] Care Team Providers Care Lay Out Worker Name Role Phone Justen Ceballos MD Primary Care Provider + [phone] Encounter Details Date Type Department Care Team (Late st Contact Info) Description 05/25/2021 Transcribed Document [facility] [place] Medicine [facility] [place] [address] ProviderHomer MD [address] [place] [address] Social History Tobacco Use Types [...] - Homer ProviderMD - 05/25/2021 8:08 PM JOB PLACEMENT SPECIALIST [facility] Main OR PACU Summary Primary Physician: ZOE JORDAN MD-URO Finalized Date/Time: 05/25/21 21:53:55 Pt. Name: AMIE MELTON/Sex: 1985 Female Med Rec #: [id number] Physician: ZOE JORDAN MD-URO Financial #: [id number] Pt. Type: O Room/Bed: EAS/8 Admit/Disch: 05/25/21 15:09:00 - Institution: [facility] Main OR PACU Case Times Entry 1 In PACU I 05/25/21 20:40:00 Ready for PACU 05/25/21 21:53:00 Discharge Discharge from PACU 05/25/21 21:53:00 I Last Modified By: BOO CABRALES RN 05/25/21 21:53:42 Finalized By: BOO CABRALES RN Document Signatures Signed By: BOO CABRALES RN 05/25/21 21:53 documented in this encounter Plan of Treatment Upcoming Encounters Date Type Department Care Team (Late st Contact Info) Description 07/29/2025 11:00 AM EST Office Visit [facility] Neurology - [facility] [address] [facility] [address] [place] [id number] Tiny Colin MD [address] [facility] [address] [place] [address] documented as of this encounter Visit Diagnoses Not on filedocumented in this encounter Care Teams Lay Out Worker Relationship Specialty Start Date End Date Justen Ceballos MD [address] [facility] [address] [place] [address] PCP - General Family Medicine 08/11/23 documented as of this encounter
--- OUTSIDE RECORDS SUMMARY | 2025-04-30 13:33 | XMS_ITS | Encounter Summary ---
Author Organization [employer] ([place], [place], [place], [place], [place]) Address [address] [place] [address] Care Team Providers Care Vp Global Marketing [employer] Name Role Phone Justen Ceballos MD Primary Care Provider + [phone] Encounter Details Date Type Department Care Team (Late st Contact Info) Description 06/03/2021 Transcribed Document [facility] [place] Family Medicine [address] [place] [address] ProviderHomer MD [address] [place] [address] Social History Tobacco Use Types [...] - Homer ProviderMD - 06/03/2021 10:43 AM FIRE TENDER [address] [address] AMIE MELTON :1985 Visit Time:06/03/2021 What to do next Your Diagnosis Calculus of ureter, Calculus of ureter Instructions From Your Care Team No driving x 24 hours Prescriptions have been sent to your pharmacy -- nut picker & take as prescribed Diet and activity as tolerated Discharge Follow Up Instructions: MEDS: Keflex...follow-up in 1 week with lenin VENTURA) for stent removal Activity: Discharge Activity: Activity as tolerated Activity: Discharge Activity: Activity as tolerated Diet: Discharge Diet: Resume usual diet as tolerated Driving Restriction: Do Not Drive for 24 hours Follow-Up Appointments Follow Up with OZE JORDAN MD-URO When Within 1 week Comments Call for follow up appointment Follow up with a [facility] in one week Where: [address] [place] [address]- Medications What How Much When Instructions Next Dose cephalexin (Keflex 500 mg oral capsule) 1 Capsule(s) Oral Every 12 hours Pickup at [facility] #[id number] acetaminophen-hydrocodone (acetaminophen-HYDROcodone 325 mg-5 mg oral tablet) 1 Tablet(s) Oral Every 4 Hours as needed for as needed for pain ergocalciferol (Vitamin D2 1.25 mg (50,000 intl units) oral capsule) 1 Capsule(s) Oral Weekly ofatumumab (Kesimpta) 20 Milligram(s) SubCutaneous Once a month tamsulosin (Flomax 0.4 mg oral capsule) Oral Every Day Pharmacy Information [facility] #[id number]: [address] [phone] Take your medications faithfully. Do NOT skip [...] including vitamins, herbs, eye drops, creams, and psjf-lus-hsmboac medicines. ??? Any problems you or family [...] tells you to take them. ??? Taking fats-bma-ozmafpi medicines, vitamins, herbs, and supplements. General instructions [...] these instructions at home: Medicines ??? Take ehzl-kuj-anxkgrl and prescription medicines only as told by [...] provider. Document Revised: 02/19/2020 Document Reviewed: 02/19/2020 Pocketbook Patient Education ?? 2020 [employer]. Lithotripsy, Care After This sheet gives you [...] these instructions at home: Medicines ??? Take aauq-kjv-gzxnfvd and prescription medicines only as told by [...] Reviewed: 02/26/2020 Elsevier Patient Education ?? 2020 [employer]. General Anesthesia, Adult, Care After This sheet [...] activities are safe for you. ??? Take sikn-vid-pxjlorm and prescription medicines only as told by [...] provider. Document Revised: 01/28/2021 Document Reviewed: 08/27/2020 Pocketbook Patient Education ?? 2020 [employer] Emergency Awareness and Preventative Care STROKE [...] Assistance with quitting is available by contacting 3-538-SMWDNOW. This is a free resource providing counseling, support, and referral. Or you may contact your personal physician. Gate Suicide Prevention Lifeline: The National Suicide Prevention [...] HCG Urine Qualitative: Negative Patient Name:AMIE MELTON I have received this information and was given the opportunity to ask questions. Patient/Academic Support Director Name: Patient/Academic Support Director Signature: Relationship to Patient: Clinician/Hospital Academic Support Director Signature: Date: Electronically signed by Michelle Bae Conversion Mechanical Manufacturing Technician Cerner at 09/14/2022 5:42 PM CDT documented in this encounter Plan of Treatment Upcoming Encounters Date Type Department Care Team (Late st Contact Info) Description 07/29/2025 11:00 AM EST Office Visit [facility] Neurology - [place] [address] [place] [address] Tiny Colin MD [address] [facility] [address] [place] [address] documented as of this encounter Visit Diagnoses Not on filedocumented in this encounter Care Teams Vp Global Marketing [employer] Relationship Specialty Start Date End Date Justen Ceballos MD [address] [facility] [address] [place] [address] PCP - General Family Medicine 08/11/23 documented as of this encounter
--- OUTSIDE RECORDS SUMMARY | 2025-04-30 13:33 | XMS_ITS | Referral Summary ---
Author Organization [employer] ([place], [place], [place], [place], [place]) Address [address] [place] [address] Care Team Providers Care Assembly And Packing Supervisor Name Role Phone Justen Ceballos MD Primary Care Provider [phone] Encounters Date Type Department Care Team Description 02/04/2025 Travel 02/04/2025 1:45 PM EDT Office Visit [facility] Neurology [address] [place] [phone] Tiny Colin MD Multiple sclerosis (Primary Dx); Idiopathic polyneuropathy; Other fatigue; Headache from Last 3 Months Allergies Active Allergy Reactions Criticality Noted Date Comments Meperidine Rash Low 12/02/2016 Medications cholecalciferol, vitamin D3, 1,250 mcg (50,000 unit) capsuleIndications :Avitaminosis D 1 tab weekly x 8 weeks then start Vit D 2000 units daily. 4 capsule 1 10/24/19 24 Active rizatriptan (Maxalt) 10 MG tabletIndications: Multiple sclerosis,Idiopath ic polyneuropathy,Jani taminosis D,Other fatigue,Intractabl e migraine without aura and without status migrainosus,halfway use of drug Take 1 tablet (10 mg total) by mouth as needed (when a migraine occurs, may repeat q2h x 1) Do NOT exceed thirty (30) mg in 24 hours.. 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 drug TAKE 1 TABLET NIGHTLY 90 tablet 2 03/17/20 25 Active ofatumumab (Kesimpta Pen) 20 mg/0.4 mL pnijIndications:Mu ltiple sclerosis INJECT 1 PEN UNDER THE SKIN EVERY MONTH 0.4 mL 3 04/04/20 25 Active folic acid (FOLVITE) 1 MG tabletIndications: Idiopathic polyneuropathy TAKE 1 TABLET DAILY 90 tablet 1 04/09/20 25 Active folic acid (FOLVITE) 1 MG tabletIndications: Idiopathic polyneuropathy TAKE 1 TABLET DAILY 90 tablet 1 10/08/19 25 025 Discontinued ofatumumab (Kesimpta Pen) 20 mg/0.4 mL pnijIndications:Mu ltiple sclerosis INJECT 1 PEN UNDER THE SKIN EVERY MONTH 1.2 mL 1 10/09/19 25 025 Discontinued Active Problems No known active problems Immunizations Immunization Administration Dates Next Due Covid-19 Vaccine MRNA [...] Date Gerardo rded Speak language other than Stateless at home Not on file 06/16/2023 Want [...] Sign Reading Time Taken Comments Blood Pressure 139/98 02/04/2025 1:29 PM EDT Pulse 99 02/04/2025 1:29 PM EDT Temperature - - Respiratory Rate - - Oxygen Saturation - - Inhaled Oxygen Concentration - - Weight 83.9 kg (185 lb) 02/04/2025 1:29 PM EDT Height 170.2 cm (5' 7 ) 02/04/2025 1:29 PM EDT Body Mass Index 28.98 02/04/2025 1:29 PM EDT Plan of Treatment Upcoming Encounters Date Type Department Care Team (Late st Contact Info) Description 07/29/2025 11:00 AM EST Office Visit [facility] Neurology - Located Within [facility] [address] [place] [address] Tiny Colin MD [address] [facility] [address] [place] [address] Procedures Procedure Name Priority Date/Time Associated Diagnosis Comments NEUROFILAMENT LIGHT CHAIN Routine 04/08/2025 10:59 AM EST Multiple sclerosis halfway use of drug Visual disturbance IMMUNOGLOBULIN G (IGG) Routine 8:45 AM EDT CBC W/PLT COUNT & AUTO DIFFERENTIAL Routine 02/25/2025 8:45 AM EDT NEUROFILAMENT LIGHT CHAIN Routine 02/25/2025 8:45 AM EDT Multiple sclerosis Idiopathic polyneuropathy Other fatigue Headache GLIAL FIBRILLARY ACID PROTEIN ([facility]) Routine 02/25/2025 8:45 AM EDT Multiple sclerosis Idiopathic polyneuropathy Other fatigue Headache COMPREHENSIVE METABOLIC PANEL Routine 02/25/2025 8:45 AM EDT Multiple sclerosis Idiopathic polyneuropathy Other fatigue Headache FOLATE, SERUM Routine 02/25/2025 8:45 AM EDT Multiple sclerosis Idiopathic polyneuropathy Other fatigue Headache VITAMIN D, 25-HYDROXY Routine 02/25/2025 8:45 AM EDT Multiple sclerosis Idiopathic polyneuropathy Other fatigue Headache VITAMIN B12 W REFLEX <400 Routine 02/25/2025 8:45 AM EDT Multiple sclerosis Idiopathic polyneuropathy Other fatigue Headache from Last 3 Months Results * Neurofilament Light Chain (04/08/2025 10:59 AM EST) Only the most recent of2 resultswithin the time period is included. Neurofilament Light Chain 0.75 0.00 - 1.69 pg/mL [facility] Comment: Test performed by [facility] Electrochemiluminescence Immunoassay (ECLIA). Values obtained with different assay methods or kits cannot be used interchangeably. NFL, Serum Z Score <0.00 <2.00 S.D. [facility] Blood 04/08/2025 10:5 9 AM EST 04/08/2025 Narrative [facility] - 04/11/2025 10:07 AM EST Test(s) [id number] Light Chain was developed and its performance characteristics determined by [facility]. It has not been cleared or approved by the Food and Drug Administration. Performed at: 01 - [facility] [id number] Inside Wireman: Jeimy Ulloa MD, Phone: [phone] us Tiny Colin MD LAB BLOOD ORDERABLES Final R esult [facility] * Glial Fibrillary Acid Protein (02/25/2025 8:45 AM EDT) GLIAL FIBRILLARY ACID PROTEIN 30.60 0.00 - 65.80 pg/mL [facility] GFAP, Serum Z Score <0.00 <2.00 S.D. [facility] Blood 02/25/2025 8:45 AM EDT 02/25/2025 Narrative [facility] - 03/05/2025 10:07 AM EDT Test(s) [id number] Fibrillary Acid Protein was developed and its performance characteristics determined by [employer]. It has not been cleared or approved by the Food and Drug Administration. Performed at: - [facility] [address] [id number] Inside Wireman: Jeimy Ulloa MD, Phone: [phone] Tiny Colin MD LAB BLOOD ORDERABLES Final R esult Performing Organization Address City/[facility]/ZIP Co de Phone Number [facility] * (ABNORMAL) Vitamin B12 w reflex <400 (02/25/2025 8:45 AM EDT) Vitamin B12 >2000(H) 232 - 1245 pg/mL [facility] 02/25/2025 8:45 AM EDT 02/25/2025 Narrative [facility] - 03/05/2025 10:07 AM EDT Performed at: - [facility] [address] [id number] Inside Wireman: Jamel Hoffman PhD, Phone: [phone] Tiny Colin MD LAB BLOOD ORDERABLES Final R esult Performing Organization Address City/[facility] Co de Phone Number [facility] * Vitamin D, 25-Hydroxy (02/25/2025 8:45 AM EDT) Vitamin D, 25-Hydroxy 55.6 30.0 - 100.0 ng/mL [facility] Comment: Vitamin D deficiency has been defined by the [place] of Medicine and an Endocrine Society practice guideline as a level of serum 25-OH vitamin D less than 20 ng/mL (1,2). The Endocrine Society went on to further define vitamin D insufficiency as a level between 21 and 29 ng/mL (2). 1. IOM ([place] of Medicine). 2010. Dietary reference intakes for calcium and D. [place]: The National Academies Press. 2. Alessia MF, Donovan IVORY, Awa BRIONES, et al. Evaluation, treatment, and prevention of vitamin D deficiency: an Endocrine Society clinical practice guideline. JCEM. 2010; 96(7):1911-30. Blood 02/25/2025 8:45 AM EDT 02/25/2025 Narrative [facility] - 03/05/2025 10:07 AM EDT Performed at: 01 - [facility], [place], [place] [id number] Inside Wireman: Jamel Hoffman PhD, Phone: [phone] us Tiny Colin MD LAB BLOOD ORDERABLES Final R esult [facility] * (ABNORMAL) CBC with platelet count + automated diff (02/25/2025 8:45 AM EDT) Pathologist [facility] WBC 10.4 3.4 - 10.8 x10E3/uL [facility] RBC 5.15 3.77 - 5.28 x10E6/uL [facility] Hemoglobin 15.6 11.1 - 15.9 g/dL [facility] Hematocrit 47.0(H) 34.0 - 46.6 % [facility] MCV 91 79 - 97 fL [facility] MCH 30.3 26.6 - 33.0 pg [facility] MCHC 33.2 31.5 - 35.7 g/dL [facility] RDW 11.9 11.7 - 15.4 % [facility] Platelets 219 150 - 450 x10E3/uL [facility] % Neutros 76 Not Estab. % [facility] % Lymphs 13 Not Estab. % [facility] % Monos 8 Not Estab. % [facility] % Eos 1 Not Estab. % [facility] % Baso 1 Not Estab. % [facility] # Neutros 7.9(H) 1.4 - 7.0 x10E3/uL [facility] # Lymphs 1.4 0.7 - 3.1 x10E3/uL [facility] # Monos 0.8 0.1 - 0.9 x10E3/uL [facility] # Eos 0.1 0.0 - 0.4 x10E3/uL [facility] Baso (Absolute) 0.1 0.0 - 0.2 x10E3/uL [facility] % Immature Grans 1 Not Estab. % [facility] # Immature Grans 0.1 0.0 - 0.1 x10E3/uL [facility] 02/25/2025 8:45 AM EDT 02/25/2025 Narrative [facility] - 03/05/2025 10:07 AM EDT Performed at: [address] [id number] Inside Wireman: Jamel Hoffman PhD, Phone: [phone] Tiny Colin MD LAB BLOOD ORDERABLES Final R esult Performing Organization Address City/[facility] de Phone Number [facility] * Immunoglobulin G (IgG) (02/25/2025 8:45 AM EDT) [facility] Immunoglobulin G, Qn, Serum 789 586 - 1,602 mg/dL [facility] 02/25/2025 8:45 AM EDT 02/25/2025 Narrative [facility] - 03/05/2025 10:07 AM EDT Performed at: [address] [id number] Inside Wireman: Jamel Hoffman PhD, Phone: [phone] Tiny Colin MD LAB BLOOD ORDERABLES Final R esult Performing Organization Address [facility] de Phone Number [facility] * Folate, Serum (02/25/2025 8:45 AM EDT) [facility] Folate (Folic Acid), Serum 14.0 >3.0 ng/mL [facility] Comment: A serum folate concentration of less than 3.1 ng/mL is considered to represent clinical deficiency. Blood 02/25/2025 8:45 AM EDT 02/25/2025 Narrative [facility] - 03/05/2025 10:07 AM EDT Performed at: [address] [id number] Inside Wireman: Jamel Hoffman PhD, Phone: [phone] Tiny Colin MD LAB BLOOD ORDERABLES Final R esult Performing Organization Address [facility] de Phone Number [facility] * (ABNORMAL) Comprehensive metabolic panel (02/25/2025 8:45 AM EDT) Glucose, Serum 91 70 - 99 mg/dL [facility] BUN 8 6 - 24 mg/dL [facility] Creatinine, Serum 0.90 0.57 - 1.00 mg/dL [facility] EGFR 82 >59 mL/min/1.73 [facility] BUN/Creatinine Ratio 9 9 - 23 [facility] Sodium, Serum 139 134 - 144 mmol/L [facility] Potassium, Serum 4.4 3.5 - 5.2 mmol/L [facility] Chloride, Serum 105 96 - 106 mmol/L [facility] Carbon Dioxide, Total 18(L) 20 - 29 mmol/L [facility] Calcium, Serum 9.4 8.7 - 10.2 mg/dL [facility] Protein, Total, Serum 6.6 6.0 - 8.5 g/dL [facility] Albumin, Serum 4.3 3.9 - 4.9 g/dL [facility] Globulin, Total 2.3 1.5 - 4.5 g/dL [facility] Bilirubin, Total 0.3 0.0 - 1.2 mg/dL [facility] Alkaline Phosphatase, S 81 41 - 116 IU/L [facility] AST (SGOT) 18 0 - 40 IU/L [facility] ALT (SGPT) 17 0 - 32 IU/L [facility] Blood 02/25/2025 8:45 AM EDT 02/25/2025 Narrative [facility] - 03/05/2025 10:07 AM EDT Performed at: 01 - [facility] [id number] Inside Wireman: Jamel Hoffman PhD, Phone: [phone] us Tiny Colin MD LAB BLOOD ORDERABLES Final R esult [facility] from Last 3 Months Insurance [facility] Care Teams Assembly And Packing Supervisor Relationship Specialty Start Date End Date Justen Ceballos MD [address] [facility] [address] [place] [phone] PCP - General Family Medicine 08/11/23
--- OUTSIDE RECORDS SUMMARY | 2025-04-30 13:33 | XMS_ITS | Encounter Summary ---
Author Organization [employer] ([place], [place], [place], [place], [place]) Address [address] [place] [address] Care Team Providers Care Marine Meteorologist Name Role Phone Justen Ceballos MD Primary Care Provider + [phone] Encounter Details Date Type Department Care Team (Late st Contact Info) Description 06/03/2021 Transcribed Document [facility] [place] [address] [place] [address] ProviderHomer MD [address] [place] [id number] Social History Tobacco Use Types Packs/Day Years Used Date Smoking Tobacco: Never Assessed Comments Unknown Sex and Gender Information Value Date Recorded Sex Assigned at Female 11/23/2021 9:01 PM CDT Legal Sex Female 9:01 PM CDT Gender Identity Female 11/23/2021 9:01 PM CDT Sexual Orientation Not on file documented as of this encounter Miscellaneous Notes * Cerner Conversion Note - Historical ProviderMD - 06/03/2021 7:[address] LIGHT SERVICER SUPERVISOR PAT Adult Entered On: 06/03/2021 7:22 EST Performed On: 06/03/2021 7:18 EST by Manuela Saleem Rn Height and Weight, Clinical Dosing Height Source : Stated Height Entry Format : [place] Height, Feet : 5 ft(Converted to: 152 cm, 60 Inch) Height, Inches : 8 Inch(Converted to: 0 ft 8 Inch, 20.32 cm) Clinical Height : 172.72 cm Weight Source : Standing scale Weight Entry Format : [place] Clinical Dosing Weight : 70.45 kg Weight, Pounds : 155 lb Body Surface Area (BSA) : 1.84 m2 Body Mass Index : 23.6 kg/m2 [place] Body Weight : 63 kg Manuela Saleem [...] Manuela Saleem Rn - 06/03/2021 7:18 EST [place] Suicide Severity Rating Scale (C-SSRS) CSSRS Past [...] Contact #2 Relationship : Primary Language : Liberian Communication Barrier : None Psychologist Clinical Needed : No Manuela Saleem Rn - [...] 06/03/2021 7:18 EST Electronically signed by Kathia [facility] Conversion Mechanic/Welder Cerner at 09/14/2022 5:42 PM CDT documented in this encounter Plan of Treatment Upcoming Encounters Date Type Department Care Team (Late st Contact Info) Description 07/29/2025 11:00 AM EST Office Visit [facility] Neurology - [facility] [address] [place] [phone] Tiny Colin MD [address] [facility] [address] [place] [address] documented as of this encounter Visit Diagnoses Not on filedocumented in this encounter Care Teams Marine Meteorologist Relationship Specialty Start Date End Date Justen Ceballos MD [address] [facility] [address] [place] [address] PCP - General Family Medicine 08/11/23 documented as of this encounter
--- OUTSIDE RECORDS SUMMARY | 2025-04-30 13:33 | XMS_ITS | Encounter Summary ---
Author Organization [employer] ([place], [place], [place], [place], [place]) Address [address] [place] [address] Care Team Providers Care Button Attaching Machine Operator Name Role Phone Justen Ceballos MD Primary Care Provider + [phone] Encounter Details Date Type Department Care Team (Late st Contact Info) Description 05/26/2021 Transcribed Document [facility] [place] [facility] [place] [address] ProviderHomer MD [address] [place] [address] Social History Tobacco Use Types [...] Homer Johnson MD - 05/26/2021 3:47 PM COMPUTER GAME DESIGNER Patient Education Materials Follows: Ureteral Stent Implantation, [...] these instructions at home: Medicines ??? Take zvlc-jwx-erydpgs and prescription medicines only as told by [...] blood in your urine increases. ??? Take yddz-pus-uipuxrz and prescription medicines only as told by your health care provider. ??? Drink enough fluid to keep your urine pale yellow. This information is not intended to replace advice given to you by your health care provider. Make sure you discuss any questions you have with your health care provider. Document Revised: 02/19/2019 Document Reviewed: 02/20/2019 [employer] Patient Education ? 2020 [employer]. Urology Percutaneous Nephrostomy, Care After This sheet [...] and water are not available, use hand cupola liner. ? Change your dressing as told by [...] and extension tubing. General instructions ??? Take ibhi-ina-svpjrfe and prescription medicines only as told by [...] provider. Document Revised: 06/09/2020 Document Reviewed: 06/09/2020 [employer] Patient Education ? 2020 [employer] Ureteral Stent Implantation, Care After This [...] these instructions at home: Medicines ??? Take xryu-cut-xkcszlf and prescription medicines only as told by [...] blood in your urine increases. ??? Take ezvo-ggg-iykzvtl and prescription medicines only as told by your health care provider. ??? Drink enough fluid to keep your urine pale yellow. This information is not intended to replace advice given to you by your health care provider. Make sure you discuss any questions you have with your health care provider. Document Revised: 02/19/2019 Document Reviewed: 02/20/2019 Elsevier Patient Education ? 2020 [employer]. Cystoscopy Cystoscopy is a procedure that is [...] including vitamins, herbs, eye drops, creams, and hrio-knb-pkepavy medicines. ??? Any problems you or family [...] tells you to take them. ? Taking eocd-dak-yocdzng medicines, vitamins, herbs, and supplements. ??? Follow [...] these instructions at home: Medicines ??? Take ilmp-fqf-ybguenm and prescription medicines only as told by [...] Reviewed: 05/07/2019 Elsevier Patient Education ? 2020 [employer] Electronically signed by Michelle Bae Conversion Nanotechnology Engineering Technician Cerner at 09/14/2022 5:24 PM CDT documented in this encounter Plan of Treatment Upcoming Encounters Date Type Department Care Team (Late st Contact Info) Description 07/29/2025 11:00 AM EST Office [facility] [address] [place] [phone] Tiny Colin MD [address] [place] [address] documented as of this encounter Visit Diagnoses Not on filedocumented in this encounter Care Teams Button Attaching Machine Operator Relationship Specialty Start Date End Date Justen Ceballos MD [address] [facility] [address] [place] [address] PCP - General Family Medicine 08/11/23 documented as of this encounter
--- OUTSIDE RECORDS SUMMARY | 2025-04-30 13:33 | XMS_ITS | Clinical Summary ---
Author Organization [employer] ([place], [place], [place], [place], [place]) Address [address] [place] [address] Care Team Providers Care Airport Planner Name Role Phone Justen Ceballos MD Primary Care Provider + [phone] Allergies Active Allergy Reactions Criticality Noted Date Comments Meperidine Rash Low 12/02/2016 Medications cholecalciferol, vitamin D3, 1,250 mcg (50,000 unit) capsuleIndications :Avitaminosis D 1 tab weekly x 8 weeks then start Vit D 2000 units daily. 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 27 tablet 3 08/01/19 25 Active amitriptyline (ELAVIL) 25 MG tabletIndications: Multiple sclerosis,Idiopath ic polyneuropathy,Jani taminosis D,Other fatigue,Intractabl e migraine without aura and without status migrainosus,prison use of drug TAKE 1 TABLET NIGHTLY [...] Discontinued Active Problems No known active problems Encounters Date Type Department Care Team Description 02/04/2025 1:45 PM EDT Office Visit [facility] Neurology - [address] [place] [address] Tiny Colin MD Multiple sclerosis (Primary Dx); Idiopathic polyneuropathy; Other fatigue; Headache 02/04/2025 Travel from Last 3 Months Immunizations Immunization Administration Dates Next Due Covid-19 [...] Date Gerardo rded Speak language other than Jordanian at home Not on file 06/16/2023 Want [...] Description 07/29/2025 11:00 AM EST Office Visit [facility] Neurology - [facility] [address] [place] [address] Tiny Colin MD [address] [address] [place] [address] Health Maintenance Due Date Last Done Comments Depression Screening (12+) 1996 Tobacco Cessation Counseling and Screening (12+) 1996 HIV Screening 02/15/1999 Hepatitis C Screening 02/15/2002 Pneumococcal Vaccine: 0-49 Y ears (1 of 2 - PCV) 02/15/2003 Lipid Panel 2004 Pap Smear 02/15/2005 DTAP/TDAP/TD VACCINES (2 - Td or Tdap) 12/05/2012 Breast Cancer Screening 2024 COVID-19 VACCINE (3 - season) 01/27/202510/2022, 06/06/2022 Influenza Vaccine (#1) 2025 Procedures Procedure Name Priority Date/Time Associated Diagnosis Comments NEUROFILAMENT LIGHT CHAIN Routine 04/08/2025 10:59 AM EST Multiple sclerosis prison use of drug Visual disturbance IMMUNOGLOBULIN G [...] of2 resultswithin the time period is included. [facility] Signature Neurofilament Light Chain 0.75 0.00 - 1.69 pg/mL [facility] Comment: Test performed by [facility] Electrochemiluminescence Immunoassay (ECLIA). Values obtained with different assay methods or kits cannot be used interchangeably. NFL, Serum Z Score <0.00 <2.00 S.D. [facility] Blood 04/08/2025 10:5 9 AM EST 04/08/2025 Narrative [facility] - 04/11/2025 10:07 AM EST Test(s) 307321-Puwympmicrads Light Chain was developed and its performance characteristics determined by [facility]. It has not been cleared or approved by the Food and Drug Administration. Performed at: 01 - [address] [id number] Extractor Filler: Jeimy Ulloa MD, Phone: [phone] Tiny Colin MD LAB BLOOD ORDERABLES Final R esult [facility] * Glial Fibrillary Acid Protein (02/25/2025 8:45 AM EDT) GLIAL FIBRILLARY ACID PROTEIN 30.60 0.00 - 65.80 pg/mL [facility] GFAP, Serum Z Score <0.00 <2.00 S.D. [facility] Blood 02/25/2025 8:45 AM EDT 02/25/2025 Narrative [facility] - 03/05/2025 10:07 AM EDT Test(s) [id number]-Wargb Fibrillary Acid Protein was developed and its performance characteristics determined by [facility]. It has not been cleared or approved by the Food and Drug Administration. Performed at: - [facility] [id number] Extractor Filler: Jeimy Ulloa MD, Phone: [phone] Tiny Colin MD LAB BLOOD ORDERABLES Final R esult Performing Organization Address [facility] Co de Phone Number [facility] * (ABNORMAL) Vitamin B12 w reflex <400 (02/25/2025 8:45 AM EDT) Vitamin B12 >2000(H) 232 - 1245 pg/mL [facility] 02/25/2025 8:45 AM EDT 02/25/2025 Narrative [facility] - 03/05/2025 10:07 AM EDT Performed at: - [address] [id number] Extractor Filler: Jamel Hoffman PhD, Phone: [phone] Tiny Colin MD LAB BLOOD ORDERABLES Final R esult Performing Organization Address City/[facility]/ZIP Co de Phone Number [facility] * Vitamin D, 25-Hydroxy (02/25/2025 8:45 AM EDT) Vitamin D, 25-Hydroxy 55.6 30.0 - 100.0 ng/mL [facility] Comment: Vitamin D deficiency has been defined by the Oxford of Medicine and an Endocrine Society practice guideline as a level of serum 25-OH vitamin D less than 20 ng/mL (1,2). The Endocrine Society went on to further define vitamin D insufficiency as a level between 21 and 29 ng/mL (2). 1. IOM (Oxford of Medicine). 2010. Dietary reference intakes for calcium and D. [place]: The National Academies Press. 2. Alessia MF, Donovan IVORY, Awa BRIONES, et al. Evaluation, treatment, and prevention of vitamin D deficiency: an Endocrine Society clinical practice guideline. JCEM. 2010; 96(7):1911-30. Blood 02/25/2025 8:45 AM EDT 02/25/2025 Narrative [facility] - 03/05/2025 10:07 AM EDT Performed at: 01 - [facility] [id number] Extractor Filler: Jamel Hoffman PhD, Phone: [phone] us Tiny Colin MD LAB BLOOD ORDERABLES Final R esult [facility] * (ABNORMAL) CBC with platelet count + automated diff (02/25/2025 8:45 AM EDT) WBC 10.4 3.4 - 10.8 x10E3/uL [facility] [...] - 03/05/2025 10:07 AM EDT Performed at: [address] [place] [id number] Extractor Filler: Jamel Hoffman PhD, Phone: [phone] Tiny Colin MD LAB BLOOD ORDERABLES Final R esult Performing Organization Address [facility] de Phone Number [facility] * Immunoglobulin G (IgG) (02/25/2025 8:45 AM EDT) [facility] Immunoglobulin G, Qn, Serum 789 586 - 1,602 mg/dL [facility] 02/25/2025 8:45 AM EDT 02/25/2025 Narrative [facility] - 03/05/2025 10:07 AM EDT Performed at: [address] [place] [id number] Extractor Filler: Jamel Hoffman PhD, Phone: [phone] us Tiny Colin MD LAB BLOOD ORDERABLES Final R esult Performing Organization Address City/[facility]/ZIP Co de Phone Number [facility] * Folate, Serum (02/25/2025 8:45 AM EDT) Folate (Folic Acid), Serum 14.0 >3.0 ng/mL [facility] Comment: A serum folate concentration of less than 3.1 ng/mL is considered to represent clinical deficiency. Blood 02/25/2025 8:45 AM EDT 02/25/2025 [facility] - 03/05/2025 10:07 AM EDT Performed at: - [address] [id number] Extractor Filler: Jamel Hoffman PhD, Phone: [phone] us Tiny Colin MD LAB BLOOD ORDERABLES Final R esult [facility] * (ABNORMAL) Comprehensive metabolic panel (02/25/2025 [...] 10:07 AM EDT Performed at: 01 - [facility] [address] [id number] Extractor Filler: Jamel Hoffman PhD, Phone: [phone] us Tiny Colin MD LAB BLOOD ORDERABLES Final R esult [facility] from Last 3 Months Insurance [place] [id number] [facility] Care Teams Airport Planner Relationship Specialty Start Date End Date Justen Ceballos MD [address] [facility] [address] [place] [address] PCP - General Family Medicine 08/11/23
--- OUTSIDE RECORDS SUMMARY | 2025-04-30 13:33 | XMS_ITS | Encounter Summary ---
Author Organization [employer] ([place], [place], [place], [place], [place]) Address [address] [place] [address] Care Team Providers Care Marine Steward Name Role Phone Justen Ceballos MD Primary Care Provider + [phone] Encounter Details Date Type Department Care Team (Late st Contact Info) Description 05/26/2021 Transcribed Document [facility] Family Medicine [address] [place] [address] ProviderHomer MD [address] [place] [address] Social History Tobacco Use Types [...] - Homer ProviderMD - 05/26/2021 10:09 AM CLIENT SUPPORT ANALYST Initial Discharge Planning Entered On: 05/26/2021 10:18 [...] : self Enter Doctors Name : justenrocky TysonLockwood Does Patient have PCP Listed? : Yes [...] Description 07/29/2025 11:00 AM EST Office Visit [facility] Neurology - [address] [place] [address] Tiny Colin MD [address] [facility] [address] [place] [address] documented as of this encounter Visit Diagnoses Not on filedocumented in this encounter Care Teams Marine Steward Relationship Specialty Start Date End Date Justen Ceballos MD [address] [facility] [address] [place] [address] PCP - General Family Medicine 08/11/23 documented as of this encounter
--- OUTSIDE RECORDS SUMMARY | 2025-04-30 13:33 | XMS_ITS | Encounter Summary ---
Author Organization [employer] ([place], [place], [place], [place], [place]) Address [address] [place] [address] Care Team Providers Care Anesthesiologist/Physician Name Role Phone Justen Ceballos MD Primary Care Provider + [phone] Encounter Details Date Type Department Care Team (Late st Contact Info) Description 05/26/2021 Transcribed Document [facility] [place] [facility] [place] [address] ProviderHomer MD [address] [place] [address] Social History Tobacco Use Types [...] Note - Homer Johnson MD - 05/26/2021 8:01 AM SERVICE ATTENDANT Patient: AMIE MELTON Age: 36 years Sex: [...] Description 07/29/2025 11:00 AM EST Office Visit [facility] Neurology - [facility] [address] [place] [id number] Tiny Colin MD [address] [facility] [address] [place] [address] documented as of this encounter Visit Diagnoses Not on filedocumented in this encounter Care Teams Anesthesiologist/Physician Relationship Specialty Start Date End Date Justen Ceballos MD [address] [facility] [address] [place] [address] PCP - General Family Medicine 08/11/23 documented as of this encounter
--- OUTSIDE RECORDS SUMMARY | 2025-04-30 13:33 | XMS_ITS | Encounter Summary ---
Author Organization [employer] ([place], [place], [place], [place], [place]) Address [address] [place] [address] Care Team Providers Care Photographic Double Name Role Phone Justen Ceballos MD Primary Care Provider + [phone] Encounter Details Date Type Department Care Team (Late st Contact Info) Description 05/26/2021 Transcribed Document [facility] [place] [place] [facility] [place] [address] ProviderHomer MD [address] [place] [address] Social History Tobacco Use Types [...] - Homer ProviderMD - 05/26/2021 3:48 PM ENVIRONMENTAL PROPERTY ASSESSOR [address] [address] AMIE MELTON :1985 Visit Time:05/25/2021 Your Visit Summary Your Care Team Admitting Physician - ZOE ZARCO MD-URO Attending Physician - ZOE ZARCO MD-URO Primary Care Physician - PHKhoi, NOT LISTED Referring Physician - ZOE ZARCO [...] Within 2 to 3 days Where: [address] [facility] [address] [place] [address]- Medications What How Much When Instructions Next Dose acetaminophen-hydrocodone (Addison 5 mg-325 mg oral tablet) 1 Tablet(s) Oral Every 6 Hours as needed for for pain Pickup at [facility] #01538 anytime cephalexin (Keflex 500 mg oral capsule) 1 Capsule(s) Oral Every 12 hours Pickup at [facility] #73958 9pm ergocalciferol (Vitamin D2 1.25 mg (50,000 intl units) oral capsule) 1 Capsule(s) Oral Weekly tamsulosin (Flomax 0.4 mg oral capsule) Oral Every Day 1230 Pharmacy Information [facility] #41959: [address] [phone] Take your medications faithfully. Do NOT skip [...] and water are not available, use hand band edger. ? Change your dressing as told by [...] and extension tubing. General instructions ??? Take mzee-tpo-jjsmnlr and prescription medicines only as told by [...] provider. Document Revised: 06/09/2020 Document Reviewed: 06/09/2020 [employer] Patient Education ?? 2020 [employer] Ureteral Stent Implantation, Care After This [...] these instructions at home: Medicines ??? Take kpkn-suy-lrcdvfw and prescription medicines only as told by [...] blood in your urine increases. ??? Take ocnx-uci-glqqkhx and prescription medicines only as told by your health care provider. ??? Drink enough fluid to keep your urine pale yellow. This information is not intended to replace advice given to you by your health care provider. Make sure you discuss any questions you have with your health care provider. Document Revised: 02/19/2019 Document Reviewed: 02/20/2019 [employer] Patient Education ?? 2020 [employer] Ureteral Stent Implantation, Care After This [...] these instructions at home: Medicines ??? Take qosk-zut-zjstxce and prescription medicines only as told by [...] blood in your urine increases. ??? Take dogi-tfk-rxctbij and prescription medicines only as told by your health care provider. ??? Drink enough fluid to keep your urine pale yellow. This information is not intended to replace advice given to you by your health care provider. Make sure you discuss any questions you have with your health care provider. Document Revised: 02/19/2019 Document Reviewed: 02/20/2019 [employer] Patient Education ?? 2020 [employer] Cystoscopy Cystoscopy is a procedure that [...] including vitamins, herbs, eye drops, creams, and ohug-awf-hhzasqg medicines. ??? Any problems you or family [...] tells you to take them. ? Taking pckt-ztv-gapikoc medicines, vitamins, herbs, and supplements. ??? Follow [...] these instructions at home: Medicines ??? Take luoz-vce-lalvxsh and prescription medicines only as told by [...] provider. Document Revised: 05/07/2019 Document Reviewed: 05/07/2019 [employer] Patient Education ?? 2020 [facility]. cephalexin (sef a MICHELLE in) Keflex What [...] may report side effects to FDA at 6-556-LFF-2208. What other drugs will affect cephalexin? Tell your doctor about all your other medicines, especially: ?? metformin; or ?? probenecid. This list is not complete. Other drugs may affect cephalexin, including prescription and kdvn-oqs-vvmkdxj medicines, vitamins, and herbal products. Not all [...] to ensure that the information provided by [employer]. ('[employer]') is accurate, up-to-date, and complete, but no guarantee is made to that effect. Drug information contained herein may be time sensitive. [employer] information has been compiled for use by healthcare practitioners and consumers in the [place] and therefore [employer] does not warrant that uses outside of the [place] are appropriate, unless specifically indicated otherwise. [employer] drug information does not endorse drugs, diagnose patients or recommend therapy. [employer] drug information is an informational resource designed [...] effective or appropriate for any given patient. [facility] does not assume any responsibility for any aspect of healthcare administered with the aid of information [facility] provides. The information contained herein is not intended to cover all possible uses, directions, precautions, warnings, drug interactions, allergic reactions, or adverse effects. If you have questions about the drugs you are taking, check with your doctor, nurse or pharmacist. Copyright 2513-0506 [employer] [facility]. Version: 10.. Revision Date: 06/01/2020. acetaminophen and hydrocodone (a SEET a MIN oh fen and fadumo droe KOE done) Hycet, Lorcet, Addison, Verdrocet, Vicodin, Xodol, Zamicet What is the [...] may report side effects to FDA at 8-118-MFP-1657. What other drugs will affect acetaminophen and [...] affect acetaminophen and hydrocodone, including prescription and qjal-zfw-chrrfdm medicines, vitamins, and herbal products. Not all [...] to ensure that the information provided by [employer]. ('[employer]') is accurate, up-to-date, and complete, but no guarantee is made to that effect. Drug information contained herein may be time sensitive. [employer] information has been compiled for use by healthcare practitioners and consumers in the [place] and therefore [employer] does not warrant that uses outside of the [place] are appropriate, unless specifically indicated otherwise. [employer]'s drug information does not endorse drugs, diagnose patients or recommend therapy. [employer] drug information is an informational resource designed [...] effective or appropriate for any given patient. [facility] does not assume any responsibility for any aspect of healthcare administered with the aid of information [facility] provides. The information contained herein is not intended to cover all possible uses, directions, precautions, warnings, drug interactions, allergic reactions, or adverse effects. If you have questions about the drugs you are taking, check with your doctor, nurse or pharmacist. Copyright 5453-[address]. Version: 16.03. Revision Date: 06/30/2020. Emergency Awareness [...] Assistance with quitting is available by contacting 2-551-LMBO-NOW. This is a free resource providing counseling, [...] range between ( 1.0 and 7.0 ) Marquette #: 0.12 K/uL -- Normal range between ( 0.24 and 0.82 ) Eos #: 0.00 K/uL -- Normal range between ( 0.04 and 0.54 ) Marquette %: 1.6 % -- Normal range between [...] given the opportunity to ask questions. Patient/Academic Advisor Name: Patient/Academic Advisor Signature: Relationship to Patient: Clinician/Hospital Academic Advisor Signature: Date: documented in this encounter Plan of Treatment Upcoming Encounters Date Type Department Care Team (Late st Contact Info) Description 07/29/2025 11:00 AM EST Office Visit [facility] Neurology - [address] [place] [address] Tiny Colin MD [address] [facility] [address] [place], [place] [id number] documented as of this encounter Visit Diagnoses Not on filedocumented in this encounter Care Teams Photographic Double Relationship Specialty Start Date End Date Justen Ceballos MD [address] [facility] [address] [place] [address] PCP - General Family Medicine 08/11/23 documented as of this encounter
--- OUTSIDE RECORDS SUMMARY | 2025-04-30 13:33 | XMS_ITS | Encounter Summary ---
Author Organization [employer] ([place], [place], [place], [place], [place]) Address [address] [place] [address] Care Team Providers Care Head Of Human Resources Name Role Phone Justen Ceballos MD Primary Care Provider + [phone] Encounter Details Date Type Department Care Team (Late st Contact Info) Description 05/26/2021 Transcribed Document [facility] Family Medicine [facility] [place] [address] ProviderHomer MD [address] [place] [address] Social History Tobacco Use Types [...] Note - Homer Johnson MD - 05/26/2021 3:38 PM POLITICAL SCIENCE INSTRUCTOR Patient: AMIE MELTON Age: 36 years Sex: [...] Q12H, # 6 Cap, 0 Refill(s), Pharmacy: [facility] #[id number], 172.72, cm, 05/25/21 16:01:00 EST, CLINICALHEIGHT, 70.45, kg, 05/25/21 16:01:00 EST, CLINICALWEIGHT Leflore 5 mg-325 mg oral tablet: 1 Tab, Oral, Tab, Q6H, PRN for pain, # 20 Tab, 0 Refill(s), Pharmacy: [facility] #[id number], 172.72, cm, 05/25/21 16:01:00 EST, CLINICALHEIGHT, 70.45, [...] 500 mg = 1 Cap, Oral, Q12H Leflore 5 mg-325 mg oral tablet 1 Tab, [...] swelling, No deformity, Normal gait. Integumentary: Warm, [place], Intact, No pallor, No rash, WOUND STABLE. [...] % LOW Lymph # 0.69 K/uL LOW Burleigh % 1.6 % LOW Burleigh # 0.12 K/uL LOW Eos % 0.0 [...] Q12H, # 6 Cap, 0 Refill(s), Pharmacy: [facility] #[id number], 172.72, cm, 05/25/21 16:01:00 EST, CLINICALHEIGHT, 70.45, kg, 05/25/21 16:01:00 EST, CLINICALWEIGHT [place]ef[place] 5 mg-325 mg oral tablet: 1 Tab, Oral, Tab, Q6H, PRN for pain, # 20 Tab, 0 Refill(s), Pharmacy: [facility] #[id number], 172.72, cm, 05/25/21 16:01:00 EST, CLINICALHEIGHT, 70.45, [...] Description 07/29/2025 11:00 AM EST Office Visit [facility] Neu[facility] - [facility] [address] [facility] [address] [place] [id number] Tiny Colin MD [address] [facility] [address] [place] [address] documented as of this encounter Visit Diagnoses Not on filedocumented in this encounter Care Teams Head Of Human Resources Relationship Specialty Start Date End Date Justen Ceballos MD [address] [facility] [address] [place] [address] PCP - General Family Medicine 08/11/23 documented as of this encounter
--- OUTSIDE RECORDS SUMMARY | 2025-04-30 13:33 | XMS_ITS | Encounter Summary ---
Author Organization [employer] ([place], [place], [place], [place], [place]) Address [address] [place] [address] Care Team Providers Care First Assist Name Role Phone Justen Ceballos MD Primary Care Provider + [phone] Encounter Details Date Type Department Care Team (Late st Contact Info) Description 05/26/2021 Transcribed Document [facility] [place] [facility] [address] ProviderHomer MD [address] [place] [address] Social History Tobacco Use Types [...] - Homer ProviderMD - 05/26/2021 10:18 AM SUPERVISOR LIQUEFACTION On Going Discharge Planning Entered On: 05/26/2021 [...] Sent to Post Acute Providers : No [facility] Quality Web Info Shared w Pt/Fam [...] 05/26/2021 10:18 EST Electronically signed by Kathia [facility] Conversion Bulb Sorter Cerner at 09/14/2022 5:40 PM CDT documented in this encounter Plan of Treatment Upcoming Encounters Date Type Department Care Team (Late st Contact Info) Description 07/29/2025 11:00 AM EST Office Visit [facility] Neurology - [facility] [address] [place] [address] Tiny Colin MD [address] [facility] [address] [place] [address] documented as of this encounter Visit Diagnoses Not on filedocumented in this encounter Care Teams First Assist Relationship Specialty Start Date End Date Justen Ceballos MD [address] [facility] [address] [facility] [employer] [facility] [facility] [place] [address] PCP - General Family Medicine 08/11/23 documented as of this encounter
--- OUTSIDE RECORDS SUMMARY | 2025-04-30 13:33 | XMS_ITS | Encounter Summary ---
Author Organization [employer] ([place], [place], [place], [place], [place]) Address [address] [place] [address] Care Team Providers Care Director Of Corporate Marketing Name Role Phone Justen Ceballos MD Primary Care Provider + [phone] Encounter Details Date Type Department Care Team (Late st Contact Info) Description 05/26/2021 Transcribed Document [facility] [place] [facility] [place] [address] ProviderHomer MD [address] [place] [address] Social History Tobacco Use Types [...] - Homer ProviderMD - 05/26/2021 3:38 PM CONSULTANT INTERN CONNIE Entered On: 05/26/2021 15:38 EST Performed [...] - 05/26/2021 15:38 EST Electronically signed by [facility], [facility] Conversion Carton Forming Machine Helper Cerner at 09/14/2022 5:36 PM CDT documented in this encounter Plan of Treatment Upcoming Encounters Date Type Department Care Team (Late st Contact Info) Description 07/29/2025 11:00 AM EST Office Visit [facility] Neurology - [facility] [address] [place] [id number] Tiny Colin MD [address] [place] [address] documented as of this encounter Visit Diagnoses Not on filedocumented in this encounter Care Teams Director Of Corporate Marketing Relationship Specialty Start Date End Date Justen Ceballos MD [address] [facility] [address] [place] [address] PCP - General Family Medicine 08/11/23 documented as of this encounter
--- OUTSIDE RECORDS SUMMARY | 2025-04-30 13:33 | XMS_ITS | Encounter Summary ---
Author Organization [employer] ([place], [place], [place], [place], [place]) Address [address] [place] [address] Care Team Providers Care Motor Scooter Repairer Name Role Phone Justen Ceballos MD Primary Care Provider + [phone] Encounter Details Date Type Department Care Team (Late st Contact Info) Description 06/03/2021 Transcribed Document [facility] [place] [address] ProviderHomer MD [address] [place], [place] [id number] Social History Tobacco Use Types Packs/Day Years [...] Homer Johnson MD - 06/03/2021 10:43 AM CERTIFIED LACTATION EDUCATOR DATE OF PROCEDURE: 06/03/2021 SURGEON: John Paul [...] in the usual fashion. I passed the 23-Albanian cystoscope with a 30-degree lens using a [...] pelvis full of contrast, I had an nursing home assistant administrator remove the nephrostomy tube. I then put the wire back through the Pollack catheter and passed a 6-Albanian variable length stent over this wire allowing the upper end curled up in the right renal pelvis and the lower end curled up in the bladder. She tolerated this procedure well and was taken back to recovery room in stable condition. /[id number] John Paul Zarco MD PER/AQ / PER / MODL /[id number] documented in this encounter Plan of Treatment Upcoming Encounters Date Type Department Care Team (Late st Contact Info) Description 07/29/2025 11:00 AM EST Office Visit [facility] Neurology - [place] [address] [place] [address] Tiny Colin MD [address] [place] [address] documented as of this encounter Visit Diagnoses Not on filedocumented in this encounter Care Teams Motor Scooter Repairer Relationship Specialty Start Date End Date Justen Ceballos MD [address] [place] [facility] [address] [place] [address] PCP - General Family Medicine 08/11/23 documented as of this encounter
--- OUTSIDE RECORDS SUMMARY | 2025-04-30 13:33 | XMS_ITS | Encounter Summary ---
Author Organization [employer] ([place], [place], [place], [place], [place]) Address [address] [place] [address] Care Team Providers Care Face Boss Name Role Phone Justen Ceballos MD Primary Care Provider + [phone] Encounter Details Date Type Department Care Team (Late st Contact Info) Description 05/26/2021 Transcribed Document [facility] [place] [address] ProviderHomer MD [address] [place] [address] Social History Tobacco Use Types [...] Note - Homer Johnson MD - 05/26/2021 3:14 PM AUTOMATION CONTROLS ENGINEER Final Discharge Planning Entered On: 05/26/2021 15:14 [...] : Yes Discharge To Care Management : Home/Residential/Correction or Self Care -01 Dilia Mendes Rn - 05/26/2021 15:14 EST Final Narrative Note Final Narrative Note : home no needs Dilia Mendes Rn - 05/26/2021 15:14 EST Electronically signed by [facility], [facility] Conversion Electric Motor Controls Assembler Cerner at 09/14/2022 5:40 PM CDT documented in this encounter Plan of Treatment Upcoming Encounters Date Type Department Care Team (Late st Contact Info) Description 07/29/2025 11:00 AM EST Office Visit [facility] Neurology - [facility] [address] [place] [address] Tiny Colin MD [address] [facility] [address] [place] [address] documented as of this encounter Visit Diagnoses Not on filedocumented in this encounter Care Teams Face Boss Relationship Specialty Start Date End Date Justen Ceballos MD [address] [facility] [address] [place] [address] PCP - General Family Medicine 08/11/23 documented as of this encounter
--- OUTSIDE RECORDS SUMMARY | 2025-04-30 13:33 | XMS_ITS | Encounter Summary ---
Author Organization [employer] ([place], [place], [place], [place], [place]) Address [address] [place] [address] Care Team Providers Care Comber Fixer Name Role Phone Justen Ceballos MD Primary Care Provider + [phone] Encounter Details Date Type Department Care Team (Late st Contact Info) Description 06/03/2021 Transcribed Document [facility] [place] [facility] [place] [address] ProviderHomer MD [address] [place] [address] Social History Tobacco Use Types [...] - Homer ProviderMD - 06/03/2021 8:35 AM OCCUPATIONAL THERAPY ASSISTANT [facility] Main OR PreOp Summary Primary Physician: ZOE JORDAN MD-URO Finalized Date/Time: 06/07/21 06:21:12 Pt. Name: LINH AMIEMARTELL Pendleton./Sex: 1985 Female Med Rec #: [id number] Physician: ZOE JORDAN MD-URO Financial #: [id number] Pt. Type: O Room/Bed: [facility]/9 Admit/Disch: 06/03/21 06:25:00 - 06/03/21 10:51:00 [place] [facility] [place] Times Entry 1 In Preop 06/03/21 06:34:00 Ready for Holding n/a Room Patient Ready for 06/03/21 07:52:00 Surgery Patient Out of Preop 06/03/21 08:17:00 Patient Out of 06/03/21 08:17:00 Holding Room Last Modified By: Manuela Saleem, Qamar 06/03/21 09:43:33 [facility] [place] Pre[place] Case Times Audit 06/03/21 09:43:33 Tape Editor: [id number] Modifier: [id number] <+> 1 Patient Out of Preop <+> 1 Patient Out of Holding Room Finalized By: Елена Cid, Constitutional Law Professor-Nursing Document Signatures Signed By: Елена Cid, Constitutional Law Professor-Nursing 06/07/21 06:21 documented in this encounter Plan of Treatment Upcoming Encounters Date Type Department Care Team (Late st Contact Info) Description 07/29/2025 11:00 AM EST Office Visit [facility] Neurology - [facility] [address] [place] [address] Tiny Colin MD [address] [place] [address] documented as of this encounter Visit Diagnoses Not on filedocumented in this encounter Care Teams Comber Fixer Relationship Specialty Start Date End Date Justen Ceballos MD [address] [facility] [address] [place] [address] PCP - General Family Medicine 08/11/23 documented as of this encounter
--- OUTSIDE RECORDS SUMMARY | 2025-04-30 13:33 | XMS_ITS | Encounter Summary ---
Author Organization [employer] ([place], [place], [place], [place], [place]) Address [address] [place] [address] Care Team Providers Care Director Medical Surgical Name Role Phone Justen Ceballos MD Primary Care Provider + [phone] Encounter Details Date Type Department Care Team (Late st Contact Info) Description 05/25/2021 Transcribed Document [facility] [place] [address] [place] [address] ProviderHomer MD [address] [place] [address] Social History Tobacco Use Types [...] - Homer ProviderMD - 05/25/2021 4:01 PM CELL ASSEMBLY PINNER PAT Adult Entered On: 05/25/2021 16:05 EST Performed On: 05/25/2021 16:01 EST by Maricruz Spicer RN Pain Assessment Pain Scale Used : 0-10 Scale Location : Flank, right Maricruz Spicer RN - 05/25/2021 16:01 EST Height and Weight, Clinical Dosing Height Source : Stated Height Entry Format : [place] Height, Feet : 5 ft(Converted to: 152 cm, 60 Inch) Height, Inches : 8 Inch(Converted to: 0 ft 8 Inch, 20.32 cm) Clinical Height : 172.72 cm Weight Source : Standing scale Weight Entry Format : [place] Clinical Dosing Weight : 70.45 kg Weight, Pounds : 155 lb Body Surface Area (BSA) : 1.84 m2 Body Mass Index : 23.6 kg/m2 [place] Body Weight : 63 kg Maricruz Spicer [...] Maricruz Spicer RN - 05/25/2021 16:01 EST [place] Suicide Severity Rating Scale (C-SSRS) CSSRS Past [...] #2 Relationship : , Primary Language : [place] Communication Barrier : None Spudder Needed : No Maricruz Spicer RN - 05/25/2021 16:01 EST Giovanni Scale Giovanni Sensory Perception : [...] Description 07/29/2025 11:00 AM EST Office Visit [facility] Neurology - [place] [address] [place] [address] Tiny Colin MD [address] [facility] [address] [place] [address] documented as of this encounter Visit Diagnoses Not on filedocumented in this encounter Care Teams Director Medical Surgical Relationship Specialty Start Date End Date Justen Ceballos MD [address] [facility] [address] [place] [address] PCP - General Family Medicine 08/11/23 documented as of this encounter
[2025-04-30 13:38] LABS: Adenovirus,PCR Not Detected (NotDetected); Chlamydophila Pneumoniae, PCR Not Detected (NotDetected); Coronavirus 19, PCR Not Detected (NotDetected); Coronovirus HKU1,PCR Not Detected (NotDetected); Influenza A, PCR Not Detected (NotDetected); Influenza AH1, 2009 Not Detected (NotDetected); Influenza AH1, PCR Not Detected (NotDetected); Influenza AH3,PCR Not Detected (NotDetected); Influenza B, PCR Not Detected (NotDetected); Mycoplasma Pneumoniae, PCR Not Detected (NotDetected); Parainfluenza 1, PCR Not Detected (NotDetected); Parainfluenza 2, PCR Not Detected (NotDetected); Parainfluenza 3, PCR Not Detected (NotDetected); Parainfluenza 4, PCR Not Detected (NotDetected)
== END 2025-04-30 23:59 | disposition home or self-care (01) ==
LOC: LAB 13:27
PROVIDERS: PCP Family Medicine; Visit Provider Nurse Practitioner
DX: R50.9 Fever, unspecified (principal)
CPT/HCPCS: 0223U